=== PATIENT | male | born 1945 | race Caucasian/White ===

== ENCOUNTER 2016-10-04 12:19 | Emergency (ER) | payer MEDICARE ==
[2016-10-04 13:18] VITALS: RESP 18
[2016-10-04] MEDS ORDERED: SODIUM CHLORIDE 0.9% 1,000 ML IV ONE ×2 (13:30)
[2016-10-04 13:38] LABS: Glucose,Whole Blood 144 mg/dL (75-99)
--- NOTE | 2016-10-04 14:15 | ED ---
General Adult HPI - General Chief complaint: Altered Mental Status Stated complaint: Sent by [facility] Time Seen by Provider: 10/04/16 13:19 Source: family, RN notes reviewed, old records reviewed Mode of arrival: wheelchair Limitations: no limitations - History of Present Illness Initial comments: This is a 71-year-old male here for evaluation. Patient is a presents for evaluation of altered mental status. Patient is unable to history secondary to altered mental status. Patient's history is obtained by . Patient's been hallucinating, not answer questions were acting appropriately. No new medications, no fevers. No nausea vomiting diarrhea. - Related Data Home Medications Medication Instructions Recorded Confirmed Saw [place] 450 mg PO TID 02/05/14 10/04/16 metFORMIN HCL 500 mg PO TID 02/05/14 10/04/16 Aspirin 81 mg PO DAILY 10/04/16 10/04/16 Atorvastatin [Lipitor] 40 mg PO DAILY 10/04/16 10/04/16 Allergies Allergy/AdvReac Type Severity Reaction Status Date / Time onion Allergy Unknown Verified 10/04/16 14:15 Review of Systems ROS Statement: Those systems with pertinent positive or pertinent negative responses have been documented in the HPI. ROS Other: All systems not noted in ROS Statement are negative. Past Medical History Past Medical History: COPD, Diabetes Mellitus, Hyperlipidemia, Hypertension History of Any Multi-Drug Resistant Organisms: None Reported Additional Past Surgical History / Comment(s): Fatty tumors removed from bilateral legs. Hydrocele. Past Anesthesia/Blood Transfusion Reactions: No Reported Reaction Past Psychological History: No Psychological Hx Reported, Anxiety Smoking Status: Current every day smoker Past Alcohol Use History: None Reported - Past Family History Father Family Medical History: COPD Additional Family Medical History / Comment(s): Pt states "His dad of chronic lung disease". General Exam Limitations: no limitations General appearance: alert, in no apparent distress Head exam: Present: atraumatic, normocephalic, normal inspection Eye exam: Present: normal appearance, PERRL, EOMI. Absent: scleral icterus, conjunctival injection, periorbital swelling ENT exam: Present: normal exam, mucous membranes moist Neck exam: Present: normal inspection. Absent: tenderness, meningismus, lymphadenopathy Respiratory exam: Present: normal lung sounds bilaterally. Absent: respiratory distress, wheezes, rales, rhonchi, stridor Cardiovascular Exam: Present: regular rate, normal rhythm, normal heart sounds. Absent: systolic murmur, diastolic murmur, rubs, gallop, clicks GI/Abdominal exam: Present: soft, normal bowel sounds. Absent: distended, tenderness, guarding, rebound, rigid Extremities exam: Present: normal inspection, full ROM, normal capillary refill. Absent: tenderness, pedal edema, joint swelling, calf tenderness Back exam: Present: normal inspection Neurological exam: Present: alert, oriented X3, CN II-XII intact Psychiatric exam: Present: normal affect, normal mood Skin exam: Present: warm, dry, intact, normal color. Absent: rash Course Vital Signs 10/04/16 13:11 Temperature 97.6 F Pulse Rate 108 H Respiratory 18 Rate Blood Pressure 131/69 O2 Sat by Pulse 98 Oximetry - Reevaluation(s) Reevaluation #1: 10/04/16 14:15 Again patient remains unable to answer questions throughout, no improvement medically at this time Reevaluation #2: 10/04/16 14:15 Patient's oxygen and remains within normal rate. Normal range. No shortness of breath for patient Reevaluation #3: 10/04/16 15:50 Homicidal and suicidal thoughts or readdress the patient he denies, patient denies psychiatric issues EKG Findings - EKG Comments: EKG Findings:: EKG shows sinus tachycardia rate 106, [place] 184, QRS 1:30, QTC 467 Medical Decision Making - Medical Decision Making Family meowed ER for evaluation of altered mental status. Patient found organic cause for altered mental status likely increasing dementia, patient will be discharged home to follow up with [facility] - Lab Data Result diagrams: 10/04/16 13:56 10/04/16 13:56 Lab Results 10/04/16 10/04/16 10/04/16 Range/Units 13:37 13:56 13:56 WBC (3.8-10.6) k/uL RBC (4.30-5.90) m/uL Hgb (13.0-17.5) gm/dL Hct (39.0-53.0) % MCV (80.0-100.0) fL MCH (25.0-35.0) pg MCHC (31.0-37.0) g/dL RDW (11.5-15.5) % Plt Count (150-450) k/uL Neutrophils % % Lymphocytes % % Monocytes % % Eosinophils % % Basophils % % Neutrophils # (1.3-7.7) k/uL Lymphocytes # (1.0-4.8) k/uL Monocytes # (0-1.0) k/uL Eosinophils # (0-0.7) k/uL Basophils # (0-0.2) k/uL PT (9.0-12.0) sec INR (<1.1) APTT (22.0-30.0) sec Sodium (137-145) mmol/L Potassium (3.5-5.1) mmol/L Chloride (98-107) mmol/L Carbon Dioxide (22-30) mmol/L Anion Gap mmol/L BUN (9-20) mg/dL Creatinine (0.66-1.25) mg/dL Est GFR (MDRD) Af Amer (>60 ml/min/1.73 sqM) Est GFR (MDRD) Non-Af (>60 ml/min/1.73 sqM) Glucose (74-99) mg/dL POC Glucose (mg/dL) 144 H (75-99) mg/dL POC Glu Inspector Fuel Hose ID Alana Christopher Calcium (8.4-10.2) mg/dL Total Bilirubin (0.2-1.3) mg/dL AST (17-59) U/L ALT (21-72) U/L Alkaline Phosphatase (38-126) U/L Ammonia <9 (<30) umol/L Total Creatine Kinase 27 L (55-170) U/L CK-MB (CK-2) 1.2 (0.0-2.4) ng/mL CK-MB (CK-2) Rel Index 4.4 Troponin I <0.012 (0.000-0.034) ng/mL Total Protein (6.3-8.2) g/dL Albumin (3.5-5.0) g/dL Urine Color Urine Appearance (Clear) Urine pH (5.0-8.0) Ur Specific [place] (1.001-1.035) Urine Protein (Negative) Urine Glucose (UA) (Negative) Urine Ketones (Negative) Urine Blood (Negative) Urine Nitrite (Negative) Urine Bilirubin (Negative) Urine Urobilinogen (<2.0) mg/dL Ur Leukocyte Esterase (Negative) Urine RBC (0-5) /hpf Ur Squamous Epith Cells (0-4) /hpf Urine Bacteria (None) /hpf Hyaline Casts (0-2) /lpf Urine Mucus (None) /hpf Urine Yeast (Budding) (None) /hpf Urine Opiates Screen (NotDetected) Ur Oxycodone Screen (NotDetected) Urine Methadone Screen (NotDetected) Ur Propoxyphene Screen (NotDetected) Ur Barbiturates Screen (NotDetected) U Tricyclic Antidepress (NotDetected) Ur Phencyclidine Scrn (NotDetected) Ur Amphetamines Screen (NotDetected) U Methamphetamines Scrn (NotDetected) U Benzodiazepines Scrn (NotDetected) Urine Cocaine Screen (NotDetected) U Marijuana (THC) Screen (NotDetected) 10/04/16 10/04/16 10/04/16 Range/Units 13:56 13:56 13:56 WBC 7.7 (3.8-10.6) k/uL RBC 4.96 (4.30-5.90) m/uL Hgb 14.1 (13.0-17.5) gm/dL Hct 42.1 (39.0-53.0) % MCV 85.0 (80.0-100.0) fL MCH 28.5 (25.0-35.0) pg MCHC 33.6 (31.0-37.0) g/dL RDW 13.8 (11.5-15.5) % Plt Count 198 (150-450) k/uL Neutrophils % 76 % Lymphocytes % 16 % Monocytes % 5 % Eosinophils % 2 % Basophils % 0 % Neutrophils # 5.9 (1.3-7.7) k/uL Lymphocytes # 1.3 (1.0-4.8) k/uL Monocytes # 0.4 (0-1.0) k/uL Eosinophils # 0.1 (0-0.7) k/uL Basophils # 0.0 (0-0.2) k/uL PT 10.2 (9.0-12.0) sec INR 1.0 (<1.1) APTT 21.9 L (22.0-30.0) sec Sodium 138 (137-145) mmol/L Potassium 4.6 (3.5-5.1) mmol/L Chloride 91 L (98-107) mmol/L Carbon Dioxide 41 H* (22-30) mmol/L Anion Gap 6 mmol/L BUN 14 (9-20) mg/dL Creatinine 0.60 L (0.66-1.25) mg/dL Est GFR (MDRD) Af Amer >60 (>60 ml/min/1.73 sqM) Est GFR (MDRD) Non-Af >60 (>60 ml/min/1.73 sqM) Glucose 155 H (74-99) mg/dL POC Glucose (mg/dL) (75-99) mg/dL POC Glu Inspector Fuel Hose ID Calcium 9.5 (8.4-10.2) mg/dL Total Bilirubin 1.0 (0.2-1.3) mg/dL AST 19 (17-59) U/L ALT 25 (21-72) U/L Alkaline Phosphatase 75 (38-126) U/L Ammonia (<30) umol/L Total Creatine Kinase (55-170) U/L CK-MB (CK-2) (0.0-2.4) ng/mL CK-MB (CK-2) Rel Index Troponin I (0.000-0.034) ng/mL Total Protein 7.0 (6.3-8.2) g/dL Albumin 3.9 (3.5-5.0) g/dL Urine Color Urine Appearance (Clear) Urine pH (5.0-8.0) Ur Specific [place] (1.001-1.035) Urine Protein (Negative) Urine Glucose (UA) (Negative) Urine Ketones (Negative) Urine Blood (Negative) Urine Nitrite (Negative) Urine Bilirubin (Negative) Urine Urobilinogen (<2.0) mg/dL Ur Leukocyte Esterase (Negative) Urine RBC (0-5) /hpf Ur Squamous Epith Cells (0-4) /hpf Urine Bacteria (None) /hpf Hyaline Casts (0-2) /lpf Urine Mucus (None) /hpf Urine Yeast (Budding) (None) /hpf Urine Opiates Screen (NotDetected) Ur Oxycodone Screen (NotDetected) Urine Methadone Screen (NotDetected) Ur Propoxyphene Screen (NotDetected) Ur Barbiturates Screen (NotDetected) U Tricyclic Antidepress (NotDetected) Ur Phencyclidine Scrn (NotDetected) Ur Amphetamines Screen (NotDetected) U Methamphetamines Scrn (NotDetected) U Benzodiazepines Scrn (NotDetected) Urine Cocaine Screen (NotDetected) U Marijuana (THC) Screen (NotDetected) 10/04/16 Range/Units 14:35 WBC (3.8-10.6) k/uL RBC (4.30-5.90) m/uL Hgb (13.0-17.5) gm/dL Hct (39.0-53.0) % MCV (80.0-100.0) fL MCH (25.0-35.0) pg MCHC (31.0-37.0) g/dL RDW (11.5-15.5) % Plt Count (150-450) k/uL Neutrophils % % Lymphocytes % % Monocytes % % Eosinophils % % Basophils % % Neutrophils # (1.3-7.7) k/uL Lymphocytes # (1.0-4.8) k/uL Monocytes # (0-1.0) k/uL Eosinophils # (0-0.7) k/uL Basophils # (0-0.2) k/uL PT (9.0-12.0) sec INR (<1.1) APTT (22.0-30.0) sec Sodium (137-145) mmol/L Potassium (3.5-5.1) mmol/L Chloride (98-107) mmol/L Carbon Dioxide (22-30) mmol/L Anion Gap mmol/L BUN (9-20) mg/dL Creatinine (0.66-1.25) mg/dL Est GFR (MDRD) Af Amer (>60 ml/min/1.73 sqM) Est GFR (MDRD) Non-Af (>60 ml/min/1.73 sqM) Glucose (74-99) mg/dL POC Glucose (mg/dL) (75-99) mg/dL POC Glu Inspector Fuel Hose ID Calcium (8.4-10.2) mg/dL Total Bilirubin (0.2-1.3) mg/dL AST (17-59) U/L ALT (21-72) U/L Alkaline Phosphatase (38-126) U/L Ammonia (<30) umol/L Total Creatine Kinase (55-170) U/L CK-MB (CK-2) (0.0-2.4) ng/mL CK-MB (CK-2) Rel Index Troponin I (0.000-0.034) ng/mL Total Protein (6.3-8.2) g/dL Albumin (3.5-5.0) g/dL Urine Color Yellow Urine Appearance Turbid (Clear) Urine pH 8.5 H (5.0-8.0) Ur Specific [place] 1.015 (1.001-1.035) Urine Protein Trace H (Negative) Urine Glucose (UA) 3+ H (Negative) Urine Ketones Negative (Negative) Urine Blood Trace H (Negative) Urine Nitrite Negative (Negative) Urine Bilirubin Negative (Negative) Urine Urobilinogen 3.0 (<2.0) mg/dL Ur Leukocyte Esterase Trace H (Negative) Urine RBC 21 H (0-5) /hpf Ur Squamous Epith Cells 1 (0-4) /hpf Urine Bacteria Rare H (None) /hpf Hyaline Casts 4 H (0-2) /lpf Urine Mucus Few H (None) /hpf Urine Yeast (Budding) Many H (None) /hpf Urine Opiates Screen Not Detected (NotDetected) Ur Oxycodone Screen Not Detected (NotDetected) Urine Methadone Screen Not Detected (NotDetected) Ur Propoxyphene Screen Not Detected (NotDetected) Ur Barbiturates Screen Not Detected (NotDetected) U Tricyclic Antidepress Not Detected (NotDetected) Ur Phencyclidine Scrn Not Detected (NotDetected) Ur Amphetamines Screen Not Detected (NotDetected) U Methamphetamines Scrn Not Detected (NotDetected) U Benzodiazepines Scrn Not Detected (NotDetected) Urine Cocaine Screen Not Detected (NotDetected) U Marijuana (THC) Screen Not Detected (NotDetected) - Radiology Data Radiology results: report reviewed (CT brain is negative for acute disease), image reviewed Disposition Clinical Impression: Altered mental status, COPD exacerbation Disposition: HOME SELF-CARE Condition: Fair Instructions: Altered Mental Status (ED) Referrals: Ciro Hanna DO [Primary Care Provider] - 1-2 days
[2016-10-04 14:16] LABS: Basophils % (A) 0 %; CHCM 33.1; Eosinophils # (A) 0.1 k/uL (0-0.7); Eosinophils % (A) 2 %; HCT 42.1 % (39.0-53.0); HDW 3.04; HGB 14.1 gm/dL (13.0-17.5); Luc # (Auto) 0.09; Luc % (Auto) 1; Lymphocytes # (A) 1.3 k/uL (1.0-4.8); Lymphocytes % (A) 16 %; MCH 28.5 pg (25.0-35.0); MCHC 33.6 g/dL (31.0-37.0); Monocytes # (A) 0.4 k/uL (0-1.0); Monocytes % (A) 5 %; Neutrophils # (A) 5.9 k/uL (1.3-7.7); Neutrophils % (A) 76 %; RBC 4.96 m/uL (4.30-5.90); RDW 13.8 % (11.5-15.5); WBC 7.7 k/uL (3.8-10.6); WBC (Perox) 7.66
[2016-10-04 14:25] LABS: Partial Thromboplastin Time 21.9 sec (22.0-30.0); Prothrombin Time 10.2 sec (9.0-12.0)
[2016-10-04 14:35] LABS: ALT 25 U/L (21-72); AST 19 U/L (17-59); Alkaline Phosphatase 75 U/L (38-126); Blood Urea Nitrogen 14 mg/dL (9-20); Calcium 9.5 mg/dL (8.4-10.2); Chloride 91 mmol/L (98-107); Glucose 155 mg/dL (74-99); Non-African American GFR(MDRD) >60 (>60 ml/min/1.73 sqM); Potassium 4.6 mmol/L (3.5-5.1); Sodium 138 mmol/L (137-145)
[2016-10-04 14:37] LABS: Creatine Kinase 27 U/L (55-170)
[2016-10-04 14:48] LABS: Anion Gap 6 mmol/L
[2016-10-04 14:50] LABS: Creatine Kinase MB 1.2 ng/mL (0.0-2.4); Troponin I <0.012 ng/mL (0.000-0.034)
[2016-10-04 14:53] LABS: Carbon Dioxide 41 mmol/L (22-30)
[2016-10-04 14:53] LABS: Appearance,Urine Turbid (Clear); Bacteria,Urine Rare /hpf; Bilirubin,Urine Negative (Negative); Glucose,Urine (UA) 3+ (Negative); Ketones,Urine Negative (Negative); Leukocyte Esterase,Urine Trace (Negative); Mucus,Urine Few /hpf; Nitrite,Urine Negative (Negative); PH, Urine 8.5 (5.0-8.0); Particle Count 21348; Protein,Urine Trace (Negative); RBC,Urine 21 /hpf (0-5); Specific Gravity,Urine 1.015 (1.001-1.035); Squamous Epithelial Cell,Urine 1 /hpf (0-4); UA Billing (MACRO vs. MICRO) MICRO
--- NOTE | 2016-10-04 15:28 | CT ---
EXAMINATION TYPE: CT brain wo con DATE OF EXAM: 10/04/2016 3:23 PM COMPARISON: None. HISTORY: Patient poor historian. Patient shows signs of increasing confusion. CT DLP: 784.1 mGycm Automated exposure control for dose reduction was used. FINDINGS: Central structures are midline. There is no evidence of hydrocephalus. No acute focal lesion, mass ef fect or midline shift is seen. I do not see evidence of intracranial blood. Visualized portions of the paranasal sinuses and mastoids are clear. No depressed skull fracture is s een. IMPRESSION: NO ACUTE INTRACRANIAL ABNORMALITY.
[2016-10-04 16:05] VITALS: BP 137/95; PULSE 115; TEMP 97.7
== END 2016-10-04 16:05 | disposition home or self-care (01) ==
LOC: EC 12:19
DX: R41.82 Altered mental status, unspecified (principal); J44.1 Chronic obstructive pulmonary disease with (acute) exacerbation; E11.9 Type 2 diabetes mellitus without complications; E78.5 Hyperlipidemia, unspecified; I10 Essential (primary) hypertension; F17.200 Nicotine dependence, unspecified, uncomplicated; Z79.82 Long term (current) use of aspirin; Z79.84 Long term (current) use of oral hypoglycemic drugs; Z79.899 Other long term (current) drug therapy; Z91.048 Other nonmedicinal substance allergy status
CPT/HCPCS: 36415; 70450; 80053; 80306; 81001; 82140; 82550; 82553; 84484; 85025; 85610; 85730; 87086; 93005; 96360; 96361; 99285

== ENCOUNTER → 2017-05-17 | Outpatient (CLI) | payer OTHER ==
--- NOTE | 2017-05-17 22:36 | PE ---
EXAMINATION TYPE: PET CT fusion skull to thigh DATE OF EXAM: 05/17/2017 COMPARISON: Outside CT chest abdomen and pelvis March 31, 2017 HISTORY: Rectal cancer initial staging study after recent biopsy. TECHNIQUE: Following the intravenous administration of 14.47 mCi of F-18 FDG, whole body images are performed from the skull base to the midthigh. Images are reviewed on the computer in the coronal, a xial, and sagittal planes. Reconstructed rotating images are created on independent workstation and reviewed on the computer. A noncontrast CT is performed in conjunction with the PET scan. SCAN: Initial Scan FINDINGS: SKULL BASE AND NECK: No suspicious hypermetabolic uptake is present. CHEST, MEDIASTINUM, AND HILAR REGION: No suspicious hypermetabolic uptake is present. ABDOMEN AND PELVIS: Correlating with patient history there is mild to moderate lobulated wall thicken ing involving the posterior aspect of rectum posterior to prostate gland extending to right of midlin e on axial image 229, max SUV is 18.95 per computer. This may be inaccurate due to patient's large gerald dy habitus however. Area of involvement measures roughly 3.8 x 1.5 cm. There is additional mild to moderate diffuse hypermetabolic uptake throughout the colon most prominen t involving the transverse colon without obvious mass identified. Finding should be correlated with r ecent colonoscopy. There is nonhypermetabolic 4.8 x 2.0 cm fat dense lesion suspected eccentric colon ic lipoma axial image 145. Scattered colonic diverticula are present. No additional areas suspicious hypermetabolic uptake in the abdomen or pelvis is seen. Normal excreti on in bladder is noted. OSSEOUS STRUCTURES: No suspicious hypermetabolic uptake in osseous structures is identified. OTHER CT: There is moderate calcified plaque at bilateral carotid bulbs. There is fairly moderate emphysematous change most prominent in lung apices. There is lipomatous hypertrophy of the interarterial septum. Heart size is felt mildly enlarged. There is dependent gallstones in gallbladder axial image 150. There are adjacent small calculi mid to lower pole level right kidney near axial 168 and staghorn typ e calculus left kidney redemonstrated near axial image 162. Prostate gland is enlarged in size bulging on bladder base, underlying BPH is suspected, correlate cl inically. There is redundant sigmoid colon. There is multilevel facet arthropathy lower lumbar levels. There is multilevel spurring in the thorac olumbar spine. There is fairly moderate calcified plaque of aorta extending into branch vessels. IMPRESSION: Primary rectal carcinoma without convincing evidence for metastatic disease.
== END | disposition home or self-care (01) ==
LOC: RADPETMAIN 12:49
PROVIDERS: ATTEND Internal Medicine Hematology & Oncology
DX: C20 Malignant neoplasm of rectum (principal); Z00.00 Encounter for general adult medical examination without abnormal findings
CPT/HCPCS: 78815; A9552

== ENCOUNTER 2017-07-07 18:00 | Inpatient (IN) | payer OTHER, MEDICARE ==
--- NOTE | 2017-07-07 18:58 | ED ---
General Adult HPI - General Chief complaint: Urogenital Stated complaint: MALE Time Seen by Provider: 07/07/17 18:00 Source: patient, RN notes reviewed Mode of arrival: wheelchair Limitations: physical limitation - History of Present Illness Initial comments: This is a 72-year-old male presents emergency Department with a past medical history significant for rectal cancer. Patient states she's received radiation for that. Patient states over the last week or so he is become more edematous starting with his feet and ankles and it is moved up into his abdomen and his scrotum. Patient denies any more difficulty breathing than normal. Patient states she has a COPD or but he doesn't believe this shortness of breath is any worsening normal. states he always gets down into the 80s when he has any exertion that is his baseline. Patient denies any abdominal pain just abdominal distention. Patient states he has urinated and there has not been any blood in the urine is been no dysuria. Patient denies any nausea vomiting or diarrhea. Patient denies any back pain. Patient denies any chest pain or difficulty breathing worsen normal. Denies any recent fever chills - Related Data Home Medications Medication Instructions Recorded Confirmed Saw [place] 450 mg PO TID 02/05/14 10/04/16 metFORMIN HCL 500 mg PO TID 02/05/14 10/04/16 Aspirin 81 mg PO DAILY 10/04/16 10/04/16 Atorvastatin [Lipitor] 40 mg PO DAILY 10/04/16 10/04/16 Allergies Allergy/AdvReac Type Severity Reaction Status Date / Time onion Allergy Unknown Verified 07/07/17 18:02 Review of Systems ROS Statement: Those systems with pertinent positive or pertinent negative responses have been documented in the HPI. ROS Other: All systems not noted in ROS Statement are negative. Past Medical History Past Medical History: Cancer, COPD, Diabetes Mellitus, Hyperlipidemia, Hypertension Additional Past Medical History / Comment(s): rectal cancer History of Any Multi-Drug Resistant Organisms: None Reported Additional Past Surgical History / Comment(s): Fatty tumors removed from bilateral legs. Hydrocele. Past Anesthesia/Blood Transfusion Reactions: No Reported Reaction Past Psychological History: No Psychological Hx Reported, Anxiety Smoking Status: Current every day smoker Past Alcohol Use History: None Reported - Past Family History Father Family Medical History: COPD Additional Family Medical History / Comment(s): Pt states "His dad of chronic lung disease". General Exam - General Exam Comments Initial Comments: GENERAL: Patient is well-developed and well-nourished. Patient is nontoxic and well- hydrated and is in mild distress. ENT: Neck is soft and supple. No significant lymphadenopathy is noted. Oropharynx is clear. Moist mucous membranes. Neck has full range of motion without eliciting any pain. EYES: The sclera were anicteric and conjunctiva were pink and moist. Extraocular movements were intact and pupils were equal round and reactive to light. Eyelids were unremarkable. PULMONARY: Unlabored respirations. Good breath sounds bilaterally. No audible rales rhonchi or wheezing was noted. CARDIOVASCULAR: There is a regular rate and rhythm without any murmurs gallops or rubs. ABDOMEN: Soft and nontender with normal bowel sounds. Patient's lower abdomen has some edema and does appear distended. SKIN: Skin is clear with no lesions or rashes and otherwise unremarkable. NEUROLOGIC: Patient is alert and oriented x3. Cranial nerves II through XII are grossly intact. Motor and sensory are also intact. Normal speech, volume and content. Symmetrical smile. MUSCULOSKELETAL: Normal extremities with adequate strength and full range of motion. Patient has bilateral edema up into the abdomen. Patient's scrotum also is edematous. LYMPHATICS: No significant lymphadenopathy is noted PSYCHIATRIC: Normal psychiatric evaluation. Limitations: physical limitation Course Vital Signs 07/07/17 07/07/17 07/07/17 18:02 19:23 19:32 Temperature 97.1 F L Pulse Rate 112 H 110 H 109 H Respiratory 20 18 Rate Blood Pressure 184/85 143/69 157/74 O2 Sat by Pulse 89 L 98 97 Oximetry 07/07/17 07/07/17 20:00 21:21 Temperature Pulse Rate 115 H 111 H Respiratory 18 20 Rate Blood Pressure 144/71 140/69 O2 Sat by Pulse 98 99 Oximetry Medical Decision Making - Medical Decision Making Patient had a [place]ver catheter placed any head 3.5 L of urine out initially we did not clamp him off because that we will be keeping him and monitoring his electrolytes and his blood pressure. I spoke with Dr. Dill he is in agreement. Patient's EKG showed a indeterminate rhythm at a rate of 153 bpm IA interval is 102 QRSs 120 QT is 174 QTC is 277. EKG is of poor quality. - Lab Data Result diagrams: 07/07/17 18:58 18 18:58 Lab Results 07/07/1718 18 Range/Units 18:58 18:58 18:58 WBC 6.8 (3.8-10.6) k/uL RBC 4.21 L (4.30-5.90) m/uL Hgb 9.2 L (13.0-17.5) gm/dL Hct 33.0 L (39.0-53.0) % MCV 78.2 L (80.0-100.0) fL MCH 21.9 L (25.0-35.0) pg MCHC 28.0 L (31.0-37.0) g/dL RDW 18.1 H (11.5-15.5) % Plt Count 252 (150-450) k/uL Neutrophils % 78 % Lymphocytes % 12 % Monocytes % 6 % Eosinophils % 2 % Basophils % 1 % Neutrophils # 5.4 (1.3-7.7) k/uL Lymphocytes # 0.8 L (1.0-4.8) k/uL Monocytes # 0.4 (0-1.0) k/uL Eosinophils # 0.1 (0-0.7) k/uL Basophils # 0.0 (0-0.2) k/uL Hypochromasia Marked Anisocytosis Slight Microcytosis Slight Sodium 146 H (137-145) mmol/L Potassium 3.7 (3.5-5.1) mmol/L Chloride 93 L (98-107) mmol/L Carbon Dioxide 43 H* (22-30) mmol/L Anion Gap 10 mmol/L BUN 13 (9-20) mg/dL Creatinine 1.01 (0.66-1.25) mg/dL Est GFR (MDRD) Af Amer >60 (>60 ml/min/1.73 sqM) Est GFR (MDRD) Non-Af >60 (>60 ml/min/1.73 sqM) Glucose 139 H (74-99) mg/dL Calcium 9.0 (8.4-10.2) mg/dL Magnesium 1.5 L (1.6-2.3) mg/dL Total Bilirubin 0.3 (0.2-1.3) mg/dL AST 21 (17-59) U/L ALT 18 L (21-72) U/L Alkaline Phosphatase 67 (38-126) U/L Total Creatine Kinase (55-170) U/L CK-MB (CK-2) (0.0-2.4) ng/mL CK-MB (CK-2) Rel Index Troponin I (0.000-0.034) ng/mL NT-Pro-B Natriuret Pep 1820 pg/mL Total Protein 6.5 (6.3-8.2) g/dL Albumin 3.5 (3.5-5.0) g/dL Urine Color Urine Appearance (Clear) Urine pH (5.0-8.0) Ur Specific [place] (1.001-1.035) Urine Protein (Negative) Urine Glucose (UA) (Negative) Urine Ketones (Negative) Urine Blood (Negative) Urine Nitrite (Negative) Urine Bilirubin (Negative) Urine Urobilinogen (<2.0) mg/dL Ur Leukocyte Esterase (Negative) Urine RBC (0-5) /hpf Urine WBC (0-5) /hpf Urine Bacteria (None) /hpf 07/07/17 07/07/17 Range/Units 18:58 19:21 WBC (3.8-10.6) k/uL RBC (4.30-5.90) m/uL Hgb (13.0-17.5) gm/dL Hct (39.0-53.0) % MCV (80.0-100.0) fL MCH (25.0-35.0) pg MCHC (31.0-37.0) g/dL RDW (11.5-15.5) % Plt Count (150-450) k/uL Neutrophils % % Lymphocytes % % Monocytes % % Eosinophils % % Basophils % % Neutrophils # (1.3-7.7) k/uL Lymphocytes # (1.0-4.8) k/uL Monocytes # (0-1.0) k/uL Eosinophils # (0-0.7) k/uL Basophils # (0-0.2) k/uL Hypochromasia Anisocytosis Microcytosis Sodium (137-145) mmol/L Potassium (3.5-5.1) mmol/L Chloride (98-107) mmol/L Carbon Dioxide (22-30) mmol/L Anion Gap mmol/L BUN (9-20) mg/dL Creatinine (0.66-1.25) mg/dL Est GFR (MDRD) Af Amer (>60 ml/min/1.73 sqM) Est GFR (MDRD) Non-Af (>60 ml/min/1.73 sqM) Glucose (74-99) mg/dL Calcium (8.4-10.2) mg/dL Magnesium (1.6-2.3) mg/dL Total Bilirubin (0.2-1.3) mg/dL AST (17-59) U/L ALT (21-72) U/L Alkaline Phosphatase (38-126) U/L Total Creatine Kinase 33 L (55-170) U/L CK-MB (CK-2) 0.6 (0.0-2.4) ng/mL CK-MB (CK-2) Rel Index 1.8 Troponin I 0.014 (0.000-0.034) ng/mL NT-Pro-B Natriuret Pep pg/mL Total Protein (6.3-8.2) g/dL Albumin (3.5-5.0) g/dL Urine Color Yellow Urine Appearance Clear (Clear) Urine pH 8.0 (5.0-8.0) Ur Specific [place] 1.006 (1.001-1.035) Urine Protein Negative (Negative) Urine Glucose (UA) Negative (Negative) Urine Ketones Negative (Negative) Urine Blood Small H (Negative) Urine Nitrite Negative (Negative) Urine Bilirubin Negative (Negative) Urine Urobilinogen <2.0 (<2.0) mg/dL Ur Leukocyte Esterase Negative (Negative) Urine RBC 21 H (0-5) /hpf Urine WBC 7 H (0-5) /hpf Urine Bacteria Rare H (None) /hpf Disposition Clinical Impression: Anasarca, Urinary retention, Anemia Disposition: ADMITTED IP TO THIS [facility] Referrals: [facility] [Primary Care Provider] - 1-2 days Time of Disposition: 21:17
[2017-07-07 19:13] LABS: Anisocytosis Slight; Basophils % (A) 1 %; Eosinophils # (A) 0.1 k/uL (0-0.7); Eosinophils % (A) 2 %; HGB 9.2 gm/dL (13.0-17.5); Hypochromasia Marked; Lymphocytes # (A) 0.8 k/uL (1.0-4.8); Lymphocytes % (A) 12 %; MCH 21.9 pg (25.0-35.0); MCV 78.2 fL (80.0-100.0); Microcytosis Slight; Monocytes # (A) 0.4 k/uL (0-1.0); Monocytes % (A) 6 %; Neutrophils # (A) 5.4 k/uL (1.3-7.7); Neutrophils % (A) 78 %; Platelet Count 252 k/uL (150-450); RBC 4.21 m/uL (4.30-5.90); RDW 18.1 % (11.5-15.5); WBC 6.8 k/uL (3.8-10.6)
[2017-07-07 19:22] LABS: ALT 18 U/L (21-72); AST 21 U/L (17-59); Albumin 3.5 g/dL (3.5-5.0); Alkaline Phosphatase 67 U/L (38-126); Blood Urea Nitrogen 13 mg/dL (9-20); Chloride 93 mmol/L (98-107); Glucose 139 mg/dL (74-99); Potassium 3.7 mmol/L (3.5-5.1); Sodium 146 mmol/L (137-145); Total Bilirubin 0.3 mg/dL (0.2-1.3); Total Protein 6.5 g/dL (6.3-8.2)
[2017-07-07 19:28] LABS: Anion Gap 10 mmol/L
[2017-07-07 19:37] LABS: Carbon Dioxide 43 mmol/L (22-30)
[2017-07-07 19:43] LABS: Appearance,Urine Clear (Clear); Bacteria,Urine Rare /hpf; Bilirubin,Urine Negative (Negative); Blood,Urine Small (Negative); Color,Urine Yellow; Glucose,Urine (UA) Negative (Negative); Ketones,Urine Negative (Negative); Leukocyte Esterase,Urine Negative (Negative); Protein,Urine Negative (Negative); RBC,Urine 21 /hpf (0-5); Specific Gravity,Urine 1.006 (1.001-1.035); Urobilinogen,Urine <2.0 mg/dL (<2.0); WBC,Urine 7 /hpf (0-5)
[2017-07-07 19:46] LABS: Creatine Kinase MB 0.6 ng/mL (0.0-2.4); Troponin I 0.014 ng/mL (0.000-0.034)
--- NOTE | 2017-07-07 20:10 | XR ---
EXAMINATION TYPE: XR chest 2V DATE OF EXAM: 07/07/2017 COMPARISON: 02/09/2014 HISTORY: Difficulty breathing TECHNIQUE: Frontal and lateral views of the chest are obtained. FINDINGS: There is increased patchy density in the left upper lobe and also some more coalescent den sity in the right lower lobe. There is no gross heart failure. There is slight blunting of left costo phrenic angle. There is probably infiltrate in the left lower lobe as well. IMPRESSION: Bilateral pulmonary infiltrates with left pleural effusion. No gross heart failure. Pulm onary infiltrates are mostly new compared to last exam. Mild heart failure cannot be entirely exclude d.
[2017-07-07 21:48] LABS: Anisocytosis Slight; Basophils % (A) 0 %; Eosinophils # (A) 0.2 k/uL (0-0.7); Eosinophils % (A) 2 %; HCT 31.4 % (39.0-53.0); HGB 8.8 gm/dL (13.0-17.5); Hypochromasia Marked; Lymphocytes # (A) 0.9 k/uL (1.0-4.8); Lymphocytes % (A) 11 %; MCH 21.8 pg (25.0-35.0); MCV 77.8 fL (80.0-100.0); Mean Platelet Volume 6.2; Microcytosis Slight; Monocytes # (A) 0.5 k/uL (0-1.0); Monocytes % (A) 6 %; Neutrophils % (A) 79 %; Platelet Count 218 k/uL (150-450); RBC 4.04 m/uL (4.30-5.90); RDW 17.9 % (11.5-15.5); WBC 7.6 k/uL (3.8-10.6)
[2017-07-08] MEDS ORDERED: FUROSEMIDE 10 MG/ML 2 ML VIAL IV ONE (02:10)
[2017-07-08 03:16] VITALS: BMI 41.8
[2017-07-08] MEDS: ALPRAZolam 0.25 MG TAB PO SCH ×4 (03:29→20:42)
[2017-07-08 05:40] LABS: Anisocytosis Slight; Basophils # (A) 0.1 k/uL (0-0.2); Basophils % (A) 1 %; Eosinophils # (A) 0.1 k/uL (0-0.7); Eosinophils % (A) 3 %; HCT 30.2 % (39.0-53.0); HGB 8.5 gm/dL (13.0-17.5); Hypochromasia Marked; Lymphocytes # (A) 0.7 k/uL (1.0-4.8); Lymphocytes % (A) 13 %; MCHC 28.1 g/dL (31.0-37.0); MCV 78.4 fL (80.0-100.0); Mean Platelet Volume 6.8; Microcytosis Slight; Monocytes # (A) 0.4 k/uL (0-1.0); Monocytes % (A) 7 %; Neutrophils # (A) 4.1 k/uL (1.3-7.7); Neutrophils % (A) 76 %; Platelet Count 203 k/uL (150-450); RBC 3.85 m/uL (4.30-5.90); RDW 17.9 % (11.5-15.5); WBC 5.4 k/uL (3.8-10.6)
[2017-07-08 06:03] LABS: Glucose,Whole Blood 118 mg/dL (75-99)
[2017-07-08] MEDS: INSULIN ASPART 100 UNIT/ML 1 ML 10 ML VIAL SQ SCH ×4 (06:27→21:20)
[2017-07-08] MEDS: METOPROLOL TARTRATE 25 MG TAB PO SCH ×3 (08:02→20:43)
[2017-07-08] MEDS: ACETAMINOPHEN TAB 500 MG TAB PO SCH ×2 (08:02→20:43)
[2017-07-08 08:03] LABS: ALT 26 U/L (21-72); AST 19 U/L (17-59); Albumin 2.9 g/dL (3.5-5.0); Alkaline Phosphatase 58 U/L (38-126); Blood Urea Nitrogen 11 mg/dL (9-20); Calcium 8.7 mg/dL (8.4-10.2); Chloride 96 mmol/L (98-107); Glucose 119 mg/dL (74-99); Potassium 3.4 mmol/L (3.5-5.1); Sodium 145 mmol/L (137-145); Total Bilirubin 0.3 mg/dL (0.2-1.3); Total Protein 5.7 g/dL (6.3-8.2)
[2017-07-08 08:10] LABS: Anion Gap 3 mmol/L
[2017-07-08 08:13] LABS: Carbon Dioxide 46 mmol/L (22-30)
[2017-07-08] MEDS ORDERED: ALBUTEROL NEBULIZED 2.5 MG/3 ML INHALATION SCH (09:00)
[2017-07-08] MEDS ORDERED: ALPRAZolam 0.25 MG TAB PO SCH (09:00)
[2017-07-08] MEDS ORDERED: Magnesium Replacement Protocol 1 EACH MISC MISCELLANE PRN (09:33)
[2017-07-08] MEDS ORDERED: Potassium Replacement Protocol 1 EACH MISC MISCELLANE PRN (09:33)
[2017-07-08] MEDS: POTASSIUM CHLORIDE ER 20 MEQ TAB.ER PO SCH ×4 (10:20→18:27)
[2017-07-08] MEDS: MAGNESIUM SULFATE-D5W PMX 1 GM in DEXTROSE/WATER 1 100ML.BAG IVPB SCH ×2 (10:36→13:09)
[2017-07-08 11:17] LABS: Glucose,Whole Blood 158 mg/dL (75-99)
--- NOTE | 2017-07-08 12:34 | P.GSCN ---
History of Present Illness Consult date: 07/08/17 History of present illness: The patient is a 72-year-old gentleman who came in the hospital because of weakness, leg swelling and difficulty with urination. The patient has a relatively recent history of rectal carcinoma treated with radiation in the fall of 2016. He states ever since his rectal biopsy and radiation he has had problems urinating. In the last couple weeks he describes what it sounds like overflow urinary incontinence. He was catheterized for a 3500 mL urine residual. His creatinine was normal at 1. He was anemic at 9.2. Her asked to see the patient for urine retention. He has seen in the past. Prior to all his problems he states that he didn't have any problem with urination including infections incontinence or difficulties. Since the radiation however he has had the difficulty with urination. Review of Systems - Constitutional Reports anorexia, Reports fatigue - Respiratory Reports dyspnea - Genitourinary Reports as per HPI - Musculoskeletal bilateral: ankle swelling Past Medical History Past Medical History: Cancer, COPD, Diabetes Mellitus, Hyperlipidemia, Hypertension Additional Past Medical History / Comment(s): rectal cancer History of Any Multi-Drug Resistant Organisms: None Reported Additional Past Surgical History / Comment(s): Fatty tumors removed from bilateral legs. Hydrocele. Past Anesthesia/Blood Transfusion Reactions: No Reported Reaction Past Psychological History: No Psychological Hx Reported, Anxiety Smoking Status: Former smoker Past Alcohol Use History: None Reported - Past Family History Father Family Medical History: COPD Additional Family Medical History / Comment(s): Pt states "His dad of chronic lung disease". Medications and Allergies Home Medications Medication Instructions Recorded Confirmed Type metFORMIN HCL 500 mg PO TID 02/05/14 07/07/17 History ALPRAZolam [Xanax] 0.25 mg PO TID 07/07/17 07/07/17 History Acetaminophen [Tylenol Extra 500 mg PO BID 07/07/17 07/07/17 History Strength] Albuterol Nebulized [Ventolin 2.5 mg INHALATION BID 07/07/17 07/07/17 History Nebulized] Metoprolol Tartrate [Lopressor] 25 mg PO TID 07/07/17 07/07/17 History Allergies Allergy/AdvReac Type Severity Reaction Status Date / Time onion Allergy Unknown Verified 07/07/17 22:07 Surgical - Exam Vital Signs Temp Pulse Resp BP Pulse Ox 97.1 F L 112 H 20 184/85 89 L 07/07/17 18:02 07/07/17 18:02 07/07/17 18:02 07/07/17 18:02 07/07/17 18:02 - General moderate distress, obese - Eyes PERRL - ENT no hearing loss - Neck no masses, trachea midline - Respiratory normal expansion, normal respiratory effort - Cardiovascular Rhythm: regular - Abdomen Abdomen: soft, non tender - Genitourinary He has an indwelling catheter. He is uncircumcised. The scrotum is somewhat edematous. Rectal is deferred due to the recent radiation. - Integumentary no rash, no growths - Neurologic normal coordination, normal sensation - Musculoskeletal normal posture - Psychiatric oriented to time, oriented to person, oriented to place, speech is normal, memory intact Results - Labs 07/08/17 05:24 07/08/17 05:24 Abnormal Lab Results - Last 24 Hours (Table) 07/07/17 07/07/17 07/07/17 Range/Units 18:58 18:58 18:58 RBC 4.21 L (4.30-5.90) m/uL Hgb 9.2 L (13.0-17.5) gm/dL Hct 33.0 L (39.0-53.0) % MCV 78.2 L (80.0-100.0) fL MCH 21.9 L (25.0-35.0) pg MCHC 28.0 L (31.0-37.0) g/dL RDW 18.1 H (11.5-15.5) % Lymphocytes # 0.8 L (1.0-4.8) k/uL Sodium 146 H (137-145) mmol/L Potassium (3.5-5.1) mmol/L Chloride 93 L (98-107) mmol/L Carbon Dioxide 43 H* (22-30) mmol/L Glucose 139 H (74-99) mg/dL POC Glucose (mg/dL) (75-99) mg/dL Magnesium 1.5 L (1.6-2.3) mg/dL ALT 18 L (21-72) U/L Total Creatine Kinase 33 L (55-170) U/L Total Protein (6.3-8.2) g/dL Albumin (3.5-5.0) g/dL Urine Blood (Negative) Urine RBC (0-5) /hpf Urine WBC (0-5) /hpf Urine Bacteria (None) /hpf 07/07/17 07/07/17 07/08/17 Range/Units 19:21 21:37 05:24 RBC 4.04 L 3.85 L (4.30-5.90) m/uL Hgb 8.8 L 8.5 L (13.0-17.5) gm/dL Hct 31.4 L 30.2 L (39.0-53.0) % MCV 77.8 L 78.4 L (80.0-100.0) fL MCH 21.8 L 22.0 L (25.0-35.0) pg MCHC 28.0 L 28.1 L (31.0-37.0) g/dL RDW 17.9 H 17.9 H (11.5-15.5) % Lymphocytes # 0.9 L 0.7 L (1.0-4.8) k/uL Sodium (137-145) mmol/L Potassium (3.5-5.1) mmol/L Chloride (98-107) mmol/L Carbon Dioxide (22-30) mmol/L Glucose (74-99) mg/dL POC Glucose (mg/dL) (75-99) mg/dL Magnesium (1.6-2.3) mg/dL ALT (21-72) U/L Total Creatine Kinase (55-170) U/L Total Protein (6.3-8.2) g/dL Albumin (3.5-5.0) g/dL Urine Blood Small H (Negative) Urine RBC 21 H (0-5) /hpf Urine WBC 7 H (0-5) /hpf Urine Bacteria Rare H (None) /hpf 07/08/17 07/08/17 07/08/17 Range/Units 05:24 05:24 06:01 RBC (4.30-5.90) m/uL Hgb (13.0-17.5) gm/dL Hct (39.0-53.0) % MCV (80.0-100.0) fL MCH (25.0-35.0) pg MCHC (31.0-37.0) g/dL RDW (11.5-15.5) % Lymphocytes # (1.0-4.8) k/uL Sodium (137-145) mmol/L Potassium 3.4 L (3.5-5.1) mmol/L Chloride 96 L (98-107) mmol/L Carbon Dioxide 46 H* (22-30) mmol/L Glucose 119 H (74-99) mg/dL POC Glucose (mg/dL) 118 H (75-99) mg/dL Magnesium 1.5 L (1.6-2.3) mg/dL ALT (21-72) U/L Total Creatine Kinase (55-170) U/L Total Protein 5.7 L (6.3-8.2) g/dL Albumin 2.9 L (3.5-5.0) g/dL Urine Blood (Negative) Urine RBC (0-5) /hpf Urine WBC (0-5) /hpf Urine Bacteria (None) /hpf 07/08/17 Range/Units 11:14 RBC (4.30-5.90) m/uL Hgb (13.0-17.5) gm/dL Hct (39.0-53.0) % MCV (80.0-100.0) fL MCH (25.0-35.0) pg MCHC (31.0-37.0) g/dL RDW (11.5-15.5) % Lymphocytes # (1.0-4.8) k/uL Sodium (137-145) mmol/L Potassium (3.5-5.1) mmol/L Chloride (98-107) mmol/L Carbon Dioxide (22-30) mmol/L Glucose (74-99) mg/dL POC Glucose (mg/dL) 158 H (75-99) mg/dL Magnesium (1.6-2.3) mg/dL ALT (21-72) U/L Total Creatine Kinase (55-170) U/L Total Protein (6.3-8.2) g/dL Albumin (3.5-5.0) g/dL Urine Blood (Negative) Urine RBC (0-5) /hpf Urine WBC (0-5) /hpf Urine Bacteria (None) /hpf Diabetes panel 07/07/17 07/08/17 Range/Units 18:58 05:24 Sodium 146 H 145 (137-145) mmol/L Potassium 3.7 3.4 L (3.5-5.1) mmol/L Chloride 93 L 96 L (98-107) mmol/L Carbon Dioxide 43 H* 46 H* (22-30) mmol/L BUN 13 11 (9-20) mg/dL Creatinine 1.01 0.80 (0.66-1.25) mg/dL Glucose 139 H 119 H (74-99) mg/dL Calcium 9.0 8.7 (8.4-10.2) mg/dL AST 21 19 (17-59) U/L ALT 18 L 26 (21-72) U/L Alkaline Phosphatase 67 58 (38-126) U/L Total Protein 6.5 5.7 L (6.3-8.2) g/dL Albumin 3.5 2.9 L (3.5-5.0) g/dL Calcium panel 07/07/17 07/08/17 Range/Units 18:58 05:24 Calcium 9.0 8.7 (8.4-10.2) mg/dL Albumin 3.5 2.9 L (3.5-5.0) g/dL Pituitary panel 07/07/17 07/08/17 Range/Units 18:58 05:24 Sodium 146 H 145 (137-145) mmol/L Potassium 3.7 3.4 L (3.5-5.1) mmol/L Chloride 93 L 96 L (98-107) mmol/L Carbon Dioxide 43 H* 46 H* (22-30) mmol/L BUN 13 11 (9-20) mg/dL Creatinine 1.01 0.80 (0.66-1.25) mg/dL Glucose 139 H 119 H (74-99) mg/dL Calcium 9.0 8.7 (8.4-10.2) mg/dL Adrenal panel 07/07/17 07/08/17 Range/Units 18:58 05:24 Sodium 146 H 145 (137-145) mmol/L Potassium 3.7 3.4 L (3.5-5.1) mmol/L Chloride 93 L 96 L (98-107) mmol/L Carbon Dioxide 43 H* 46 H* (22-30) mmol/L BUN 13 11 (9-20) mg/dL Creatinine 1.01 0.80 (0.66-1.25) mg/dL Glucose 139 H 119 H (74-99) mg/dL Calcium 9.0 8.7 (8.4-10.2) mg/dL Total Bilirubin 0.3 0.3 (0.2-1.3) mg/dL AST 21 19 (17-59) U/L ALT 18 L 26 (21-72) U/L Alkaline Phosphatase 67 58 (38-126) U/L Total Protein 6.5 5.7 L (6.3-8.2) g/dL Albumin 3.5 2.9 L (3.5-5.0) g/dL Assessment and Plan Assessment: Impression: Rectal carcinoma status post radiation therapy. Weakness and edema. Urine retention with overflow incontinence. Recommendations the stomach history of overflow incontinence, and normal creatinine at 1 and over 3-1/2 L in the bladder I suspect that this is a chronic rather than acute problem. He will need his lower urinary tract evaluated however given that large volume of retention regardless of outlet obstruction his bladder will not function adequately for spontaneous voiding for some time if Everard I'll again. He will need cystoscopy and CMG in the future however at present I would leave indwelling catheter due to his medical conditions and then he'll be followed in the office for further testing. I will notify of his admission.
--- NOTE | 2017-07-08 13:43 | P.CNPUL ---
History of Present Illness Consult date: 07/08/17 Reason for consult: abnormal CXR/CT Chief complaint: Fluid overload/edema History of present illness: Consult dated 07/08/2017 This is a 72-year-old male who looks much older than his stated age apparently presented to the emergency department with complaints of lower extremity edema. It seems to be affecting primarily his feet and ankles and legs. His been going on for at least a week or so maybe longer. Ended in addition, he apparently was recently diagnosed with rectal carcinoma and undergoes radiation therapy for that. He does admit to some shortness of breath but it's pretty much at baseline. Chest x-ray shows fluid overload. He is wearing oxygen therapy. He is wearing his mouth as opposed to his nose. He denies any chest pain or chest discomfort. States these have significant abdominal distention and discomfort. Denies any fever chills. No nausea vomiting or diarrhea. No chest pain or chest pressure. No palpitations. He seems to make a little of fish shortness of breath and states it is pretty much at baseline. He looks like he has some conversational dyspnea in talking to him. Review of Systems A 12 point review of system is positive for edema of the lower extremities as well as some ascites and abdominal distention as well as fluid overload in the chest. Past Medical History Past Medical History: Cancer, COPD, Diabetes Mellitus, Hyperlipidemia, Hypertension Additional Past Medical History / Comment(s): rectal cancer History of Any Multi-Drug Resistant Organisms: None Reported Additional Past Surgical History / Comment(s): Fatty tumors removed from bilateral legs. Hydrocele. Past Anesthesia/Blood Transfusion Reactions: No Reported Reaction Past Psychological History: No Psychological Hx Reported, Anxiety Smoking Status: Former smoker Past Alcohol Use History: None Reported - Past Family History Father Family Medical History: COPD Additional Family Medical History / Comment(s): Pt states "His dad of chronic lung disease". Medications and Allergies Home Medications Medication Instructions Recorded Confirmed Type metFORMIN HCL 500 mg PO TID 02/05/14 07/07/17 History ALPRAZolam [Xanax] 0.25 mg PO TID 07/07/17 07/07/17 History Acetaminophen [Tylenol Extra 500 mg PO BID 07/07/17 07/07/17 History Strength] Albuterol Nebulized [Ventolin 2.5 mg INHALATION BID 07/07/17 07/07/17 History Nebulized] Metoprolol Tartrate [Lopressor] 25 mg PO TID 07/07/17 07/07/17 History Allergies Allergy/AdvReac Type Severity Reaction Status Date / Time onion Allergy Unknown Verified 07/07/17 22:07 Physical Exam Osteopathic Statement: *. No significant issues noted on an osteopathic structural exam other than those noted in the History and Physical/Consult. Vitals: Vital Signs Temp Pulse Pulse Resp BP BP Pulse Ox 07/08/17 11:01 97.6 F 93 16 104/58 99 07/08/17 08:00 97.3 F L 115 H 26 H 131/66 90 L 07/08/17 07:37 108 H 07/08/17 07:27 109 H 07/08/17 04:00 109 H 14 07/08/17 03:40 109 H 14 133/63 97 07/08/17 00:30 107 H 16 150/73 97 07/07/17 23:58 106 H 16 146/61 99 07/07/17 23:16 108 H 17 155/67 98 07/07/17 22:16 120 H 17 158/70 98 07/07/17 21:21 111 H 20 140/69 99 07/07/17 20:00 115 H 18 144/71 98 07/07/17 19:32 109 H 18 157/74 97 07/07/17 19:23 110 H 143/69 98 07/07/17 18:02 97.1 F L 112 H 20 184/85 89 L Intake and Output 07/07/17 07/08/17 07/08/17 22:59 06:59 14:59 Intake Total 240 Output Total 3450 7899 2350 Balance -3450 -7899 -2110 Intake: Oral 240 Output: Urine 3450 5200 2350 Uretheral (Grover) 3450 Post Void Residual 2699 Other: Voiding Method Self-Catheterization Self-Catheterization Indwelling Catheter Weight 132.449 kg Mild distress. Mild conversational dyspnea. Oxygen in place. Oriented 3. HEENT examination is grossly unremarkable. Mucous membranes are moist. No oral lesions. Neck supple. Full range of motion. No adenopathy or thyromegaly. I don't see any neck vein distention Heart and vascular examination reveals distant heart sounds. Heart rate about 90. Is regular. S1-S2 normal. Lungs reveal some bibasilar crackles. This some diffuse scattered rhonchi. Breath sounds are diminished throughout. Abdomen is obese. His probably a fluid wave and ascites. No masses. Soft. No tenderness on palpation Lower extremities reveal significant edema. This are some chronic venous stasis changes. There is pitting. Skin without rash. Neurologic examination is brief but nonfocal. Results - Laboratory Findings CBC and BMP: 07/08/17 05:24 07/08/17 05:24 Abnormal lab findings: Abnormal Labs 07/07/17 07/07/17 07/07/17 18:58 18:58 18:58 RBC 4.21 L Hgb 9.2 L Hct 33.0 L MCV 78.2 L MCH 21.9 L MCHC 28.0 L RDW 18.1 H Lymphocytes # 0.8 L Sodium 146 H Potassium Chloride 93 L Carbon Dioxide 43 H* Glucose 139 H POC Glucose (mg/dL) Magnesium 1.5 L ALT 18 L Total Creatine Kinase 33 L Total Protein Albumin Urine Blood Urine RBC Urine WBC Urine Bacteria 07/07/17 07/07/17 07/08/17 19:21 21:37 05:24 RBC 4.04 L 3.85 L Hgb 8.8 L 8.5 L Hct 31.4 L 30.2 L MCV 77.8 L 78.4 L MCH 21.8 L 22.0 L MCHC 28.0 L 28.1 L RDW 17.9 H 17.9 H Lymphocytes # 0.9 L 0.7 L Sodium Potassium Chloride Carbon Dioxide Glucose POC Glucose (mg/dL) Magnesium ALT Total Creatine Kinase Total Protein Albumin Urine Blood Small H Urine RBC 21 H Urine WBC 7 H Urine Bacteria Rare H 07/08/17 07/08/17 07/08/17 05:24 05:24 06:01 RBC Hgb Hct MCV MCH MCHC RDW Lymphocytes # Sodium Potassium 3.4 L Chloride 96 L Carbon Dioxide 46 H* Glucose 119 H POC Glucose (mg/dL) 118 H Magnesium 1.5 L ALT Total Creatine Kinase Total Protein 5.7 L Albumin 2.9 L Urine Blood Urine RBC Urine WBC Urine Bacteria 07/08/17 11:14 RBC Hgb Hct MCV MCH MCHC RDW Lymphocytes # Sodium Potassium Chloride Carbon Dioxide Glucose POC Glucose (mg/dL) 158 H Magnesium ALT Total Creatine Kinase Total Protein Albumin Urine Blood Urine RBC Urine WBC Urine Bacteria - Diagnostic Findings Chest x-ray: image reviewed (Labs x-rays a medications are all reviewed.) Assessment and Plan Assessment: Assessment Rectal carcinoma, status post radiation therapy. History of tobacco use, rule out COPD History of diabetes mellitus Hyperlipidemia Hypertension Significant lower extremity edema along with ascites Fluid overload with anasarca Plan: Plan dated 07/08/2017 The patient's medications labs and x-rays all reviewed. We'll make the necessary adjustments or changes to the medications. Obviously the patient would benefit some diuretics. We'll continue to follow. Prognosis is guarded. He looks very sickly. CODE STATUS should be addressed. Additional recommendations and suggestions are forthcoming. Chest x-ray my opinion shows evidence of fluid overload. There is cephalization and small bilateral pleural effusions. Time with Patient: Greater than 30
[2017-07-08] MEDS ORDERED: IPRATROPIUM-ALBUTEROL 3 ML NEB INHALATION PRN (13:44)
[2017-07-08] MEDS: FUROSEMIDE 10 MG/ML 4 ML VIAL IV SCH ×2 (15:04→23:14)
[2017-07-08] MEDS: IPRATROPIUM-ALBUTEROL 3 ML NEB INHALATION SCH ×2 (15:35→20:45)
[2017-07-08 16:28] LABS: Glucose,Whole Blood 131 mg/dL (75-99)
[2017-07-08 16:52] LABS: Blood Urea Nitrogen 11 mg/dL (9-20); Calcium 9.3 mg/dL (8.4-10.2); Chloride 93 mmol/L (98-107); Glucose 143 mg/dL (74-99); Potassium 3.5 mmol/L (3.5-5.1); Sodium 144 mmol/L (137-145)
[2017-07-08 16:58] LABS: Anion Gap 6 mmol/L
[2017-07-08 17:02] LABS: Carbon Dioxide 45 mmol/L (22-30)
--- NOTE | 2017-07-08 20:20 | HP ---
HISTORY AND PHYSICAL CHIEF COMPLAINTS: Generalized anasarca and swelling. HISTORY OF PRESENT ILLNESS: This 72-year-old gentleman with a past medical history of multiple medical problems being followed by [facility], had a history of COPD, history of diabetes, hypertension, hyperlipidemia, history of rectal cancer, history of anxiety. The patient is complaining of bilateral leg swelling as well as significant generalized edema involving the lower abdomen and scrotum also. The patient developed difficulty breathing also. Patient came to [facility] and admitted to the hospital for further evaluation and treatment. The pulse ox is 87 . PAST MEDICAL HISTORY: COPD, diabetes, hypertension, hyperlipidemia, history of lung cancer. MEDICATIONS: Prior to admission include home medications are: 1. Albuterol 2.5 b.i.d. 2. Tylenol Extra strength 500 mg p.o. daily. 3. Xanax 0.5 t.i.d. 4. Lopressor 25 mg b.i.d. 5. Metformin 500 mg p.o. t.i.d. ALLERGIES: ONION. FAMILY HISTORY: History family history of COPD in the family. SOCIAL HISTORY: Previous history of smoking. No history of current smoking, no history of alcohol intake. REVIEW OF SYSTEMS: ENT: No diminished hearing or vision. CARDIOVASCULAR: No angina or palpitations. Respirations: As mentioned earlier. GI: As mentioned earlier. no dysuria. Central nervous system: No numbness or weakness. Allergy/ Immunology: No asthma or hayfever. Musculoskeletal: As mentioned earlier. Hematology/ Oncology: No history of anemia. Endocrine: As mentioned earlier. Constitutional: As mentioned earlier. Rheumatology: Negative. Dermatology: Negative. Psychiatric: As mentioned earlier. PHYSICAL EXAMINATION: GENERAL: The patient is alert and oriented times three. Pulse 104, blood pressure 120/60, respirations 18, temperature 100.1, pulse ox 90% with 2 L nasal cannula. HEENT: Conjunctivae normal. NECK: No jugular venous distention. No carotid bruit. Cardiovascular: S1, S2 muffled. RESPIRATORY: Breath sounds diminished in the bases. A few scattered rhonchi and crackles. Legs: Bilateral leg edema. ABDOMEN: Soft. Mild diffuse distention present. Nervous system: Higher functions as mentioned earlier. Moves all four limbs. No focal deficits. Lymphatics: No lymph nodes palpable in the neck, axillae or groin. SKIN: No ulcers, rash or bleeding. LAB STUDIES: WBC 5.1, hemoglobin is 8.5, sodium 140, potassium 3.9. Accu-Cheks noted. ASSESSMENT: 1. Generalized anasarca for evaluation. 2. Possible chronic obstructive pulmonary disease acute exacerbation. 3. Increased sodium. 4. Anemia normocytic anemia of chronic disease. 5. Chronic obstructive pulmonary disease. 6. Diabetes type 2. 7. Hypertension. 8. Hyperlipidemia. 9. History of rectal cancer. 10.History of fatty liver removal. 11.History of anxiety. RECOMMENDATIONS AND DISCUSSION: In this 72-year-old gentleman who presented with multiple complex medical issues. We will monitor the patient closely. Continue the current medications, management and symptomatic treatment. Otherwise closely follow with Cardiology and continue the diuretics and monitor fluid and electrolytes balance closely. Resume the home medications. DVT prophylaxis. Guarded prognosis. Further recommendations to follow. Bronchodilators. MMFREDDIEL / SUYAPAN: [id number] / MTDD
[2017-07-08] MEDS: metFORMIN 500 MG TAB PO SCH (20:42)
[2017-07-08] MEDS: SYMBICORT 160-4.5 MCG INHALER INHALATION SCH (20:45)
[2017-07-08 21:02] LABS: Glucose,Whole Blood 154 mg/dL (75-99)
[2017-07-09 05:53] LABS: Glucose,Whole Blood 140 mg/dL (75-99)
[2017-07-09] MEDS: INSULIN ASPART 100 UNIT/ML 1 ML 10 ML VIAL SQ SCH ×4 (05:56→21:16)
[2017-07-09 06:30] LABS: Blood Urea Nitrogen 12 mg/dL (9-20); Calcium 8.8 mg/dL (8.4-10.2); Chloride 93 mmol/L (98-107); Glucose 131 mg/dL (74-99); Potassium 3.5 mmol/L (3.5-5.1); Sodium 142 mmol/L (137-145)
[2017-07-09 06:37] LABS: Anion Gap 4 mmol/L
[2017-07-09 06:43] LABS: Carbon Dioxide 45 mmol/L (22-30)
[2017-07-09] MEDS: IPRATROPIUM-ALBUTEROL 3 ML NEB INHALATION SCH ×4 (08:15→19:21)
[2017-07-09] MEDS: SYMBICORT 160-4.5 MCG INHALER INHALATION SCH ×2 (08:26→19:21)
[2017-07-09] MEDS: FUROSEMIDE 10 MG/ML 4 ML VIAL IV SCH ×3 (08:50→23:25)
[2017-07-09] MEDS: METOPROLOL TARTRATE 25 MG TAB PO SCH ×3 (08:51→21:16)
[2017-07-09] MEDS: metFORMIN 500 MG TAB PO SCH ×3 (08:51→21:16)
[2017-07-09] MEDS: ACETAMINOPHEN TAB 500 MG TAB PO SCH ×2 (08:55→21:15)
[2017-07-09] MEDS: ALPRAZolam 0.25 MG TAB PO SCH ×3 (08:55→21:15)
[2017-07-09 12:04] LABS: Glucose,Whole Blood 215 mg/dL (75-99)
--- NOTE | 2017-07-09 14:49 | P.PN ---
Subjective Progress Note Date: 07/09/17 Principal diagnosis: Rectal carcinoma, status post radiation therapy. Anasarca, bilateral pulmonary infiltrates with left pleural effusion, suspect cor pulmonale Consult dated 07/08/2017 This is a 72-year-old male who looks much older than his stated age apparently presented to the emergency department with complaints of lower extremity edema. It seems to be affecting primarily his feet and ankles and legs. His been going on for at least a week or so maybe longer. Ended in addition, he apparently was recently diagnosed with rectal carcinoma and undergoes radiation therapy for that. He does admit to some shortness of breath but it's pretty much at baseline. Chest x-ray shows fluid overload. He is wearing oxygen therapy. He is wearing his mouth as opposed to his nose. He denies any chest pain or chest discomfort. States these have significant abdominal distention and discomfort. Denies any fever chills. No nausea vomiting or diarrhea. No chest pain or chest pressure. No palpitations. He seems to make a little of fish shortness of breath and states it is pretty much at baseline. He looks like he has some conversational dyspnea in talking to him. On 07/09/2017 patient seen in follow-up on selective care unit. Yesterday he was started on IV diuretics for his symptoms of anasarca, extensive severe generalized upper and lower extremity edema, abdominal wall edema and left pleural effusion. Patient had a significant diuresis, he is in -6655 mL fluid balance over the last 24 hours, his weight is down by at least 9 kg over the last 24 hours. Patient and his reports improvement in his breathing, was able to have his oxygen during meals. Patient usually wears his nasal cannula in his mouth due to nasal septum fractures in the past. Lung sounds remain very diminished, no crackles noted. There is improvement in the appearance of bilateral lower extremity edema, and overall anasarca. Patient had a 2-D echocardiogram today, the results are pending. Lab work was reviewed, his sodium is 142, potassium is 3.5, carbon dioxide is 45, BUN is 12, creatinine is 0.91. We will obtain a repeat chest x-ray in the morning. Continue with present plan of treatment at this time. Objective - Vital Signs Vital signs: Vital Signs Temp 99.1 F 07/09/17 08:00 Pulse 96 07/09/17 11:45 Resp 16 07/09/17 11:36 BP 95/55 07/09/17 11:34 Pulse Ox 98 07/09/17 11:34 Intake & Output 07/08/17 07/09/17 07/09/17 18:59 06:59 18:59 Intake Total 720 360 Output Total 5250 2125 1000 Balance -4530 -2125 -640 Weight 123.1 kg Intake: Oral 720 360 Output: Urine 5250 2125 1000 Uretheral (Grover) 700 Other: Voiding Method Indwelling Catheter Indwelling Catheter Indwelling Catheter - Exam Awake, alert, 72-year-old obese white male, with O2 nasal cannula in his mouth, in no acute distress, resting in bed HEENT examination is grossly unremarkable. Mucous membranes are moist. No oral lesions. Neck supple. Full range of motion. No adenopathy or thyromegaly. I don't see any neck vein distention Heart and vascular examination reveals distant heart sounds. Heart rate about 90. Is regular. S1-S2 normal. Lungs reveal: Breath sounds are diminished throughout. Abdomen is obese. His probably a fluid wave and ascites. No masses. Soft. No tenderness on palpation Lower extremities reveal significant edema, improved from yesterday's exam. This are some chronic venous stasis changes. There is pitting. Skin without rash. Neurologic examination is brief but nonfocal. - Labs CBC & Chem 7: 07/08/17 05:24 07/09/17 05:43 Labs: Abnormal Lab Results - Last 24 Hours (Table) 07/08/17 07/08/17 07/08/17 Range/Units 16:01 16:24 21:00 Chloride 93 L (98-107) mmol/L Carbon Dioxide 45 H* (22-30) mmol/L Glucose 143 H (74-99) mg/dL POC Glucose (mg/dL) 131 H 154 H (75-99) mg/dL Magnesium (1.6-2.3) mg/dL 07/09/17 07/09/17 07/09/17 Range/Units 05:43 05:49 11:43 Chloride 93 L (98-107) mmol/L Carbon Dioxide 45 H* (22-30) mmol/L Glucose 131 H (74-99) mg/dL POC Glucose (mg/dL) 140 H 215 H (75-99) mg/dL Magnesium 1.5 L (1.6-2.3) mg/dL Microbiology - Last 24 Hours (Table) 07/08/17 17:18 Urine Culture - Preliminary Urine,Catheterized Assessment and Plan Plan: Assessment: #1. Acute hypoxic respiratory failure related to pleural effusions, fluid overload, possibly CHF, unspecified #2. Suspect cor pulmonale with significant anasarca and peripheral edema #3. Chronic hypercapnic respiratory failure secondary to COPD #4. Suspect hypoventilation syndrome #5. Obesity #6. Rectal carcinoma, status post radiation therapy #7. History of diabetes mellitus #8. Hyperlipidemia, hypertension #9. Urinary retention with overflow incontinence Plan: Continue diuretics, we will obtain a repeat chest x-ray in the morning. Continue Symbicort, DuoNeb. No wheezing noted. Patient reports improvement in his breathing. Suspect cor pulmonale and hypoventilation syndrome. Will await the results of the echo cardiogram. Repeat blood work in the morning, we'll cut down the IV Lasix starting tomorrow. Monitor electrolytes and renal profile. Further recommendations to follow. I performed a history & physical examination of the patient and discussed their management with my nurse practitioner, Savi Cueto. I reviewed the nurse practitioner's note and agree with the documented findings and plan of care. Lung sounds are diminished. The findings and the impression was discussed with the patient. I attest to the documentation by the nurse practitioner. Time with Patient: Less than 30
[2017-07-09 16:33] LABS: Glucose,Whole Blood 184 mg/dL (75-99)
--- NOTE | 2017-07-09 18:27 | PN ---
PROGRESS NOTE DATE OF SERVICE: 07/09/2017. HISTORY: This 72-year-old gentleman with a past medical history of multiple medical problems including rectal cancer with radiation, was admitted with generalized, weakness, anasarca. The patient is being evaluated with multiple along with multiple consultants. Pulmonary has seen the patient and is following the patient closely. No chest pain. No palpitations. No fever. PAST MEDICAL HISTORY: Reviewed. REVIEW OF SYSTEMS: CARDIOVASCULAR: No angina, RESPIRATORY: As mentioned. GI: As mentioned earlier. : As mentioned earlier. CURRENT MEDICATIONS: Reviewed and include: 1. Tylenol 500 mg p.o. b.i.d. 2. DuoNeb q.i.d. and p.r.n. 3. Xanax 0.5 t.i.d. 4. Symbicort 12.5 two puffs b.i.d. 5. Lasix 40 mg IV daily. 6. Maalox. 7. Glucophage 500 mg p.o. t.i.d. 8. Lopressor 25 mg p.o. t.i.d. 9. Replacement protocol. PHYSICAL EXAMINATION: Alert, oriented x3. Pulse 94, blood pressure 90/52, respirations 16, temp is normal, pulse ox 98% 2 L. HEENT: Conjunctivae normal. Oral mucosa moist. NECK: No jugular venous distention. No lymph node enlargement. CARDIOVASCULAR: S1 and S2 muffled. LUNGS: Breath sounds diminished at the bases. Few scattered rhonchi and crackles. Expiratory wheezing also present. ABDOMEN: Soft, nontender. LEGS: No edema. NERVOUS SYSTEM: No focal deficits. LABS: WBC 5.2, hemoglobin is 8.4, sodium 140 potassium 3.5, albumin is 2.9. ASSESSMENT: 1. Generalized anasarca for evaluation, rule out congestive heart failure. 2. Possible chronic obstructive pulmonary disease acute exacerbation. 3. Increased sodium. 4. Anemia, normocytic anemia of chronic disease. 5. Chronic obstructive pulmonary disease. 6. Diabetes type 2. 7. Hypertension. 8. Hyperlipidemia. 9. History of rectal cancer. 10.History of fatty tumor removed from leg. 11.History of anxiety. 12.History of fatty liver. RECOMMENDATIONS: Continue current management and symptomatic treatment. Continue diuretics. A 2-D echo with Doppler. Bronchodilators. Cardiology consultation. I would also recommend Cardiology consultation as well. Otherwise prognosis guarded because of multiple complex medical issues. Further recommendations to follow. See orders for further details. MMODL / IJN: [id number] /
[2017-07-09 20:27] LABS: Glucose,Whole Blood 174 mg/dL (75-99)
[2017-07-09] MEDS ORDERED: Potassium Replacement Protocol 1 EACH MISC MISCELLANE PRN (21:05)
[2017-07-09] MEDS ORDERED: Magnesium Replacement Protocol 1 EACH MISC MISCELLANE PRN (21:05)
[2017-07-09] MEDS: POTASSIUM CHLORIDE ER 20 MEQ TAB.ER PO SCH ×3 (21:20→23:25)
[2017-07-09] MEDS: MAGNESIUM SULFATE-D5W PMX 1 GM in DEXTROSE/WATER 1 100ML.BAG IVPB SCH ×2 (21:40→23:25)
[2017-07-10 05:58] LABS: Glucose,Whole Blood 128 mg/dL (75-99)
[2017-07-10] MEDS: INSULIN ASPART 100 UNIT/ML 1 ML 10 ML VIAL SQ SCH ×4 (06:10→22:15)
[2017-07-10 06:51] LABS: Blood Urea Nitrogen 16 mg/dL (9-20); Calcium 8.6 mg/dL (8.4-10.2); Chloride 91 mmol/L (98-107); Glucose 131 mg/dL (74-99); Potassium 3.6 mmol/L (3.5-5.1); Sodium 140 mmol/L (137-145)
[2017-07-10 06:59] LABS: Anion Gap 5 mmol/L
[2017-07-10 07:01] LABS: Carbon Dioxide 44 mmol/L (22-30)
[2017-07-10] MEDS: IPRATROPIUM-ALBUTEROL 3 ML NEB INHALATION SCH ×4 (07:50→20:33)
[2017-07-10] MEDS: SYMBICORT 160-4.5 MCG INHALER INHALATION SCH ×2 (07:50→20:33)
--- NOTE | 2017-07-10 08:13 | XR ---
EXAMINATION TYPE: XR chest 2V DATE OF EXAM: 07/10/2017 COMPARISON: 07/07/2017 HISTORY: Shortness of breath TECHNIQUE: Frontal and lateral views of the chest are obtained. FINDINGS: Scattered senescent parenchymal changes noted. Hyperinflation compatible with COPD. Persistent right lower lobe infiltrate. Persistent pleural-parenchymal opacity left lateral lung base . Heart size is stable. Mediastinal structures are stable and grossly unremarkable. No evidence for hilar prominence. Degenerative changes dorsal spine. IMPRESSION: 1. Stable chest.
[2017-07-10] MEDS: FUROSEMIDE 10 MG/ML 4 ML VIAL IV SCH ×2 (09:00→22:15)
[2017-07-10] MEDS: METOPROLOL TARTRATE 25 MG TAB PO SCH ×3 (09:01→22:16)
[2017-07-10] MEDS: POTASSIUM CHLORIDE ER 20 MEQ TAB.ER PO SCH ×2 (09:01→22:15)
[2017-07-10] MEDS: metFORMIN 500 MG TAB PO SCH ×3 (09:01→22:15)
[2017-07-10] MEDS: ACETAMINOPHEN TAB 500 MG TAB PO SCH ×2 (09:03→22:14)
[2017-07-10] MEDS: ALPRAZolam 0.25 MG TAB PO SCH ×3 (09:04→22:14)
[2017-07-10 11:21] LABS: Glucose,Whole Blood 171 mg/dL (75-99)
--- NOTE | 2017-07-10 11:55 | P.PN ---
Subjective Progress Note Date: 07/10/17 Principal diagnosis: Lower extremity edema, anasarca Progress note dated 07/10/2017 This is a 72-year-old male with a history of lower extremity edema and anasarca. He also had significant abdominal distention with ascites. He also had small left-sided pleural effusion. Today he seemed be doing relatively well. He had significant diuresis in the last 24 hours or so. The patient's lower extremity edema is much improved. Still having some ascites as well. Chest x-ray stable though. His breathing is much improved. The patient still on oxygen therapy. He does feel less short of breath. Objective - Vital Signs Vital signs: Vital Signs Temp 97.3 F L 07/10/17 08:00 Pulse 84 07/10/17 11:28 Resp 16 07/10/17 11:40 BP 110/53 07/10/17 08:00 Pulse Ox 95 07/10/17 08:00 Intake & Output 07/09/17 07/10/17 07/10/17 18:59 06:59 18:59 Intake Total 360 240 Output Total 2600 2600 Balance -2240 -2600 240 Weight 120.4 kg Intake: Oral 360 240 Output: Urine 2600 2600 Other: Voiding Method Indwelling Catheter Indwelling Catheter Indwelling Catheter # Voids 1 - Exam No acute distress, oriented 3. The patient's on nasal O2. HEENT examination is grossly unremarkable. Mucous membranes are moist. No oral lesions. Neck supple. Full range of motion. No adenopathy thyromegaly or neck vein distention. Cardiovascular examination reveals regular rhythm rate. S1-S2 normal. No S3 or S4. No discernible murmur noted. Lungs reveal clear breath sounds. Her sounds are equal bilaterally. No adventitious lung sounds including wheezes rhonchi or crackles. Abdomen reveals distention. There may be ascites. Bowel sounds are heard. No masses or tenderness. Extremities are intact. Lower extremity edema is much improved. Skin is without rash or lesion. Neurologic examination is brief but nonfocal. - Labs CBC & Chem 7: 07/08/17 05:24 07/10/17 05:54 Labs: Abnormal Lab Results - Last 24 Hours (Table) 07/09/17 07/09/17 07/09/17 Range/Units 11:43 16:28 20:25 Chloride (98-107) mmol/L Carbon Dioxide (22-30) mmol/L Glucose (74-99) mg/dL POC Glucose (mg/dL) 215 H 184 H 174 H (75-99) mg/dL 07/10/17 07/10/17 07/10/17 Range/Units 05:54 05:54 11:19 Chloride 91 L (98-107) mmol/L Carbon Dioxide 44 H* (22-30) mmol/L Glucose 131 H (74-99) mg/dL POC Glucose (mg/dL) 128 H 171 H (75-99) mg/dL Microbiology - Last 24 Hours (Table) 07/08/17 17:18 Urine Culture - Final Urine,Catheterized 07/08/17 17:33 Blood Culture - Preliminary Blood No Growth after 24 hours Assessment and Plan Assessment: Assessment Rectal carcinoma, status post radiation therapy. History of tobacco use, rule out COPD History of diabetes mellitus Hyperlipidemia Hypertension Significant lower extremity edema along with ascites Fluid overload with anasarca Plan: Plan dated 07/08/2017 The patient's medications labs and x-rays all reviewed. We'll make the necessary adjustments or changes to the medications. Obviously the patient would benefit some diuretics. We'll continue to follow. Prognosis is guarded. He looks very sickly. CODE STATUS should be addressed. Additional recommendations and suggestions are forthcoming. Chest x-ray my opinion shows evidence of fluid overload. There is cephalization and small bilateral pleural effusions. Plan dated 07/10/2017 The patient some medications labs and x-rays are all reviewed. The patient's chest x-ray looks improved in my opinion. Small effusion has resolved. In addition, his lower extremities edema is much improved. He still has some abdominal distention and may be some ascites. The CODE STATUS was addressed. He is now a no code. I'll look at the labs and medications. Additional recommendations and suggestions are forthcoming. Overall prognosis remains relatively poor. He remains oxygen dependent. Time with Patient: Less than 30
[2017-07-10] MEDS: MAGNESIUM SULFATE-D5W PMX 1 GM in DEXTROSE/WATER 1 100ML.BAG IVPB SCH ×2 (12:05→14:22)
--- NOTE | 2017-07-10 12:45 | CONS ---
CONSULTATION This is a 72-year-old obese gentleman with a known history of smoking and COPD. This gentleman has been admitted to the hospital with increasing shortness of breath that has been going on for about a week or so. He started also noticing swelling of his feet and also his abdomen. It appears that he may have some ascites, bilateral lower extremity edema, increasing shortness of breath. Denied any chest pain, palpitations, syncope or near syncope. This gentleman has multiple comorbid conditions in the form of smoking, COPD, diabetes, hyperlipidemia, and probably has sleep apnea syndrome as well clinically. At the time of my evaluation, he is lying in the bed. He Indicates to me that his breathing is better. Denies any chest discomfort. His shortness of breath has improved. PAST MEDICAL HISTORY: 1. Type 2 diabetes. 2. Obesity. 3. Smoking and COPD. 4. Hyperlipidemia. 5. Hypertension. 6. Recently diagnosed with rectal cancer, details unclear. MEDICATIONS: This includes metformin 500 mg b.i.d., aspirin 81 mg daily, atorvastatin 40 mg daily. He also takes some Ventolin nebulizers and Xanax p.r.n. ALLERGIES: No known drug allergies. PHYSICAL EXAMINATION: On examination, blood pressure is 120/70, pulse rate is about 80 per minute regular. HEENT: Unremarkable. Fundus was not examined by me. Neck is supple. There is JVD of at least 1 cm. There is no carotid bruit. Heart exam reveals S1, S2 with ejection systolic murmur that peaks somewhat late and second heart sound is not very well heard. Probably has at least moderate aortic stenosis. There are no other murmurs or gallops noted. Lungs reveal bilateral scattered rhonchi. Diminished air entry. Abdomen is soft, nontender. There is probably some free fluid. Lower extremities reveal bilateral edema, left is more than the right. EKG that is in the chart was reviewed. There is a lot of artifact on it, but rhythm appears to be sinus with an inferior Q-wave right bundle branch block pattern, nonspecific ST-T changes. IMPRESSION: 1. Exacerbation of biventricular heart failure. 2. Probable underlying sleep apnea syndrome with pulmonary hypertension. 3. Morbid obesity. 4. Chronic obstructive pulmonary disease and with history of smoking. 5. Probable moderate aortic stenosis based on clinical examination. 6. Hypertension. 7. Probable history of sleep apnea although this has not been diagnosed. RECOMMENDATIONS: I am recommending that we continue the diuresis, supplement magnesium levels. Check an echocardiogram. Repeat an EKG in the morning and then make further recommendations. The patient has been counseled regarding the need to work with smoking cessation. Thank you very much for the consult. HEATHER / JORDAN: [id number] /
[2017-07-10 13:29] LABS: Anisocytosis Slight; Basophils % (A) 0 %; Eosinophils # (A) 0.3 k/uL (0-0.7); Eosinophils % (A) 5 %; HCT 29.5 % (39.0-53.0); HGB 8.6 gm/dL (13.0-17.5); Hypochromasia Marked; Lymphocytes # (A) 0.8 k/uL (1.0-4.8); Lymphocytes % (A) 16 %; MCH 22.6 pg (25.0-35.0); MCHC 29.3 g/dL (31.0-37.0); MCV 77.4 fL (80.0-100.0); Microcytosis Slight; Monocytes # (A) 0.3 k/uL (0-1.0); Monocytes % (A) 6 %; Neutrophils # (A) 3.8 k/uL (1.3-7.7); Neutrophils % (A) 72 %; Platelet Count 232 k/uL (150-450); RBC 3.81 m/uL (4.30-5.90); WBC 5.3 k/uL (3.8-10.6)
[2017-07-10 13:57] LABS: Blood Urea Nitrogen 15 mg/dL (9-20); Calcium 8.7 mg/dL (8.4-10.2); Chloride 90 mmol/L (98-107); Glucose 151 mg/dL (74-99); Potassium 3.8 mmol/L (3.5-5.1); Sodium 140 mmol/L (137-145)
[2017-07-10 14:03] LABS: Anion Gap 6 mmol/L
[2017-07-10 14:09] LABS: Carbon Dioxide 44 mmol/L (22-30)
[2017-07-10 16:33] LABS: Glucose,Whole Blood 149 mg/dL (75-99)
--- NOTE | 2017-07-10 18:09 | PN ---
PROGRESS NOTE DATE OF SERVICE: 07/10/2017 This 72-year-old gentleman who was admitted with rectal cancer with radiation also had generalized anasarca. A 2D echo with Doppler is pending at this time. No chest pain. No palpitations. No fever. Multiple consultants are following the patient closely. On exam, alert and oriented x3. Pulse is 90, blood pressure 105/60, respiration 16, temperature normal, pulse ox 98% on room air. HEENT: Conjunctivae normal. Oral mucosa moist. NECK: No jugular venous distention. No carotid bruit. No lymph node enlargement. CARDIOVASCULAR SYSTEM: S1, S2 muffled. RESPIRATORY SYSTEM: Breath sounds diminished at the bases. No rhonchi. No crackles. ABDOMEN: Soft, non-tender. No mass palpable. LEGS: Minimal edema. NERVOUS SYSTEM: No focal deficit. LABS: WBC 5.3, hemoglobin 8.6. ASSESSMENT: 1. Generalized anasarca for evaluation. Rule out congestive heart failure. 2. Possible chronic obstructive pulmonary disease, acute exacerbation. 3. Increased sodium. 4. Anemia, normocytic; anemia of chronic disease. 5. Chronic obstructive pulmonary disease. 6. Abdominal distention. 7. Diabetes mellitus, type 2. 8. Hypertension. 9. Hyperlipidemia. 10.History of rectal cancer. 11.History of fatty tumor removal from the leg. 12.History of anxiety. 13.History of fatty liver. RECOMMENDATIONS AND DISCUSSION: In this 72-year-old gentleman who presented with multiple complex medical issues , we will monitor the patient closely, continue the current medications. I would also obtain a CT scan of the chest, abdomen and pelvis to evaluate anasarca. I would recommend Omnipaque contrast. Prognosis guarded. Further recommendations to follow. MMODL / IJN: [id number] / MTDEliana
[2017-07-10] MEDS: IOHEXOL 350 MG/ML 25 ML BOTTLE (ORAL USE) PO PRN ×2 (18:53→20:10)
[2017-07-10 21:16] LABS: Glucose,Whole Blood 145 mg/dL (75-99)
--- NOTE | 2017-07-10 21:49 | CT ---
EXAMINATION TYPE: CT ChestAbdPelvis wo con DATE OF EXAM: 07/10/2017 COMPARISON: 2017 HISTORY: Anasarca CT DLP: 1984.3 mGycm. Automated Exposure Control for Dose Reduction was Utilized. TECHNIQUE: CT scan of the thorax, abdomen and pelvis is performed without IV contrast. FINDINGS: There are mild bilateral pleural effusions. There is pulmonary diffuse emphysema. There is mild atele ctasis at the left lung base. There is small pericardial effusion. I see no mediastinal adenopathy. Liver and spleen appear normal. Bile ducts are not dilated. There is no evidence of pancreatic mass. Gallbladder appears normal in size. There is a 2 mm calcified gallstone in the gallbladder fundus. There is no adrenal mass. There are multiple calculi in the lower pole left kidney. There is mild rig ht-sided hydronephrosis. There is possible calcification in the distal right ureter. There is cathete r in urinary bladder. I see no intestinal wall thickening. There are no dilated loops. There is no evidence of bowel obstru ction. There is possible air in the urinary bladder with bladder wall thickening. I see no bony destr uctive process. CONCLUSION: Bilateral pleural effusions with basilar pulmonary atelectasis. Small pericardial effusion. Pulmonary abnormalities are essentially new compared to old exam. Left renal calculi. Right-sided hydronephrosis with probable obstructing calculi in the distal right ureter. Empty urinary bladder with bladder wall thickening. This could relate to cystitis. The wall t hickening appears new compared to old CT scan. There is subcutaneous edema noted over the lower anter ior abdominal wall consistent with some cellulitis.
[2017-07-11 05:51] LABS: Glucose,Whole Blood 137 mg/dL (75-99)
[2017-07-11 06:19] LABS: Anisocytosis Slight; Basophils % (A) 0 %; Eosinophils # (A) 0.3 k/uL (0-0.7); Eosinophils % (A) 4 %; HCT 31.2 % (39.0-53.0); HGB 8.7 gm/dL (13.0-17.5); Hypochromasia Marked; Lymphocytes % (A) 16 %; MCH 22.1 pg (25.0-35.0); MCHC 27.7 g/dL (31.0-37.0); MCV 79.7 fL (80.0-100.0); Mean Platelet Volume 6.3; Microcytosis Slight; Monocytes # (A) 0.4 k/uL (0-1.0); Monocytes % (A) 6 %; Neutrophils # (A) 4.4 k/uL (1.3-7.7); Neutrophils % (A) 71 %; Platelet Count 250 k/uL (150-450); RBC 3.91 m/uL (4.30-5.90); RDW 17.2 % (11.5-15.5); WBC 6.2 k/uL (3.8-10.6)
[2017-07-11] MEDS: INSULIN ASPART 100 UNIT/ML 1 ML 10 ML VIAL SQ SCH ×3 (06:28→16:40)
[2017-07-11 06:44] LABS: Blood Urea Nitrogen 16 mg/dL (9-20); Chloride 93 mmol/L (98-107); Glucose 122 mg/dL (74-99); Potassium 4.1 mmol/L (3.5-5.1); Sodium 141 mmol/L (137-145)
[2017-07-11 06:51] LABS: Anion Gap 5 mmol/L
[2017-07-11 07:03] LABS: Carbon Dioxide 43 mmol/L (22-30)
[2017-07-11] MEDS: METOPROLOL TARTRATE 25 MG TAB PO SCH ×2 (08:18→16:18)
[2017-07-11] MEDS: metFORMIN 500 MG TAB PO SCH ×2 (08:19→16:18)
[2017-07-11] MEDS: POTASSIUM CHLORIDE ER 20 MEQ TAB.ER PO SCH (08:19)
[2017-07-11] MEDS: FUROSEMIDE 10 MG/ML 4 ML VIAL IV SCH (08:20)
[2017-07-11] MEDS: ACETAMINOPHEN TAB 500 MG TAB PO SCH (08:20)
[2017-07-11] MEDS: ALPRAZolam 0.25 MG TAB PO SCH ×2 (08:20→16:18)
[2017-07-11] MEDS: IPRATROPIUM-ALBUTEROL 3 ML NEB INHALATION SCH ×3 (10:30→15:52)
[2017-07-11] MEDS: SYMBICORT 160-4.5 MCG INHALER INHALATION SCH (10:30)
[2017-07-11 12:06] LABS: Glucose,Whole Blood 122 mg/dL (75-99)
--- NOTE | 2017-07-11 12:11 | P.PN ---
Subjective Progress Note Date: 07/11/17 Principal diagnosis: Lower extremity edema, anasarca Progress note dated 07/10/2017 This is a 72-year-old male with a history of lower extremity edema and anasarca. He also had significant abdominal distention with ascites. He also had small left-sided pleural effusion. Today he seemed be doing relatively well. He had significant diuresis in the last 24 hours or so. The patient's lower extremity edema is much improved. Still having some ascites as well. Chest x-ray stable though. His breathing is much improved. The patient still on oxygen therapy. He does feel less short of breath. Progress note dated 07/11/2017 72-year-old male with a history of lower extremity edema ascites and anasarca. His abdominal distention is improved but he still has some distention. He is feeling better. Less short of breath. His bilateral small effusions which have improved. His low some edema is much improved. We've been diuresing him significantly last 24-48 hours. The patient seemed to be less short of breath. Still feels very weak and fatigued. Computed tomography scan of the chest abdomen and pelvis is reviewed. The findings are in the medical record. I did cut back on his Lasix yesterday from 40 mg every 8 to 40 mg every 12. Objective - Vital Signs Vital signs: Vital Signs Temp 97.9 F 07/11/17 08:00 Pulse 94 07/11/17 11:59 Resp 24 07/11/17 08:00 BP 120/57 07/11/17 08:00 Pulse Ox 95 07/11/17 08:00 Intake & Output 07/10/17 07/11/17 07/11/17 18:59 06:59 18:59 Intake Total 480 Output Total 2400 1700 Balance 480 -2400 -1700 Weight 120 kg Intake: Oral 480 Output: Urine 2400 1700 Uretheral (Grover) 900 Other: Voiding Method Indwelling Catheter Indwelling Catheter Indwelling Catheter # Voids 1 - Exam No acute distress, oriented 3. The patient's on nasal O2. HEENT examination is grossly unremarkable. Mucous membranes are moist. No oral lesions. Neck supple. Full range of motion. No adenopathy thyromegaly or neck vein distention. Cardiovascular examination reveals regular rhythm rate. S1-S2 normal. No S3 or S4. No discernible murmur noted. Lungs reveal clear breath sounds. Her sounds are equal bilaterally. No adventitious lung sounds including wheezes rhonchi or crackles. Abdomen reveals distention. There may be ascites. Bowel sounds are heard. No masses or tenderness. Extremities are intact. Lower extremity edema is much improved. Skin is without rash or lesion. Neurologic examination is brief but nonfocal. - Labs CBC & Chem 7: 07/11/17 05:49 07/11/17 05:49 Labs: Abnormal Lab Results - Last 24 Hours (Table) 07/10/17 07/10/17 07/10/17 Range/Units 13:07 13:07 16:31 RBC 3.81 L (4.30-5.90) m/uL Hgb 8.6 L (13.0-17.5) gm/dL Hct 29.5 L (39.0-53.0) % MCV 77.4 L (80.0-100.0) fL MCH 22.6 L (25.0-35.0) pg MCHC 29.3 L (31.0-37.0) g/dL RDW 18.0 H (11.5-15.5) % Lymphocytes # 0.8 L (1.0-4.8) k/uL Chloride 90 L (98-107) mmol/L Carbon Dioxide 44 H* (22-30) mmol/L Glucose 151 H (74-99) mg/dL POC Glucose (mg/dL) 149 H (75-99) mg/dL 07/10/17 07/11/17 07/11/17 Range/Units 21:14 05:47 05:49 RBC 3.91 L (4.30-5.90) m/uL Hgb 8.7 L (13.0-17.5) gm/dL Hct 31.2 L (39.0-53.0) % MCV 79.7 L (80.0-100.0) fL MCH 22.1 L (25.0-35.0) pg MCHC 27.7 L (31.0-37.0) g/dL RDW 17.2 H (11.5-15.5) % Lymphocytes # (1.0-4.8) k/uL Chloride (98-107) mmol/L Carbon Dioxide (22-30) mmol/L Glucose (74-99) mg/dL POC Glucose (mg/dL) 145 H 137 H (75-99) mg/dL 07/11/17 07/11/17 Range/Units 05:49 11:29 RBC (4.30-5.90) m/uL Hgb (13.0-17.5) gm/dL Hct (39.0-53.0) % MCV (80.0-100.0) fL MCH (25.0-35.0) pg MCHC (31.0-37.0) g/dL RDW (11.5-15.5) % Lymphocytes # (1.0-4.8) k/uL Chloride 93 L (98-107) mmol/L Carbon Dioxide 43 H* (22-30) mmol/L Glucose 122 H (74-99) mg/dL POC Glucose (mg/dL) 122 H (75-99) mg/dL Microbiology - Last 24 Hours (Table) 07/08/17 17:33 Blood Culture - Preliminary Blood No Growth after 48 hours Assessment and Plan Assessment: Assessment Rectal carcinoma, status post radiation therapy. History of tobacco use, rule out COPD History of diabetes mellitus Hyperlipidemia Hypertension Significant lower extremity edema along with ascites Fluid overload with anasarca Nephrolithiasis Plan: Plan dated 07/08/2017 The patient's medications labs and x-rays all reviewed. We'll make the necessary adjustments or changes to the medications. Obviously the patient would benefit some diuretics. We'll continue to follow. Prognosis is guarded. He looks very sickly. CODE STATUS should be addressed. Additional recommendations and suggestions are forthcoming. Chest x-ray my opinion shows evidence of fluid overload. There is cephalization and small bilateral pleural effusions. Plan dated 07/10/2017 The patient some medications labs and x-rays are all reviewed. The patient's chest x-ray looks improved in my opinion. Small effusion has resolved. In addition, his lower extremities edema is much improved. He still has some abdominal distention and may be some ascites. The CODE STATUS was addressed. He is now a no code. I'll look at the labs and medications. Additional recommendations and suggestions are forthcoming. Overall prognosis remains relatively poor. He remains oxygen dependent. Plan dated 07/11/2017 The patient's respiratory status has improved. He's been diuresed significantly. His lower extremity edema is much improved. The results of the CAT scan of the chest abdomen and pelvis are reviewed. The patient's respiratory status is probably at baseline. The CODE STATUS was addressed he is now a no code. His diuretics were cut back yesterday from 40 mg 3 times a day to 40 mg twice a day. I'll review the medications and the laboratory data. Time with Patient: Less than 30
--- NOTE | 2017-07-11 12:25 | ECHOF ---
Referral Reason:chf MEASUREMENTS -------- HEIGHT: 177.8 cm WEIGHT: 122.9 kg BP: 95/55 RVIDd: 4.0 cm (< 3.3) IVSd: 1.6 cm (0.6 - 1.1) LVIDd: 6.4 cm (3.9 - 5.3) LVPWd: 1.4 cm (0.6 - 1.1) IVSs: 2.0 cm LVIDs: 4.6 cm LVPWs: 2.2 cm LA Diam: 3.9 cm (2.7 - 3.8) LAESV Index (A-L): 28.55 ml/m Ao Diam: 3.7 cm (2.0 - 3.7) MV EXCURSION: 15.618 mm (> 18.000) MV EF SLOPE: 41 mm/s (70 - 150) EPSS: 0.8 cm MV E Gilson: 1.05 m/s MV DecT: 223 ms MV A Gilson: 1.14 m/s MV E/A Ratio: 0.92 AV maxP.51 mmHg AV meanP.43 mmHg RAP: 5.00 mmHg RVSP: 41.43 mmHg FINDINGS -------- Sinus rhythm with extra systolic beats. This was a technically difficult study with suboptimal views. The left ventricle is moderately dilated. There is moderate concentric left ventricular hypertrophy . Overall left ventricular systolic function is normal with, an EF between 55 - 60 %. The right ventricle is moderately enlarged. Normal LA size by volume 22+/-6 ml/m2. The right atrium is normal in size. 5 ml of Lumason was utilized for enhancement of images. There is moderate aortic valve sclerosis. There is moderate aortic stenosis present. Peak/mean gr adient across the Aortic Valve is 53.51mmHg / 27.43mmHg. The mitral valve leaflets are mildly thickened. Mild mitral annular calcification present. Mild tricuspid regurgitation present. There is mild pulmonary hypertension. The right ventricular systolic pressure, as measured by Doppler, is 41.43mmHg. There is no pulmonic regurgitation present. The aortic root is dilated measuring 3.7cm. Normal inferior vena cava with normal inspiratory collapse consistent with estimated right atrial pre ssure of 5 mmHg. The inferior vena cava is mildly dilated. There is no pericardial effusion. CONCLUSIONS -------- 1. Sinus rhythm with extra systolic beats. 2. This was a technically difficult study with suboptimal views. 3. The left ventricle is moderately dilated. 4. There is moderate concentric left ventricular hypertrophy. 5. Overall left ventricular systolic function is normal with, an EF between 55 - 60 %. 6. The right ventricle is moderately enlarged. 7. Normal LA size by volume 22+/-6 ml/m2. 8. The right atrium is normal in size. 9. 5 ml of Lumason was utilized for enhancement of images. 10. There is moderate aortic valve sclerosis. 11. There is moderate aortic stenosis present. 12. Peak/mean gradient across the Aortic Valve is 53.51mmHg / 27.43mmHg. 13. The mitral valve leaflets are mildly thickened. 14. Mild mitral annular calcification present. 15. Mild tricuspid regurgitation present. 16. There is mild pulmonary hypertension. 17. The right ventricular systolic pressure, as measured by Doppler, is 41.43mmHg. 18. There is no pulmonic regurgitation present. 19. The aortic root is dilated measuring 3.7cm. 20. Normal inferior vena cava with normal inspiratory collapse consistent with estimated right atrial pressure of 5 mmHg. 21. The inferior vena cava is mildly dilated. 22. There is no pericardial effusion. ROLLER ENGRAVER: Marci Jaramillo RDCS
--- NOTE | 2017-07-11 14:40 | CONS ---
CONSULTATION Mr. Reynolds feels much better. His edema is improved. His breathing has improved. He is resting comfortably. This gentleman has aortic stenosis, preserved LV systolic function, right-sided enlargement with pulmonary hypertension and probably underlying sleep apnea syndrome. I spoke to his and she tells me that he probably knows that he has sleep apnea but will not wear a CPAP and does not even wish to consider this. However, he has no chest discomfort. He is comfortable breathing easier at the time of my evaluation. His blood pressure today is 118/70, pulse rate is 80 per minute irregular. A physical exam revealed JVD of 1 cm. Ejection systolic murmur is audible. 2nd heart sound is preserved. Lungs reveal improved air entry abdomen is soft. The edema with ascites and swelling of the abdomen has improved. Lower extremity edema has almost completely resolved. PLAN: Continue current medications and switch him from IV to oral Lasix, increase activity and plan for discharge in the next 24-48 hours. Discussed my thoughts in detail with the patient. MMODL / IJN: [id number] /
[2017-07-11 16:16] VITALS: BP 109/53; PULSE 96; RESP 24; TEMP 98
[2017-07-11 16:33] LABS: Glucose,Whole Blood 139 mg/dL (75-99)
--- NOTE | 2017-07-12 07:36 | DS ---
DISCHARGE SUMMARY FINAL DIAGNOSES: 1. Generalized anasarca, possibly secondary to cor pulmonale secondary to sleep apnea and chronic obstructive pulmonary disease. 2. Chronic obstructive pulmonary disease acute exacerbation could be sodium. 3. Anemia normocytic anemia of chronic disease. 4. Abdominal distention. 5. Diabetes mellitus type 2. 6. Hypertension. 7. Hyperlipidemia. 8. History of rectal cancer. 9. History of fatty tumor removal of the legs. 10.Urinary outlet obstruction on Grover catheter. 11.History of anxiety. 12.History of fatty liver. DISCHARGE DISPOSITION: The patient will be discharged in stable condition with guarded prognosis. Total time taken 35 minutes. HISTORY OF PRESENT ILLNESS: This 72-year-old gentleman with past medical history of multiple medical problems was admitted with general anasarca and multiple complex medical issues, was treated symptomatically. The exact etiology is unknown. CT scan is negative at this time and the patient was monitored closely. On exam, vital signs stable. Cardiovascular: S1, S2. Abdomen is soft. Nervous System: No focal deficits. DISCHARGED ADVICE: 1. Diet is cardiac. 2. Activity limited until followup. 3. Follow up with Dr. Hanna in 2-3 days. 4. Follow up with Dr. Luann Meléndez and Dr. Downs as recommended. MEDICATIONS: 1. Tylenol 500 mg b.i.d. p.r.n. 2. Albuterol 2.5 q.4h p.r.n. 3. Xanax 0.5 t.i.d. 4. Symbicort 160/4.5 two puffs b.i.d. 5. Lasix 40 mg daily. 6. Metformin 500 mg t.i.d. 7. Lopressor 25 mg p.o. t.i.d. Outpatient evaluation for COPD. MMODL / IJN: [id number] /
[2017-07-12] MEDS ORDERED: FUROSEMIDE 40 MG TAB PO SCH (09:00)
== END 2017-07-11 17:42 | disposition home or self-care (01) | DRG 315 ==
LOC: SUPCPDRO 18:00 → EC 18:00 → 6SEL 21:20
PROVIDERS: ADMIT Internal Medicine; ATTEND Internal Medicine
DX: I27.81 Cor pulmonale (chronic) (principal); J44.1 Chronic obstructive pulmonary disease with (acute) exacerbation; J96.12 Chronic respiratory failure with hypercapnia; R18.8 Other ascites; E87.70 Fluid overload, unspecified; I50.82 Biventricular heart failure; E66.01 Morbid (severe) obesity due to excess calories; I11.0 Hypertensive heart disease with heart failure; D63.8 Anemia in other chronic diseases classified elsewhere; I35.0 Nonrheumatic aortic (valve) stenosis; I27.20 Pulmonary hypertension, unspecified; E11.9 Type 2 diabetes mellitus without complications; N39.490 Overflow incontinence; E78.5 Hyperlipidemia, unspecified; F41.9 Anxiety disorder, unspecified; G47.30 Sleep apnea, unspecified; N13.9 Obstructive and reflux uropathy, unspecified; K76.0 Fatty (change of) liver, not elsewhere classified; N20.0 Calculus of kidney; Z68.38 Body mass index [BMI] 38.0-38.9, adult; Z79.84 Long term (current) use of oral hypoglycemic drugs; Z79.899 Other long term (current) drug therapy; Z85.118 Personal history of other malignant neoplasm of bronchus and lung; Z92.3 Personal history of irradiation; Z87.891 Personal history of nicotine dependence; Z85.048 Personal history of other malignant neoplasm of rectum, rectosigmoid junction, and anus; Z82.5 Family history of asthma and other chronic lower respiratory diseases; Z91.018 Allergy to other foods
CPT/HCPCS: 36415; 51702; 71046; 71250; 74176; 80048; 80053; 81001; 82550; 82553; 83735; 83880; 84484; 85025; 87040; 87086; 93005; 93306; 94640; 99284

== ENCOUNTER 2017-07-30 15:51 | Emergency (ER) | payer MEDICARE, OTHER ==
[2017-07-30 15:57] VITALS: BP 138/60; PULSE 94; RESP 24; TEMP 98.3
--- NOTE | 2017-07-30 16:15 | ED ---
General Adult HPI - General Chief complaint: Urogenital Stated complaint: catheter problems Time Seen by Provider: 07/30/17 16:06 Source: patient, family, RN notes reviewed Mode of arrival: wheelchair Limitations: no limitations - History of Present Illness Initial comments: Patient is a pleasant 72-year-old male presenting to the emergency Department with needing a Grover catheter. Patient does have a history of urinary retention and has been dependent on Grover catheter for over the past month. Patient did see urology who stated he should have a Grover catheter and at all times. Patient did have visiting nurse come out today who did remove an old Grover catheter however was unable to replace the new catheter. No trauma or injury. Patient feels fine otherwise has no complaints. - Related Data Home Medications Medication Instructions Recorded Confirmed metFORMIN HCL 500 mg PO TID 02/05/14 07/07/17 ALPRAZolam [Xanax] 0.25 mg PO TID 07/07/17 07/07/17 Acetaminophen [Tylenol Extra 500 mg PO BID 07/07/17 07/07/17 Strength] Metoprolol Tartrate [Lopressor] 25 mg PO TID 07/07/17 07/07/17 Previous Rx's Medication Instructions Recorded Albuterol Nebulized [Ventolin 2.5 mg INHALATION QID #0 07/11/17 Nebulized] Budesonide-Formot 160-4.5 Mcg 2 puff INHALATION RT-BID #1 inh 07/11/17 [Symbicort 160-4.5 Mcg Inhaler] Furosemide [Lasix] 40 mg PO DAILY #30 tab 07/11/17 Allergies Allergy/AdvReac Type Severity Reaction Status Date / Time onion Allergy Unknown Verified 07/30/17 15:56 Review of Systems ROS Statement: Those systems with pertinent positive or pertinent negative responses have been documented in the HPI. Constitutional: Denies: fever Eyes: Denies: eye pain ENT: Denies: ear pain Respiratory: Denies: cough, dyspnea Cardiovascular: Denies: chest pain Endocrine: Denies: fatigue Gastrointestinal: Denies: abdominal pain Genitourinary: Denies: dysuria Musculoskeletal: Denies: back pain Skin: Denies: rash Neurological: Denies: weakness Past Medical History Past Medical History: Cancer, COPD, Diabetes Mellitus, Hyperlipidemia, Hypertension Additional Past Medical History / Comment(s): rectal cancer History of Any Multi-Drug Resistant Organisms: None Reported Additional Past Surgical History / Comment(s): Fatty tumors removed from bilateral legs. Hydrocele. Past Anesthesia/Blood Transfusion Reactions: No Reported Reaction Past Psychological History: No Psychological Hx Reported, Anxiety Smoking Status: Former smoker Past Alcohol Use History: None Reported Past Drug Use History: None Reported - Past Family History Father Family Medical History: COPD Additional Family Medical History / Comment(s): Pt states "His dad of chronic lung disease". General Exam Limitations: no limitations General appearance: alert, in no apparent distress Head exam: Present: atraumatic Eye exam: Present: normal appearance Respiratory exam: Present: normal lung sounds bilaterally Cardiovascular Exam: Present: regular rate, normal rhythm GI/Abdominal exam: Present: soft. Absent: tenderness exam: Present: normal inspection Neurological exam: Present: alert Psychiatric exam: Present: normal affect, normal mood Skin exam: Present: normal color Course Vital Signs 07/30/17 15:53 Temperature 98.3 F Pulse Rate 94 Respiratory 24 Rate Blood Pressure 138/60 O2 Sat by Pulse 89 L Oximetry Disposition Clinical Impression: Urinary retention Disposition: HOME SELF-CARE Condition: Stable Instructions: Urinary Retention in Men (ED) Additional Instructions: Please follow-up with your primary care physician and urologist in the next couple of days for recheck. Return for abdominal pain, Grover catheter problems , fevers, worsening symptoms or other concerns Referrals: [facility],Clinic [Primary Care Provider] - 1-2 days Time of Disposition: 16:15
== END 2017-07-30 16:34 | disposition home or self-care (01) ==
LOC: EC 15:51
DX: R33.9 Retention of urine, unspecified (principal); I10 Essential (primary) hypertension; E11.9 Type 2 diabetes mellitus without complications; F41.9 Anxiety disorder, unspecified; Z87.891 Personal history of nicotine dependence; Z79.84 Long term (current) use of oral hypoglycemic drugs; Z79.899 Other long term (current) drug therapy; Z91.018 Allergy to other foods
CPT/HCPCS: 99283

== ENCOUNTER 2017-08-28 14:55 | Emergency (ER) | payer OTHER ==
[2017-08-28 15:05] VITALS: TEMP 98
[2017-08-28] MEDS ORDERED: IPRATROPIUM-ALBUTEROL 3 ML NEB INHALATION STA (16:07)
--- NOTE | 2017-08-28 16:10 | ED ---
General Adult HPI - General Chief complaint: Recheck/Abnormal Lab/Rx Stated complaint: Abnormal Labs Time Seen by Provider: 08/28/17 15:56 Source: patient, family, RN notes reviewed Mode of arrival: wheelchair Limitations: no limitations - History of Present Illness Initial comments: Patient is a pleasant 72-year-old male presenting to the emergency Department with reported high CO2 levels. Patient has been fatigued couple of days ago however seems to be doing well yesterday and today. Patient denies any dyspnea except his chronic baseline dyspnea. is present and provides majority of history. She believes patient states dyspnea is unchanged from baseline. No leg swelling. Patient was in the hospital a month or so ago and had a large amount of fluid taken off him. Patient has been placed on Lasix since that time. No chest pain. No fevers. - Related Data Home Medications Medication Instructions Recorded Confirmed metFORMIN HCL 500 mg PO TID 02/05/14 08/28/17 ALPRAZolam [Xanax] 0.25 mg PO TID 07/07/17 08/28/17 Metoprolol Tartrate [Lopressor] 25 mg PO TID 07/07/17 08/28/17 Albuterol Nebulized [Ventolin 2.5 mg INHALATION RT-QID 07/30/17 08/28/17 Nebulized] Budesonide-Formot 160-4.5 Mcg 2 puff INHALATION RT-BID PRN 07/30/17 08/28/17 [Symbicort 160-4.5 Mcg Inhaler] Previous Rx's Medication Instructions Recorded Furosemide [Lasix] 40 mg PO DAILY #30 tab 07/11/17 Allergies Allergy/AdvReac Type Severity Reaction Status Date / Time onion Allergy Unknown Verified 08/28/17 15:45 Review of Systems ROS Statement: Those systems with pertinent positive or pertinent negative responses have been documented in the HPI. ROS Other: All systems not noted in ROS Statement are negative. Constitutional: Denies: fever Eyes: Denies: eye pain ENT: Denies: ear pain Respiratory: Denies: dyspnea (No change from chronic dyspnea. Patient states he does not feel short of breath) Cardiovascular: Denies: chest pain Gastrointestinal: Denies: abdominal pain Genitourinary: Denies: dysuria Musculoskeletal: Denies: back pain Skin: Denies: rash Neurological: Denies: headache Past Medical History Past Medical History: Cancer, COPD, Diabetes Mellitus, Hyperlipidemia, Hypertension Additional Past Medical History / Comment(s): rectal cancer, O2 dependent History of Any Multi-Drug Resistant Organisms: None Reported Additional Past Surgical History / Comment(s): Fatty tumors removed from bilateral legs. Hydrocele. Past Anesthesia/Blood Transfusion Reactions: No Reported Reaction Past Psychological History: No Psychological Hx Reported, Anxiety Smoking Status: Former smoker Past Alcohol Use History: None Reported Past Drug Use History: None Reported - Past Family History Father Family Medical History: COPD Additional Family Medical History / Comment(s): Pt states "His dad of chronic lung disease". General Exam Limitations: no limitations General appearance: alert, in no apparent distress Head exam: Present: atraumatic Eye exam: Present: normal appearance, PERRL ENT exam: Present: normal oropharynx Neck exam: Present: normal inspection Respiratory exam: Present: accessory muscle use, decreased breath sounds Cardiovascular Exam: Present: regular rate, normal rhythm GI/Abdominal exam: Present: soft. Absent: tenderness Extremities exam: Present: normal inspection Neurological exam: Present: alert Psychiatric exam: Present: normal affect, normal mood Skin exam: Present: normal color Course Vital Signs 08/28/17 08/28/17 08/28/17 15:02 16:21 16:40 Temperature 98.0 F Pulse Rate 103 H 101 H 106 H Respiratory 20 16 Rate Blood Pressure 140/68 142/68 O2 Sat by Pulse 85 L 97 Oximetry 08/28/17 08/28/17 16:57 17:00 Temperature Pulse Rate 104 H 107 H Respiratory 18 Rate Blood Pressure 158/103 O2 Sat by Pulse 96 Oximetry Medical Decision Making - Medical Decision Making patient reevaluated and resting comfortably in bed. Patient still denies any dyspnea. Case was discussed in detail with Dr. Delgado who does agree blood gas appears well compensated. Patient refuses any steroids or further treatment. patient and family are both comfortable with discharge home.previous CO2 levels reviewed. - Lab Data Result diagrams: 08/28/17 15:36 08/28/17 15:36 Lab Results 08/28/17 08/28/17 08/28/17 Range/Units 15:36 15:36 15:36 WBC 9.7 (3.8-10.6) k/uL RBC 4.59 (4.30-5.90) m/uL Hgb 10.8 L (13.0-17.5) gm/dL Hct 35.7 L (39.0-53.0) % MCV 77.8 L (80.0-100.0) fL MCH 23.6 L (25.0-35.0) pg MCHC 30.3 L (31.0-37.0) g/dL RDW 17.7 H (11.5-15.5) % Plt Count 282 (150-450) k/uL Neutrophils % 78 % Lymphocytes % 13 % Monocytes % 6 % Eosinophils % 3 % Basophils % 0 % Neutrophils # 7.6 (1.3-7.7) k/uL Lymphocytes # 1.2 (1.0-4.8) k/uL Monocytes # 0.5 (0-1.0) k/uL Eosinophils # 0.3 (0-0.7) k/uL Basophils # 0.0 (0-0.2) k/uL Hypochromasia Marked Anisocytosis Slight Microcytosis Slight PT (9.0-12.0) sec INR (<1.2) APTT (22.0-30.0) sec Sample Site ABG pH (7.35-7.45) ABG pCO2 (35-45) mmHg ABG pO2 (83-108) mmHg ABG HCO3 (21-25) mmol/L ABG Total CO2 (19-24) mmol/L ABG O2 Saturation (94-97) % ABG Base Excess mmol/L Adiel Test FiO2 % Sodium 141 (137-145) mmol/L Potassium 4.5 (3.5-5.1) mmol/L Chloride 90 L (98-107) mmol/L Carbon Dioxide 40 H* (22-30) mmol/L Anion Gap 11 mmol/L BUN 20 (9-20) mg/dL Creatinine 0.58 L (0.66-1.25) mg/dL Est GFR (CKD-EPI)AfAm >90 (>60 ml/min/1.73 sqM) Est GFR (CKD-EPI)NonAf >90 (>60 ml/min/1.73 sqM) Glucose 264 H (74-99) mg/dL Calcium 9.6 (8.4-10.2) mg/dL Total Bilirubin 0.2 (0.2-1.3) mg/dL AST 17 (17-59) U/L ALT 25 (21-72) U/L Alkaline Phosphatase 82 (38-126) U/L Total Creatine Kinase <20 L (55-170) U/L CK-MB (CK-2) 0.6 (0.0-2.4) ng/mL CK-MB (CK-2) Rel Index Troponin I <0.012 (0.000-0.034) ng/mL NT-Pro-B Natriuret Pep pg/mL Total Protein 6.9 (6.3-8.2) g/dL Albumin 4.0 (3.5-5.0) g/dL 08/28/17 08/28/17 08/28/17 Range/Units 15:36 15:36 16:37 WBC (3.8-10.6) k/uL RBC (4.30-5.90) m/uL Hgb (13.0-17.5) gm/dL Hct (39.0-53.0) % MCV (80.0-100.0) fL MCH (25.0-35.0) pg MCHC (31.0-37.0) g/dL RDW (11.5-15.5) % Plt Count (150-450) k/uL Neutrophils % % Lymphocytes % % Monocytes % % Eosinophils % % Basophils % % Neutrophils # (1.3-7.7) k/uL Lymphocytes # (1.0-4.8) k/uL Monocytes # (0-1.0) k/uL Eosinophils # (0-0.7) k/uL Basophils # (0-0.2) k/uL Hypochromasia Anisocytosis Microcytosis PT 9.8 (9.0-12.0) sec INR 1.0 (<1.2) APTT 24.9 (22.0-30.0) sec Sample Site LRAD ABG pH 7.38 (7.35-7.45) ABG pCO2 70 H* (35-45) mmHg ABG pO2 127 H (83-108) mmHg ABG HCO3 42 H* (21-25) mmol/L ABG Total CO2 44 H (19-24) mmol/L ABG O2 Saturation 98.5 H (94-97) % ABG Base Excess 16.4 mmol/L Adiel Test Yes FiO2 32 % Sodium (137-145) mmol/L Potassium (3.5-5.1) mmol/L Chloride (98-107) mmol/L Carbon Dioxide (22-30) mmol/L Anion Gap mmol/L BUN (9-20) mg/dL Creatinine (0.66-1.25) mg/dL Est GFR (CKD-EPI)AfAm (>60 ml/min/1.73 sqM) Est GFR (CKD-EPI)NonAf (>60 ml/min/1.73 sqM) Glucose (74-99) mg/dL Calcium (8.4-10.2) mg/dL Total Bilirubin (0.2-1.3) mg/dL AST (17-59) U/L ALT (21-72) U/L Alkaline Phosphatase (38-126) U/L Total Creatine Kinase (55-170) U/L CK-MB (CK-2) (0.0-2.4) ng/mL CK-MB (CK-2) Rel Index Troponin I (0.000-0.034) ng/mL NT-Pro-B Natriuret Pep 408 pg/mL Total Protein (6.3-8.2) g/dL Albumin (3.5-5.0) g/dL - Radiology Data Radiology results: image reviewed (chest x-ray shows COPD.) Disposition Clinical Impression: CO2 retention Disposition: HOME SELF-CARE Condition: Stable Instructions: COPD (Chronic Obstructive Pulmonary Disease) (ED) Additional Instructions: CO2 level is chronically elevated. Please follow-up with your primary care physician in the next day or 2 for recheck and further care. Return for any difficulty in breathing, fevers, worsening symptoms or other concerns. Is patient prescribed a controlled substance at d/c from ED?: No Referrals: [facility],Clinic [Primary Care Provider] - 1-2 days Time of Disposition: 17:28
[2017-08-28 16:21] LABS: Anisocytosis Slight; Basophils % (A) 0 %; Eosinophils # (A) 0.3 k/uL (0-0.7); Eosinophils % (A) 3 %; HCT 35.7 % (39.0-53.0); HGB 10.8 gm/dL (13.0-17.5); Hypochromasia Marked; Lymphocytes # (A) 1.2 k/uL (1.0-4.8); Lymphocytes % (A) 13 %; MCH 23.6 pg (25.0-35.0); MCHC 30.3 g/dL (31.0-37.0); MCV 77.8 fL (80.0-100.0); Mean Platelet Volume 7.5; Microcytosis Slight; Monocytes # (A) 0.5 k/uL (0-1.0); Monocytes % (A) 6 %; Neutrophils # (A) 7.6 k/uL (1.3-7.7); Neutrophils % (A) 78 %; Platelet Count 282 k/uL (150-450); RBC 4.59 m/uL (4.30-5.90); RDW 17.7 % (11.5-15.5); WBC 9.7 k/uL (3.8-10.6)
[2017-08-28 16:30] LABS: ALT 25 U/L (21-72); AST 17 U/L (17-59); Alkaline Phosphatase 82 U/L (38-126); Anion Gap 11 mmol/L; Blood Urea Nitrogen 20 mg/dL (9-20); Calcium 9.6 mg/dL (8.4-10.2); Chloride 90 mmol/L (98-107); Glucose 264 mg/dL (74-99); Partial Thromboplastin Time 24.9 sec (22.0-30.0); Potassium 4.5 mmol/L (3.5-5.1); Prothrombin Time 9.8 sec (9.0-12.0); Sodium 141 mmol/L (137-145); Total Bilirubin 0.2 mg/dL (0.2-1.3); Total Protein 6.9 g/dL (6.3-8.2)
[2017-08-28 16:39] LABS: ABG Base Excess 16.4 mmol/L; ABG Oxygen Saturation 98.5 % (94-97); ABG PH 7.38 (7.35-7.45); ABG PO2 127 mmHg (83-108); ABG TCO2 44 mmol/L (19-24)
--- NOTE | 2017-08-28 16:42 | XR ---
EXAMINATION TYPE: XR chest 2V DATE OF EXAM: 08/28/2017 COMPARISON: 07/10/2017 INDICATION: Difficulty breathing TECHNIQUE: Frontal and lateral views of the chest are obtained. FINDINGS: The heart size is enlarged. The pulmonary vasculature is normal. There is hyperinflation flattening the diaphragms compatible COPD. Previous right lung base infiltrat e and pleural effusion resolved. IMPRESSION: 1. COPD. 2. Resolution previous pleural effusion and infiltrate
[2017-08-28 16:43] LABS: ABG HCO3 42 mmol/L (21-25); ABG PCO2 70 mmHg (35-45)
[2017-08-28 16:45] LABS: Carbon Dioxide 40 mmol/L (22-30)
[2017-08-28 16:50] LABS: Creatine Kinase <20 U/L (55-170)
[2017-08-28 17:03] LABS: Creatine Kinase MB 0.6 ng/mL (0.0-2.4); Troponin I <0.012 ng/mL (0.000-0.034)
[2017-08-28 17:16] VITALS: PULSE 107; RESP 18
[2017-08-28 17:23] VITALS: BP 152/77
== END 2017-08-28 17:34 | disposition home or self-care (01) ==
LOC: EC 14:55
DX: E87.2 Acidosis (principal); J44.9 Chronic obstructive pulmonary disease, unspecified; E11.9 Type 2 diabetes mellitus without complications; E78.5 Hyperlipidemia, unspecified; I10 Essential (primary) hypertension; Z85.048 Personal history of other malignant neoplasm of rectum, rectosigmoid junction, and anus; Z87.891 Personal history of nicotine dependence; Z79.84 Long term (current) use of oral hypoglycemic drugs; Z79.899 Other long term (current) drug therapy
CPT/HCPCS: 36415; 36600; 71046; 80053; 82550; 82553; 82805; 83880; 84484; 85025; 85610; 85730; 94640; 99284

== ENCOUNTER 2017-10-06 22:33 | Emergency (ER) | payer OTHER, MEDICARE ==
[2017-10-06 22:55] VITALS: RESP 18
--- NOTE | 2017-10-06 23:35 | ED ---
Male Urogenital HPI - General Chief complaint: Urogenital Stated complaint: blocked cath Time Seen by Provider: 10/06/17 23:05 Source: patient, family Mode of arrival: wheelchair Limitations: no limitations - History of Present Illness Initial comments: This patient is a 72-year-old man who presents to be evaluated for suspected urinary retention. He has a chronic Grover catheter, and the patient's states that she changed the drainage bag today around 2 PM and that following that they did not note any other drainage today. The patient then a few hours after that started having urge to urinate and then progressive suprapubic abdominal pain. Visiting nurse did come and attempt to flush the catheter without success. Patient denies fever or chills. No flank pain. No nausea or vomiting. No change in bowel movements. MD Complaint: other (Urinary retention) -: hour(s) Location: abdomen Severity: severe Quality: other (Pressure) Consistency: constant Improves with: none Worsens with: other (Palpation) Reports: urinary retention - Related Data Home Medications Medication Instructions Recorded Confirmed metFORMIN HCL 500 mg PO TID 02/05/14 08/28/17 ALPRAZolam [Xanax] 0.25 mg PO TID 07/07/17 08/28/17 Metoprolol Tartrate [Lopressor] 25 mg PO TID 07/07/17 08/28/17 Albuterol Nebulized [Ventolin 2.5 mg INHALATION RT-QID 07/30/17 08/28/17 Nebulized] Budesonide-Formot 160-4.5 Mcg 2 puff INHALATION RT-BID PRN 07/30/17 08/28/17 [Symbicort 160-4.5 Mcg Inhaler] Previous Rx's Medication Instructions Recorded Furosemide [Lasix] 40 mg PO DAILY #30 tab 07/11/17 Allergies Allergy/AdvReac Type Severity Reaction Status Date / Time onion Allergy Unknown Verified 08/28/17 15:45 Review of Systems ROS Statement: Those systems with pertinent positive or pertinent negative responses have been documented in the HPI. ROS Other: All systems not noted in ROS Statement are negative. Constitutional: Denies: fever, chills, weakness Respiratory: Denies: cough, dyspnea Cardiovascular: Denies: chest pain Gastrointestinal: Reports: as per HPI, abdominal pain. Denies: nausea, vomiting , diarrhea, constipation Genitourinary: Reports: urgency. Denies: dysuria, frequency, hematuria, testicular pain Musculoskeletal: Denies: back pain Skin: Denies: rash Past Medical History Past Medical History: Cancer, COPD, Diabetes Mellitus, Hyperlipidemia, Hypertension Additional Past Medical History / Comment(s): rectal cancer, O2 dependent History of Any Multi-Drug Resistant Organisms: None Reported Additional Past Surgical History / Comment(s): Fatty tumors removed from bilateral legs. Hydrocele. Past Anesthesia/Blood Transfusion Reactions: No Reported Reaction Past Psychological History: No Psychological Hx Reported, Anxiety Smoking Status: Former smoker Past Alcohol Use History: None Reported Past Drug Use History: None Reported - Past Family History Father Family Medical History: COPD Additional Family Medical History / Comment(s): Pt states "His dad of chronic lung disease". General Exam Limitations: no limitations General appearance: alert, in no apparent distress, obese Respiratory exam: Present: normal lung sounds bilaterally. Absent: respiratory distress, wheezes, rales, rhonchi, stridor Cardiovascular Exam: Present: normal rhythm, tachycardia, normal heart sounds. Absent: systolic murmur, diastolic murmur, rubs, gallop GI/Abdominal exam: Present: soft, tenderness, guarding, other (The patient has some suprapubic fullness, tenderness and guarding, to some with urinary bladder) . Absent: distended, rebound Extremities exam: Present: normal capillary refill. Absent: pedal edema, calf tenderness Back exam: Present: normal inspection. Absent: CVA tenderness (R), CVA tenderness (L) Neurological exam: Present: alert Skin exam: Present: warm, dry, intact, normal color. Absent: rash Course Vital Signs 10/06/17 22:51 Temperature 97.4 F L Pulse Rate 110 H Respiratory 18 Rate Blood Pressure 135/95 O2 Sat by Pulse 93 L Oximetry Medical Decision Making - Medical Decision Making Patient's Grover catheter changed by nursing staff. There was immediate return of 700 mL of clear yellow urine. No gross evidence of infection, we'll send a culture. Patient had resolution of all symptoms. Reevaluation of his abdomen reveals benign exam and patient requests to go home. Disposition Clinical Impression: Urinary retention, Malfunction of Grover catheter Disposition: HOME SELF-CARE Condition: Good Instructions: Grover Catheter Placement and Care (ED) Is patient prescribed a controlled substance at d/c from ED?: No Referrals: [facility],Clinic [Primary Care Provider] - 1-2 days
[2017-10-06 23:51] VITALS: BP 155/75; PULSE 88; TEMP 97
== END 2017-10-06 23:52 | disposition home or self-care (01) ==
LOC: EC 22:33
DX: T83.018A Breakdown (mechanical) of other urinary catheter, initial encounter (principal); R33.9 Retention of urine, unspecified; J44.9 Chronic obstructive pulmonary disease, unspecified; E11.9 Type 2 diabetes mellitus without complications; I10 Essential (primary) hypertension; F41.9 Anxiety disorder, unspecified; Z85.048 Personal history of other malignant neoplasm of rectum, rectosigmoid junction, and anus; Z87.891 Personal history of nicotine dependence; Z79.84 Long term (current) use of oral hypoglycemic drugs; Z79.899 Other long term (current) drug therapy; Z91.018 Allergy to other foods
CPT/HCPCS: 51702; 87086; 99283

== ENCOUNTER 2017-10-07 11:24 | Emergency (ER) | payer OTHER, MEDICARE ==
[2017-10-07] MEDS ORDERED: MORPHINE SULFATE 4 MG/ML SYRINGE IV STA (12:10)
[2017-10-07 12:53] LABS: Anisocytosis Slight; Basophils % (A) 0 %; Eosinophils # (A) 0.1 k/uL (0-0.7); Eosinophils % (A) 1 %; HCT 40.7 % (39.0-53.0); HGB 12.5 gm/dL (13.0-17.5); Hypochromasia Moderate; Lymphocytes # (A) 1.1 k/uL (1.0-4.8); Lymphocytes % (A) 7 %; MCH 24.6 pg (25.0-35.0); MCHC 30.7 g/dL (31.0-37.0); MCV 80.3 fL (80.0-100.0); Mean Platelet Volume 6.7; Monocytes # (A) 0.7 k/uL (0-1.0); Monocytes % (A) 5 %; Neutrophils # (A) 13.3 k/uL (1.3-7.7); Neutrophils % (A) 86 %; Platelet Count 297 k/uL (150-450); RBC 5.07 m/uL (4.30-5.90); RDW 16.6 % (11.5-15.5); WBC 15.5 k/uL (3.8-10.6)
[2017-10-07 12:59] VITALS: RESP 18
[2017-10-07 13:02] LABS: ALT 26 U/L (21-72); AST 18 U/L (17-59); Albumin 4.4 g/dL (3.5-5.0); Alkaline Phosphatase 92 U/L (38-126); Amylase 48 U/L (30-110); Blood Urea Nitrogen 27 mg/dL (9-20); Calcium 9.8 mg/dL (8.4-10.2); Chloride 89 mmol/L (98-107); Glucose 237 mg/dL (74-99); Lipase 44 U/L (23-300); Potassium 4.3 mmol/L (3.5-5.1); Sodium 141 mmol/L (137-145); Total Bilirubin 0.4 mg/dL (0.2-1.3); Total Protein 7.6 g/dL (6.3-8.2)
--- NOTE | 2017-10-07 13:05 | ED ---
General Adult HPI - General Chief complaint: Abdominal Pain Stated complaint: catheter problems/blood in urine Time Seen by Provider: 10/07/17 11:57 Source: patient, RN notes reviewed, old records reviewed Mode of arrival: wheelchair Limitations: no limitations - History of Present Illness Initial comments: 72-year-old male presents for evaluation of lower abdominal pain. Patient has a indwelling Grover catheter which was replaced in the emergency department yesterday. Since that time he has had minimal output. He has developed worsening suprapubic pain. He has history of rectal cancer status post radiation. He is not currently on any treatment for his cancer. Patient has permanent need for Grover catheter according to the patient's . He has been at his baseline otherwise. He does have COPD and heart failure and is on home oxygen. Abdominal pain has been associated with his urinary retention over the past 12 hours. No history of fever or chills. No vomiting or diarrhea. - Related Data Home Medications Medication Instructions Recorded Confirmed metFORMIN HCL 500 mg PO TID 02/05/14 10/07/17 ALPRAZolam [Xanax] 0.25 mg PO TID 07/07/17 10/07/17 Metoprolol Tartrate [Lopressor] 25 mg PO TID 07/07/17 10/07/17 Albuterol Nebulized [Ventolin 2.5 mg INHALATION RT-QID 07/30/17 10/07/17 Nebulized] Budesonide-Formot 160-4.5 Mcg 2 puff INHALATION RT-BID PRN 07/30/17 10/07/17 [Symbicort 160-4.5 Mcg Inhaler] Previous Rx's Medication Instructions Recorded Furosemide [Lasix] 40 mg PO DAILY #30 tab 07/11/17 Levofloxacin [Levaquin] 500 mg PO DAILY 3 Days #7 tab 10/07/17 Allergies Allergy/AdvReac Type Severity Reaction Status Date / Time onion Allergy Unknown Verified 10/07/17 12:30 Review of Systems ROS Statement: Those systems with pertinent positive or pertinent negative responses have been documented in the HPI. ROS Other: All systems not noted in ROS Statement are negative. Past Medical History Past Medical History: Cancer, COPD, Diabetes Mellitus, Hyperlipidemia, Hypertension Additional Past Medical History / Comment(s): rectal cancer, O2 dependent History of Any Multi-Drug Resistant Organisms: None Reported Additional Past Surgical History / Comment(s): Fatty tumors removed from bilateral legs. Hydrocele. Past Anesthesia/Blood Transfusion Reactions: No Reported Reaction Past Psychological History: No Psychological Hx Reported, Anxiety Smoking Status: Former smoker Past Alcohol Use History: None Reported Past Drug Use History: None Reported - Past Family History Father Family Medical History: COPD Additional Family Medical History / Comment(s): Pt states "His dad of chronic lung disease". General Exam Limitations: no limitations General appearance: alert, in no apparent distress Head exam: Present: atraumatic, normocephalic Eye exam: Present: normal appearance, PERRL ENT exam: Present: normal exam Neck exam: Present: normal inspection. Absent: tenderness, meningismus Respiratory exam: Present: wheezes, rales, decreased breath sounds. Absent: respiratory distress Cardiovascular Exam: Present: normal rhythm, tachycardia GI/Abdominal exam: Present: soft, distended, tenderness (Suprapubic tenderness to palpation). Absent: guarding exam: Present: normal inspection. Absent: testicular tenderness, scrotal swelling Extremities exam: Present: normal inspection Neurological exam: Present: alert, oriented X3. Absent: motor sensory deficit Psychiatric exam: Present: normal affect, normal mood Skin exam: Present: warm, dry, intact. Absent: cyanosis, diaphoretic Course Vital Signs 10/07/17 10/07/17 10/07/17 11:48 12:57 13:53 Temperature 99.2 F Pulse Rate 121 H 118 H 116 H Respiratory 24 18 18 Rate Blood Pressure 122/87 142/84 131/68 O2 Sat by Pulse 97 96 98 Oximetry 10/07/17 14:08 Temperature Pulse Rate 119 H Respiratory 18 Rate Blood Pressure 119/65 O2 Sat by Pulse 98 Oximetry Medical Decision Making - Medical Decision Making 72-year-old male presenting with abdominal pain and decreased urine output to Grover catheter. Patient has history of rectal cancer, he has a permanent indwelling Grover catheter. Pain is suprapubic. He is tender in the lower abdomen. Grover catheter was placed yesterday and still had minimal output. CT is performed given the patient's history, he does show signs of cystitis with inflammatory changes, also cholelithiasis and left nephrolithiasis. No obstructing stone. CBC reveals a white blood cell count 15.5 which is elevated. Hemoglobin stable at 12.5. Urinalysis shows large amount of white blood cells and 72 red blood cells. Urine culture is obtained. Given the elevated white blood cell count and infected appearing urinalysis liter of output. He is feeling much better. Although the patient has many chronic medical he does feel well enough to go home. He will be continued on oral antibiotics. Follow up with primary care physician. - Lab Data Result diagrams: 10/07/17 12:40 10/07/17 12:40 Lab Results 10/07/17 10/07/17 10/07/17 Range/Units 12:40 12:40 12:40 WBC 15.5 H (3.8-10.6) k/uL RBC 5.07 (4.30-5.90) m/uL Hgb 12.5 L (13.0-17.5) gm/dL Hct 40.7 (39.0-53.0) % MCV 80.3 (80.0-100.0) fL MCH 24.6 L (25.0-35.0) pg MCHC 30.7 L (31.0-37.0) g/dL RDW 16.6 H (11.5-15.5) % Plt Count 297 (150-450) k/uL Neutrophils % 86 % Lymphocytes % 7 % Monocytes % 5 % Eosinophils % 1 % Basophils % 0 % Neutrophils # 13.3 H (1.3-7.7) k/uL Lymphocytes # 1.1 (1.0-4.8) k/uL Monocytes # 0.7 (0-1.0) k/uL Eosinophils # 0.1 (0-0.7) k/uL Basophils # 0.0 (0-0.2) k/uL Hypochromasia Moderate Anisocytosis Slight Sodium 141 (137-145) mmol/L Potassium 4.3 (3.5-5.1) mmol/L Chloride 89 L (98-107) mmol/L Carbon Dioxide 37 H (22-30) mmol/L Anion Gap 15 mmol/L BUN 27 H (9-20) mg/dL Creatinine 0.69 (0.66-1.25) mg/dL Est GFR (CKD-EPI)AfAm >90 (>60 ml/min/1.73 sqM) Est GFR (CKD-EPI)NonAf >90 (>60 ml/min/1.73 sqM) Glucose 237 H (74-99) mg/dL Calcium 9.8 (8.4-10.2) mg/dL Total Bilirubin 0.4 (0.2-1.3) mg/dL AST 18 (17-59) U/L ALT 26 (21-72) U/L Alkaline Phosphatase 92 (38-126) U/L Total Protein 7.6 (6.3-8.2) g/dL Albumin 4.4 (3.5-5.0) g/dL Amylase 48 (30-110) U/L Lipase 44 (23-300) U/L Urine Color Light Yellow Urine Appearance Cloudy (Clear) Urine pH 7.5 (5.0-8.0) Ur Specific [place] 1.011 (1.001-1.035) Urine Protein 1+ H (Negative) Urine Glucose (UA) 3+ H (Negative) Urine Ketones Negative (Negative) Urine Blood Small H (Negative) Urine Nitrite Negative (Negative) Urine Bilirubin Negative (Negative) Urine Urobilinogen <2.0 (<2.0) mg/dL Ur Leukocyte Esterase Large H (Negative) Urine RBC 72 H (0-5) /hpf Urine WBC >182 H (0-5) /hpf Urine Bacteria Occasional H (None) /hpf Disposition Clinical Impression: Cystitis, Urinary retention Disposition: HOME SELF-CARE Condition: Fair Instructions: Urinary Tract Infection in Men (ED), Grover Catheter Placement and Care (ED), Urinary Retention in Men (ED) Prescriptions: Levofloxacin [Levaquin] 500 mg PO DAILY 3 Days #7 tab Is patient prescribed a controlled substance at d/c from ED?: No Referrals: [facility],Clinic [Primary Care Provider] - 1-2 days Juan R Barrera MD [STAFF PHYSICIAN] - 1-2 days Time of Disposition: 14:25
[2017-10-07 13:09] LABS: Anion Gap 15 mmol/L
[2017-10-07 13:10] LABS: Carbon Dioxide 37 mmol/L (22-30)
[2017-10-07 13:39] LABS: Appearance,Urine Cloudy (Clear); Bacteria,Urine Occasional /hpf; Bilirubin,Urine Negative (Negative); Blood,Urine Small (Negative); Color,Urine Light Yellow; Glucose,Urine (UA) 3+ (Negative); Ketones,Urine Negative (Negative); Leukocyte Esterase,Urine Large (Negative); Nitrite,Urine Negative (Negative); PH, Urine 7.5 (5.0-8.0); Protein,Urine 1+ (Negative); RBC,Urine 72 /hpf (0-5); Specific Gravity,Urine 1.011 (1.001-1.035); Urobilinogen,Urine <2.0 mg/dL (<2.0); WBC,Urine >182 /hpf (0-5)
--- NOTE | 2017-10-07 14:02 | CT ---
EXAMINATION TYPE: CT abdomen pelvis wo con DATE OF EXAM: 10/07/2017 COMPARISON: CT 07/10/[address] from outside its position 03/31/2017 HISTORY: Generalized pain with nausea CT DLP: 1392.7 mGycm Automated exposure control for dose reduction was used. TECHNIQUE: Helical acquisition of images from the lung bases through the pelvis. FINDINGS: The heart is enlarged. There are coronary artery calcifications. Mitral annular calcificati on suspected. No pleural or pericardial effusion. Lack of intravenous contrast could compromise sensitivity. LUNG BASES: Some minimal basilar dependent atelectatic changes are noted. AORTA: No significant abnormality is appreciated. LIVER/GB: There is a calcification seen within the fundus the gallbladder as on prior exam, some depe ndent hyperdensity is also present compatible with stones within the gallbladder, liver unchanged as seen, some nodular appearance at the inferior aspect of the right lobe is stable and indeterminate. PANCREAS: No significant abnormality is seen. SPLEEN: No significant abnormality is seen. ADRENALS: No significant abnormality is seen. KIDNEYS: There are calcifications within the mid and lower pole left kidney, the midpole calcificatio n measures approximately 5 to 6 mm, there may be additional smaller calcification, multiple small brigido cifications suspected at the lower pole of the left kidney the largest measures only approximately 3 mm. There is some mild hydronephrosis involving the right kidney. Vascular calcifications are also pr esent. No evident ureteral calculus. REPRODUCTIVE ORGANS: Prostate is enlarged. There are associated calcifications. URINARY BLADDER: Grover catheter is present within the bladder, there are some inflammatory changes p resent adjacent to the bladder, there is bladder wall thickening possibly due to chronic outlet obstr uction. BOWEL: Loops of small bowel present immediately adjacent to the urinary bladder as on prior exam, no definable fat plane is present. Scattered diverticular changes are present along the sigmoid colon. There is a lipoma within the wall of the transverse colon as on prior exams. FREE AIR: No Free Air is visible. ASCITES: None visible. PELVIC ADENOPATHY: None visualized. RETROPERITONEAL ADENOPATHY: No Retroperitoneal Adenopathy visible. OSSEOUS STRUCTURES: Degenerative disc changes are present in the visualized spine. IMPRESSION: NONCONTRAST EXAM. LEFT-SIDED NEPHROLITHIASIS. CHOLELITHIASIS. CORRELATE FOR CYSTITIS, THERE MAY BE SE CONDARY INFLAMMATORY CHANGES INVOLVING THE BOWEL. NODULAR APPEARANCE OF THE INFERIOR ASPECT OF THE LI CHRIS IS STABLE. Additional findings above.
[2017-10-07 14:09] VITALS: BP 119/65; PULSE 119
[2017-10-07] MEDS ORDERED: cefTRIAXone IN SWFI 1,000 MG/10 ML SYRINGE IVP STA (14:15)
[2017-10-07 14:57] VITALS: TEMP 97.8
== END 2017-10-07 14:54 | disposition home or self-care (01) ==
LOC: EC 11:24
DX: N30.90 Cystitis, unspecified without hematuria (principal); R33.9 Retention of urine, unspecified; D72.829 Elevated white blood cell count, unspecified; K80.20 Calculus of gallbladder without cholecystitis without obstruction; N20.0 Calculus of kidney; J44.9 Chronic obstructive pulmonary disease, unspecified; E11.9 Type 2 diabetes mellitus without complications; E78.5 Hyperlipidemia, unspecified; I10 Essential (primary) hypertension; F41.9 Anxiety disorder, unspecified; Z85.048 Personal history of other malignant neoplasm of rectum, rectosigmoid junction, and anus; Z99.81 Dependence on supplemental oxygen; Z91.018 Allergy to other foods; Z79.84 Long term (current) use of oral hypoglycemic drugs; Z79.899 Other long term (current) drug therapy; Z87.891 Personal history of nicotine dependence
CPT/HCPCS: 99284; 51702; 96374; 96375; 51798; 36415; 80053; 82150; 83690; 85025; 81001; 87086; 74176; J2270; J0696

== ENCOUNTER 2017-10-08 13:54 | Emergency (ER) | payer MEDICARE, OTHER ==
[2017-10-08 14:21] VITALS: BP 118/79; PULSE 120; RESP 24; TEMP 98
--- NOTE | 2017-10-08 15:23 | ED ---
Recheck HPI - General Chief Complaint: Recheck/Abnormal Lab/Rx Stated Complaint: trouble urinating Time Seen by Provider: 10/08/17 15:16 Source: patient, family, RN notes reviewed, old records reviewed Mode of arrival: wheelchair Limitations: no limitations, physical limitation - History of Present Illness Initial Comments: This is a 72-year-old male with a history of COPD and prostatism with a chronic indwelling Grover who is here today after the third visit in the same number days with no urine output from his catheter. He was seen here yesterday had a # 16-Turkish coud tip catheter placed with apparent good flow per his he has not had any output since yesterday. He complains some lower abdominal pain no fevers chills nausea vomiting sweats or other symptoms. Bit of bloody urine discharge into the Grover catheter tube. Per the patient's she's been irrigating it without success. MD Complaint: other - Related Data Home Medications Medication Instructions Recorded Confirmed metFORMIN HCL 500 mg PO TID 02/05/14 10/07/17 ALPRAZolam [Xanax] 0.25 mg PO TID 07/07/17 10/07/17 Metoprolol Tartrate [Lopressor] 25 mg PO TID 07/07/17 10/07/17 Albuterol Nebulized [Ventolin 2.5 mg INHALATION RT-QID 07/30/17 10/07/17 Nebulized] Budesonide-Formot 160-4.5 Mcg 2 puff INHALATION RT-BID PRN 07/30/17 10/07/17 [Symbicort 160-4.5 Mcg Inhaler] Previous Rx's Medication Instructions Recorded Furosemide [Lasix] 40 mg PO DAILY #30 tab 07/11/17 Levofloxacin [Levaquin] 500 mg PO DAILY 3 Days #7 tab 10/07/17 Allergies Allergy/AdvReac Type Severity Reaction Status Date / Time onion Allergy Unknown Verified 10/08/17 14:21 Review of Systems ROS Statement: Those systems with pertinent positive or pertinent negative responses have been documented in the HPI. ROS Other: All systems not noted in ROS Statement are negative. Past Medical History Past Medical History: Cancer, COPD, Diabetes Mellitus, Hyperlipidemia, Hypertension Additional Past Medical History / Comment(s): rectal cancer, O2 dependent History of Any Multi-Drug Resistant Organisms: None Reported Additional Past Surgical History / Comment(s): Fatty tumors removed from bilateral legs. Hydrocele. Past Anesthesia/Blood Transfusion Reactions: No Reported Reaction Past Psychological History: No Psychological Hx Reported, Anxiety Smoking Status: Former smoker Past Alcohol Use History: None Reported Past Drug Use History: None Reported - Past Family History Father Family Medical History: COPD Additional Family Medical History / Comment(s): Pt states "His dad of chronic lung disease". General Exam - General Exam Comments Initial Comments: This is a well-developed well-nourished awake alert oriented 3 Limitations: no limitations, physical limitation General appearance: alert, anxious Head exam: Present: atraumatic, normocephalic, normal inspection Eye exam: Present: normal appearance, PERRL, EOMI. Absent: scleral icterus, conjunctival injection, periorbital swelling ENT exam: Present: normal exam, mucous membranes moist Neck exam: Present: normal inspection. Absent: tenderness, meningismus, lymphadenopathy Respiratory exam: Present: normal lung sounds bilaterally. Absent: respiratory distress, wheezes, rales, rhonchi, stridor Cardiovascular Exam: Present: normal rhythm, tachycardia, normal heart sounds. Absent: systolic murmur, diastolic murmur, rubs, gallop, clicks GI/Abdominal exam: Present: soft, normal bowel sounds, other (Obese abdomen with some suprapubic tenderness evidence of distended bladder). Absent: distended, tenderness, guarding, rebound, rigid Rectal exam: Present: deferred exam: Present: other (Grover catheter is in place no evidence of a leak) Extremities exam: Present: normal inspection, full ROM, normal capillary refill. Absent: tenderness, pedal edema, joint swelling, calf tenderness Back exam: Present: normal inspection Neurological exam: Present: alert, oriented X3, CN II-XII intact Psychiatric exam: Present: normal affect, normal mood Skin exam: Present: warm, dry, intact, normal color. Absent: rash Course Vital Signs 10/08/17 14:15 Temperature 98 F Pulse Rate 120 H Respiratory 24 Rate Blood Pressure 118/79 O2 Sat by Pulse 86 L Oximetry Medical Decision Making - Medical Decision Making Patient did have 973 mL of urine per bladder scan. The Grover catheter was repositioned with good outflow of greater than 1000 mL of urine. Patient feels much improved at this time. He will be discharged Disposition Clinical Impression: Grover catheter problem, Urinary outflow obstruction Disposition: HOME SELF-CARE Condition: Good Instructions: Grover Catheter Placement and Care (ED) Is patient prescribed a controlled substance at d/c from ED?: No Referrals: [facility],Clinic [Primary Care Provider] - 1-2 days
== END 2017-10-08 16:37 | disposition home or self-care (01) ==
LOC: EC 13:54
DX: T83.091A Other mechanical complication of indwelling urethral catheter, initial encounter (principal); J44.9 Chronic obstructive pulmonary disease, unspecified; E11.9 Type 2 diabetes mellitus without complications; I10 Essential (primary) hypertension; F41.9 Anxiety disorder, unspecified; Z85.048 Personal history of other malignant neoplasm of rectum, rectosigmoid junction, and anus; Z99.81 Dependence on supplemental oxygen; Z87.438 Personal history of other diseases of male genital organs; Z87.891 Personal history of nicotine dependence; Z79.84 Long term (current) use of oral hypoglycemic drugs; Z79.899 Other long term (current) drug therapy; Z91.018 Allergy to other foods; Y83.8 Other surgical procedures as the cause of abnormal reaction of the patient, or of later complication, without mention of misadventure at the time of the procedure
CPT/HCPCS: 51798; 99284

== ENCOUNTER 2017-11-07 12:55 | Inpatient (IN) | payer OTHER, MEDICARE ==
[2017-11-07] MEDS ORDERED: SODIUM CHLORIDE 0.9% 1,000 ML IV STA ×2 (13:25)
[2017-11-07] MEDS ORDERED: SODIUM CHLORIDE 0.9% 1,000 ML IV ONE (13:25)
--- NOTE | 2017-11-07 13:25 | ED ---
General Adult HPI - General Chief complaint: Altered Mental Status Stated complaint: altered mental status Time Seen by Provider: 11/07/17 13:01 Source: patient, EMS, RN notes reviewed, old records reviewed Mode of arrival: EMS Limitations: altered mental status - History of Present Illness Initial comments: This is a 72-year-old male to the ER for evaluation. Presents today for eval is regarding altered mental status. Patient's poor strain therefore history obtained by EMS and patient's recent chart. - Related Data Home Medications Medication Instructions Recorded Confirmed metFORMIN HCL 500 mg PO TID 02/05/14 11/07/17 ALPRAZolam [Xanax] 0.25 mg PO TID 07/07/17 11/07/17 Metoprolol Tartrate [Lopressor] 25 mg PO TID 07/07/17 11/07/17 Acetaminophen Tab [Tylenol] 500 mg PO BID 11/07/17 11/07/17 Fluticasone Nasal [place] [Flonase 1 spray EA NOSTRIL DAILY 11/07/17 11/07/17 Nasal [place]] Ipratropium-Albuterol Nebulize 3 ml INHALATION RT-QID 11/07/17 11/07/17 [Duoneb 0.5 mg-3 mg/3 ml Soln] Previous Rx's Medication Instructions Recorded Furosemide [Lasix] 40 mg PO DAILY #30 tab 07/11/17 Allergies Allergy/AdvReac Type Severity Reaction Status Date / Time onion Allergy Unknown Verified 11/07/17 13:30 Review of Systems ROS Statement: Those systems with pertinent positive or pertinent negative responses have been documented in the HPI. ROS Other: All systems not noted in ROS Statement are negative. Past Medical History Past Medical History: Cancer, COPD, Diabetes Mellitus, Hyperlipidemia, Hypertension Additional Past Medical History / Comment(s): rectal cancer, O2 dependent History of Any Multi-Drug Resistant Organisms: None Reported Additional Past Surgical History / Comment(s): Fatty tumors removed from bilateral legs. Hydrocele. Past Anesthesia/Blood Transfusion Reactions: No Reported Reaction Past Psychological History: No Psychological Hx Reported, Anxiety Smoking Status: Former smoker Past Alcohol Use History: None Reported Past Drug Use History: None Reported - Past Family History Father Family Medical History: COPD Additional Family Medical History / Comment(s): Pt states "His dad of chronic lung disease". General Exam Limitations: altered mental status General appearance: alert, in no apparent distress Head exam: Present: atraumatic, normocephalic, normal inspection Eye exam: Present: normal appearance, PERRL, EOMI. Absent: scleral icterus, conjunctival injection, periorbital swelling ENT exam: Present: normal exam, mucous membranes moist Neck exam: Present: normal inspection. Absent: tenderness, meningismus, lymphadenopathy Respiratory exam: Present: normal lung sounds bilaterally. Absent: respiratory distress, wheezes, rales, rhonchi, stridor Cardiovascular Exam: Present: normal rhythm, tachycardia, normal heart sounds. Absent: systolic murmur, diastolic murmur, rubs, gallop, clicks GI/Abdominal exam: Present: soft, normal bowel sounds. Absent: distended, tenderness, guarding, rebound, rigid Extremities exam: Present: normal inspection, full ROM, normal capillary refill. Absent: tenderness, pedal edema, joint swelling, calf tenderness Back exam: Present: normal inspection Neurological exam: Present: alert, oriented X3, CN II-XII intact Psychiatric exam: Present: normal affect, normal mood Skin exam: Present: warm, dry, intact, normal color. Absent: rash Course Vital Signs 11/07/17 11/07/17 13:03 14:15 Temperature 98.6 F 98 F Pulse Rate 124 H 122 H Respiratory 20 20 Rate Blood Pressure 157/81 153/81 O2 Sat by Pulse 96 95 Oximetry EKG Findings - EKG Comments: EKG Findings:: EKG shows tachycardic rhythm rate of 122, IL 20, QRS 126, QTC 532 Medical Decision Making - Medical Decision Making 72 male the ER for evaluation, patient presents today for evaluation regarding not feeling well for mental status significant medical problems medical history positive UTI. Patient be admitted for IV antibiotics - Lab Data Result diagrams: 11/07/17 13:49 11/07/17 13:49 - Radiology Data Radiology results: report reviewed (CT brain, chest x-ray negative for acute disease), image reviewed Disposition Clinical Impression: Altered mental status, COPD exacerbation, Urinary outflow obstruction, Urinary retention, UTI (urinary tract infection) Disposition: ADMITTED IP TO THIS HOSP Condition: Fair Is patient prescribed a controlled substance at d/c from ED?: No
[2017-11-07 14:07] LABS: Anisocytosis Slight; Basophils % (A) 0 %; Eosinophils # (A) 0.1 k/uL (0-0.7); Eosinophils % (A) 1 %; HGB 11.6 gm/dL (13.0-17.5); Hypochromasia Slight; Lymphocytes # (A) 1.2 k/uL (1.0-4.8); Lymphocytes % (A) 13 %; MCH 25.3 pg (25.0-35.0); MCHC 31.3 g/dL (31.0-37.0); MCV 80.8 fL (80.0-100.0); Mean Platelet Volume 6.6; Monocytes # (A) 0.5 k/uL (0-1.0); Monocytes % (A) 6 %; Neutrophils # (A) 7.3 k/uL (1.3-7.7); Neutrophils % (A) 79 %; Platelet Count 218 k/uL (150-450); RBC 4.58 m/uL (4.30-5.90); RDW 16.1 % (11.5-15.5); WBC 9.3 k/uL (3.8-10.6)
[2017-11-07 14:16] LABS: ALT 30 U/L (21-72); AST 18 U/L (17-59); Albumin 3.7 g/dL (3.5-5.0); Alkaline Phosphatase 77 U/L (38-126); Blood Urea Nitrogen 26 mg/dL (9-20); Calcium 9.4 mg/dL (8.4-10.2); Chloride 89 mmol/L (98-107); Glucose 162 mg/dL (74-99); Magnesium 1.5 mg/dL (1.6-2.3); Phosphorus 3.4 mg/dL (2.5-4.5); Potassium 4.3 mmol/L (3.5-5.1); Sodium 140 mmol/L (137-145); Total Bilirubin 0.2 mg/dL (0.2-1.3); Total Protein 6.6 g/dL (6.3-8.2)
[2017-11-07 14:22] LABS: Anion Gap 7 mmol/L
[2017-11-07 14:25] LABS: Partial Thromboplastin Time 22.2 sec (22.0-30.0); Prothrombin Time 9.8 sec (9.0-12.0)
[2017-11-07 14:27] LABS: Carbon Dioxide 44 mmol/L (22-30)
[2017-11-07 14:44] LABS: Creatine Kinase MB 0.5 ng/mL (0.0-2.4); Troponin I 0.017 ng/mL (0.000-0.034)
[2017-11-07 14:55] LABS: Amorphous Sediment,Urine Rare /hpf; Appearance,Urine Clear (Clear); Bilirubin,Urine Negative (Negative); Blood,Urine Negative (Negative); Color,Urine Yellow; Glucose,Urine (UA) Negative (Negative); Hyaline Casts,Urine 1 /lpf (0-2); Ketones,Urine Negative (Negative); Leukocyte Esterase,Urine Small (Negative); Mucus,Urine Rare /hpf; Nitrite,Urine Negative (Negative); Protein,Urine Trace (Negative); RBC,Urine 2 /hpf (0-5); Specific Gravity,Urine 1.014 (1.001-1.035); Urobilinogen,Urine <2.0 mg/dL (<2.0); WBC,Urine 18 /hpf (0-5)
--- NOTE | 2017-11-07 15:02 | CT ---
EXAMINATION TYPE: CT brain wo con DATE OF EXAM: 11/07/2017 COMPARISON: 10/04/2016 HISTORY: 72-year-old male AMS, CONFUSION TECHNIQUE: Examination was done in axial plane without intravenous contrast. Coronal and sagittal r econstructions performed. CT DLP: 1213 mGycm Automated exposure control for dose reduction was used. FINDINGS: There are prominent streak artifacts present related to the calvarium especially along the left kidne y. Allowing for this limitation, no evidence of acute intracranial hemorrhage, acute ischemic changes, m ass, mass-effect, or extra-axial fluid collection. There is no effacement of cerebral sulci or basal subarachnoid cisterns. There is no hydrocephalus. There is no midline shift. Guerra-white matter di stinction is preserved. Mild generalized cerebral cortical atrophy. Prominent perivascular space or old lacunar infarct in th e left basal ganglia. Trace mucosal thickening anterior right ethmoid air cells. Orbits and globes are intact. Mastoid air cells are well pneumatized. IMPRESSION: Prominent streak artifacts from the skull. No definite acute intracranial abnormality seen.
--- NOTE | 2017-11-07 15:05 | XR ---
EXAMINATION TYPE: XR chest 2V DATE OF EXAM: 11/07/2017 COMPARISON: CT chest abdomen and pelvis July 10, 2017 two-view chest x-ray August 18, 2017 HISTORY: Altered mental status and weakness. TECHNIQUE: Frontal and lateral views of the chest are obtained. FINDINGS: Background chronic emphysematous changes redemonstrated seen better on CT. There is no stan picious new focal air space opacity, pleural effusion, or pneumothorax seen. The cardiac silhouette size remains enlarged with atherosclerotic aorta. Elevated left hemidiaphragm is present. The osseou s structures are intact. IMPRESSION: Chronic emphysematous change and cardiomegaly without acute pulmonary process.
[2017-11-07] MEDS ORDERED: cefTRIAXone 2,000 MG in SODIUM CHLORIDE 0.9% 100 ML IVPB STA (15:31)
[2017-11-07] MEDS ORDERED: cefTRIAXone IN SWFI 2,000 MG/20 ML SYRINGE IVP STA (15:33)
[2017-11-07] MEDS ORDERED: QUEtiapine 25 MG TAB PO PRN (17:25)
[2017-11-07] MEDS ORDERED: SODIUM CHLORIDE 0.9% 1,000 ML IV SCH (17:30)
--- NOTE | 2017-11-07 17:30 | P.HPIM ---
History of Present Illness 72-year-old gentleman was brought into hospital with the altered mental status by his . I talked to the on phone and able to get extensive history from the . Patient apparently started getting agitated since last night. Patient has not been sleeping well for the last few days and has been making his up multiple times because of which after talking to the PCP in [facility] his got approval for her next dose of Xanax normally take 0.253 times a day of Xanax for anxiety has given 0.5 mg of Xanax after which he is had dictation has worsened. Patient today morning was paranoid seeing people who were not there at his oxygen tubing cut his Grover catheter which was reinserted again by his and through them out of the window. And he does have history of COPD based because of which he uses oxygen patient does have extensive history of rectal cancer from the history from the [facility] appears like patient received palliative radiation therapy and patient was given a prognosis of 2 years. Although no such documentation is available for me after extensive review of the medical records. His cannot take care of him at home because of the level of care necessity he needs at home. Patient may need a placement given a palliative care consultation depending on his prognosis. Patient during his last hospitalization was admitted with generalized anasarca was treated for right-sided heart failure does have bilateral pedal pleural effusion patient is still on Lasix does have some contraction alkalosis. Patient was initially thought to have urinary tract infection although urine is not significantly abnormal patient does not have any symptoms of UTI patient's nitrate is negative small leukocyte esterase rare WBC in the urine. Patient is tachycardic with contraction alkalosis because of which Lasix will be held and patient was started on IV fluids in spite of creatinine being 0.6 lactic acid is only 1.4. Magnesium is low at 1.5 which will be supplemented as well. Review of Systems REVIEW OF SYSTEMS: Unable to obtain most of the review of systems as patient is confused and is definitely paranoid Past Medical History Past Medical History: Cancer, COPD, Diabetes Mellitus, Hyperlipidemia, Hypertension Additional Past Medical History / Comment(s): rectal cancer, O2 dependent History of Any Multi-Drug Resistant Organisms: None Reported Additional Past Surgical History / Comment(s): Fatty tumors removed from bilateral legs. Hydrocele. Past Anesthesia/Blood Transfusion Reactions: No Reported Reaction Past Psychological History: No Psychological Hx Reported, Anxiety Smoking Status: Former smoker Past Alcohol Use History: None Reported Past Drug Use History: None Reported - Past Family History Father Family Medical History: COPD Additional Family Medical History / Comment(s): Pt states "His dad of chronic lung disease". Medications and Allergies Home Medications Medication Instructions Recorded Confirmed Type metFORMIN HCL 500 mg PO TID 02/05/14 11/07/17 History ALPRAZolam [Xanax] 0.25 mg PO TID 07/07/17 11/07/17 History Metoprolol Tartrate [Lopressor] 25 mg PO TID 07/07/17 11/07/17 History Furosemide [Lasix] 40 mg PO DAILY #30 tab 07/11/17 11/07/17 Rx Acetaminophen Tab [Tylenol] 500 mg PO BID 11/07/17 11/07/17 History Fluticasone Nasal [place] [Flonase 1 spray EA NOSTRIL DAILY 11/07/17 11/07/17 History Nasal [place]] Ipratropium-Albuterol Nebulize 3 ml INHALATION RT-QID 11/07/17 11/07/17 History [Duoneb 0.5 mg-3 mg/3 ml Soln] Allergies Allergy/AdvReac Type Severity Reaction Status Date / Time onion Allergy Unknown Verified 11/07/17 13:30 Physical Exam Vitals: Vital Signs Temp Pulse Resp BP Pulse Ox 11/07/17 16:27 122 H 18 171/86 99 11/07/17 15:32 124 H 18 155/70 96 11/07/17 14:15 98 F 122 H 20 153/81 95 11/07/17 13:03 98.6 F 124 H 20 157/81 96 Intake and Output 11/07/17 11/07/17 11/07/17 06:59 14:59 22:59 Other: Weight 108.862 kg PHYSICAL EXAMINATION: GENERAL: The patient is alert and oriented x1 bit agitated paranoid, not in any acute distress. Well developed, well nourished. HEENT: Pupils are round and equally reacting to light. EOMI. No scleral icterus. No conjunctival pallor. Normocephalic, atraumatic. No pharyngeal erythema. No thyromegaly. CARDIOVASCULAR: S1 and S2 present. No murmurs, rubs, or gallops. Tachycardic PULMONARY: Chest is clear to auscultation, no wheezing or crackles. ABDOMEN: Soft, nontender, nondistended, normoactive bowel sounds. No palpable organomegaly. MUSCULOSKELETAL: No joint swelling or deformity. EXTREMITIES: No cyanosis, clubbing, or pedal edema. NEUROLOGICAL: Gross neurological examination did not reveal any focal deficits. SKIN: No rashes. Results CBC & Chem 7: 11/07/17 13:49 11/07/17 13:49 Labs: Abnormal Lab Results - Last 24 Hours (Table) 11/07/17 11/07/17 11/07/17 Range/Units 13:49 13:49 13:49 Hgb 11.6 L (13.0-17.5) gm/dL Hct 37.0 L (39.0-53.0) % RDW 16.1 H (11.5-15.5) % Chloride 89 L (98-107) mmol/L Carbon Dioxide 44 H* (22-30) mmol/L BUN 26 H (9-20) mg/dL Creatinine 0.60 L (0.66-1.25) mg/dL Glucose 162 H (74-99) mg/dL Magnesium 1.5 L (1.6-2.3) mg/dL Total Creatine Kinase 21 L (55-170) U/L Urine Protein (Negative) Ur Leukocyte Esterase (Negative) Urine WBC (0-5) /hpf Amorphous Sediment (None) /hpf Urine Mucus (None) /hpf 11/07/17 Range/Units 14:33 Hgb (13.0-17.5) gm/dL Hct (39.0-53.0) % RDW (11.5-15.5) % Chloride (98-107) mmol/L Carbon Dioxide (22-30) mmol/L BUN (9-20) mg/dL Creatinine (0.66-1.25) mg/dL Glucose (74-99) mg/dL Magnesium (1.6-2.3) mg/dL Total Creatine Kinase (55-170) U/L Urine Protein Trace H (Negative) Ur Leukocyte Esterase Small H (Negative) Urine WBC 18 H (0-5) /hpf Amorphous Sediment Rare H (None) /hpf Urine Mucus Rare H (None) /hpf Assessment and Plan Plan: -Altered mental status ask and agitation: Secondary to 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 -Baseline dementia as per the agents family members Asad may be as and was dementia. -Rectal cancer: Unsure of the stage of the rectal cancer unsure of the prognosis will consult oncology. -Tachycardia: Sinus tachycardia reflux sinus tachycardia and patient uses metoprolol patient will be initiated back on that patient does have some contraction alkalosis will give gentle hydration until tomorrow morning with IV fluids which need to be discontinued tomorrow morning. Patient denied having his last hospitalization was treated for chronic diastolic dysfunction and generalized anasarca. At that time patient had normal ejection fraction mild pulmonary hypertension. -Mild asymptomatic bacteriuria. -Chronic urinary retention patient will be continued on Grover catheter -Hyperlipidemia: Patient will be on sliding scale insulin hold off on metformin -Hyperlipidemia -CODE STATUS: DO NOT RESUSCITATE
[2017-11-07] MEDS: MAGNESIUM SULFATE-D5W PMX 1 GM in DEXTROSE/WATER 1 100ML.BAG IVPB SCH ×3 (19:07→21:34)
[2017-11-07] MEDS: IPRATROPIUM-ALBUTEROL 3 ML NEB INHALATION SCH (19:19)
[2017-11-07] MEDS: ACETAMINOPHEN TAB 500 MG TAB PO SCH (20:20)
[2017-11-07] MEDS: METOPROLOL TARTRATE 25 MG TAB PO SCH (20:21)
[2017-11-07 20:48] LABS: Glucose,Whole Blood 223 mg/dL (75-99)
[2017-11-07] MEDS: HALOPERIDOL LACTATE 5 MG/ML 1 ML VIAL IM PRN (22:45)
[2017-11-07] MEDS ORDERED: INSULIN ASPART 100 UNIT/ML 1 ML 10 ML VIAL SQ ONE (23:05)
[2017-11-08] MEDS: metFORMIN 500 MG TAB PO SCH ×3 (00:41→09:24)
[2017-11-08] MEDS: FUROSEMIDE 40 MG TAB PO SCH ×3 (00:41→09:52)
[2017-11-08] MEDS: IPRATROPIUM-ALBUTEROL 3 ML NEB INHALATION SCH ×4 (07:33→19:21)
[2017-11-08 07:40] LABS: Glucose,Whole Blood 157 mg/dL (75-99)
[2017-11-08] MEDS ORDERED: SYMBICORT 160-4.5 MCG INHALER INHALATION SCH (08:00)
[2017-11-08 08:17] LABS: Anisocytosis Slight; Basophils % (A) 0 %; Eosinophils % (A) 0 %; HGB 11.3 gm/dL (13.0-17.5); Hypochromasia Slight; Lymphocytes % (A) 11 %; MCH 25.3 pg (25.0-35.0); MCHC 31.5 g/dL (31.0-37.0); MCV 80.5 fL (80.0-100.0); Mean Platelet Volume 6.7; Monocytes # (A) 0.6 k/uL (0-1.0); Monocytes % (A) 6 %; Neutrophils # (A) 7.7 k/uL (1.3-7.7); Neutrophils % (A) 81 %; Platelet Count 222 k/uL (150-450); RBC 4.46 m/uL (4.30-5.90); RDW 16.3 % (11.5-15.5); WBC 9.5 k/uL (3.8-10.6)
[2017-11-08] MEDS ORDERED: cefTRIAXone IN SWFI 1,000 MG/10 ML SYRINGE IVP SCH (09:00)
[2017-11-08] MEDS ORDERED: cefTRIAXone 1,000 MG in SODIUM CHLORIDE 0.9% 100 ML IVPB SCH (09:00)
[2017-11-08 09:08] LABS: ALT 25 U/L (21-72); AST 20 U/L (17-59); Albumin 3.6 g/dL (3.5-5.0); Alkaline Phosphatase 75 U/L (38-126); Anion Gap 9 mmol/L; Blood Urea Nitrogen 24 mg/dL (9-20); Calcium 9.4 mg/dL (8.4-10.2); Chloride 93 mmol/L (98-107); Glucose 149 mg/dL (74-99); Potassium 4.3 mmol/L (3.5-5.1); Sodium 142 mmol/L (137-145); Total Bilirubin 0.4 mg/dL (0.2-1.3); Total Protein 6.4 g/dL (6.3-8.2)
[2017-11-08 09:21] LABS: Carbon Dioxide 40 mmol/L (22-30)
[2017-11-08] MEDS: INSULIN ASPART 100 UNIT/ML 1 ML 10 ML VIAL SQ SCH ×4 (09:32→22:22)
[2017-11-08] MEDS: ENOXAPARIN 40 MG/0.4 ML SYRINGE SQ SCH (09:51)
[2017-11-08] MEDS: METOPROLOL TARTRATE 25 MG TAB PO SCH ×3 (09:51→22:23)
[2017-11-08] MEDS: FLUTICASONE 50MCG/SPRAY NASAL 16GM EA NOSTRIL SCH (09:52)
[2017-11-08] MEDS: ACETAMINOPHEN TAB 500 MG TAB PO SCH ×2 (09:53→22:24)
[2017-11-08 11:43] LABS: Glucose,Whole Blood 210 mg/dL (75-99)
[2017-11-08 11:48] LABS: Hemoglobin A1C 7.5 % (4.0-6.0)
--- NOTE | 2017-11-08 15:44 | P.PN ---
Subjective 72-year-old admitted with agitation altered mental status. Multifactorial altered mental status most probably secondary to CO2 retention patient is wheezing today patient will be started on Pulmicort patient is on inhalational treatments are not starting on strictures because of his frequent agitation episodes. Patient does have baseline dementia. Patient received a excess narcotics which led him to have agitations. Patient was in 4-point restraints on SIMV evaluate the patient today which was started last night because of his agitation patient pulled out his IV line. Patient remains tachycardic as the he did not take any of his by mouth medications after convincing patient did take the by mouth medications restraints were discontinued. Had excessive discussion with oncology regarding his cancer status was further investigating into his rectal cancer stages and the previous treatment. If patient has advancing cancer patient is more appropriate for hospice and palliative care although patient does appear to have moderate to severe dementia at baseline. Patient was having on and off agitations which are being managed by antipsychotics, unfortunately requiring higher doses of antipsychotics Objective - Vital Signs Vital signs: Vital Signs Temp 99.4 F 11/08/17 15:07 Pulse 107 H 11/08/17 15:07 Resp 17 11/08/17 15:07 BP 140/81 11/08/17 15:07 Pulse Ox 97 11/08/17 15:07 Intake & Output 11/07/17 11/08/17 11/08/17 18:59 06:59 18:59 Intake Total 850 Output Total 250 600 800 Balance -250 250 -800 Weight 108.862 kg 116.5 kg Intake: Oral 850 Output: Urine 250 600 800 Uretheral (Grover) 250 Other: Voiding Method Indwelling Catheter Indwelling Catheter - Exam PHYSICAL EXAMINATION: GENERAL: The patient is alert and oriented x1-2 bit agitated paranoid, not in any acute distress. Well developed, well nourished. HEENT: Pupils are round and equally reacting to light. EOMI. No scleral icterus. No conjunctival pallor. Normocephalic, atraumatic. No pharyngeal erythema. No thyromegaly. CARDIOVASCULAR: S1 and S2 present. No murmurs, rubs, or gallops. Tachycardic PULMONARY: Chest is clear to auscultation, no wheezing or crackles. ABDOMEN: Soft, nontender, nondistended, normoactive bowel sounds. No palpable organomegaly. MUSCULOSKELETAL: No joint swelling or deformity. EXTREMITIES: No cyanosis, clubbing, or pedal edema. NEUROLOGICAL: Gross neurological examination did not reveal any focal deficits. SKIN: No rashes. - Labs CBC & Chem 7: 11/08/17 07:38 11/08/17 07:38 Labs: Abnormal Lab Results - Last 24 Hours (Table) 11/07/17 11/08/17 11/08/17 Range/Units 20:27 07:26 07:38 Hgb 11.3 L (13.0-17.5) gm/dL Hct 36.0 L (39.0-53.0) % RDW 16.3 H (11.5-15.5) % Chloride (98-107) mmol/L Carbon Dioxide (22-30) mmol/L BUN (9-20) mg/dL Creatinine (0.66-1.25) mg/dL Glucose (74-99) mg/dL POC Glucose (mg/dL) 223 H 157 H (75-99) mg/dL 11/08/17 11/08/17 Range/Units 07:38 11:39 Hgb (13.0-17.5) gm/dL Hct (39.0-53.0) % RDW (11.5-15.5) % Chloride 93 L (98-107) mmol/L Carbon Dioxide 40 H* (22-30) mmol/L BUN 24 H (9-20) mg/dL Creatinine 0.63 L (0.66-1.25) mg/dL Glucose 149 H (74-99) mg/dL POC Glucose (mg/dL) 210 H (75-99) mg/dL Microbiology - Last 24 Hours (Table) 11/07/17 14:33 Urine Culture - Preliminary Urine,Catheterized Assessment and Plan Plan: -Altered mental status ask and agitation: Secondary to 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 COPD with minimal exacerbation of last start him on steroids because of significant agitation episodes patient will be started on inhaled steroids and inhalational treatments with the see how his status is tomorrow. -Baseline dementia probably Alzheimer's dementia -Rectal cancer: Unsure of the stage of the rectal cancer unsure of the prognosis were discussed with oncology as mentioned above -Tachycardia: Sinus tachycardia reflux sinus tachycardia and patient uses metoprolol patient will be initiated back on that patient does have some contraction alkalosis IV fluids were discontinued Patient denied having his last hospitalization was treated for chronic diastolic dysfunction and generalized anasarca. At that time patient had normal ejection fraction mild pulmonary hypertension. -Mild asymptomatic bacteriuria. -Chronic urinary retention patient will be continued on Grover catheter -Hyperlipidemia: Patient will be on sliding scale insulin hold off on metformin -Hyperlipidemia -CODE STATUS: DO NOT RESUSCITATE
[2017-11-08 17:29] LABS: Glucose,Whole Blood 109 mg/dL (75-99)
--- NOTE | 2017-11-08 17:36 | P.CONS ---
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 He has a very poor performance status from advanced COPD,he is O2 dependant, uses wheelchair,can't even walk for few steps,he continues to have mild rectal bleeding after a bowel movement. He was last seen by us in office in 2016. At that time he was not a candidate for surgery or chemotherapy secondary to his other co-morbidities, he has had repeated admissions for other causes. Seen in follow-up today, poor historian and confusion. His diagnosis of Rectal Cancer T3, N0, M0. He underwent radiation therapy ending in May 2017. He was re-scanned in July 2017, no sign of reccurence or progressive cancer at that time. Review of Systems ROS unobtainable: due to mental status Past Medical History Past Medical History: Cancer, Heart Failure, COPD, Dementia, Diabetes Mellitus, Hyperlipidemia, Hypertension Additional Past Medical History / Comment(s): rectal cancer, O2 dependent 3 liters n/c, uti, camp cath changed 11-03-17 sleep pattern off- sleeps all day , up roaming around at night History of Any Multi-Drug Resistant Organisms: None Reported Additional Past Surgical History / Comment(s): Fatty tumors removed from bilateral legs. Hydrocele.colonoscopy Past Anesthesia/Blood Transfusion Reactions: No Reported Reaction Smoking Status: Former smoker - Past Family History Father Family Medical History: COPD, Pneumonia Additional Family Medical History / Comment(s): Pt states "His dad of chronic lung disease".alcoholic Mother Family Medical History: Dementia Additional Family Medical History / Comment(s): alzhiemers, alcoholic Medications and Allergies Home Medications Medication Instructions Recorded Confirmed Type metFORMIN HCL 500 mg PO TID 02/05/14 11/07/17 History ALPRAZolam [Xanax] 0.25 mg PO TID 07/07/17 11/07/17 History Metoprolol Tartrate [Lopressor] 25 mg PO TID 07/07/17 11/07/17 History Furosemide [Lasix] 40 mg PO DAILY #30 tab 07/11/17 11/07/17 Rx Acetaminophen Tab [Tylenol] 500 mg PO BID 11/07/17 11/07/17 History Fluticasone Nasal [place] [Flonase 1 spray EA NOSTRIL DAILY 11/07/17 11/07/17 History Nasal [place]] Ipratropium-Albuterol Nebulize 3 ml INHALATION RT-QID 11/07/17 11/07/17 History [Duoneb 0.5 mg-3 mg/3 ml Soln] Allergies Allergy/AdvReac Type Severity Reaction Status Date / Time onion Allergy Unknown Verified 11/07/17 13:30 Physical Exam Vitals: Vital Signs Temp Pulse Pulse Resp BP BP BP 11/08/17 11:35 100 11/08/17 11:25 94 11/08/17 07:44 88 11/08/17 07:36 92 11/08/17 06:36 98.8 F 123 H 28 H 138/73 11/08/17 00:52 97.7 F 121 H 20 165/79 11/08/17 00:00 121 H 20 11/07/17 19:32 84 11/07/17 19:20 98.0 F 120 H 20 133/86 11/07/17 19:19 86 11/07/17 17:50 99.1 F 109 H 18 163/77 11/07/17 16:27 122 H 18 171/86 11/07/17 16:00 122 H 11/07/17 15:32 124 H 18 155/70 11/07/17 14:15 98 F 122 H 20 153/81 11/07/17 13:03 98.6 F 124 H 20 157/81 Pulse Ox 11/08/17 11:35 11/08/17 11:25 11/08/17 07:44 11/08/17 07:36 96 11/08/17 06:36 93 L 11/08/17 00:52 95 11/08/17 00:00 11/07/17 19:32 11/07/17 19:20 98 11/07/17 19:19 95 11/07/17 17:50 98 11/07/17 16:27 99 11/07/17 16:00 11/07/17 15:32 96 11/07/17 14:15 95 11/07/17 13:03 96 Intake and Output 11/07/17 11/08/17 11/08/17 22:59 06:59 14:59 Intake Total 600 250 Output Total 300 300 Balance 300 -50 Intake: Oral 600 250 Output: Urine 300 300 Other: Voiding Method Indwelling Catheter Indwelling Catheter Weight 116.5 kg - Constitutional Anxious, confused and unable to appropriately answer questions General appearance: no acute distress - EENT Eyes: EOMI, dentition normal ENT: hard of hearing, NA/AT - Neck supple, midline - Respiratory Respiratory: bilateral: diminished (No increased effort, diminished bibasilar) - Cardiovascular Heart rate: 108 Rhythm: irregularly irregular - Gastrointestinal General gastrointestinal: soft, tenderness - Integumentary Integumentary: pale - Neurologic Neurologic: CNII-XII intact - Musculoskeletal Musculoskeletal: generalized weakness, strength equal bilaterally - Psychiatric Inappropriate to questions Results CBC & Chem 7: 11/08/17 07:38 11/08/17 07:38 Labs: Abnormal Lab Results - Last 24 Hours (Table) 11/07/17 11/07/17 11/07/17 Range/Units 13:49 13:49 13:49 Hgb 11.6 L (13.0-17.5) gm/dL Hct 37.0 L (39.0-53.0) % RDW 16.1 H (11.5-15.5) % Chloride 89 L (98-107) mmol/L Carbon Dioxide 44 H* (22-30) mmol/L BUN 26 H (9-20) mg/dL Creatinine 0.60 L (0.66-1.25) mg/dL Glucose 162 H (74-99) mg/dL POC Glucose (mg/dL) (75-99) mg/dL Magnesium 1.5 L (1.6-2.3) mg/dL Total Creatine Kinase 21 L (55-170) U/L Urine Protein (Negative) Ur Leukocyte Esterase (Negative) Urine WBC (0-5) /hpf Amorphous Sediment (None) /hpf Urine Mucus (None) /hpf 11/07/17 11/07/17 11/08/17 Range/Units 14:33 20:27 07:26 Hgb (13.0-17.5) gm/dL Hct (39.0-53.0) % RDW (11.5-15.5) % Chloride (98-107) mmol/L Carbon Dioxide (22-30) mmol/L BUN (9-20) mg/dL Creatinine (0.66-1.25) mg/dL Glucose (74-99) mg/dL POC Glucose (mg/dL) 223 H 157 H (75-99) mg/dL Magnesium (1.6-2.3) mg/dL Total Creatine Kinase (55-170) U/L Urine Protein Trace H (Negative) Ur Leukocyte Esterase Small H (Negative) Urine WBC 18 H (0-5) /hpf Amorphous Sediment Rare H (None) /hpf Urine Mucus Rare H (None) /hpf 11/08/17 11/08/17 11/08/17 Range/Units 07:38 07:38 11:39 Hgb 11.3 L (13.0-17.5) gm/dL Hct 36.0 L (39.0-53.0) % RDW 16.3 H (11.5-15.5) % Chloride 93 L (98-107) mmol/L Carbon Dioxide 40 H* (22-30) mmol/L BUN 24 H (9-20) mg/dL Creatinine 0.63 L (0.66-1.25) mg/dL Glucose 149 H (74-99) mg/dL POC Glucose (mg/dL) 210 H (75-99) mg/dL Magnesium (1.6-2.3) mg/dL Total Creatine Kinase (55-170) U/L Urine Protein (Negative) Ur Leukocyte Esterase (Negative) Urine WBC (0-5) /hpf Amorphous Sediment (None) /hpf Urine Mucus (None) /hpf Microbiology - Last 24 Hours (Table) 11/07/17 14:33 Urine Culture - Preliminary Urine,Catheterized Assessment and Plan Plan: Assessment and Plan 1. Rectal Cancer T3, N0, M0 - Diagnosed in 04/2017 - Was not a candidate for surgical intervention or chemotherapy - Underwent 6 week coarse of Radiation Therapy with Dr. Christopher - Observation since without signs of recurrence or progression 2. Worsening Mental Status Changes - Secondary to toxic encephalopathy likely from from benzodiazepines and potential UTI -Known Progressive Dementia 3. Chronic urinary retention with Camp Catheter - Likely underlying UTI from Chronic Camp Catheter 4. Alkalosis - Likely secondary to Hypoventilation from sedation of benzos and chronic CO2 retainer (underlying COPD ?) - Per Primary Team
[2017-11-08] MEDS: HALOPERIDOL LACTATE 5 MG/ML 1 ML VIAL IM PRN (18:54)
[2017-11-08] MEDS: BUDESONIDE 0.5 MG/2 ML NEBU INHALATION SCH (19:21)
[2017-11-08 20:45] LABS: Glucose,Whole Blood 185 mg/dL (75-99)
[2017-11-08] MEDS: QUEtiapine 25 MG TAB PO SCH (22:23)
[2017-11-09] MEDS: IPRATROPIUM-ALBUTEROL 3 ML NEB INHALATION PRN ×2 (03:06→15:39)
[2017-11-09 07:16] LABS: Glucose,Whole Blood 157 mg/dL (75-99)
[2017-11-09] MEDS: FLUTICASONE 50MCG/SPRAY NASAL 16GM EA NOSTRIL SCH (08:03)
[2017-11-09] MEDS: METOPROLOL TARTRATE 25 MG TAB PO SCH ×3 (08:04→21:07)
[2017-11-09] MEDS: ENOXAPARIN 40 MG/0.4 ML SYRINGE SQ SCH (08:04)
[2017-11-09] MEDS: INSULIN ASPART 100 UNIT/ML 1 ML 10 ML VIAL SQ SCH ×4 (08:07→21:08)
[2017-11-09] MEDS: ACETAMINOPHEN TAB 500 MG TAB PO SCH ×2 (08:07→21:06)
[2017-11-09] MEDS: IPRATROPIUM-ALBUTEROL 3 ML NEB INHALATION SCH ×4 (09:10→19:35)
[2017-11-09] MEDS: BUDESONIDE 0.5 MG/2 ML NEBU INHALATION SCH ×2 (09:10→19:32)
[2017-11-09 09:36] LABS: Anisocytosis Slight; HCT 36.4 % (39.0-53.0); HGB 11.4 gm/dL (13.0-17.5); Hypochromasia Slight; MCH 25.5 pg (25.0-35.0); MCHC 31.4 g/dL (31.0-37.0); MCV 81.1 fL (80.0-100.0); Mean Platelet Volume 7.1; Platelet Count 247 k/uL (150-450); RBC 4.49 m/uL (4.30-5.90); RDW 16.4 % (11.5-15.5); WBC 8.1 k/uL (3.8-10.6)
[2017-11-09 09:52] LABS: Blood Urea Nitrogen 24 mg/dL (9-20); Calcium 9.3 mg/dL (8.4-10.2); Chloride 89 mmol/L (98-107); Glucose 213 mg/dL (74-99); Potassium 4.2 mmol/L (3.5-5.1); Sodium 140 mmol/L (137-145)
[2017-11-09 09:58] LABS: Anion Gap 10 mmol/L
[2017-11-09 10:07] LABS: Carbon Dioxide 41 mmol/L (22-30)
[2017-11-09 12:56] LABS: Glucose,Whole Blood 202 mg/dL (75-99)
--- NOTE | 2017-11-09 15:08 | XR ---
EXAMINATION TYPE: XR chest 1V LIMITED PORTABLE DATE OF EXAM: 11/09/2017 COMPARISON: Prior chest x-ray dated 11/07/2017. HISTORY: Shortness of breath TECHNIQUE: Single frontal view of the chest is obtained. FINDINGS: There is no focal air space opacity, pleural effusion, or pneumothorax seen. Heart is bord deborah in size due to the magnification by the portable technique utilized. The osseous structures ar e intact. Image is slightly underpenetrated and the scapulas are partially obscuring the upper lung f ields. Even taking consideration the technical limitation there is no evidence of an acute infiltrate or vascular decompensation. IMPRESSION: Limitations by the portable technique utilized and under penetrated technique. No definit e acute infiltrate or vascular decompensation. No pulmonary edema.
[2017-11-09] MEDS ORDERED: HEPARIN SODIUM,PORCINE 5,000 UNIT/ML 1 ML VIAL SQ SCH (16:00)
--- NOTE | 2017-11-09 16:03 | P.PN ---
Subjective 72-year-old admitted with agitation altered mental status. Multifactorial altered mental status most probably secondary to CO2 retention patient is wheezing today patient will be started on Pulmicort patient is on inhalational treatments are not starting on strictures because of his frequent agitation episodes. Patient does have baseline dementia. Patient received a excess narcotics which led him to have agitations. Patient was in 4-point restraints on SIMV evaluate the patient today which was started last night because of his agitation patient pulled out his IV line. Patient remains tachycardic as the he did not take any of his by mouth medications after convincing patient did take the by mouth medications restraints were discontinued. Had excessive discussion with oncology regarding his cancer status was further investigating into his rectal cancer stages and the previous treatment. If patient has advancing cancer patient is more appropriate for hospice and palliative care although patient does appear to have moderate to severe dementia at baseline. Patient was having on and off agitations which are being managed by antipsychotics, unfortunately requiring higher doses of antipsychotics 11/09/2017 Patient overall mental status improved a little bit of medicine 4 L of oxygen saturations has come down a little bit because of which I'm obtaining a chest x- ray and also get the opinion of neurologist. Patient apparently had a progressive mental decline since few months. PT and OT evaluation pending patient probably need to be discharged to subacute rehabilitation. Constitutional: Denied any fatigue denied any fever. Cardio vascular: denied any chest pain, palpitations Gastrointestinal denied any nausea vomiting Pulmonary: Denied any shortness of breath cough Neurologic denied any new focal deficits Objective - Vital Signs Vital signs: Vital Signs Temp 98.4 F 11/09/17 15:12 Pulse 76 11/09/17 15:47 Resp 32 H 11/09/17 15:12 BP 146/96 11/09/17 15:12 Pulse Ox 95 11/09/17 15:12 Intake & Output 11/08/17 11/09/17 11/09/17 18:59 06:59 18:59 Intake Total 750 360 Output Total 800 500 300 Balance -800 250 60 Intake: Oral 750 360 Output: Urine 800 500 300 Other: Voiding Method Indwelling Catheter Indwelling Catheter Indwelling Catheter # Bowel Movements 0 - Exam PHYSICAL EXAMINATION: GENERAL: The patient is alert and oriented x1-2 bit agitated paranoid, not in any acute distress. Well developed, well nourished. HEENT: Pupils are round and equally reacting to light. EOMI. No scleral icterus. No conjunctival pallor. Normocephalic, atraumatic. No pharyngeal erythema. No thyromegaly. CARDIOVASCULAR: S1 and S2 present. No murmurs, rubs, or gallops. Tachycardic PULMONARY: Chest is clear to auscultation, no wheezing or crackles. ABDOMEN: Soft, nontender, nondistended, normoactive bowel sounds. No palpable organomegaly. MUSCULOSKELETAL: No joint swelling or deformity. EXTREMITIES: No cyanosis, clubbing, or pedal edema. NEUROLOGICAL: Gross neurological examination did not reveal any focal deficits. SKIN: No rashes. - Labs CBC & Chem 7: 11/09/17 08:57 11/09/17 08:57 Labs: Abnormal Lab Results - Last 24 Hours (Table) 11/08/17 11/08/17 11/09/17 Range/Units 17:24 20:42 07:14 Hgb (13.0-17.5) gm/dL Hct (39.0-53.0) % RDW (11.5-15.5) % Chloride (98-107) mmol/L Carbon Dioxide (22-30) mmol/L BUN (9-20) mg/dL Glucose (74-99) mg/dL POC Glucose (mg/dL) 109 H 185 H 157 H (75-99) mg/dL 11/09/17 11/09/17 11/09/17 Range/Units 08:57 08:57 12:43 Hgb 11.4 L (13.0-17.5) gm/dL Hct 36.4 L (39.0-53.0) % RDW 16.4 H (11.5-15.5) % Chloride 89 L (98-107) mmol/L Carbon Dioxide 41 H* (22-30) mmol/L BUN 24 H (9-20) mg/dL Glucose 213 H (74-99) mg/dL POC Glucose (mg/dL) 202 H (75-99) mg/dL Microbiology - Last 24 Hours (Table) 11/07/17 14:33 Urine Culture - Preliminary Urine,Catheterized Coagulase Negative Staph 11/07/17 13:49 Blood Culture - Preliminary Blood No Growth after 24 hours Assessment and Plan Plan: -Altered mental status and agitation: Secondary to 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 And the status is improving. Agitation episodes are much less. Patient does have significant progressively worsening baseline dementia because of which are do not expect his mental status to improve. COPD with minimal exacerbation improved with inhalational steroids -Baseline dementia probably Alzheimer's dementia -Rectal cancer: Status post radiation therapy and is on observation. -Tachycardia: Sinus tachycardia reflux sinus tachycardia and patient uses metoprolol patient will be initiated back on that patient does have some contraction alkalosis IV fluids were discontinued Patient denied having his last hospitalization was treated for chronic diastolic dysfunction and generalized anasarca. At that time patient had normal ejection fraction mild pulmonary hypertension. -Mild asymptomatic bacteriuria. -Chronic urinary retention patient will be continued on Grover catheter -Hyperlipidemia: Patient will be on sliding scale insulin hold off on metformin -Hyperlipidemia -CODE STATUS: DO NOT RESUSCITATE
[2017-11-09 17:38] LABS: Glucose,Whole Blood 185 mg/dL (75-99)
--- NOTE | 2017-11-09 18:55 | P.CNNES ---
History of Present Illness Consult date: 11/09/17 Requesting physician: Anette Bautista Reason for Consult: Mental status History of Present Illness: Patient is a pleasant 72-year-old male who is being evaluated by the neurology service on 11/09/2017 per the request of Dr. Bautista for altered mental status. Patient is a poor historian and therefore information is gleaned from patient's chart and staff. Patient has history of rectal cancer which was diagnosed in March 2017. Patient also has history of COPD with oxygen dependency. He also has history of diabetes mellitus, hypertension, and dementia. According to the chart, patient has been getting more and more agitated over the last few days. states patient's Xanax was recently increased and his agitation has worsened. reports patient has been hallucinating and seeing people who were not there. Patient has become more and more difficult for to care for at home. Patient was brought to [facility] for evaluation and assistance with possible placement. Looking through the chart, as documented the patient has moderate to severe dementia. It is not clear who he sees in the outpatient setting for this. On admission, patient's pulse rate was 124, temp 98.6, respiratory rate 20, blood pressure 157/81, and oxygen saturation was 96% on 3 L nasal cannula. Labs on admission showed carbon dioxide 44, chloride 89, BUN 26, creatinine 0.6 , magnesium 1.5, and total creatinine kinase 21. CT of the brain was done on admission which showed no definite acute intracranial abnormality. At the time of my evaluation, patient sitting up in the chair and appears to be in no acute distress. Patient is alert and conversant. Review of Systems REVIEW OF SYSTEMS: Otherwise unremarkable and noncontributory. Past Medical History Past Medical History: Cancer, Heart Failure, COPD, Dementia, Diabetes Mellitus, Hyperlipidemia, Hypertension Additional Past Medical History / Comment(s): rectal cancer, O2 dependent 3 liters n/c, uti, acmp cath changed 11-03-17 sleep pattern off- sleeps all day , up roaming around at night History of Any Multi-Drug Resistant Organisms: None Reported Additional Past Surgical History / Comment(s): Fatty tumors removed from bilateral legs. Hydrocele.colonoscopy Past Anesthesia/Blood Transfusion Reactions: No Reported Reaction Smoking Status: Former smoker - Past Family History Father Family Medical History: COPD, Pneumonia Additional Family Medical History / Comment(s): Pt states "His dad of chronic lung disease".alcoholic Mother Family Medical History: Dementia Additional Family Medical History / Comment(s): alzhiemers, alcoholic Medications and Allergies Home Medications Medication Instructions Recorded Confirmed Type metFORMIN HCL 500 mg PO TID 02/05/14 11/07/17 History ALPRAZolam [Xanax] 0.25 mg PO TID 07/07/17 11/07/17 History Metoprolol Tartrate [Lopressor] 25 mg PO TID 07/07/17 11/07/17 History Furosemide [Lasix] 40 mg PO DAILY #30 tab 07/11/17 11/07/17 Rx Acetaminophen Tab [Tylenol] 500 mg PO BID 11/07/17 11/07/17 History Fluticasone Nasal [place] [Flonase 1 spray EA NOSTRIL DAILY 11/07/17 11/07/17 History Nasal [place]] Ipratropium-Albuterol Nebulize 3 ml INHALATION RT-QID 11/07/17 11/07/17 History [Duoneb 0.5 mg-3 mg/3 ml Soln] Allergies Allergy/AdvReac Type Severity Reaction Status Date / Time onion Allergy Unknown Verified 11/07/17 13:30 Physical Examination - Vital Signs Vital Signs: Vital Signs Temp Pulse Pulse Pulse Resp BP Pulse Ox 11/09/17 15:47 76 11/09/17 15:37 74 11/09/17 15:12 98.4 F 126 H 32 H 146/96 95 11/09/17 11:46 74 11/09/17 11:33 72 11/09/17 09:22 76 11/09/17 09:11 74 11/09/17 06:23 98.0 F 116 H 24 149/81 97 11/09/17 03:16 88 11/09/17 03:06 76 11/08/17 23:00 97.7 F 124 H 28 H 139/79 92 L Intake and Output 11/09/17 11/09/17 11/09/17 06:59 14:59 22:59 Intake Total 550 360 360 Output Total 200 300 Balance 350 360 60 Intake: Oral 550 360 360 Output: Urine 200 300 Other: Voiding Method Indwelling Catheter Indwelling Catheter # Bowel Movements 0 PHYSICAL EXAM: GENERAL APPEARANCE: Patient is a well-developed, male who appears to be in no acute distress. HEENT: Normocephalic, atraumatic, no facial asymmetry is seen. Neck is supple with no masses felt. CARDIOVASCULAR: Regular rate and rhythm. ABDOMEN: Nontender, nondistended. EXTREMITIES: Show no edema or clubbing. NEUROLOGICAL EXAM: Patient is awake, alert, and oriented 1. Patient states it is 1972 and Nevarez is president. Patient does not know where he is. Speech is mildly dysarthric and language is normal. No obvious facial asymmetry is seen on cranial nerve testing. Strength is full in all 4 extremities. Sensory exam to light touch is normal in all 4 extremities. No tremors or seizure-like activity noted. Results - Laboratory Findings CBC and BMP: 11/09/17 08:57 11/09/17 08:57 Abnormal Lab Findings: Abnormal Labs 11/07/17 11/07/17 11/07/17 13:49 13:49 13:49 Hgb 11.6 L Hct 37.0 L RDW 16.1 H Chloride 89 L Carbon Dioxide 44 H* BUN 26 H Creatinine 0.60 L Glucose 162 H POC Glucose (mg/dL) Magnesium 1.5 L Total Creatine Kinase 21 L Urine Protein Ur Leukocyte Esterase Urine WBC Amorphous Sediment Urine Mucus 11/07/17 11/07/17 11/08/17 14:33 20:27 07:26 Hgb Hct RDW Chloride Carbon Dioxide BUN Creatinine Glucose POC Glucose (mg/dL) 223 H 157 H Magnesium Total Creatine Kinase Urine Protein Trace H Ur Leukocyte Esterase Small H Urine WBC 18 H Amorphous Sediment Rare H Urine Mucus Rare H 11/08/17 11/08/17 11/08/17 07:38 07:38 11:39 Hgb 11.3 L Hct 36.0 L RDW 16.3 H Chloride 93 L Carbon Dioxide 40 H* BUN 24 H Creatinine 0.63 L Glucose 149 H POC Glucose (mg/dL) 210 H Magnesium Total Creatine Kinase Urine Protein Ur Leukocyte Esterase Urine WBC Amorphous Sediment Urine Mucus 11/08/17 11/08/17 11/09/17 17:24 20:42 07:14 Hgb Hct RDW Chloride Carbon Dioxide BUN Creatinine Glucose POC Glucose (mg/dL) 109 H 185 H 157 H Magnesium Total Creatine Kinase Urine Protein Ur Leukocyte Esterase Urine WBC Amorphous Sediment Urine Mucus 11/09/17 11/09/17 11/09/17 08:57 08:57 12:43 Hgb 11.4 L Hct 36.4 L RDW 16.4 H Chloride 89 L Carbon Dioxide 41 H* BUN 24 H Creatinine Glucose 213 H POC Glucose (mg/dL) 202 H Magnesium Total Creatine Kinase Urine Protein Ur Leukocyte Esterase Urine WBC Amorphous Sediment Urine Mucus 11/09/17 17:34 Hgb Hct RDW Chloride Carbon Dioxide BUN Creatinine Glucose POC Glucose (mg/dL) 185 H Magnesium Total Creatine Kinase Urine Protein Ur Leukocyte Esterase Urine WBC Amorphous Sediment Urine Mucus Assessment and Plan Plan: Impression: 1. Multifactorial encephalopathy most likely toxic and hypoxic 2. Hypercapnia 3. COPD 4. Rectal cancer 5. Dementia 6. Chronic urinary retention/Camp catheter Recommendation: With the information gathered from staff and chart, it does appear patient had a reaction to increase and benzodiazepine. Patient became more agitated and confused. I recommend continuing to hold Xanax. Patient does have underlying dementia, but also has COPD with hypercapnia, tachycardia and rectal cancer status post radiation therapy. Patient's mental status has progressively been getting worse most likely due to all of the above-mentioned. Patient's multiple comorbidities are probably potentiating underlying dementia. Patient can be further evaluated for Alzheimer's dementia in the outpatient setting. As for patient's agitation and behavioral issues, I recommend a psychiatric consult to recommend medication for patient's behavior. For now, I will order an EEG. Continue safety precautions. I will continue to follow with you. Further recommendations following the EEG. Thank you for allowing me to participate in the care of your patient. Feel free to call with any questions or concerns.
[2017-11-09] MEDS: HALOPERIDOL LACTATE 5 MG/ML 1 ML VIAL IM PRN (20:46)
[2017-11-09 20:55] LABS: Glucose,Whole Blood 198 mg/dL (75-99)
[2017-11-09] MEDS: FAMOTIDINE 20 MG TAB PO SCH (21:07)
[2017-11-09] MEDS: QUEtiapine 25 MG TAB PO SCH (21:08)
[2017-11-10 07:09] LABS: Glucose,Whole Blood 168 mg/dL (75-99)
[2017-11-10 07:40] LABS: Anisocytosis Slight; HCT 35.8 % (39.0-53.0); HGB 11.5 gm/dL (13.0-17.5); Hypochromasia Slight; MCH 26.1 pg (25.0-35.0); MCV 81.6 fL (80.0-100.0); Mean Platelet Volume 6.4; Platelet Count 269 k/uL (150-450); RBC 4.39 m/uL (4.30-5.90); RDW 16.5 % (11.5-15.5); WBC 8.1 k/uL (3.8-10.6)
[2017-11-10] MEDS: INSULIN ASPART 100 UNIT/ML 1 ML 10 ML VIAL SQ SCH ×4 (07:46→22:24)
[2017-11-10] MEDS: ACETAMINOPHEN TAB 500 MG TAB PO SCH ×2 (07:47→20:27)
[2017-11-10] MEDS: FAMOTIDINE 20 MG TAB PO SCH ×2 (07:47→20:27)
[2017-11-10] MEDS: ENOXAPARIN 40 MG/0.4 ML SYRINGE SQ SCH (07:47)
[2017-11-10] MEDS: METOPROLOL TARTRATE 25 MG TAB PO SCH ×3 (07:47→20:27)
[2017-11-10] MEDS: FLUTICASONE 50MCG/SPRAY NASAL 16GM EA NOSTRIL SCH (07:47)
[2017-11-10] MEDS: BUDESONIDE 0.5 MG/2 ML NEBU INHALATION SCH ×3 (07:48→18:50)
[2017-11-10] MEDS: IPRATROPIUM-ALBUTEROL 3 ML NEB INHALATION SCH ×5 (07:48→18:49)
[2017-11-10 08:10] LABS: Blood Urea Nitrogen 23 mg/dL (9-20); Calcium 9.7 mg/dL (8.4-10.2); Chloride 90 mmol/L (98-107); Glucose 172 mg/dL (74-99); Potassium 3.9 mmol/L (3.5-5.1); Sodium 139 mmol/L (137-145)
[2017-11-10 08:18] LABS: Anion Gap 11 mmol/L
[2017-11-10 08:22] LABS: Carbon Dioxide 38 mmol/L (22-30)
[2017-11-10 11:18] LABS: Glucose,Whole Blood 176 mg/dL (75-99)
--- NOTE | 2017-11-10 14:29 | P.PN ---
Subjective 77-year-old admitted with agitation altered mental status. Multifactorial altered mental status most probably secondary to CO2 retention patient is wheezing today patient will be started on Pulmicort patient is on inhalational treatments are not starting on strictures because of his frequent agitation episodes. Patient does have baseline dementia. Patient received a excess narcotics which led him to have agitations. Patient was in 4-point restraints on SIMV evaluate the patient today which was started last night because of his agitation patient pulled out his IV line. Patient remains tachycardic as the he did not take any of his by mouth medications after convincing patient did take the by mouth medications restraints were discontinued. Had excessive discussion with oncology regarding his cancer status was further investigating into his rectal cancer stages and the previous treatment. If patient has advancing cancer patient is more appropriate for hospice and palliative care although patient does appear to have moderate to severe dementia at baseline. Patient was having on and off agitations which are being managed by antipsychotics, unfortunately requiring higher doses of antipsychotics 11/09/2017 Patient overall mental status improved a little bit of medicine 4 L of oxygen saturations has come down a little bit because of which I'm obtaining a chest x- ray and also get the opinion of neurologist. Patient apparently had a progressive mental decline since few months. PT and OT evaluation pending patient probably need to be discharged to subacute rehabilitation. 11/10/2017 Patient mental status is almost at his baseline at this time. Patient is still quite a bit confused with the occasional agitation episodes. Pulling out his Grover catheter often. I had extensive discussion again today with his . Patient has slow and progressive decline of his mental status for about any year. After discussion with the and assessing his dementia status, Patient appears to have advanced dementia. Patient overall prognosis is extremely poor patient is more appropriate for hospice same thing was discussed with the and the is agreeable for that. But after discussion with the family plan is to discharge to subacute rehabilitation reevaluated there for palliative care or hospice Constitutional: Denied any fatigue denied any fever. Cardio vascular: denied any chest pain, palpitations Gastrointestinal denied any nausea vomiting Pulmonary: Denied any shortness of breath cough Neurologic denied any new focal deficits Objective - Vital Signs Vital signs: Vital Signs Temp 98.2 F 11/10/17 05:30 Pulse 76 11/10/17 11:17 Resp 16 11/10/17 05:30 BP 121/73 11/10/17 05:30 Pulse Ox 93 L 11/10/17 05:30 Intake & Output 11/09/17 11/10/17 11/10/17 18:59 06:59 18:59 Intake Total 720 Output Total 300 375 Balance 420 -375 Intake: Oral 720 Output: Urine 300 375 Other: Voiding Method Indwelling Catheter Indwelling Catheter Indwelling Catheter # Voids 1 # Bowel Movements 0 1 - Exam PHYSICAL EXAMINATION: GENERAL: The patient is alert and oriented x1-2 bit agitated paranoid, not in any acute distress. Well developed, well nourished. HEENT: Pupils are round and equally reacting to light. EOMI. No scleral icterus. No conjunctival pallor. Normocephalic, atraumatic. No pharyngeal erythema. No thyromegaly. CARDIOVASCULAR: S1 and S2 present. No murmurs, rubs, or gallops. Tachycardic PULMONARY: Chest is clear to auscultation, no wheezing or crackles. ABDOMEN: Soft, nontender, nondistended, normoactive bowel sounds. No palpable organomegaly. MUSCULOSKELETAL: No joint swelling or deformity. EXTREMITIES: No cyanosis, clubbing, or pedal edema. NEUROLOGICAL: Gross neurological examination did not reveal any focal deficits. SKIN: No rashes. - Labs CBC & Chem 7: 11/10/17 07:07 11/10/17 07:07 Labs: Abnormal Lab Results - Last 24 Hours (Table) 11/07/17 11/09/17 11/09/17 Range/Units 13:49 17:34 20:54 Hgb (13.0-17.5) gm/dL Hct (39.0-53.0) % RDW (11.5-15.5) % Chloride (98-107) mmol/L Carbon Dioxide (22-30) mmol/L BUN (9-20) mg/dL Glucose (74-99) mg/dL POC Glucose (mg/dL) 185 H 198 H (75-99) mg/dL Hemoglobin A1c 7.5 H (4.0-6.0) % 11/10/17 11/10/17 11/10/17 Range/Units 07:07 07:07 07:07 Hgb 11.5 L (13.0-17.5) gm/dL Hct 35.8 L (39.0-53.0) % RDW 16.5 H (11.5-15.5) % Chloride 90 L (98-107) mmol/L Carbon Dioxide 38 H (22-30) mmol/L BUN 23 H (9-20) mg/dL Glucose 172 H (74-99) mg/dL POC Glucose (mg/dL) 168 H (75-99) mg/dL Hemoglobin A1c (4.0-6.0) % 11/10/17 Range/Units 11:16 Hgb (13.0-17.5) gm/dL Hct (39.0-53.0) % RDW (11.5-15.5) % Chloride (98-107) mmol/L Carbon Dioxide (22-30) mmol/L BUN (9-20) mg/dL Glucose (74-99) mg/dL POC Glucose (mg/dL) 176 H (75-99) mg/dL Hemoglobin A1c (4.0-6.0) % Microbiology - Last 24 Hours (Table) 11/07/17 14:33 Urine Culture - Final Urine,Catheterized Staphylococcus epidermidis 11/07/17 13:49 Blood Culture - Preliminary Blood No Growth after 48 hours Assessment and Plan Plan: -Altered mental status and agitation: Secondary to 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 And the status is improving. Agitation episodes are much less. Patient does have significant progressively worsening baseline dementia by his mental status is at his baseline COPD with minimal exacerbation improved with inhalational steroids -Baseline dementia probably Alzheimer's dementia -Rectal cancer: Status post radiation therapy and is on observation. -Tachycardia: Sinus tachycardia reflux sinus , improved now - asymptomatic bacteriuria. -Chronic urinary retention patient will be continued on Grover catheter -Hyperlipidemia: Patient will be on sliding scale insulin hold off on metformin -Hyperlipidemia -CODE STATUS: DO NOT RESUSCITATE
[2017-11-10] MEDS: HALOPERIDOL LACTATE 5 MG/ML 1 ML VIAL IM PRN (14:32)
[2017-11-10 17:19] LABS: Glucose,Whole Blood 174 mg/dL (75-99)
[2017-11-10] MEDS ORDERED: ZIPRASIDONE 20 MG VIAL IM SCH (18:00)
--- NOTE | 2017-11-10 18:08 | P.PN ---
Subjective Progress Note Date: 11/10/17 Patient is a 72-year-old male who is being followed by the neurology service for altered mental status. Patient is a poor historian and information has been gleaned from the patient's chart and staff. Patient has history of rectal cancer just diagnosed in March 2017. Patient has history of COPD with oxygen dependency, diabetes mellitus, hypertension, and dementia. Patient was recently given an increased dose of Xanax and patient's agitation worsened. Xanax has been discontinued however patient's agitation continues to wax and wane. Patient does have history of dementia. Computed tomography scan of the brain done on admission shows no acute intracranial abnormality. At the time of my evaluation, patient is in a 3-point restraints due to confusion and combativeness. Patient remains confused and thinks he is at home. He does not appear to be in any acute distress. Objective - Vital Signs Vital signs: Vital Signs Temp 97.8 F 11/10/17 15:00 Pulse 80 11/10/17 15:38 Resp 18 11/10/17 15:00 BP 113/67 11/10/17 15:00 Pulse Ox 93 L 11/10/17 15:00 Intake & Output 11/09/17 11/10/17 11/10/17 18:59 06:59 18:59 Intake Total 720 Output Total 300 375 300 Balance 420 -375 -300 Intake: Oral 720 Output: Urine 300 375 300 Other: Voiding Method Indwelling Catheter Indwelling Catheter Indwelling Catheter # Voids 1 # Bowel Movements 0 1 - Exam PHYSICAL EXAM: GENERAL APPEARANCE: Patient is a well-developed, male who appears to be in no acute distress. HEENT: Normocephalic, atraumatic, no facial asymmetry is seen. Neck is supple with no masses felt. CARDIOVASCULAR: Regular rate and rhythm. ABDOMEN: Nontender, nondistended. EXTREMITIES: Show no edema or clubbing. NEUROLOGICAL EXAM: Patient is awake, alert, and oriented 1. Patient thinks he is at home. He thinks the year is 1986. A meaningful neurological exam cannot be performed due to patient's confusion. He is moving all extremities and no lateralizing weakness is noted. No obvious facial asymmetry is seen on cranial nerve testing. Mild intentional tremors seen in bilateral upper extremities. No seizure-like activity seen or reported. - Labs CBC & Chem 7: 11/10/17 07:07 11/10/17 07:07 Labs: Abnormal Lab Results - Last 24 Hours (Table) 11/07/17 11/09/17 11/10/17 Range/Units 13:49 20:54 07:07 Hgb 11.5 L (13.0-17.5) gm/dL Hct 35.8 L (39.0-53.0) % RDW 16.5 H (11.5-15.5) % Chloride (98-107) mmol/L Carbon Dioxide (22-30) mmol/L BUN (9-20) mg/dL Glucose (74-99) mg/dL POC Glucose (mg/dL) 198 H (75-99) mg/dL Hemoglobin A1c 7.5 H (4.0-6.0) % 11/10/17 11/10/17 11/10/17 Range/Units 07:07 07:07 11:16 Hgb (13.0-17.5) gm/dL Hct (39.0-53.0) % RDW (11.5-15.5) % Chloride 90 L (98-107) mmol/L Carbon Dioxide 38 H (22-30) mmol/L BUN 23 H (9-20) mg/dL Glucose 172 H (74-99) mg/dL POC Glucose (mg/dL) 168 H 176 H (75-99) mg/dL Hemoglobin A1c (4.0-6.0) % 11/10/17 Range/Units 17:17 Hgb (13.0-17.5) gm/dL Hct (39.0-53.0) % RDW (11.5-15.5) % Chloride (98-107) mmol/L Carbon Dioxide (22-30) mmol/L BUN (9-20) mg/dL Glucose (74-99) mg/dL POC Glucose (mg/dL) 174 H (75-99) mg/dL Hemoglobin A1c (4.0-6.0) % Microbiology - Last 24 Hours (Table) 11/07/17 13:49 Blood Culture - Preliminary Blood No Growth after 72 hours 11/07/17 14:33 Urine Culture - Final Urine,Catheterized Staphylococcus epidermidis Assessment and Plan Plan: Impression: 1. Multifactorial encephalopathy most likely toxic and hypoxic 2. Hypercapnia 3. COPD 4. Rectal cancer 5. Dementia 6. Chronic urinary retention/Grover catheter Recommendation: With the information gathered from staff and chart, it does appear patient had a reaction to increase and benzodiazepine. Patient became more agitated and confused. I recommend continuing to hold Xanax. Patient does have underlying dementia which is most likely been exacerbated and potentiated by worsening multiple comorbidities. As for patient's agitation and behavioral issues, I recommend a psychiatric consult to recommend medication for patient's behavior. I had recommended an EEG to evaluate encephalopathy however patient may be unable to have this done due to agitation. From a neurological standpoint, this is not related to stroke or seizure and computed tomography scan of the brain was without any acute abnormality that would contribute to his agitation. Continue safety precautions. I will continue to follow with you on an as-needed basis. Feel free to call with any questions or concerns. Thank you for allowing me to participate in the care of your patient. Feel free to call with any questions or concerns.
[2017-11-10] MEDS ORDERED: ZIPRASIDONE 20 MG VIAL IM PRN (19:46)
[2017-11-10] MEDS: QUEtiapine 25 MG TAB PO SCH (20:27)
[2017-11-10 20:41] LABS: Glucose,Whole Blood 192 mg/dL (75-99)
[2017-11-11 07:11] LABS: Glucose,Whole Blood 134 mg/dL (75-99)
[2017-11-11] MEDS: BUDESONIDE 0.5 MG/2 ML NEBU INHALATION SCH ×2 (07:13→19:16)
[2017-11-11] MEDS: IPRATROPIUM-ALBUTEROL 3 ML NEB INHALATION SCH ×4 (07:13→19:16)
[2017-11-11] MEDS: INSULIN ASPART 100 UNIT/ML 1 ML 10 ML VIAL SQ SCH ×4 (07:34→22:05)
[2017-11-11] MEDS: ENOXAPARIN 40 MG/0.4 ML SYRINGE SQ SCH (07:35)
[2017-11-11] MEDS: FAMOTIDINE 20 MG TAB PO SCH ×2 (07:35→21:59)
[2017-11-11] MEDS: METOPROLOL TARTRATE 25 MG TAB PO SCH ×3 (07:35→21:59)
[2017-11-11] MEDS: FLUTICASONE 50MCG/SPRAY NASAL 16GM EA NOSTRIL SCH (07:35)
[2017-11-11] MEDS: ACETAMINOPHEN TAB 500 MG TAB PO SCH ×2 (07:37→21:59)
[2017-11-11 11:21] LABS: Glucose,Whole Blood 176 mg/dL (75-99)
--- NOTE | 2017-11-11 15:05 | P.CN ---
Psychiatric Consult - . Consult date: 11/11/17 Consult:: Identification data: The patient is 72-year-old male who has a history of a major neurocognitive disorder. [facility] and increased agitation and confusion. History of present illness: I reviewed the medical record and attempted to interview the patient. He is confused on Abilify a coherent history. He was unable to explain the reason for his hospitalization or provide information about his past personal or medical history. According to the medical record his confusion and agitation worsened after his primary care provider increased alprazolam from 0.25 to 5 mg twice a day. His management on the medical unit required intramuscular haloperidol and episodes of medical restraint. He is evaluated by medicine and neurology. Her neurologist diagnosed him with a moderate to severe dementia severe dementia Mental status examination He presented as a disheveled moderately obese male who is laying comfortably and quietly in bed. He did not make eye contact but appeared to attend to the interview. He had no distinguishing features or prominent physical abnormalities. He had a flat facial expression. He was alert and oriented to person only. He showed no abnormality of psychomotor activity. He was not agitated, restless or aggressive. He showed no abnormal movements. His speech was not spontaneous. He was dysarthric. His affect was flat. He did not express suicidal ideation or homicidal ideation. He did not express ideas reference or paranoid ideation. His thinking was concrete and did not appear disorganized coherent. He did not appear to be responding to internal stimuli. Impression: Dictation induced delirium, probable major neurocognitive disorder Recommendation: If the agitation recurs he may benefit from extra doses of Seroquel such as 25 mg twice a day or 3 times a day. As an alternative, consider low-dose haloperidol such as 0.5 mg to 1 mg twice a day. Continue haloperidol 5 mg IM every 6 hours when necessary for severe agitation or aggression. There is no indication for transfer to the psychiatric unit. Thank you for the consult. 11/11/17 14:51 11/11/17 15:02
[2017-11-11] MEDS ORDERED: METOPROLOL TARTRATE 25 MG TAB ONE (16:00)
[2017-11-11 17:20] LABS: Glucose,Whole Blood 176 mg/dL (75-99)
--- NOTE | 2017-11-11 17:45 | P.PN ---
Subjective 77-year-old admitted with agitation altered mental status. Multifactorial altered mental status most probably secondary to CO2 retention patient is wheezing today patient will be started on Pulmicort patient is on inhalational treatments are not starting on strictures because of his frequent agitation episodes. Patient does have baseline dementia. Patient received a excess narcotics which led him to have agitations. Patient was in 4-point restraints on SIMV evaluate the patient today which was started last night because of his agitation patient pulled out his IV line. Patient remains tachycardic as the he did not take any of his by mouth medications after convincing patient did take the by mouth medications restraints were discontinued. Had excessive discussion with oncology regarding his cancer status was further investigating into his rectal cancer stages and the previous treatment. If patient has advancing cancer patient is more appropriate for hospice and palliative care although patient does appear to have moderate to severe dementia at baseline. Patient was having on and off agitations which are being managed by antipsychotics, unfortunately requiring higher doses of antipsychotics 11/09/2017 Patient overall mental status improved a little bit of medicine 4 L of oxygen saturations has come down a little bit because of which I'm obtaining a chest x- ray and also get the opinion of neurologist. Patient apparently had a progressive mental decline since few months. PT and OT evaluation pending patient probably need to be discharged to subacute rehabilitation. 11/10/2017 Patient mental status is almost at his baseline at this time. Patient is still quite a bit confused with the occasional agitation episodes. Pulling out his Grover catheter often. I had extensive discussion again today with his . Patient has slow and progressive decline of his mental status for about any year. After discussion with the and assessing his dementia status, Patient appears to have advanced dementia. Patient overall prognosis is extremely poor patient is more appropriate for hospice same thing was discussed with the and the is agreeable for that. But after discussion with the family plan is to discharge to subacute rehabilitation reevaluated there for palliative care or hospice 11/11/2017 Patient is less agitated patient, patient is off restraints. Patient was a restrained yesterday evening because of his agitation and aggression and try to medical staff. Appreciate recommendations from psychiatry Constitutional: Denied any fatigue denied any fever. Cardio vascular: denied any chest pain, palpitations Gastrointestinal denied any nausea vomiting Pulmonary: Denied any shortness of breath cough Neurologic denied any new focal deficits Objective - Vital Signs Vital signs: Vital Signs Temp 98.3 F 11/11/17 06:00 Pulse 66 11/11/17 17:40 Resp 18 11/11/17 17:40 BP 117/50 11/11/17 17:40 Pulse Ox 93 L 11/11/17 17:40 Intake & Output 11/10/17 11/11/17 11/11/17 18:59 06:59 18:59 Intake Total 240 Output Total 300 450 600 Balance -300 -450 -360 Intake: Oral 240 Output: Urine 300 450 600 Other: Voiding Method Indwelling Catheter Indwelling Catheter Indwelling Catheter # Bowel Movements 0 - Exam PHYSICAL EXAMINATION: GENERAL: The patient is alert and oriented x1-2 bit agitated paranoid, not in any acute distress. Well developed, well nourished. HEENT: Pupils are round and equally reacting to light. EOMI. No scleral icterus. No conjunctival pallor. Normocephalic, atraumatic. No pharyngeal erythema. No thyromegaly. CARDIOVASCULAR: S1 and S2 present. No murmurs, rubs, or gallops. Tachycardic PULMONARY: Chest is clear to auscultation, no wheezing or crackles. ABDOMEN: Soft, nontender, nondistended, normoactive bowel sounds. No palpable organomegaly. MUSCULOSKELETAL: No joint swelling or deformity. EXTREMITIES: No cyanosis, clubbing, or pedal edema. NEUROLOGICAL: Gross neurological examination did not reveal any focal deficits. SKIN: No rashes. 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 And the status is improving. Agitation episodes are much less. Patient does have significant progressively worsening baseline dementia by his mental status is at his baseline COPD with minimal exacerbation improved with inhalational steroids -Baseline dementia probably Alzheimer's dementia -Rectal cancer: Status post radiation therapy and is on observation. -Tachycardia: Sinus tachycardia reflux sinus , improved now - asymptomatic bacteriuria. -Chronic urinary retention patient will be continued on Grover catheter -Hyperlipidemia: Patient will be on sliding scale insulin hold off on metformin -Hyperlipidemia -CODE STATUS: DO NOT RESUSCITATE
--- NOTE | 2017-11-11 19:14 | EEG ---
ELECTROENCEPHALOGRAM REPORT DATE OF SERVICE: If 11/11/2017. REASON FOR TESTING: Altered mental status. DESCRIPTION OF THE PROCEDURE: This EEG was performed using a 21 channel digital electroencephalograph, following international 10-20 system. DESCRIPTION OF THE RECORDING: From the beginning of the tracing, with patient's eyes closed, the background rhythm was mostly consisting of 6 Hz theta frequency in the posterior occipital leads. No obvious asymmetry is seen. Lead artifacts are seen early in the tracing. Photic stimulation was performed with no driving response seen. No pathological waves were elicited. Hyperventilation was not performed. Occasional muscle and movement artifacts are seen. The patient remains awake throughout the tracing. No epileptiform discharges were seen. His EKG lead showed a regular rate and rhythm. INTERPRETATION: This awake EEG is abnormal due to the presence of generalized slowing of the background rhythm, mostly in the theta range. This is consistent with mild encephalopathy. No epileptiform discharges were seen. The absence of epileptiform discharges does not rule out the diagnosis of epilepsy; therefore, clinical correlation is recommended. HEATHER / SUYAPAN: [id number] /
[2017-11-11 20:48] LABS: Glucose,Whole Blood 158 mg/dL (75-99)
[2017-11-11] MEDS: QUEtiapine 25 MG TAB PO SCH (21:59)
[2017-11-12 07:16] LABS: Glucose,Whole Blood 165 mg/dL (75-99)
[2017-11-12] MEDS: ACETAMINOPHEN TAB 500 MG TAB PO SCH (07:25)
[2017-11-12] MEDS: ENOXAPARIN 40 MG/0.4 ML SYRINGE SQ SCH (07:25)
[2017-11-12] MEDS: BUDESONIDE 0.5 MG/2 ML NEBU INHALATION SCH (07:25)
[2017-11-12] MEDS: FLUTICASONE 50MCG/SPRAY NASAL 16GM EA NOSTRIL SCH (07:25)
[2017-11-12] MEDS: IPRATROPIUM-ALBUTEROL 3 ML NEB INHALATION SCH ×3 (07:25→15:37)
[2017-11-12] MEDS: INSULIN ASPART 100 UNIT/ML 1 ML 10 ML VIAL SQ SCH ×2 (07:25→12:35)
[2017-11-12] MEDS: FAMOTIDINE 20 MG TAB PO SCH (07:25)
[2017-11-12] MEDS: METOPROLOL TARTRATE 25 MG TAB PO SCH ×2 (07:26→15:00)
[2017-11-12 07:52] VITALS: BP 136/80; RESP 22; TEMP 97.1
[2017-11-12 12:03] LABS: Glucose,Whole Blood 180 mg/dL (75-99)
--- NOTE | 2017-11-12 14:18 | P.DS ---
Providers Date of admission: 11/09/17 11:59 Attending physician: India Vargas Consults: 11/07/17 17:28 Consult Physician Routine Consulting Provider: Ang Nelson Consult Reason/Comments: Rectal cancer Do you want consulting provider notified?: Yes 11/09/17 15:10 Consult Physician Routine Consulting Provider: Sylvia James Consult Reason/Comments: altered mental status Do you want consulting provider notified?: Yes 11/10/17 18:10 Consult Physician Urgent Consulting Provider: Tom Thompson Consult Reason/Comments: agitation, medical restraints Do you want consulting provider notified?: Already Contacted Primary care physician: [facility] Hospital Course: 77-year-old admitted with agitation altered mental status. Multifactorial altered mental status most probably secondary to CO2 retention patient is wheezing today patient will be started on Pulmicort patient is on inhalational treatments are not starting on strictures because of his frequent agitation episodes. Patient does have baseline dementia. Patient received a excess narcotics which led him to have agitations. Patient was in 4-point restraints on SIMV evaluate the patient today which was started last night because of his agitation patient pulled out his IV line. Patient remains tachycardic as the he did not take any of his by mouth medications after convincing patient did take the by mouth medications restraints were discontinued. Had excessive discussion with oncology regarding his cancer status was further investigating into his rectal cancer stages and the previous treatment. If patient has advancing cancer patient is more appropriate for hospice and palliative care although patient does appear to have moderate to severe dementia at baseline. Patient was having on and off agitations which are being managed by antipsychotics, unfortunately requiring higher doses of antipsychotics 11/09/2017 Patient overall mental status improved a little bit of medicine 4 L of oxygen saturations has come down a little bit because of which I'm obtaining a chest x- ray and also get the opinion of neurologist. Patient apparently had a progressive mental decline since few months. PT and OT evaluation pending patient probably need to be discharged to subacute rehabilitation. 11/10/2017 Patient mental status is almost at his baseline at this time. Patient is still quite a bit confused with the occasional agitation episodes. Pulling out his Camp catheter often. I had extensive discussion again today with his . Patient has slow and progressive decline of his mental status for about any year. After discussion with the and assessing his dementia status, Patient appears to have advanced dementia. Patient overall prognosis is extremely poor patient is more appropriate for hospice same thing was discussed with the and the is agreeable for that. But after discussion with the family plan is to discharge to subacute rehabilitation reevaluated there for palliative care or hospice 11/11/2017 Patient is less agitated patient, patient is off restraints. Patient was a restrained yesterday evening because of his agitation and aggression and try to medical staff. Appreciate recommendations from psychiatry\ 11/12/2017 Overall significant clinical improvement since admission and patient is being discharged today in stable medical condition to subacute rehabilitation. PHYSICAL EXAMINATION: GENERAL: The patient is alert and oriented x2-3 bit agitated paranoid, not in any acute distress. Well developed, well nourished. HEENT: Pupils are round and equally reacting to light. EOMI. No scleral icterus. No conjunctival pallor. Normocephalic, atraumatic. No pharyngeal erythema. No thyromegaly. CARDIOVASCULAR: S1 and S2 present. No murmurs, rubs, or gallops. Tachycardic PULMONARY: Chest is clear to auscultation, no wheezing or crackles. ABDOMEN: Soft, nontender, nondistended, normoactive bowel sounds. No palpable organomegaly. MUSCULOSKELETAL: No joint swelling or deformity. EXTREMITIES: No cyanosis, clubbing, or pedal edema. NEUROLOGICAL: Gross neurological examination did not reveal any focal deficits. SKIN: No rashes. Assessment and Plan Plan: -Altered mental status and agitation: Secondary to 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 Patient is doing much better mental status improved significantly patient will be discharged today. Patient is more appropriate for comfort care and hospice which can be initiated as an outpatient patient is being discharged tomorrow. Psychiatric is recommending 50 mg of Seroquel COPD with minimal exacerbation improved with inhalational steroids -Baseline dementia probably Alzheimer's dementia, severe -Rectal cancer: Status post radiation therapy and is on observation. -Tachycardia: Sinus tachycardia resolved now - asymptomatic bacteriuria. Will not require any antibiotics -Chronic urinary retention patient will be continued on Camp catheter -Hyperlipidemia: Patient will be on sliding scale insulin hold off on metformin -Hyperlipidemia -CODE STATUS: DO NOT RESUSCITATE Patient Condition at Discharge: Fair Plan - Discharge Summary Discharge Rx Participant: No New Discharge Prescriptions: New QUEtiapine [SEROquel] 50 mg PO HS #10 tab metFORMIN HCL [Glucophage] 500 mg PO BID #20 tab Continue Metoprolol Tartrate [Lopressor] 25 mg PO TID Ipratropium-Albuterol Nebulize [Duoneb 0.5 mg-3 mg/3 ml Soln] 3 ml INHALATION RT-QID Fluticasone Nasal [place] [Flonase Nasal [place]] 1 spray EA NOSTRIL DAILY Acetaminophen Tab [Tylenol] 500 mg PO BID Discontinued metFORMIN HCL 500 mg PO TID ALPRAZolam [Xanax] 0.25 mg PO TID Furosemide [Lasix] 40 mg PO DAILY #30 tab Discharge Medication List Metoprolol Tartrate [Lopressor] 25 mg PO TID 07/07/17 [History] Acetaminophen Tab [Tylenol] 500 mg PO BID 11/07/17 [History] Fluticasone Nasal [place] [Flonase Nasal [place]] 1 spray EA NOSTRIL DAILY 11/07/17 [History] Ipratropium-Albuterol Nebulize [Duoneb 0.5 mg-3 mg/3 ml Soln] 3 ml INHALATION RT -QID 11/07/17 [History] QUEtiapine [SEROquel] 50 mg PO HS #10 tab 11/10/17 [Rx] metFORMIN HCL [Glucophage] 500 mg PO BID #20 tab 11/12/17 [Rx] Follow up Appointment(s)/Referral(s): [facility],Clinic [Primary Care Provider] - 1 Week Patient Instructions/Handouts: Urinary Tract Infection in Men (DC) Activity/Diet/Wound Care/Special Instructions: Up with assist, fall precautions. Home with chronic camp. Cardiac, diabetic diet. Home oxygen via nasal cannula- 4 liters Discharge Disposition: TRANSFER TO SNF/ECF
[2017-11-12 15:54] VITALS: PULSE 90
--- NOTE | 2017-11-17 09:27 | CDI ---
Last Revision, April 2017 Documentation Clarification Form Date: 11/17/17 From: Marci Thiago Haily Garcia, Instructor Of Education Hours-8:30 am & 5 pm Umer Admit Date: 11/09/2017 11:59:00 AM Patient Name: Ramón Reynolds Visit Number: [id number] Discharge Date: 11/12/17 ATTENTION: The Clinical Documentation Specialists (CDI) and [facility] Coding Staff appreciate your assistance in clarifying documentation. Please respond to the clarification below the line at the bottom and electronically sign. The CDI & [facility] Coding staff will review the response and follow-up if needed. Please note: Queries are made part of the Legal Health Record. If you have any questions, please contact the author of this message via ITS. Dr. Anette Bautista Documentation states in H&P: magnesium is low at 1.5 which be supplemented. Treatment: Magnesium sulfate-D5w Pmx 1 gm Dextrose/Water 100ml bag IVPB Q 1 H ( total of 3 bags) Clinical significance of diagnostic testing and treatment CANNOT be assumed or coded without physician documentation of significance if any. Please clarify what abnormal laboratory signifies: Hypomagnesemia Unable to determine Other, please specify Please continue to document in your progress notes and discharge summary in order to capture severity of illness and risk of mortality. Include clinical findings that support your diagnosis. Hypomagnesemia MTDD
--- NOTE | 2017-11-17 09:38 | CDI ---
Last Revision, April 2017 Documentation Clarification Form Date: 11/17/17 From: Marci Thiago Haily Garcia, Laboratory Analyst Hours-8:30 am & 5 pm MJovanna Admit Date: 11/09/2017 11:59:00 AM Patient Name: Ramón Reynolds Visit Number: [id number] Discharge Date: 11/12/17 ATTENTION: The Clinical Documentation Specialists (CDI) and [facility] Coding Staff appreciate your assistance in clarifying documentation. Please respond to the clarification below the line at the bottom and electronically sign. The CDI & [facility] Coding staff will review the response and follow-up if needed. Please note: Queries are made part of the Legal Health Record. If you have any questions, please contact the author of this message via ITS. Dr. Anette Bautista The patient has heart failure. H&P states has been treated for chronic diastolic dysfunction and generalized anasarca in the past. No BNP or Echo during this visit. Chest X Ray: Cardiomegaly without acute pulmonary edema. Treatment: Lasix 40 mg po daily In your professional opinion, can you please clarify the acuity and type of CHF if known? Chronic Systolic Heart Failure Chronic Diastolic Heart Failure Chronic Systolic & Diastolic Heart Failure Unable to Determine Other, please specify Please continue to document in your progress notes and discharge summary in order to capture severity of illness and risk of mortality. Include clinical findings that support your diagnosis. Unable to Determine MTDD
== END 2017-11-12 17:01 | DRG 92 ==
LOC: EC 12:55 → 4MS4W 13:26 → 6SEL 15:44 → 4MS4W 17:25 → OBSVTOIN 11-09 11:59
PROVIDERS: ADMIT Hospitalist; ATTEND Hospitalist
DX: G92 Toxic encephalopathy (principal); J44.1 Chronic obstructive pulmonary disease with (acute) exacerbation; E87.4 Mixed disorder of acid-base balance; C20 Malignant neoplasm of rectum; K62.5 Hemorrhage of anus and rectum; I11.0 Hypertensive heart disease with heart failure; I27.20 Pulmonary hypertension, unspecified; I50.9 Heart failure, unspecified; E83.42 Hypomagnesemia; E11.9 Type 2 diabetes mellitus without complications; N13.9 Obstructive and reflux uropathy, unspecified; G30.9 Alzheimer's disease, unspecified; F02.80 Dementia in other diseases classified elsewhere, unspecified severity, without behavioral disturbance, psychotic disturbance, mood disturbance, and anxiety; R82.71 Bacteriuria; D12.3 Benign neoplasm of transverse colon; R00.0 Tachycardia, unspecified; E78.5 Hyperlipidemia, unspecified; R33.9 Retention of urine, unspecified; F41.9 Anxiety disorder, unspecified; T42.4X5A Adverse effect of benzodiazepines, initial encounter; Z66 Do not resuscitate; Z78.1 Physical restraint status; Z99.81 Dependence on supplemental oxygen; Z79.84 Long term (current) use of oral hypoglycemic drugs; Z79.51 Long term (current) use of inhaled steroids; Z79.899 Other long term (current) drug therapy; Z87.891 Personal history of nicotine dependence; Z99.3 Dependence on wheelchair; Z92.3 Personal history of irradiation; Z91.018 Allergy to other foods; Z82.5 Family history of asthma and other chronic lower respiratory diseases; Z81.8 Family history of other mental and behavioral disorders; Z81.1 Family history of alcohol abuse and dependence
CPT/HCPCS: 36415; 51702; 70450; 71045; 71046; 80048; 80053; 81001; 82550; 82553; 83036; 83605; 83735; 84100; 84484; 85025; 85027; 85610; 85730; 87040; 87077; 87086; 87186; 93005; 94640; 94760; 95819; 96360; 96361; 99285

== ENCOUNTER 2018-09-09 15:44 | Inpatient (IN) | payer OTHER, MEDICARE ==
--- NOTE | 2018-09-09 16:38 | XR ---
PROCEDURE: XR pelvis AP view - 2V DATE AND TIME: 09/09/2018 4:34 PM CLINICAL INDICATION: PHH; Rule out scrotal gasses formation TECHNIQUE: AP pelvis and oblique AP pelvis views obtained. COMPARISON: None FINDINGS: The bones and joints and soft tissues are unremarkable, except for mild bilateral hip osteo arthritis changes. Midline catheter noted, with tip superimposed over the bladder. IMPRESSION: NO ACUTE PROCESS.
[2018-09-09] MEDS ORDERED: MORPHINE SULFATE 4 MG/ML SYRINGE IV PRN (16:49)
[2018-09-09] MEDS ORDERED: ONDANSETRON 4 MG/2 ML VIAL IVP PRN (16:49)
[2018-09-09] MEDS ORDERED: NALOXONE 0.4 MG/ML 1 ML VIAL IV PRN (16:49)
--- NOTE | 2018-09-09 16:49 | ED ---
General Adult HPI - General Source: patient, EMS, RN notes reviewed Mode of arrival: EMS Limitations: no limitations <Ciro Najera - Last Filed: 09/09/18 16:46> <Chester Hutchison - Last Filed: 09/09/18 17:05> - General Chief complaint: Recheck/Abnormal Lab/Rx Stated complaint: UTI Time Seen by Provider: 09/09/18 15:47 - History of Present Illness Initial comments: 73-year-old male presents emergency department as a transfer from [facility] for scrotal abscess, UTI. Patient states that symptoms started after having his Camp changed. Patient reports increased scrotal pain Friday into Friday. Patient reports no fever at home. Denies any abdominal pain. Patient states that his never had any like this in the past. He is known diabetic. Patient had lab work, EKG, scrotal ultrasound, chest x-ray. Lactate was 1.3 hemoglobin is stable, white count 12.6. (Ciro Najera) - Related Data Home Medications Medication Instructions Recorded Confirmed Metoprolol Tartrate [Lopressor] 25 mg PO TID 07/07/17 11/07/17 Acetaminophen Tab [Tylenol] 500 mg PO BID 11/07/17 11/07/17 Fluticasone Nasal [place] [Flonase 1 spray EA NOSTRIL DAILY 11/07/17 11/07/17 Nasal [place]] Ipratropium-Albuterol Nebulize 3 ml INHALATION RT-QID 11/07/17 11/07/17 [Duoneb 0.5 mg-3 mg/3 ml Soln] Previous Rx's Medication Instructions Recorded QUEtiapine [SEROquel] 50 mg PO HS #10 tab 11/10/17 metFORMIN HCL [Glucophage] 500 mg PO BID #20 tab 11/12/17 Allergies Allergy/AdvReac Type Severity Reaction Status Date / Time onion Allergy Unknown Verified 09/09/18 15:48 Review of Systems ROS Other: All systems not noted in ROS Statement are negative. <Ciro Najera - Last Filed: 09/09/18 16:46> ROS Other: All systems not noted in ROS Statement are negative. <Chester Hutchison - Last Filed: 09/09/18 17:05> ROS Statement: Those systems with pertinent positive or pertinent negative responses have been documented in the HPI. Past Medical History Past Medical History: Cancer, Heart Failure, COPD, Dementia, Diabetes Mellitus, Hyperlipidemia, Hypertension Additional Past Medical History / Comment(s): rectal cancer, O2 dependent 3 liters n/c, uti, camp cath changed 11-03-17 sleep pattern off- sleeps all day ,up roaming around at night History of Any Multi-Drug Resistant Organisms: None Reported Additional Past Surgical History / Comment(s): Fatty tumors removed from bilateral legs. Hydrocele.colonoscopy Past Anesthesia/Blood Transfusion Reactions: No Reported Reaction Past Psychological History: Anxiety Smoking Status: Former smoker Past Alcohol Use History: None Reported Past Drug Use History: None Reported - Past Family History Father Family Medical History: COPD, Pneumonia Additional Family Medical History / Comment(s): Pt states "His dad of chronic lung disease".alcoholic Mother Family Medical History: Dementia Additional Family Medical History / Comment(s): alzhiemers, alcoholic <Ciro Najera - Last Filed: 09/09/18 16:46> General Exam Limitations: no limitations General appearance: alert, in no apparent distress Head exam: Present: atraumatic, normocephalic, normal inspection Respiratory exam: Present: normal lung sounds bilaterally. Absent: respiratory distress, wheezes, rales, rhonchi, stridor Cardiovascular Exam: Present: normal rhythm, tachycardia, normal heart sounds. Absent: systolic murmur, diastolic murmur, rubs, gallop, clicks GI/Abdominal exam: Present: soft, normal bowel sounds. Absent: distended, tenderness, guarding, rebound, rigid exam: Absent: normal inspection (Scrotal swelling, erythema noted, purulent drainage noted, Camp in place) Skin exam: Present: warm, dry, intact, normal color. Absent: rash <Ciro Najera - Last Filed: 09/09/18 16:46> Course Vital Signs 09/09/18 15:48 Temperature 98.3 F Pulse Rate 126 H Respiratory 24 Rate Blood Pressure 144/95 O2 Sat by Pulse 96 Oximetry EKG Findings - EKG Comments: EKG Findings:: EKG shows sinus tachycardia with right bundle, rate of 124 NH 192 QRS 142 QT status QTC 3:30/474 <Ciro Najera - Last Filed: 09/09/18 16:46> Medical Decision Making <Ciro Najera - Last Filed: 09/09/18 16:46> <Chester Hutchison - Last Filed: 09/09/18 17:05> - Medical Decision Making 73-year-old male presented for transfer scrotal abscess UTI. Patient was given Zosyn. Patient continued on Zosyn. Patient is to be evaluated by urology in emergency department. Patient had Camp catheter which is exchanged patient will be admitted for UTI, scrotal abscess, sepsis. (Ciro Najera) Patient was reevaluated by myself, Dr. Hutchison. Patient resting comfortably in bed. Patient does have scrotal swelling, moderate with erythema and some tenderness. Patient does have fully catheter in place with gross pus coming out from the urethra. Report reviewed from [facility]. Case was discussed with Dr. Segura, who will come evaluate the patient. Case was also discussed with Dr. Dill, covering for this. Patient, who will admit. (Chester Hutchison) Disposition <Ciro Najera - Last Filed: 09/09/18 16:46> <Chester Hutchison - Last Filed: 09/09/18 17:05> Clinical Impression: UTI (urinary tract infection), Scrotal abscess, Sepsis Disposition: ADMITTED IP TO THIS HOSP Condition: Fair Referrals: [facility],Clinic [Primary Care Provider] - 1-2 days
--- NOTE | 2018-09-09 17:43 | P.GSCN ---
History of Present Illness Consult date: 09/09/18 Reason for Consult: Left scrotal swelling History of present illness: The patient is a 73 -year-old male transferred from [facility] for evaluation of left scrotal swelling. Patient has a history of urinary retention which was discovered in 06/2017. At that time he had 3500 mL in his bladder. His urinary retention was felt to be related to radiation therapy given earlier in the year for treatment of rectal cancer. 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 The catheter was last changed on 09/04. The patient says that he first noted some pain and swelling involving the left testicle on 09/06. He says that the pain and swelling increased in severity. He was evaluated this morning and was noted to have a white blood count of 12,630. There was a purulent discharge around the indwelling catheter. The left scrotum was somewhat swollen and tender. A scrotal ultrasound was obtained and suggested bilateral complex hydroceles with a questionable abscess. He was then transferred for further evaluation. The patient says that he actually feels better since this morning. He has been started on Zosyn. He has had no fever or chills and has been afebrile. He denies any previous history of scrotal swelling or infection. Review of Systems - Constitutional Denies chills, Denies fever, Denies sweats - Cardiovascular Denies edema, Denies shortness of breath - Respiratory Denies cough - Gastrointestinal Denies abdominal pain - Genitourinary Reports as per HPI, Denies hematuria Past Medical History Past Medical History: Cancer, Heart Failure, COPD, Dementia, Diabetes Mellitus, Hyperlipidemia, Hypertension Additional Past Medical History / Comment(s): rectal cancer diagnosed in 04/2017-stage TIII N0 M0 treated with radiation therapy in 05/2017 History of Any Multi-Drug Resistant Organisms: None Reported Additional Past Surgical History / Comment(s): Fatty tumors removed from bilateral legs. Hydrocele.colonoscopy Past Anesthesia/Blood Transfusion Reactions: No Reported Reaction Past Psychological History: Anxiety Smoking Status: Former smoker Past Alcohol Use History: None Reported Past Drug Use History: None Reported - Past Family History Father Family Medical History: COPD, Pneumonia Additional Family Medical History / Comment(s): Pt states "His dad of chronic lung disease".alcoholic Mother Family Medical History: Dementia Additional Family Medical History / Comment(s): alzhiemers, alcoholic Medications and Allergies Home Medications Medication Instructions Recorded Confirmed Type Metoprolol Tartrate [Lopressor] 25 mg PO TID 07/07/17 11/07/17 History Acetaminophen Tab [Tylenol] 500 mg PO BID 11/07/17 11/07/17 History Fluticasone Nasal [place] [Flonase 1 spray EA NOSTRIL DAILY 11/07/17 11/07/17 History Nasal [place]] Ipratropium-Albuterol Nebulize 3 ml INHALATION RT-QID 11/07/17 11/07/17 History [Duoneb 0.5 mg-3 mg/3 ml Soln] QUEtiapine [SEROquel] 50 mg PO HS #10 tab 11/10/17 Rx metFORMIN HCL [Glucophage] 500 mg PO BID #20 tab 11/12/17 Rx Allergies Allergy/AdvReac Type Severity Reaction Status Date / Time onion Allergy Unknown Verified 09/09/18 15:48 Surgical - Exam Vital Signs Temp Pulse Resp BP Pulse Ox 98.3 F 126 H 24 144/95 96 09/09/18 15:48 09/09/18 15:48 09/09/18 15:48 09/09/18 15:48 09/09/18 15:48 - General well developed, well nourished, moderate pain, obese - ENT no hearing loss - Abdomen Abdomen: soft, non tender, no organomegaly Hernia: none - Genitourinary other (Is mild to moderate edema of the left scrotal skin. Some skin rugae are present. There is no evidence of skin breakdown. There is generalized swelling of the left testicle however there is no fluctuant area noted. An indwelling catheter is present. There is a moderate amount of purulence at the urethral meatus. Penis is uncircumcised.) Assessment and Plan (1) Epididymo-orchitis without abscess Narrative/Plan: I personally reviewed the patient's scrotal ultrasound. He appears to have multilocular hydroceles bilaterally. There is enlargement of the upper pole of the left epididymis with increased blood flow consistent with acute epididymal orchitis. A definite abscess in this region is not identified. The patient has been started on Zosyn which is a reasonable option for the present time. He will be reevaluated by me in the morning but at least at this time there does not appear to be a need for any surgical intervention. Current Visit: Yes Status: Acute Code(s): N45.3 - EPIDIDYMO-ORCHITIS SNOMED Code(s): 58825769 (2) Urinary retention Narrative/Plan: The patient's urinary retention is chronic and most likely related to marked bladder overdistention in 2018. He has been managed with an indwelling catheter which remains a reasonable option for him. Current Visit: No Status: Acute Code(s): R33.9 - RETENTION OF URINE, UNSPECIFIED SNOMED Code(s): 367333826
[2018-09-09] MEDS: SODIUM CHLORIDE 0.9% 1,000 ML IV SCH (17:54)
[2018-09-09] MEDS: IPRATROPIUM-ALBUTEROL 3 ML NEB INHALATION SCH (19:27)
[2018-09-09 20:14] VITALS: BMI 33.8
[2018-09-09] MEDS: QUEtiapine 50 MG TAB PO SCH (20:22)
[2018-09-09] MEDS: metFORMIN 500 MG TAB PO SCH ×2 (20:22→20:25)
[2018-09-09] MEDS: METOPROLOL TARTRATE 25 MG TAB PO SCH (20:22)
[2018-09-09 20:33] LABS: Glucose,Whole Blood 290 mg/dL (75-99)
[2018-09-09] MEDS: PIPERACILLIN-TAZOBACTAM 3.375 GM in SODIUM CHLORIDE 0.9% 100 ML IVPB SCH (23:20)
[2018-09-10] MEDS: SODIUM CHLORIDE 0.9% 1,000 ML IV SCH (05:26)
[2018-09-10 07:09] LABS: Glucose,Whole Blood 244 mg/dL (75-99)
[2018-09-10] MEDS: IPRATROPIUM-ALBUTEROL 3 ML NEB INHALATION SCH ×4 (07:26→20:16)
[2018-09-10] MEDS: PIPERACILLIN-TAZOBACTAM 3.375 GM in SODIUM CHLORIDE 0.9% 100 ML IVPB SCH ×3 (09:41→23:06)
[2018-09-10] MEDS: metFORMIN 500 MG TAB PO SCH ×2 (09:45→17:50)
[2018-09-10] MEDS: METOPROLOL TARTRATE 25 MG TAB PO SCH ×3 (09:45→20:40)
[2018-09-10] MEDS ORDERED: ACETAMINOPHEN TAB 500 MG TAB PO PRN (10:03)
[2018-09-10] MEDS ORDERED: FERROUS SULFATE 325 MG TAB PO SCH (10:15)
[2018-09-10 11:22] LABS: Basophils % (A) 0 %; Eosinophils # (A) 0.1 k/uL (0-0.7); Eosinophils % (A) 1 %; HCT 42.3 % (39.0-53.0); HGB 13.9 gm/dL (13.0-17.5); Lymphocytes # (A) 0.8 k/uL (1.0-4.8); Lymphocytes % (A) 9 %; MCH 28.9 pg (25.0-35.0); MCHC 32.8 g/dL (31.0-37.0); Monocytes # (A) 0.4 k/uL (0-1.0); Monocytes % (A) 4 %; Neutrophils # (A) 7.8 k/uL (1.3-7.7); Neutrophils % (A) 84 %; Platelet Count 252 k/uL (150-450); RDW 14.1 % (11.5-15.5); WBC 9.4 k/uL (3.8-10.6)
[2018-09-10] MEDS: DOCUSATE 100 MG CAP PO SCH ×2 (11:30→20:40)
[2018-09-10] MEDS: FUROSEMIDE 40 MG TAB PO SCH (11:30)
[2018-09-10] MEDS: FLUTICASONE 50MCG/SPRAY NASAL 16GM EA NOSTRIL SCH (11:30)
[2018-09-10 11:32] LABS: ALT 43 U/L (21-72); AST 22 U/L (17-59); Albumin 3.7 g/dL (3.5-5.0); Alkaline Phosphatase 105 U/L (38-126); Anion Gap 10 mmol/L; Blood Urea Nitrogen 23 mg/dL (9-20); Calcium 9.1 mg/dL (8.4-10.2); Carbon Dioxide 29 mmol/L (22-30); Chloride 95 mmol/L (98-107); Glucose 351 mg/dL (74-99); Potassium 4.5 mmol/L (3.5-5.1); Sodium 134 mmol/L (137-145); Total Bilirubin 0.7 mg/dL (0.2-1.3); Total Protein 6.6 g/dL (6.3-8.2)
--- NOTE | 2018-09-10 12:12 | P.PN ---
Progress Note - Text Progress Note Date: 09/10/18 The patient is afebrile and more comfortable. His diabetes is under fair control. WBC is 9,400. He continues to have some purulent discharge around his indwelling catheter but this appears less than yesterday. He continues to have scrotal edema which is worse on the left side. There is no evidence of scrotal abscess. Induration remains present in the region of the upper pole of the left epididymis and the overall findings are consistent with acute epididymitis which probably occurred at the time of his catheter exchange last week. He is currently on Zosyn and this will be continued pending results of his urine culture. A culture was presumably obtained it [facility] prior to transfer to this facility.
[2018-09-10 12:31] LABS: Glucose,Whole Blood 326 mg/dL (75-99)
[2018-09-10] MEDS: INSULIN ASPART (NovoLOG) 100 UNIT/ML VIAL SQ SCH ×3 (12:54→20:40)
[2018-09-10] MEDS ORDERED: HYDROcodone/APAP 5-325MG 1 EACH TAB PO PRN (14:05)
[2018-09-10] MEDS ORDERED: TEMAZEPAM 15 MG CAP PO PRN (14:05)
[2018-09-10] MEDS ORDERED: ALPRAZolam 0.25 MG TAB PO PRN (14:05)
[2018-09-10 17:06] LABS: Glucose,Whole Blood 347 mg/dL (75-99)
--- NOTE | 2018-09-10 17:58 | HP ---
HISTORY AND PHYSICAL CHIEF COMPLAINTS: Scrotal swelling and erythema. HISTORY OF PRESENT ILLNESS: This 73-year-old gentleman with a past medical history of multiple medical problems including rectal cancer, history of CHF, COPD, dementia, hypertension, hyperlipidemia, being followed by Dr. Ciro Hanna on discharge from the [facility] was noted to have pain and swelling of the testes for the last 1 week. The patient apparently had radiation to the rectal tumor and the patient had atonic bladder and urine incontinence and patient has had indwelling Grover catheter. The patient also noted some discharge per urethra and also because of increasing pain and swelling, patient presented to [facility] and because of suspicion of scrotal abscess, the patient was transferred to [facility] for further evaluation and treatment. The patient the patient was evaluated by Urology and was thought to have epididymal orchitis. The patient also had uncontrolled blood sugars also. Patient started on broad IV antibiotics. There is no history of fever, rigors or chills. No history of headache, loss of consciousness, seizures. PAST MEDICAL HISTORY: History of rectal cancer with radiation therapy, history of CHF, COPD, diabetes, dementia, hypertension, hyperlipidemia. MEDICATIONS: Prior to admission include: 1. Tylenol p.o. b.i.d. 2. [place] 5 mg q.6h p.r.n. 3. DuoNeb q.i.d. and p.r.n. 4. Xanax 0.5 t.i.d. 5. Symbicort 160/4.5 two puffs b.i.d. 6. Colace. 7. Flonase 1 spray daily. 8. Lasix 40 mg. 9. Heparin 5000 subcu b.i.d. 10.NovoLog scale. 11.Levemir 20 units subcu q.h.s. 12.Glucovance 1000 mg p.o. b.i.d. 13.Lopressor 25 mg p.o. t.i.d. 14.Morphine sulfate. 15.Narcan 0.2 p.r.n. 16.Zofran 4 mg q.8 p.r.n. 17.Zosyn 3.375 IV q.8h. 18.Seroquel 50 mg q.h.s. 19.Restoril 15 mg q.h.s. p.r.n. PHYSICAL EXAM: GENERAL: Patient is alert and oriented x3. VITAL SIGNS: The pulse is 115. Blood pressure 113/76, respirations 18, temperature 98 degrees, pulse ox 98% on room air. HEENT: Conjunctivae normal. NECK: No jugular venous distention. CARDIOVASCULAR: S1, S2 muffled. RESPIRATORY: Breath sounds diminished in the bases. Bilateral scattered rhonchi and crackles. Expiratory wheezing also present. ABDOMEN: Soft. Nontender. No mass palpable. LEGS: No edema. No swelling. NERVOUS SYSTEM: Higher functions as mentioned earlier. Moves all 4 limbs. No focal deficits. Lymphatics: No lymph nodes palpable in the neck, axillae or groin. SKIN: No ulcer. No rash or bleeding. JOINTS: No active deforming arthropathy. Examination of the testes has significant erythema, tenderness, suggestive of possible epididymal orchitis with some discharge, foul smelling around the urethral orifice also present. LAB STUDIES: WBC 9.1, hemoglobin 13.9, sodium 130, potassium 4.5. Glucose 326. ASSESSMENT: 1. Significant pain and swelling and tenderness of the testes possibly epididymal orchitis. 2. Possible urinary tract infection or urethritis. 3. Indwelling Grover catheter for urinary retention. 4. Hyponatremia. 5. Diabetes mellitus type 2 uncontrolled. 6. History of rectal cancer and radiation. 7. History of congestive heart failure. Ejection fraction unknown. 8. History of chronic obstructive pulmonary disease. 9. Dementia. 10.Hypertension. 11.Hyperlipidemia. 12.History of anxiety. 13.Remote history of nicotine dependence. 14.FULL CODE. RECOMMENDATIONS AND DISCUSSION: This 73-year-old gentleman who presented with multiple complex medical issues, we will monitor the patient closely, continue the current medications, management and symptomatic treatment. Otherwise, I recommend broad-spectrum IV antibiotics. Obtain cultures. Closely follow with Urology. Accu-Cheks a.c. and q.h.s. Also recommend initiate a small dose of Lantus and continue to monitor. Otherwise, cultures will be obtained and I would also contact the [facility] whether they have done any cultures over there. Overall prognosis guarded. A copy of dictation being forwarded to Dr. Hanna, [facility]. MMODL / SUYAPAN: [id number] /
[2018-09-10] MEDS: SYMBICORT 160-4.5 MCG INHALER INHALATION SCH (20:16)
[2018-09-10 20:23] LABS: Glucose,Whole Blood 299 mg/dL (75-99)
[2018-09-10] MEDS: QUEtiapine 50 MG TAB PO SCH (20:40)
[2018-09-10] MEDS: INSULIN DETEMIR (LEVEMIR) 100 UNIT/ML SYR SQ SCH (20:40)
[2018-09-10] MEDS: HEPARIN SODIUM,PORCINE 5,000 UNIT/ML 1 ML VIAL SQ SCH (20:40)
[2018-09-11 07:08] LABS: Glucose,Whole Blood 287 mg/dL (75-99)
[2018-09-11] MEDS: METOPROLOL TARTRATE 25 MG TAB PO SCH ×3 (07:52→22:57)
[2018-09-11] MEDS: DOCUSATE 100 MG CAP PO SCH ×2 (07:53→23:01)
[2018-09-11] MEDS: FUROSEMIDE 40 MG TAB PO SCH (07:53)
[2018-09-11] MEDS: PIPERACILLIN-TAZOBACTAM 3.375 GM in SODIUM CHLORIDE 0.9% 100 ML IVPB SCH ×3 (07:53→22:59)
[2018-09-11] MEDS: metFORMIN 500 MG TAB PO SCH ×2 (07:53→16:21)
[2018-09-11] MEDS: HEPARIN SODIUM,PORCINE 5,000 UNIT/ML 1 ML VIAL SQ SCH ×2 (07:54→22:58)
[2018-09-11] MEDS: INSULIN ASPART (NovoLOG) 100 UNIT/ML VIAL SQ SCH ×4 (07:54→22:57)
[2018-09-11] MEDS: FLUTICASONE 50MCG/SPRAY NASAL 16GM EA NOSTRIL SCH (07:56)
[2018-09-11 08:07] LABS: Basophils % (A) 1 %; Eosinophils # (A) 0.3 k/uL (0-0.7); Eosinophils % (A) 4 %; HGB 13.3 gm/dL (13.0-17.5); Lymphocytes % (A) 12 %; MCHC 32.5 g/dL (31.0-37.0); MCV 86.3 fL (80.0-100.0); Mean Platelet Volume 7.3; Monocytes # (A) 0.5 k/uL (0-1.0); Monocytes % (A) 6 %; Neutrophils # (A) 6.4 k/uL (1.3-7.7); Neutrophils % (A) 76 %; Platelet Count 258 k/uL (150-450); RBC 4.75 m/uL (4.30-5.90); RDW 14.5 % (11.5-15.5); WBC 8.4 k/uL (3.8-10.6)
--- NOTE | 2018-09-11 08:13 | P.PN ---
Progress Note - Text Progress Note Date: 09/11/18 The patient is afebrile. He says that his scrotal pain is now minimal. Examination of his scrotal shows his skin edema is decreased. He does have bilateral soft hydroceles which he says has been chronic. He has induration in the superior pole of the left epididymis but there is no evidence of abscess. I know further evaluation. The patient should be treated with oral antibiotics based on his urine culture for a period of 7-8 more days. Hopefully his urine culture will be available later today. I would back in followup in 7-10 days.
[2018-09-11 08:34] LABS: Anion Gap 7 mmol/L; Blood Urea Nitrogen 28 mg/dL (9-20); Carbon Dioxide 33 mmol/L (22-30); Chloride 95 mmol/L (98-107); Glucose 262 mg/dL (74-99); Potassium 4.4 mmol/L (3.5-5.1); Sodium 135 mmol/L (137-145)
[2018-09-11] MEDS: SYMBICORT 160-4.5 MCG INHALER INHALATION SCH ×3 (09:00→19:59)
[2018-09-11] MEDS: IPRATROPIUM-ALBUTEROL 3 ML NEB INHALATION SCH ×4 (09:00→19:49)
[2018-09-11 11:12] LABS: Glucose,Whole Blood 281 mg/dL (75-99)
[2018-09-11 16:51] LABS: Glucose,Whole Blood 238 mg/dL (75-99)
--- NOTE | 2018-09-11 17:35 | P.PN ---
Subjective Progress Note Date: 09/11/18 73 -year-old male transferred from [facility] for evaluation of left scrotal swelling. Patient has a history of urinary retention which was discovered in 06/2017. At that time he had 3500 mL in his bladder. His urinary retention was felt to be related to radiation therapy given earlier in the year for treatment of rectal cancer. 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 The catheter was last changed on 09/04. The patient says that he first noted some pain and swelling involving the left testicle on 09/06. He says that the pain and swelling increased in severity. He was evaluated this morning and was noted to have a white blood count of 12,630. There was a purulent discharge around the indwelling catheter. The left scrotum was somewhat swollen and tender. A scrotal ultrasound was obtained and suggested bilateral complex hydroceles with a questionable abscess. He was then transferred for further evaluation. The patient says that he actually feels better since this morning. He has been started on Zosyn. Objective - Vital Signs Vital signs: Vital Signs Temp 97.5 F L 09/11/18 11:29 Pulse 100 09/11/18 11:29 Resp 20 09/11/18 11:29 BP 121/61 09/11/18 11:29 Pulse Ox 95 09/11/18 11:29 Intake & Output 09/10/18 09/11/18 09/11/18 18:59 06:59 18:59 Intake Total 150 Output Total 1700 1100 600 Balance -1550 -1100 -600 Intake: Intake, IV Titration 150 Amount Sodium Chloride 0.9% 1, 150 000 ml @ 75 mls/hr IV . [id number] [facility] Rx#:[id number] Output: Urine 1700 1100 600 Uretheral (Grover) 600 Other: Voiding Method Indwelling Catheter Indwelling Catheter Indwelling Catheter - Exam - Constitutional General appearance: Present: average body habitus, cooperative, no acute distress - EENT Eyes: Present: anicteric sclerae, EOMI, PERRLA, normal appearance ENT: Present: hearing grossly normal, normal oropharynx Ears: bilateral: normal - Neck Neck: Present: normal ROM. Absent: lymphadenopathy, rigidity, thyromegaly Carotids: negative: bruit present Thyroid: bilateral: normal size, negative: enlarged, nodule - Respiratory Respiratory: bilateral: CTA, negative: rales, rhonchi, wheezing - Cardiovascular Rhythm: regular Heart sounds: normal: S1, S2 Abnormal Heart Sounds: Absent: systolic murmur, diastolic murmur - Gastrointestinal General gastrointestinal: Present: normal bowel sounds, soft. Absent: distended, organomegaly, tenderness - Genitourinary Genitourinary Comment(s): deferred - Integumentary Integumentary: Present: normal turgor. Absent: jaundiced, rash, ulcer - Neurologic Neurologic: Present: CNII-XII intact. Absent: focal deficits - Musculoskeletal Musculoskeletal: Present: gait normal, strength equal bilaterally - Psychiatric Psychiatric: Present: A&O x's 3, appropriate affect, intact judgment & insight - Labs CBC & Chem 7: 09/11/18 07:27 09/11/18 07:27 Labs: Abnormal Lab Results - Last 24 Hours (Table) 09/10/18 09/10/18 09/10/18 Range/Units 12:27 17:03 20:22 Sodium (137-145) mmol/L Chloride (98-107) mmol/L Carbon Dioxide (22-30) mmol/L BUN (9-20) mg/dL Glucose (74-99) mg/dL POC Glucose (mg/dL) 326 H 347 H 299 H (75-99) mg/dL 09/11/18 09/11/18 09/11/18 Range/Units 07:06 07:27 11:11 Sodium 135 L (137-145) mmol/L Chloride 95 L (98-107) mmol/L Carbon Dioxide 33 H (22-30) mmol/L BUN 28 H (9-20) mg/dL Glucose 262 H (74-99) mg/dL POC Glucose (mg/dL) 287 H 281 H (75-99) mg/dL Microbiology - Last 24 Hours (Table) 09/10/18 15:30 Gram Stain - Final Penis Genital Culture - Preliminary Assessment and Plan Assessment: 1. Epididymal orchitis without abscess; patient remains on IV Unasyn; urology is following and recommending a 7-10 day course of oral antibiotic post discharge 2. UTI/urethritis; await final culture and sensitivity report 3. Urinary retention; patient has an indwelling [place] 4. Hyponatremia; resolved; we will continue to monitor electrolytes and supplement as needed 5. Diabetes mellitus type 2; uncontrolled; monitor Accu-Cheks every before meals and at bedtime with insulin sliding scale along with home dose of Levemir 6. Hypertension; metoprolol 25 mg 3 times a day 7. Hyperlipidemia; patient is currently not on any statin therapy 8. DVT prophylaxis; subcu heparin 5000 units subcu every 12 hours CODE STATUS; full code Time with Patient: Greater than 30
[2018-09-11 21:00] LABS: Glucose,Whole Blood 265 mg/dL (75-99)
[2018-09-11] MEDS: QUEtiapine 50 MG TAB PO SCH (22:57)
[2018-09-11] MEDS: INSULIN DETEMIR (LEVEMIR) 100 UNIT/ML SYR SQ SCH (22:58)
[2018-09-12 07:16] LABS: Glucose,Whole Blood 284 mg/dL (75-99)
[2018-09-12] MEDS: SYMBICORT 160-4.5 MCG INHALER INHALATION SCH ×3 (07:34→20:10)
[2018-09-12] MEDS: IPRATROPIUM-ALBUTEROL 3 ML NEB INHALATION SCH ×4 (07:34→20:10)
[2018-09-12 07:38] LABS: Basophils % (A) 1 %; Eosinophils # (A) 0.3 k/uL (0-0.7); Eosinophils % (A) 4 %; HCT 41.1 % (39.0-53.0); HGB 13.5 gm/dL (13.0-17.5); Lymphocytes # (A) 1.2 k/uL (1.0-4.8); Lymphocytes % (A) 16 %; MCH 28.2 pg (25.0-35.0); MCHC 32.7 g/dL (31.0-37.0); MCV 86.1 fL (80.0-100.0); Mean Platelet Volume 7.6; Monocytes # (A) 0.4 k/uL (0-1.0); Monocytes % (A) 5 %; Neutrophils # (A) 5.1 k/uL (1.3-7.7); Neutrophils % (A) 72 %; Platelet Count 302 k/uL (150-450); RBC 4.77 m/uL (4.30-5.90); RDW 14.7 % (11.5-15.5); WBC 7.1 k/uL (3.8-10.6)
[2018-09-12 07:44] LABS: Anion Gap 8 mmol/L; Blood Urea Nitrogen 22 mg/dL (9-20); Calcium 9.2 mg/dL (8.4-10.2); Carbon Dioxide 33 mmol/L (22-30); Chloride 96 mmol/L (98-107); Glucose 262 mg/dL (74-99); Sodium 137 mmol/L (137-145)
[2018-09-12] MEDS: metFORMIN 500 MG TAB PO SCH ×2 (08:09→17:10)
[2018-09-12] MEDS: FUROSEMIDE 40 MG TAB PO SCH (08:09)
[2018-09-12] MEDS: INSULIN ASPART (NovoLOG) 100 UNIT/ML VIAL SQ SCH ×4 (08:09→20:40)
[2018-09-12] MEDS: HEPARIN SODIUM,PORCINE 5,000 UNIT/ML 1 ML VIAL SQ SCH ×2 (08:10→20:39)
[2018-09-12] MEDS: METOPROLOL TARTRATE 25 MG TAB PO SCH ×4 (08:10→20:40)
[2018-09-12] MEDS: FLUTICASONE 50MCG/SPRAY NASAL 16GM EA NOSTRIL SCH (08:10)
[2018-09-12] MEDS: DOCUSATE 100 MG CAP PO SCH ×2 (08:10→20:32)
[2018-09-12] MEDS: PIPERACILLIN-TAZOBACTAM 3.375 GM in SODIUM CHLORIDE 0.9% 100 ML IVPB SCH ×2 (08:11→17:10)
[2018-09-12 11:21] LABS: Glucose,Whole Blood 310 mg/dL (75-99)
--- NOTE | 2018-09-12 15:47 | P.PN ---
Subjective Progress Note Date: 09/12/18 Principal diagnosis: Epididymal orchitis without abscess UTI/urethritis Urinary retention 73 -year-old male transferred from [facility] for evaluation of left scrotal swelling. Patient has a history of urinary retention which was discovered in 06/2017. At that time he had 3500 mL in his bladder. His urinary retention was felt to be related to radiation therapy given earlier in the year for treatment of rectal cancer. He has a hypotonic bladder due to the ov erdistention and has been managed with an indwelling catheter that is changed monthly. The catheter was last changed on 09/04. The patient says that he first noted some pain and swelling involving the left testicle on 09/06. He says that the pain and swelling increased in severity. He was evaluated this morning and was noted to have a white blood count of 12,630. There was a purulent discharge around the indwelling catheter. The left scrotum was somewhat swollen and tender. A scrotal ultrasound was obtained and suggested bilateral complex hydroceles with a questionable abscess. He was then transferred for further evaluation. The patient says that he actually feels better since this morning. He has been started on Zosyn. Objective - Vital Signs Vital signs: Vital Signs Temp 97.7 F 09/12/18 05:00 Pulse 96 09/12/18 11:24 Resp 20 09/12/18 05:00 BP 109/62 09/12/18 05:00 Pulse Ox 96 09/12/18 05:00 Intake & Output 09/11/18 09/12/18 09/12/18 18:59 06:59 18:59 Intake Total 540 Output Total 1100 1500 Balance -1100 -960 Intake: Intake, IV Titration 100 Amount Piperacillin-Tazobactam 3 100 .375 gm In Sodium Chloride 0.9% 100 ml @ 25 mls/hr IVPB Q8HR [facility] Rx# :[id number] Oral 440 Output: Urine 1100 1500 Uretheral (Grover) 500 Other: Voiding Method Indwelling Catheter Indwelling Catheter Indwelling Catheter # Voids 1 - Exam - Constitutional General appearance: Present: average body habitus, cooperative, no acute distress - EENT Eyes: Present: anicteric sclerae, EOMI, PERRLA, normal appearance ENT: Present: hearing grossly normal, normal oropharynx Ears: bilateral: normal - Neck Neck: Present: normal ROM. Absent: lymphadenopathy, rigidity, thyromegaly Carotids: negative: bruit present Thyroid: bilateral: normal size, negative: enlarged, nodule - Respiratory Respiratory: bilateral: CTA, negative: rales, rhonchi, wheezing - Cardiovascular Rhythm: regular Heart sounds: normal: S1, S2 Abnormal Heart Sounds: Absent: systolic murmur, diastolic murmur - Gastrointestinal General gastrointestinal: Present: normal bowel sounds, soft. Absent: d istended, organomegaly, tenderness - Genitourinary Genitourinary Comment(s): deferred - Integumentary Integumentary: Present: normal turgor. Absent: jaundiced, rash, ulcer - Neurologic Neurologic: Present: CNII-XII intact. Absent: focal deficits - Musculoskeletal Musculoskeletal: Present: gait normal, strength equal bilaterally - Psychiatric Psychiatric: Present: A&O x's 3, appropriate affect, intact judgment & insight - Labs CBC & Chem 7: 09/12/18 06:27 09/12/18 06:27 Labs: Abnormal Lab Results - Last 24 Hours (Table) 09/11/18 09/11/18 09/12/18 Range/Units 16:50 20:58 06:27 Chloride 96 L (98-107) mmol/L Carbon Dioxide 33 H (22-30) mmol/L BUN 22 H (9-20) mg/dL Creatinine 0.55 L (0.66-1.25) mg/dL Glucose 262 H (74-99) mg/dL POC Glucose (mg/dL) 238 H 265 H (75-99) mg/dL 09/12/18 09/12/18 Range/Units 07:14 11:19 Chloride (98-107) mmol/L Carbon Dioxide (22-30) mmol/L BUN (9-20) mg/dL Creatinine (0.66-1.25) mg/dL Glucose (74-99) mg/dL POC Glucose (mg/dL) 284 H 310 H (75-99) mg/dL Microbiology - Last 24 Hours (Table) 09/10/18 14:39 Blood Culture - Preliminary Blood No Growth after 24 hours 09/10/18 15:30 Gram Stain - Final Penis Genital Culture - Preliminary Assessment and Plan Assessment: 1. Epididymal orchitis without abscess; patient remains on IV Unasyn; urology is following and recommending a 7-10 day course of oral antibiotic post discharge 2. UTI/urethritis; await final culture and sensitivity report 3. Urinary retention; patient has an indwelling Grover 4. Hyponatremia; resolved; we will continue to monitor electrolytes and supplement as needed 5. Diabetes mellitus type 2; uncontrolled; monitor Accu-Cheks every before meals and at bedtime with insulin sliding scale along with home dose of Levemir 6. Hypertension; metoprolol 25 mg 3 times a day 7. Hyperlipidemia; patient is currently not on any statin therapy 8. DVT prophylaxis; subcu heparin 5000 units subcu every 12 hours CODE STATUS; full code Time with Patient: Greater than 30
[2018-09-12 17:07] LABS: Glucose,Whole Blood 256 mg/dL (75-99)
[2018-09-12 20:03] LABS: Glucose,Whole Blood 253 mg/dL (75-99)
[2018-09-12] MEDS: INSULIN DETEMIR (LEVEMIR) 100 UNIT/ML SYR SQ SCH (20:40)
[2018-09-12] MEDS: QUEtiapine 50 MG TAB PO SCH (20:40)
[2018-09-13] MEDS: PIPERACILLIN-TAZOBACTAM 3.375 GM in SODIUM CHLORIDE 0.9% 100 ML IVPB SCH ×3 (00:40→16:51)
[2018-09-13 07:06] LABS: Glucose,Whole Blood 223 mg/dL (75-99)
[2018-09-13 07:13] LABS: Basophils % (A) 1 %; Eosinophils # (A) 0.3 k/uL (0-0.7); Eosinophils % (A) 3 %; HCT 39.5 % (39.0-53.0); Lymphocytes # (A) 1.1 k/uL (1.0-4.8); Lymphocytes % (A) 14 %; MCH 28.4 pg (25.0-35.0); MCV 86.2 fL (80.0-100.0); Monocytes # (A) 0.3 k/uL (0-1.0); Monocytes % (A) 4 %; Neutrophils % (A) 76 %; Platelet Count 266 k/uL (150-450); RBC 4.58 m/uL (4.30-5.90); WBC 7.9 k/uL (3.8-10.6)
[2018-09-13 07:28] LABS: Anion Gap 7 mmol/L; Blood Urea Nitrogen 16 mg/dL (9-20); Calcium 9.6 mg/dL (8.4-10.2); Carbon Dioxide 32 mmol/L (22-30); Chloride 97 mmol/L (98-107); Glucose 190 mg/dL (74-99); Potassium 4.2 mmol/L (3.5-5.1); Sodium 136 mmol/L (137-145)
[2018-09-13] MEDS: INSULIN ASPART (NovoLOG) 100 UNIT/ML VIAL SQ SCH ×4 (07:49→20:16)
[2018-09-13] MEDS: FUROSEMIDE 40 MG TAB PO SCH (07:49)
[2018-09-13] MEDS: metFORMIN 500 MG TAB PO SCH ×2 (07:49→16:51)
[2018-09-13] MEDS: HEPARIN SODIUM,PORCINE 5,000 UNIT/ML 1 ML VIAL SQ SCH ×2 (07:50→20:15)
[2018-09-13] MEDS: FLUTICASONE 50MCG/SPRAY NASAL 16GM EA NOSTRIL SCH (07:50)
[2018-09-13] MEDS: DOCUSATE 100 MG CAP PO SCH ×3 (07:50→20:22)
[2018-09-13] MEDS: IPRATROPIUM-ALBUTEROL 3 ML NEB INHALATION SCH ×4 (08:40→20:36)
[2018-09-13] MEDS: SYMBICORT 160-4.5 MCG INHALER INHALATION SCH ×3 (08:41→20:50)
[2018-09-13 11:26] LABS: Glucose,Whole Blood 276 mg/dL (75-99)
[2018-09-13] MEDS: METOPROLOL TARTRATE 25 MG TAB PO SCH ×2 (16:51→21:40)
[2018-09-13 17:09] LABS: Glucose,Whole Blood 280 mg/dL (75-99)
[2018-09-13 20:03] LABS: Glucose,Whole Blood 236 mg/dL (75-99)
[2018-09-13] MEDS: INSULIN DETEMIR (LEVEMIR) 100 UNIT/ML SYR SQ SCH (20:16)
[2018-09-13] MEDS: QUEtiapine 50 MG TAB PO SCH (21:40)
[2018-09-14] MEDS: PIPERACILLIN-TAZOBACTAM 3.375 GM in SODIUM CHLORIDE 0.9% 100 ML IVPB SCH ×2 (00:03→09:02)
[2018-09-14 05:56] VITALS: BP 108/64; RESP 16; TEMP 97.5
[2018-09-14 06:58] LABS: Glucose,Whole Blood 179 mg/dL (75-99)
[2018-09-14] MEDS: IPRATROPIUM-ALBUTEROL 3 ML NEB INHALATION SCH ×2 (08:08→12:50)
[2018-09-14 08:09] LABS: Basophils # (A) 0.1 k/uL (0-0.2); Basophils % (A) 1 %; Eosinophils # (A) 0.2 k/uL (0-0.7); Eosinophils % (A) 4 %; HCT 39.2 % (39.0-53.0); Lymphocytes # (A) 1.2 k/uL (1.0-4.8); Lymphocytes % (A) 22 %; MCH 28.8 pg (25.0-35.0); MCHC 33.1 g/dL (31.0-37.0); Mean Platelet Volume 6.7; Monocytes # (A) 0.2 k/uL (0-1.0); Monocytes % (A) 4 %; Neutrophils # (A) 3.9 k/uL (1.3-7.7); Neutrophils % (A) 68 %; Platelet Count 289 k/uL (150-450); RBC 4.51 m/uL (4.30-5.90); RDW 14.1 % (11.5-15.5); WBC 5.7 k/uL (3.8-10.6)
[2018-09-14] MEDS: SYMBICORT 160-4.5 MCG INHALER INHALATION SCH (08:10)
[2018-09-14 08:21] LABS: Anion Gap 4 mmol/L; Blood Urea Nitrogen 12 mg/dL (9-20); Calcium 9.6 mg/dL (8.4-10.2); Carbon Dioxide 38 mmol/L (22-30); Chloride 97 mmol/L (98-107); Glucose 183 mg/dL (74-99); Potassium 4.3 mmol/L (3.5-5.1); Sodium 139 mmol/L (137-145)
[2018-09-14] MEDS: metFORMIN 500 MG TAB PO SCH (09:01)
[2018-09-14] MEDS: INSULIN ASPART (NovoLOG) 100 UNIT/ML VIAL SQ SCH ×2 (09:01→13:17)
[2018-09-14] MEDS: DOCUSATE 100 MG CAP PO SCH (09:02)
[2018-09-14] MEDS: METOPROLOL TARTRATE 25 MG TAB PO SCH (09:02)
[2018-09-14] MEDS: HEPARIN SODIUM,PORCINE 5,000 UNIT/ML 1 ML VIAL SQ SCH (09:03)
[2018-09-14] MEDS: FLUTICASONE 50MCG/SPRAY NASAL 16GM EA NOSTRIL SCH (09:03)
[2018-09-14] MEDS: FUROSEMIDE 40 MG TAB PO SCH (09:03)
[2018-09-14 11:34] LABS: Glucose,Whole Blood 268 mg/dL (75-99)
[2018-09-14 12:53] VITALS: PULSE 100
--- NOTE | 2018-09-15 08:18 | DS ---
DISCHARGE SUMMARY DATE OF SERVICE: 09/14/2018 FINAL DIAGNOSES: 1. Epididymal orchitis without an abscess on the left side, secondary to proteus mirabilis. 2. Acute urethritis and urinary tract infection. 3. Indwelling Grover catheter for urinary retention. 4. Hyponatremia. 5. Diabetes mellitus type 2, uncontrolled. 6. History of rectal cancer and radiation. 7. History of congestive heart failure, ejection fraction unknown. 8. History of chronic obstructive pulmonary disease. 9. Dementia. 10.Hypertension. 11.Hyperlipidemia. 12.History of anxiety. 13.Remote history of nicotine dependence. 14.FULL CODE. DISCHARGE DISPOSITION: The patient will be discharged in a stable condition with guarded prognosis. Urology cleared the patient for discharge. Total time taken 35 minutes. HISTORY OF PRESENT ILLNESS: This is a 73-year-old with a past medical history significant for scrotal redness and swelling. The patient also suspected of scrotal abscess, but Urology evaluated the patient and there was no evidence of abscess and orchitis was noted and the patient was treated empirically. The culture showed Proteus mirabilis. Patient treated with IV Zosyn. Patient improved significantly. The patient started on a small dose of insulin for better blood sugar control and Accu-Cheks a.c. and at bedtime as well. On exam, vital signs are stable. CARDIOVASCULAR SYSTEM: S1, S2. ABDOMEN: Soft. NERVOUS SYSTEM: No focal deficits. EXAMINATION OF THE TESTES: Some swelling present, otherwise much improved, pain [place]. Patient is recommended outpatient follow up with primary physician as well as Urology. Discharge diet is cardiac diet. Follow up with Dr. Hanna, [facility] in 2-3 days. Follow up with Urology as advised. MEDICATIONS:: 1. DuoNeb q.i.d. and p.r.n. 2. Nasal spray 1 spray daily. 3. Lasix 40 mg daily. 4. Lopressor 25 mg b.i.d. 5. Metformin 1000 mg p.o. b.i.d. 6. Seroquel 50 mg q.h.s. 7. Symbicort 160/4.5 two puffs b.i.d. 8. Tylenol 500 mg b.i.d. p.r.n. 9. Augmentin 875 mg 1 p.o. b.i.d. for 10 days. 10.Colace 100 mg b.i.d. p.r.n. 11.Levemir 25 units subcu q.h.s. 12. MMCHRISTOPHER / SUYAPAN: [id number] /
== END 2018-09-14 14:20 | disposition home or self-care (01) | DRG 728 ==
LOC: EC 15:44 → 3NMEDONC 17:05
PROVIDERS: ADMIT Hospitalist; ATTEND Hospitalist
DX: N45.3 Epididymo-orchitis (principal); E87.1 Hypo-osmolality and hyponatremia; B96.4 Proteus (mirabilis) (morganii) as the cause of diseases classified elsewhere; J44.9 Chronic obstructive pulmonary disease, unspecified; N31.2 Flaccid neuropathic bladder, not elsewhere classified; N34.2 Other urethritis; N43.3 Hydrocele, unspecified; I50.9 Heart failure, unspecified; I11.0 Hypertensive heart disease with heart failure; F03.90 Unspecified dementia, unspecified severity, without behavioral disturbance, psychotic disturbance, mood disturbance, and anxiety; Z85.048 Personal history of other malignant neoplasm of rectum, rectosigmoid junction, and anus; E11.65 Type 2 diabetes mellitus with hyperglycemia; E78.5 Hyperlipidemia, unspecified; N50.89 Other specified disorders of the male genital organs; Z79.84 Long term (current) use of oral hypoglycemic drugs; Z79.899 Other long term (current) drug therapy; Z82.5 Family history of asthma and other chronic lower respiratory diseases; Z81.1 Family history of alcohol abuse and dependence; Z87.891 Personal history of nicotine dependence; Z92.3 Personal history of irradiation; Z99.81 Dependence on supplemental oxygen; F41.9 Anxiety disorder, unspecified; Z88.6 Allergy status to analgesic agent; Z88.8 Allergy status to other drugs, medicaments and biological substances; Z82.0 Family history of epilepsy and other diseases of the nervous system
CPT/HCPCS: 51702; 72170; 80048; 80053; 85025; 87040; 87070; 87077; 87186; 87205; 93005; 94640; 94760; 99285

== ENCOUNTER 2019-03-06 19:06 | Inpatient (IN) | payer OTHER, MEDICARE ==
[2019-03-06 19:21] LABS: Glucose,Whole Blood 307 mg/dL (75-99)
--- NOTE | 2019-03-06 19:33 | ED ---
Weakness HPI - General Chief complaint: Weakness Stated complaint: weakness Time Seen by Provider: 03/06/19 19:13 Source: patient, EMS, RN notes reviewed, old records reviewed Mode of arrival: EMS Limitations: altered mental status - History of Present Illness Initial comments: This is a 74-year-old male well for mental status totally for evaluation of fever not feeling well not acting appropriately per family. Patient is DO NOT RESUSCITATE. states he does not feel a little short of breath and this feels weak. This patient is up reports historian and does not answer all questions appropriately. Without other significant complaints of pain. History obtained from EMS patient did present by EMS as well as patient's prior charting. 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 Patient is on 3 L O2 MD Complaint: generalized weakness, lack of energy, difficulty walking -: unknown Location: generalized Severity: severe Severity scale (1-10): 10 Quality: constant Consistency: constant Improves with: none Worsens with: movement, exertion Context: recent illness, history of similar Associated Symptoms: confusion, fever/chills, loss of appetite, nausea/vomiting, shortness of breath - Related Data Home Medications Medication Instructions Recorded Confirmed Metoprolol Tartrate [Lopressor] 25 mg PO BID 07/07/17 03/06/19 Acetaminophen Tab [Tylenol] 500 mg PO BID PRN 11/07/17 03/06/19 Fluticasone Nasal [place] [Flonase 1 spray EA NOSTRIL DAILY PRN 11/07/17 03/06/19 Nasal [place]] Budesonide-Formot 160-4.5 Mcg 2 puff INHALATION RT-BID PRN 09/10/18 03/06/19 [Symbicort 160-4.5 Mcg Inhaler] Furosemide [Lasix] 40 mg PO DAILY 09/10/18 03/06/19 Ipratropium-Albuterol Nebulize 3 ml INHALATION RT-QID 09/10/18 03/06/19 [Duoneb 0.5 mg-3 mg/3 ml Soln] QUEtiapine [SEROquel] 50 mg PO HS 09/10/18 03/06/19 metFORMIN HCL 1,000 mg PO BID 09/10/18 03/06/19 Previous Rx's Medication Instructions Recorded Insulin Detemir (Levemir) [Levemir] 25 unit SQ HS #1 syr 09/14/18 Allergies Allergy/AdvReac Type Severity Reaction Status Date / Time aspirin Allergy Unknown Verified 03/06/19 19:16 onion Allergy Unknown Verified 03/06/19 19:16 ferrous sulfate AdvReac Dyspnea Verified 03/06/19 19:16 lisinopril AdvReac Cough Verified 03/06/19 19:16 Review of Systems ROS Statement: Those systems with pertinent positive or pertinent negative responses have been documented in the HPI. ROS Other: All systems not noted in ROS Statement are negative. Past Medical History Past Medical History: Cancer, Heart Failure, COPD, Dementia, Hyperlipidemia, Hypertension Additional Past Medical History / Comment(s): rectal cancer diagnosed in 04/2017-stage TIII N0 M0 treated with radiation therapy in 05/2017. pt denies having diabetes History of Any Multi-Drug Resistant Organisms: None Reported Additional Past Surgical History / Comment(s): Fatty tumors removed from bilateral legs. Hydrocele.colonoscopy Past Anesthesia/Blood Transfusion Reactions: No Reported Reaction Past Psychological History: Anxiety Smoking Status: Former smoker Past Alcohol Use History: None Reported Past Drug Use History: None Reported - Past Family History Father Family Medical History: COPD, Pneumonia Additional Family Medical History / Comment(s): Pt states "His dad of chronic lung disease".alcoholic Mother Family Medical History: Dementia Additional Family Medical History / Comment(s): alzhiemers, alcoholic General Exam Limitations: altered mental status General appearance: alert, anxious, lethargic, in distress Head exam: Present: atraumatic, normocephalic, normal inspection Eye exam: Present: normal appearance, PERRL, EOMI. Absent: scleral icterus, conjunctival injection, periorbital swelling ENT exam: Present: normal exam, mucous membranes dry Neck exam: Present: normal inspection. Absent: tenderness, meningismus, lymphadenopathy Respiratory exam: Present: respiratory distress, wheezes, accessory muscle use, decreased breath sounds, prolonged expiratory. Absent: rales, rhonchi, stridor Cardiovascular Exam: Present: normal rhythm, tachycardia, normal heart sounds. Absent: systolic murmur, diastolic murmur, rubs, gallop, clicks GI/Abdominal exam: Present: soft, normal bowel sounds. Absent: distended, tenderness, guarding, rebound, rigid Extremities exam: Present: normal inspection, full ROM, normal capillary refill. Absent: tenderness, pedal edema, joint swelling, calf tenderness Back exam: Present: normal inspection Neurological exam: Present: alert, oriented X3, CN II-XII intact Psychiatric exam: Present: normal affect, normal mood Skin exam: Present: warm, dry, intact, normal color. Absent: rash Course Vital Signs 03/06/19 03/06/19 19:12 19:51 Temperature 101.5 F H Pulse Rate 139 H 134 H Respiratory 38 H 40 H Rate Blood Pressure 151/87 154/111 O2 Sat by Pulse 93 L 95 Oximetry - Reevaluation(s) Reevaluation #1: 03/06/19 20:19 Medical records reviewed Reevaluation #2: 03/06/19 20: Patient prior cultures are reviewed and antibiotic choice made appropriately Reevaluation #3: 03/06/19 20:19 Patient still without complaint but is responding dehydration - Consultations Consultation #1: Spoke with Dr. De La Cruz who is okay for admission EKG Findings - EKG Comments: EKG Findings:: EKG shows wide QRS rate of 139, QRS 120, QTC 535 Medical Decision Making - Medical Decision Making 71 female the ER for evaluation presents today for evaluation regards to altered mental status, positive fever urinary tract infection with sepsis. Patient be admitted for IV antibiotics hydration fever control symptomatically therapy. Patient is a no code - Lab Data Result diagrams: 03/06/19 19:22 03/06/19 19:22 Lab Results 03/06/19 03/06/19 03/06/19 Range/Units 19:18 19:22 19:22 WBC 13.3 H (3.8-10.6) k/uL RBC 5.11 (4.30-5.90) m/uL Hgb 14.8 (13.0-17.5) gm/dL Hct 44.1 (39.0-53.0) % MCV 86.4 (80.0-100.0) fL MCH 29.0 (25.0-35.0) pg MCHC 33.6 (31.0-37.0) g/dL RDW 14.7 (11.5-15.5) % Plt Count 223 (150-450) k/uL Neutrophils % 86 % Lymphocytes % 6 % Monocytes % 5 % Eosinophils % 0 % Basophils % 1 % Neutrophils # 11.4 H (1.3-7.7) k/uL Lymphocytes # 0.8 L (1.0-4.8) k/uL Monocytes # 0.7 (0-1.0) k/uL Eosinophils # 0.0 (0-0.7) k/uL Basophils # 0.2 (0-0.2) k/uL PT (9.0-12.0) sec INR (<1.2) APTT (22.0-30.0) sec Sodium 138 (137-145) mmol/L Potassium 4.5 (3.5-5.1) mmol/L Chloride 97 L (98-107) mmol/L Carbon Dioxide 28 (22-30) mmol/L Anion Gap 13 mmol/L BUN 20 (9-20) mg/dL Creatinine 0.94 (0.66-1.25) mg/dL Est GFR (CKD-EPI)AfAm >90 (>60 ml/min/1.73 sqM) Est GFR (CKD-EPI)NonAf 81 (>60 ml/min/1.73 sqM) Glucose 340 H (74-99) mg/dL POC Glucose (mg/dL) 307 H (75-99) mg/dL POC Glu Administrative Project Coordinator ID , August Plasma Lactic Acid [place] (0.7-2.0) mmol/L Calcium 10.0 (8.4-10.2) mg/dL Phosphorus 3.1 (2.5-4.5) mg/dL Magnesium 1.5 L (1.6-2.3) mg/dL Total Bilirubin 1.2 (0.2-1.3) mg/dL AST 33 (17-59) U/L ALT 42 (21-72) U/L Alkaline Phosphatase 87 (38-126) U/L Creatine Kinase 85 (55-170) U/L Total Protein 7.9 (6.3-8.2) g/dL Albumin 4.3 (3.5-5.0) g/dL Urine Color Urine Appearance (Clear) Urine pH (5.0-8.0) Ur Specific [place] (1.001-1.035) Urine Protein (Negative) Urine Glucose (UA) (Negative) Urine Ketones (Negative) Urine Blood (Negative) Urine Nitrite (Negative) Urine Bilirubin (Negative) Urine Urobilinogen (<2.0) mg/dL Ur Leukocyte Esterase (Negative) Urine RBC (0-5) /hpf Urine WBC (0-5) /hpf Urine WBC Clumps (None) /hpf Urine Bacteria (None) /hpf Urine Mucus (None) /hpf Blood Type Recheck Bld Type Recheck Status Spec Expiration Date 03/06/19 03/06/19 03/06/19 Range/Units 19:22 19:22 19:22 WBC (3.8-10.6) k/uL RBC (4.30-5.90) m/uL Hgb (13.0-17.5) gm/dL Hct (39.0-53.0) % MCV (80.0-100.0) fL MCH (25.0-35.0) pg MCHC (31.0-37.0) g/dL RDW (11.5-15.5) % Plt Count (150-450) k/uL Neutrophils % % Lymphocytes % % Monocytes % % Eosinophils % % Basophils % % Neutrophils # (1.3-7.7) k/uL Lymphocytes # (1.0-4.8) k/uL Monocytes # (0-1.0) k/uL Eosinophils # (0-0.7) k/uL Basophils # (0-0.2) k/uL PT 9.8 (9.0-12.0) sec INR 0.9 (<1.2) APTT 22.9 (22.0-30.0) sec Sodium (137-145) mmol/L Potassium (3.5-5.1) mmol/L Chloride (98-107) mmol/L Carbon Dioxide (22-30) mmol/L Anion Gap mmol/L BUN (9-20) mg/dL Creatinine (0.66-1.25) mg/dL Est GFR (CKD-EPI)AfAm (>60 ml/min/1.73 sqM) Est GFR (CKD-EPI)NonAf (>60 ml/min/1.73 sqM) Glucose (74-99) mg/dL POC Glucose (mg/dL) (75-99) mg/dL POC Glu Administrative Project Coordinator ID Plasma Lactic Acid [place] 1.8 (0.7-2.0) mmol/L Calcium (8.4-10.2) mg/dL Phosphorus (2.5-4.5) mg/dL Magnesium (1.6-2.3) mg/dL Total Bilirubin (0.2-1.3) mg/dL AST (17-59) U/L ALT (21-72) U/L Alkaline Phosphatase (38-126) U/L Creatine Kinase (55-170) U/L Total Protein (6.3-8.2) g/dL Albumin (3.5-5.0) g/dL Urine Color Urine Appearance (Clear) Urine pH (5.0-8.0) Ur Specific [place] (1.001-1.035) Urine Protein (Negative) Urine Glucose (UA) (Negative) Urine Ketones (Negative) Urine Blood (Negative) Urine Nitrite (Negative) Urine Bilirubin (Negative) Urine Urobilinogen (<2.0) mg/dL Ur Leukocyte Esterase (Negative) Urine RBC (0-5) /hpf Urine WBC (0-5) /hpf Urine WBC Clumps (None) /hpf Urine Bacteria (None) /hpf Urine Mucus (None) /hpf Blood Type Recheck No Previous Record Bld Type Recheck Status CABO Indicated Spec Expiration Date 03/09/2019232103/06/19 Range/Units 19:22 WBC (3.8-10.6) k/uL RBC (4.30-5.90) m/uL Hgb (13.0-17.5) gm/dL Hct (39.0-53.0) % MCV (80.0-100.0) fL MCH (25.0-35.0) pg MCHC (31.0-37.0) g/dL RDW (11.5-15.5) % Plt Count (150-450) k/uL Neutrophils % % Lymphocytes % % Monocytes % % Eosinophils % % Basophils % % Neutrophils # (1.3-7.7) k/uL Lymphocytes # (1.0-4.8) k/uL Monocytes # (0-1.0) k/uL Eosinophils # (0-0.7) k/uL Basophils # (0-0.2) k/uL PT (9.0-12.0) sec INR (<1.2) APTT (22.0-30.0) sec Sodium (137-145) mmol/L Potassium (3.5-5.1) mmol/L Chloride (98-107) mmol/L Carbon Dioxide (22-30) mmol/L Anion Gap mmol/L BUN (9-20) mg/dL Creatinine (0.66-1.25) mg/dL Est GFR (CKD-EPI)AfAm (>60 ml/min/1.73 sqM) Est GFR (CKD-EPI)NonAf (>60 ml/min/1.73 sqM) Glucose (74-99) mg/dL POC Glucose (mg/dL) (75-99) mg/dL POC Glu Administrative Project Coordinator ID Plasma Lactic Acid [place] (0.7-2.0) mmol/L Calcium (8.4-10.2) mg/dL Phosphorus (2.5-4.5) mg/dL Magnesium (1.6-2.3) mg/dL Total Bilirubin (0.2-1.3) mg/dL AST (17-59) U/L ALT (21-72) U/L Alkaline Phosphatase (38-126) U/L Creatine Kinase (55-170) U/L Total Protein (6.3-8.2) g/dL Albumin (3.5-5.0) g/dL Urine Color Light [place] Urine Appearance Turbid (Clear) Urine pH 6.0 (5.0-8.0) Ur Specific [place] 1.018 (1.001-1.035) Urine Protein 3+ H (Negative) Urine Glucose (UA) 4+ H (Negative) Urine Ketones 1+ H (Negative) Urine Blood Moderate H (Negative) Urine Nitrite Negative (Negative) Urine Bilirubin 1+ H (Negative) Urine Urobilinogen 2.0 (<2.0) mg/dL Ur Leukocyte Esterase Large H (Negative) Urine RBC >182 H (0-5) /hpf Urine WBC >182 H (0-5) /hpf Urine WBC Clumps Many H (None) /hpf Urine Bacteria Many H (None) /hpf Urine Mucus Occasional H (None) /hpf Blood Type Recheck Bld Type Recheck Status Spec Expiration Date - Radiology Data Radiology results: report reviewed (Chest x-rays negative for acute disease), image reviewed Critical Care Time Critical Care Time: Yes Total Critical Care Time: 31 Disposition Clinical Impression: COPD exacerbation, Altered mental status, UTI (urinary tract infection), Sepsis Disposition: ADMITTED IP TO THIS [facility] Condition: Serious Is patient prescribed a controlled substance at d/c from ED?: No Referrals: [facility],Clinic [Primary Care Provider] - 1-2 days
[2019-03-06] MEDS ORDERED: SODIUM CHLORIDE 0.9% 1,000 ML IV STA ×2 (19:39)
[2019-03-06] MEDS ORDERED: SODIUM CHLORIDE 0.9% 500 ML 500 ML IV STA (19:39)
[2019-03-06] MEDS ORDERED: ACETAMINOPHEN IV (For NPO) 1,000 MG in EMPTY BAG 1 BAG IVPB STA (19:40)
[2019-03-06] MEDS ORDERED: IBUPROFEN IV 800 MG in SODIUM CHLORIDE 0.9% 250 ML IV ONE (19:40)
[2019-03-06] MEDS ORDERED: MORPHINE SULFATE 2 MG/ML SYRINGE IVP STA (19:45)
[2019-03-06 19:58] LABS: Basophils # (A) 0.2 k/uL (0-0.2); Basophils % (A) 1 %; Eosinophils % (A) 0 %; HCT 44.1 % (39.0-53.0); HGB 14.8 gm/dL (13.0-17.5); Lymphocytes # (A) 0.8 k/uL (1.0-4.8); Lymphocytes % (A) 6 %; MCHC 33.6 g/dL (31.0-37.0); MCV 86.4 fL (80.0-100.0); Mean Platelet Volume 6.5; Monocytes # (A) 0.7 k/uL (0-1.0); Monocytes % (A) 5 %; Neutrophils # (A) 11.4 k/uL (1.3-7.7); Neutrophils % (A) 86 %; Platelet Count 223 k/uL (150-450); RBC 5.11 m/uL (4.30-5.90); RDW 14.7 % (11.5-15.5); WBC 13.3 k/uL (3.8-10.6)
[2019-03-06 20:00] LABS: Appearance,Urine Turbid (Clear); Bacteria,Urine Many /hpf; Bilirubin,Urine 1+ (Negative); Blood,Urine Moderate (Negative); Color,Urine Light Orange; Glucose,Urine (UA) 4+ (Negative); Ketones,Urine 1+ (Negative); Leukocyte Esterase,Urine Large (Negative); Mucus,Urine Occasional /hpf; Nitrite,Urine Negative (Negative); Protein,Urine 3+ (Negative); RBC,Urine >182 /hpf (0-5); Specific Gravity,Urine 1.018 (1.001-1.035); WBC,Urine >182 /hpf (0-5)
[2019-03-06 20:04] LABS: INR 0.9 (<1.2); Partial Thromboplastin Time 22.9 sec (22.0-30.0); Prothrombin Time 9.8 sec (9.0-12.0)
[2019-03-06 20:14] LABS: ALT 42 U/L (21-72); AST 33 U/L (17-59); African American GFR (CKD) >90 (>60 ml/min/1.73 sqM); Albumin 4.3 g/dL (3.5-5.0); Alkaline Phosphatase 87 U/L (38-126); Anion Gap 13 mmol/L; Blood Urea Nitrogen 20 mg/dL (9-20); Carbon Dioxide 28 mmol/L (22-30); Chloride 97 mmol/L (98-107); Creatine Kinase 85 U/L (55-170); Glucose 340 mg/dL (74-99); Magnesium 1.5 mg/dL (1.6-2.3); Phosphorus 3.1 mg/dL (2.5-4.5); Potassium 4.5 mmol/L (3.5-5.1); Sodium 138 mmol/L (137-145); Total Bilirubin 1.2 mg/dL (0.2-1.3); Total Protein 7.9 g/dL (6.3-8.2)
--- NOTE | 2019-03-06 20:18 | XR ---
EXAMINATION TYPE: XR chest 2V DATE OF EXAM: 03/06/2019 COMPARISON: 11/09/2017 INDICATION: Weakness altered mental status TECHNIQUE: Frontal and lateral views of the chest are obtained. FINDINGS: The heart size is normal. The pulmonary vasculature is normal. The lungs are clear. IMPRESSION: 1. No acute pulmonary process.
[2019-03-06] MEDS ORDERED: methylPREDNISolone SOD SUCCI 125 MG/2 ML VIAL IV STA (20:20)
[2019-03-06] MEDS ORDERED: IPRATROPIUM-ALBUTEROL 3 ML NEB INHALATION STA (20:20)
[2019-03-06] MEDS: SODIUM CHLORIDE 0.9% 1,000 ML IV SCH (21:04)
[2019-03-06] MEDS: QUEtiapine 50 MG TAB PO SCH (22:39)
[2019-03-06] MEDS: METOPROLOL TARTRATE 25 MG TAB PO SCH (22:39)
[2019-03-06] MEDS: methylPREDNISolone SOD SUCCI 125 MG/2 ML VIAL IV SCH (23:51)
[2019-03-07] MEDS: IPRATROPIUM-ALBUTEROL 3 ML NEB INHALATION SCH ×7 (00:09→23:29)
[2019-03-07] MEDS: SODIUM CHLORIDE 0.9% 1,000 ML IV SCH ×3 (06:03→21:14)
[2019-03-07] MEDS: methylPREDNISolone SOD SUCCI 125 MG/2 ML VIAL IV SCH (06:04)
[2019-03-07 06:11] LABS: Glucose,Whole Blood 379 mg/dL (75-99)
[2019-03-07] MEDS: INSULIN ASPART (NovoLOG) 100 UNIT/ML VIAL SQ SCH ×4 (06:13→20:58)
[2019-03-07] MEDS ORDERED: PANTOPRAZOLE 40 MG/10 ML VIAL IV SCH (09:00)
[2019-03-07] MEDS: METOPROLOL TARTRATE 25 MG TAB PO SCH ×2 (10:18→20:57)
[2019-03-07 11:42] LABS: Glucose,Whole Blood 462 mg/dL (75-99)
--- NOTE | 2019-03-07 12:10 | P.HPIM ---
History of Present Illness 74-year-old the came to the hospital after he was asked was visiting physician. Patient did admit to some fatigue and generalized weakness. Was also short of breath was treated for COPD exacerbation. Patient has a Grover catheter urine looks significantly abnormal patient denied any dysuria patient had high-grade fever yesterday chest x-ray did not show any pneumonic process. Now we have the blood cultures are positive for gram-negative bacilli urine cultures are still pending patient has a Grover catheter for urinary retention which is chronically catheter. Patient most probably has Grover catheter related urinary tract in fection bacteremia and sepsis secondary to that. Patient is on home oxygen 3 L is not wheezing today his on systemic steroids which because of which his blood sugars went up very high this can you IV steroids patient will be started on inhaled steroids. Review of Systems REVIEW OF SYSTEMS: CONSTITUTIONAL: as mentioned in HPI HEENT: No recent visual problems or hearing problems. Denied any sore throat. CARDIOVASCULAR: No chest pain, orthopnea, PND, no palpitations, no syncope. PULMONARY: no hemoptysis. GASTROINTESTINAL: No diarrhea, no nausea, no vomiting, no abdominal pain. NEUROLOGICAL: No headaches, no weakness, no numbness. HEMATOLOGICAL: Denies any bleeding or petechiae. GENITOURINARY: Denies any burning micturition, frequency, or urgency. MUSCULOSKELETAL/RHEUMATOLOGICAL: Denies any joint pain, swelling, or any muscle pain. ENDOCRINE: Denies any polyuria or polydipsia. The rest of the 14-point review of systems is negative. Past Medical History Past Medical History: Cancer, Heart Failure, COPD, Dementia, Hyperlipidemia, Hypertension Additional Past Medical History / Comment(s): rectal cancer diagnosed in 04/2017-stage TIII N0 M0 treated with radiation therapy in 05/2017. pt denies having diabetes History of Any Multi-Drug Resistant Organisms: None Reported Additional Past Surgical History / Comment(s): Fatty tumors removed from bilateral legs. Hydrocele.colonoscopy Past Anesthesia/Blood Transfusion Reactions: No Reported Reaction Past Psychological History: Anxiety Additional Psychological History / Comment(s): [place]. lives at home with his . has [employer] and na 3x a week for bathing. has o2, nebulizer,bsc, shower chair. Smoking Status: Former smoker Past Alcohol Use History: None Reported Additional Past Alcohol Use History / Comment(s): started smoking age 22(1966) and quit 2016 smoked 1-2 ppd. drank in past quit after returning from [facility] 43 years ago Past Drug Use History: None Reported - Past Family History Father Family Medical History: COPD, Pneumonia Additional Family Medical History / Comment(s): Pt states "His dad of chronic lung disease".alcoholic Mother Family Medical History: Dementia Additional Family Medical History / Comment(s): alzhiemers, alcoholic Medications and Allergies Home Medications Medication Instructions Recorded Confirmed Type Metoprolol Tartrate [Lopressor] 25 mg PO BID 07/07/17 03/07/19 History Acetaminophen Tab [Tylenol] 500 mg PO BID PRN 11/07/17 03/07/19 History Fluticasone Nasal [place] [Flonase 1 spray EA NOSTRIL DAILY PRN 11/07/17 03/07/19 History Nasal Cerro] Budesonide-Formot 160-4.5 Mcg 2 puff INHALATION RT-BID PRN 09/10/18 03/07/19 History [Symbicort 160-4.5 Mcg Inhaler] Furosemide [Lasix] 40 mg PO DAILY 09/10/18 03/07/19 History Ipratropium-Albuterol Nebulize 3 ml INHALATION RT-QID 09/10/18 03/07/19 History [Duoneb 0.5 mg-3 mg/3 ml Soln] QUEtiapine [SEROquel] 50 mg PO HS 09/10/18 03/07/19 History metFORMIN HCL 1,000 mg PO BID 09/10/18 03/07/19 History Allergies Allergy/AdvReac Type Severity Reaction Status Date / Time aspirin Allergy Unknown Verified 03/06/19 19:16 onion Allergy Unknown Verified 03/06/19 19:16 ferrous sulfate AdvReac Dyspnea Verified 03/06/19 19:16 lisinopril AdvReac Cough Verified 03/06/19 19:16 Physical Exam Vitals: Vital Signs Temp Pulse Pulse Resp BP BP Pulse Ox 03/07/19 11:55 84 03/07/19 08:38 88 03/07/19 08:22 86 03/07/19 07:52 106 H 18 03/07/19 04:09 88 03/07/19 04:00 97.8 F 76 93 20 122/63 95 03/07/19 00:22 86 03/07/19 00:09 84 03/07/19 00:00 98.1 F 94 20 103/63 93 L 03/06/19 21:38 38 H 03/06/19 21:33 99.5 F 117 H 30 H 124/68 95 03/06/19 21:07 98.4 F 116 H 20 103/57 93 L 03/06/19 20:43 99.9 F H 03/06/19 20:39 125 H 03/06/19 20:32 124 H 03/06/19 20:19 126 H 38 H 142/86 95 03/06/19 19:51 134 H 40 H 154/111 95 03/06/19 19:12 101.5 F H 139 H 38 H 151/87 93 L Intake and Output 03/06/19 03/07/19 03/07/19 22:59 06:59 14:59 Intake Total 540 Output Total 30 575 Balance -30 -35 Intake: Oral 540 Output: Urine 30 575 Uretheral (Grover) 30 Other: Voiding Method Indwelling Catheter Indwelling Catheter Weight 77.111 kg 96 kg PHYSICAL EXAMINATION: GENERAL: The patient is alert and oriented x3, not in any acute distress. Well developed, well nourished. HEENT: Pupils are round and equally reacting to light. EOMI. No scleral icterus. No conjunctival pallor. Normocephalic, atraumatic. No pharyngeal erythema. No thyromegaly. CARDIOVASCULAR: S1 and S2 present. No murmurs, rubs, or gallops. PULMONARY:Mark Anthony minimal wheezing and diminished air entry bilateral lung santos no crackles are appreciated ABDOMEN: Soft, nontender, nondistended, normoactive bowel sounds. No palpable organomegaly. Grover catheter in place which was placed in ER MUSCULOSKELETAL: No joint swelling or deformity. EXTREMITIES: No cyanosis, clubbing, or pedal edema. NEUROLOGICAL: Gross neurological examination did not reveal any focal deficits. SKIN: No rashes. Results CBC & Chem 7: 03/06/19 19:22 03/06/19 19:22 Labs: Abnormal Lab Results - Last 24 Hours (Table) 03/06/19 03/06/19 03/06/19 Range/Units 19:18 19:22 19:22 WBC 13.3 H (3.8-10.6) k/uL Neutrophils # 11.4 H (1.3-7.7) k/uL Lymphocytes # 0.8 L (1.0-4.8) k/uL Chloride 97 L (98-107) mmol/L Glucose 340 H (74-99) mg/dL POC Glucose (mg/dL) 307 H (75-99) mg/dL Magnesium 1.5 L (1.6-2.3) mg/dL Urine Protein (Negative) Urine Glucose (UA) (Negative) Urine Ketones (Negative) Urine Blood (Negative) Urine Bilirubin (Negative) Ur Leukocyte Esterase (Negative) Urine RBC (0-5) /hpf Urine WBC (0-5) /hpf Urine WBC Clumps (None) /hpf Urine Bacteria (None) /hpf Urine Mucus (None) /hpf 03/06/19 03/07/19 03/07/19 Range/Units 19:22 06:10 11:37 WBC (3.8-10.6) k/uL Neutrophils # (1.3-7.7) k/uL Lymphocytes # (1.0-4.8) k/uL Chloride (98-107) mmol/L Glucose (74-99) mg/dL POC Glucose (mg/dL) 379 H 462 H (75-99) mg/dL Magnesium (1.6-2.3) mg/dL Urine Protein 3+ H (Negative) Urine Glucose (UA) 4+ H (Negative) Urine Ketones 1+ H (Negative) Urine Blood Moderate H (Negative) Urine Bilirubin 1+ H (Negative) Ur Leukocyte Esterase Large H (Negative) Urine RBC >182 H (0-5) /hpf Urine WBC >182 H (0-5) /hpf Urine WBC Clumps Many H (None) /hpf Urine Bacteria Many H (None) /hpf Urine Mucus Occasional H (None) /hpf Microbiology - Last 24 Hours (Table) 03/06/19 19:22 Blood Culture Gram Stain - Preliminary Blood 03/06/19 19:22 Blood Culture - Final Blood 03/06/19 19:22 Urine Culture - Preliminary Urine,Clean Catch Thrombosis Risk Factor Assmnt - Choose All That Apply Each Factor Represents 1 point: Abnormal pulmonary function (COPD), Sepsis (< 1month) Each Risk Factor Represents 2 Points: Age 61-74 years Thrombosis Risk Factor Assessment Total Risk Factor Score: 4 Thrombosis Risk Factor Assessment Level: Moderate Risk Assessment and Plan Plan: -sepsis, bacteremia secondary to urinary tract infection repeat blood cultures will be obtained Rocephin dose will be increased infectious disease consulted. Patient has a Grover cath related urinary tract infection. -COPD with mild acute exacerbation patient has chronic respiratory failure secondary to COPD, patient will be started on inhaled steroids continue with inhalational treatments systemic steroids will be discontinued because of highly elevated blood sugars. -Type 2 diabetes mellitus with uncontrolled blood sugars due to systemic steroids further management as mentioned above. Patient was started on metformin patient will be started on long-acting insulin per day 2 for better blood sugar control because of steroids he received along with sliding scale insulin -Hyperlipidemia -Hypertension -Anxiety disorder -obesity -DVT prophylaxis with subcutaneous heparin
[2019-03-07] MEDS ORDERED: INSULIN ASPART (NovoLOG) 100 UNIT/ML VIAL SQ ONE (12:12)
[2019-03-07] MEDS ORDERED: INSULIN DETEMIR (LEVEMIR) 100 UNIT/ML SYR SQ ONE (12:30)
[2019-03-07] MEDS: MAGNESIUM SULFATE-D5W PMX 1 GM in DEXTROSE/WATER 1 100ML.BAG IVPB SCH ×2 (13:43→13:45)
[2019-03-07 17:16] LABS: Glucose,Whole Blood 372 mg/dL (75-99)
[2019-03-07] MEDS: HEPARIN SODIUM,PORCINE 5,000 UNIT/ML 1 ML VIAL SQ SCH (17:22)
[2019-03-07] MEDS: metFORMIN 500 MG TAB PO SCH (17:23)
[2019-03-07] MEDS: SYMBICORT 160-4.5 MCG INHALER INHALATION SCH (20:00)
[2019-03-07 20:14] LABS: Glucose,Whole Blood 398 mg/dL (75-99)
[2019-03-07] MEDS: QUEtiapine 50 MG TAB PO SCH (20:58)
[2019-03-08] MEDS: HEPARIN SODIUM,PORCINE 5,000 UNIT/ML 1 ML VIAL SQ SCH ×4 (00:07→23:44)
[2019-03-08] MEDS: IPRATROPIUM-ALBUTEROL 3 ML NEB INHALATION SCH ×6 (03:39→23:37)
[2019-03-08] MEDS: SYMBICORT 160-4.5 MCG INHALER INHALATION SCH ×2 (07:08→19:57)
[2019-03-08 07:13] LABS: Glucose,Whole Blood 266 mg/dL (75-99)
[2019-03-08] MEDS: metFORMIN 500 MG TAB PO SCH ×2 (07:37→17:27)
[2019-03-08] MEDS: PANTOPRAZOLE 40 MG TABLET PO SCH (07:37)
[2019-03-08] MEDS: METOPROLOL TARTRATE 25 MG TAB PO SCH ×2 (07:37→20:53)
[2019-03-08] MEDS: INSULIN ASPART (NovoLOG) 100 UNIT/ML VIAL SQ SCH ×4 (07:38→20:52)
[2019-03-08] MEDS: SODIUM CHLORIDE 0.9% 1,000 ML IV SCH (08:13)
[2019-03-08 08:36] LABS: Hemoglobin A1C 8.8 % (4.0-6.0)
[2019-03-08] MEDS ORDERED: predniSONE 20 MG TAB PO SCH (09:00)
[2019-03-08 11:04] LABS: Glucose,Whole Blood 288 mg/dL (75-99)
--- NOTE | 2019-03-08 15:18 | P.PN ---
Subjective Patient is being treated for dry UTI being the possible source of infection patient has gram-negative bacilli in the urine I'm obtaining a repeat chest x- ray because of his hypoxia patient is wheezing there is no evidence of pneumonia on the admission chest x-ray. Patient repeat blood cultures are so far negative infectious disease will be consulted. Patient started wheezing again because of which patient will be started on small dose of oral steroids and patient will be continued on long-acting insulin just temporarily for systemic steroids. Constitutional: Denied any fatigue denied any fever. Cardio vascular: denied any chest pain, palpitations Gastrointestinal denied any nausea vomiting Pulmonary: Denied any shortness of breath cough Neurologic denied any new focal deficits All inpatient medications were reviewed and appropriate changes in these medications as dictated in the interval history and assessment and plan. Objective - Vital Signs Vital signs: Vital Signs Temp 98.1 F 03/08/19 11:40 Pulse 104 H 03/08/19 11:50 Resp 20 03/08/19 11:40 BP 119/70 03/08/19 11:40 Pulse Ox 94 L 03/08/19 11:40 Intake & Output 03/07/19 03/08/19 03/08/19 18:59 06:59 18:59 Intake Total 5509 002 1773 Output Total 1600 1450 600 Balance 310 -625 1150 Intake: Intake, IV Titration 1200 825 650 Amount Magnesium Sulfate-D5w Pmx 200 1 gm In Dextrose/Water 1 100ml.bag @ 100 mls/hr IVPB Q1H [facility] Rx#: [id number] Sodium Chloride 0.9% 1, 900 825 600 000 ml @ 75 mls/hr IV . [id number] [facility] Rx#:[id number] cefTRIAXone 1 gm In 50 Sodium Chloride 0.9% 50 ml @ 100 mls/hr IVPB ONCE ONE Rx#:[id number] cefTRIAXone 2 gm In 50 50 Sodium Chloride 0.9% 50 ml @ 100 mls/hr IVPB Q24HR [facility] Rx#:[id number] Oral 710 1100 Output: Urine 1600 1450 600 Uretheral (Grover) 1000 Other: Voiding Method Indwelling Catheter Indwelling Catheter Indwelling Catheter # Voids 1 - Exam PHYSICAL EXAMINATION: GENERAL: The patient is alert and oriented x3, not in any acute distress. Well developed, well nourished. HEENT: Pupils are round and equally reacting to light. EOMI. No scleral icterus. No conjunctival pallor. Normocephalic, atraumatic. No pharyngeal erythema. No thyromegaly. CARDIOVASCULAR: S1 and S2 present. No murmurs, rubs, or gallops. PULMONARY: Expiratory wheezing which is worse compared to yesterday and diminished air entry bilateral lung santos no crackles are appreciated ABDOMEN: Soft, nontender, nondistended, normoactive bowel sounds. No palpable organomegaly. Grover catheter in place which was placed in ER MUSCULOSKELETAL: No joint swelling or deformity. EXTREMITIES: No cyanosis, clubbing, or pedal edema. NEUROLOGICAL: Gross neurological examination did not reveal any focal deficits. SKIN: No rashes. - Labs CBC & Chem 7: 03/06/19 19:22 03/06/19 19:22 Labs: Abnormal Lab Results - Last 24 Hours (Table) 03/06/19 03/07/19 03/07/19 Range/Units 19:22 16:41 20:13 POC Glucose (mg/dL) 372 H 398 H (75-99) mg/dL Hemoglobin A1c 8.8 H (4.0-6.0) % 03/08/19 03/08/19 Range/Units 07:11 11:03 POC Glucose (mg/dL) 266 H 288 H (75-99) mg/dL Hemoglobin A1c (4.0-6.0) % Microbiology - Last 24 Hours (Table) 03/06/19 19:22 Urine Culture - Final Urine,Clean Catch 03/07/19 12:10 Blood Culture - Preliminary Blood No Growth after 24 hours 03/06/19 19:22 Blood Culture Gram Stain - Preliminary Blood Blood Culture - Preliminary Gram Neg Bacilli Assessment and Plan Plan: -sepsis, bacteremia secondary to urinary tract infection repeat blood cultures will be obtained Rocephin dose will be increased infectious disease consulted. Patient has a Grover cath related urinary tract infection. Patient has gram- negative bacilli in the blood so far urine cultures are negative and repeat blood cultures are negative -COPD with mild acute exacerbation R patient's wheezing is bit worse today because of which patient will be started on low-dose of prednisone continue with inhaled steroids and inhalational treatments and patient will be continued on long-acting insulin as long as he is on steroids -Type 2 diabetes mellitus with uncontrolled blood sugars due to systemic steroids further management as mentioned above. Continue with metformin and long-acting insulin along with sliding scale insulin -Hyperlipidemia -Hypertension -Anxiety disorder -obesity -DVT prophylaxis with subcutaneous heparin
[2019-03-08] MEDS: predniSONE 20 MG TAB PO SCH (16:14)
[2019-03-08 17:08] LABS: Glucose,Whole Blood 308 mg/dL (75-99)
[2019-03-08 20:52] LABS: Glucose,Whole Blood 304 mg/dL (75-99)
[2019-03-08] MEDS: INSULIN DETEMIR (LEVEMIR) 100 UNIT/ML SYR SQ SCH (20:52)
[2019-03-08] MEDS: QUEtiapine 50 MG TAB PO SCH (20:57)
[2019-03-08] MEDS ORDERED: INSULIN DETEMIR (LEVEMIR) 100 UNIT/ML SYR SQ SCH (21:00)
[2019-03-09] MEDS: IPRATROPIUM-ALBUTEROL 3 ML NEB INHALATION SCH ×5 (03:43→20:09)
[2019-03-09 07:02] LABS: Glucose,Whole Blood 278 mg/dL (75-99)
[2019-03-09] MEDS: metFORMIN 500 MG TAB PO SCH ×2 (07:57→17:31)
[2019-03-09] MEDS: HEPARIN SODIUM,PORCINE 5,000 UNIT/ML 1 ML VIAL SQ SCH ×3 (07:57→23:25)
[2019-03-09] MEDS: INSULIN ASPART (NovoLOG) 100 UNIT/ML VIAL SQ SCH ×4 (07:57→21:18)
[2019-03-09] MEDS: PANTOPRAZOLE 40 MG TABLET PO SCH (07:58)
[2019-03-09] MEDS: predniSONE 20 MG TAB PO SCH (07:58)
[2019-03-09] MEDS: METOPROLOL TARTRATE 25 MG TAB PO SCH ×2 (07:58→21:18)
[2019-03-09] MEDS: SYMBICORT 160-4.5 MCG INHALER INHALATION SCH ×2 (08:11→20:09)
--- NOTE | 2019-03-09 09:04 | P.CONS ---
History of Present Illness - Reason for Consult Consult date: 03/09/19 Bacteremia - History of Present Illness This is a 74-year-old male presented to hospital with symptoms of fatigue generalized weakness and shortness of breath and has been treated for COPD exacerbation. In 2016 he was diagnosed with rectal cancer status post resection and radiation and has had a chronic Grover catheter in place since that time. This is changed by his home care nurse but was also changed here on Friday. Patient is complaining that it is leaking at the Grover site and at home he usually has a Grover with a 30 mL balloon. He plans to have his home care nurse replace Grover once he gets home. He presented with a temperature 101.5, tachycardia, hypertension, tachypnea. His white count 13.3, BUN 20, creatinine 0.94, blood sugar 340. Influenza testing was negative. Urinalysis turbid, blood moderate, leukoesterase large, rbc's Rhythm with 182, wbc's greater than 182, WBC clumps many, bacteria many. Chest x-ray shows no acute pulmonary process. Urine culture reported as probably microbic specimen. No predominant type. Growth included 3 different colonies of gram-negative bacilli including swarming Proteus species. Urine culture from December was positive for Proteus mirabilis. Blood culture on this admission is E. coli. Repeat blood culture is no growth at 24 hours. Patient also has history of diabetes mellitus type 2, uncontrolled with hyperglycemia, chronic hypoxic respiratory failure on home O2. Patient lives at home with his who is his primary caregiver along with paid help from [employer]. All DME is in place at home as well as home care. Patient is planning to return home at the time of discharge. [facility] Review of Systems Constitutional: Reports fatigue, Reports weakness, Denies chills, Denies fever, Denies poor appetite, Denies weight loss Eyes: denies blurred vision, denies pain Ears, nose, mouth and throat: Denies dental pain, Denies headache, Denies nasal congestion, Denies nasal discharge, Denies sore throat, Denies vertigo Cardiovascular: Reports decreased exercise tolerance, Reports dyspnea on exertion, Reports leg edema, Reports shortness of breath, Denies chest pain, Denies lightheadedness Respiratory: Reports cough, Reports cough with sputum, Reports dyspnea, Reports home oxygen Gastrointestinal: Denies abdominal pain, Denies diarrhea, Denies loss of appetite, Denies nausea, Denies vomiting Genitourinary: Denies flank pain Musculoskeletal: Reports muscle weakness, Denies frequent falls, Denies gait dysfunction, Denies myalgias Integumentary: Denies pruritus, Denies rash Neurological: Denies change in mentation, Denies change in speech, Denies numbness, Denies seizures, Denies weakness Psychiatric: Denies anxiety, Denies depression Endocrine: Reports high blood sugars, Denies fatigue, Denies weight change Past Medical History Past Medical History: Cancer, Heart Failure, COPD, Dementia, Hyperlipidemia, Hypertension Additional Past Medical History / Comment(s): rectal cancer diagnosed in 04/2017-stage TIII N0 M0 treated with radiation therapy in 05/2017. pt denies having diabetes History of Any Multi-Drug Resistant Organisms: None Reported Additional Past Surgical History / Comment(s): Fatty tumors removed from bilateral legs. Hydrocele.colonoscopy Past Anesthesia/Blood Transfusion Reactions: No Reported Reaction Past Psychological History: Anxiety Additional Psychological History / Comment(s): xaaashishx. lives at home with his . has [employer] and na 3x a week for bathing. has o2, nebulizer,bsc, shower chair. Smoking Status: Former smoker Past Alcohol Use History: None Reported Additional Past Alcohol Use History / Comment(s): started smoking age 22(1966) and quit 2016 smoked 1-2 ppd. drank in past quit after returning from [facility] 43 years ago. He lives at home with his and dog. DME including home oxygen and hospital better in place. Past Drug Use History: None Reported - Past Family History Father Family Medical History: COPD, Pneumonia Additional Family Medical History / Comment(s): Pt states "His dad of chronic lung disease".alcoholic Mother Family Medical History: Dementia Additional Family Medical History / Comment(s): alzhiemers, alcoholic Medications and Allergies Home Medications Medication Instructions Recorded Confirmed Type Metoprolol Tartrate [Lopressor] 25 mg PO BID 07/07/17 03/07/19 History Acetaminophen Tab [Tylenol] 500 mg PO BID PRN 11/07/17 03/07/19 History Fluticasone Nasal [place] [Flonase 1 spray EA NOSTRIL DAILY PRN 11/07/17 03/07/[address] [place] [address]] Budesonide-Formot 160-4.5 Mcg 2 puff INHALATION RT-BID PRN 09/10/18 03/07/19 History [Symbicort 160-4.5 Mcg Inhaler] Furosemide [Lasix] 40 mg PO DAILY 09/10/18 03/07/19 History Ipratropium-Albuterol Nebulize 3 ml INHALATION RT-QID 09/10/18 03/07/19 History [Duoneb 0.5 mg-3 mg/3 ml Soln] QUEtiapine [SEROquel] 50 mg PO HS 09/10/18 03/07/19 History metFORMIN HCL 1,000 mg PO BID 09/10/18 03/07/19 History Allergies Allergy/AdvReac Type Severity Reaction Status Date / Time aspirin Allergy Unknown Verified 03/06/19 19:16 onion Allergy Unknown Verified 03/06/19 19:16 ferrous sulfate AdvReac Dyspnea Verified 03/06/19 19:16 lisinopril AdvReac Cough Verified 03/06/19 19:16 Physical Exam Vitals: Vital Signs Temp Pulse Pulse Resp BP Pulse Ox 03/09/19 08:23 92 03/09/19 08:11 100 03/09/19 07:29 118 H 140/82 03/09/19 05:10 97.6 F 91 19 93/55 94 L 03/09/19 03:54 96 03/09/19 03:43 96 03/08/19 23:45 97 03/08/19 23:37 96 03/08/19 21:00 99.1 F 110 H 16 109/59 94 L 03/08/19 20:05 99 03/08/19 19:54 99 03/08/19 17:09 127 H 03/08/19 17:01 92 L 03/08/19 16:58 131 H 03/08/19 15:42 75 20 03/08/19 11:50 104 H 03/08/19 11:40 98.1 F 110 H 20 119/70 94 L 03/08/19 11:37 104 H Intake and Output 03/08/19 03/09/19 03/09/19 22:59 06:59 14:59 Intake Total 590 Output Total 1200 1700 Balance -610 -1700 Intake: Oral 590 Output: Urine 1200 1700 Uretheral (Grover) 600 1000 Other: Voiding Method Indwelling Catheter # Voids 1 Gen: This is a 74-year-old obese male. He is sitting in a chair and a ppears to be comfortable and in no acute distress. No respiratory distress is noted. HEENT: Head is atraumatic, normocephalic. Pupils equal, round. Sclerae is anicteric. NECK: Supple. No JVD. No lymphadenopathy. No thyromegaly. LUNGS: Few scattered wheezes and rhonchi. No intercostal retractions. No accessory muscle usage. HEART: Distant heart sounds. Regular rate and rhythm. Systolic murmur. ABDOMEN: Soft. Bowel sounds are present. No masses. No tenderness. No flank tenderness bilaterally. Grover catheter draining slightly orange urine clear EXTREMITIES: Trace bilateral pedal edema. No calf tenderness. Dorsalis pedis +1 bilaterally. NEUROLOGICAL: Patient is awake, alert and oriented x3. Cranial nerves 2 through 12 are grossly intact. Results Results: Laboratory Results WBC 13.3 k/uL (3.8-10.6) H 03/06/19 19: RBC 5.11 m/uL (4.30-5.90) 03/06/19 19:22 Hgb 14.8 gm/dL (13.0-17.5) 03/06/19 19: Hct 44.1 % (39.0-53.0) 03/06/19 19: MCV 86.4 fL (80.0-100.0) 03/06/19 19: MCH 29.0 pg (25.0-35.0) 03/06/19: MCHC 33.6 g/dL (31.0-37.0) 03/06/19 19: RDW 14.7 % (11.5-15.5) 03/06/19 19: Plt Count 223 k/uL (150-450) 03/06/19 19: Neutrophils % 86 % 03/06/19 19: Lymphocytes % 6 % 03/06/19 19: Monocytes % 5 % 03/06/19 19:22 Eosinophils % 0 % 03/06/19 19: Basophils % 1 % 03/06/19 19: Neutrophils # 11.4 k/uL (1.3-7.7) H 03/06/19 19: Lymphocytes # 0.8 k/uL (1.0-4.8) L 03/06/19 19:22 Monocytes # 0.7 k/uL (0-1.0) 03/06/19 19:22 Eosinophils # 0.0 k/uL (0-0.7) 03/06/19 19:22 Basophils # 0.2 k/uL (0-0.2) 03/06/19 19:22 PT 9.8 sec (9.0-12.0) 03/06/19 19:22 INR 0.9 (<1.2) 03/06/19 19:22 APTT 22.9 sec (22.0-30.0) 03/06/19 19:22 Sodium 138 mmol/L (137-145) 03/06/19 19:22 Potassium 4.5 mmol/L (3.5-5.1) 03/06/19 19:22 Chloride 97 mmol/L (98-107) L 03/06/19 19:22 Carbon Dioxide 28 mmol/L (22-30) 03/06/19 19:22 Anion Gap 13 mmol/L 03/06/19 19:22 BUN 20 mg/dL (9-20) 03/06/19 19:22 Creatinine 0.94 mg/dL (0.66-1.25) 03/06/19 19:22 Est GFR (CKD-EPI)AfAm >90 (>60 ml/min/1.73 sqM) 03/06/19 19:22 Est GFR (CKD-EPI)NonAf 81 (>60 ml/min/1.73 sqM) 03/06/19 19:22 Glucose 340 mg/dL (74-99) H 03/06/19 19:22 POC Glucose (mg/dL) 278 mg/dL (75-99) H 03/09/19 07:01 POC Glu [employer] Operator ID Diana Cruz 03/09/19 07:[address] Glu mg/dL 206 03/06/19 19:22 Hemoglobin A1c 8.8 % (4.0-6.0) H 03/06/19 19:22 Plasma Lactic Acid Richar 1.5 mmol/L (0.7-2.0) 03/08/19 06:19 Calcium 10.0 mg/dL (8.4-10.2) 03/06/19 19:22 Phosphorus 3.1 mg/dL (2.5-4.5) 03/06/19 19: Magnesium 2.2 mg/dL (1.6-2.3) 03/08/19 06:19 Total Bilirubin 1.2 mg/dL (0.2-1.3) 03/06/19 19:22 AST 33 U/L (17-59) 03/06/19 19: ALT 42 U/L (21-72) 03/06/19 19:22 Alkaline Phosphatase 87 U/L (38-126) 03/06/19 19:22 Creatine Kinase 85 U/L (55-170) 03/06/19 19: Troponin I 0.030 ng/mL (0.000-0.034) 03/06/19 19: NT-Pro-B Natriuret Pep 2500 pg/mL 03/06/19 19:22 Total Protein 7.9 g/dL (6.3-8.2) 03/06/19 19: Albumin 4.3 g/dL (3.5-5.0) 03/06/19 19: Urine Color Light [place] 03/06/19 19: Urine Appearance Turbid (Clear) 03/06/19 19: Urine pH 6.0 (5.0-8.0) 03/06/19: Ur Specific [place] 1.018 (1.001-1.035) 03/06/19 19: Urine Protein 3+ (Negative) H 03/06/19 19: Urine Glucose (UA) 4+ (Negative) H 03/06/19: Urine Ketones 1+ (Negative) H 03/06/19: Urine Blood Moderate (Negative) H 03/06/19 19: Urine Nitrite Negative (Negative) 03/06/19: Urine Bilirubin 1+ (Negative) H 03/06/19: Urine Urobilinogen 2.0 mg/dL (<2.0) 03/06/19 19: Ur Leukocyte Esterase Large (Negative) H 03/06/19 19:22 Urine RBC >182 /hpf (0-5) H 03/06/19 19: Urine WBC >182 /hpf (0-5) H 03/06/19 19:22 Urine WBC Clumps Many /hpf (None) H 03/06/19 19:22 Urine Bacteria Many /hpf (None) H 03/06/19 19:22 Urine Mucus Occasional /hpf (None) H 03/06/19 19:22 Influenza Type A RNA Not Detected (Not Detectd) 03/06/19 20:20 Influenza Type B (PCR) Not Detected (Not Detectd) 03/06/19 20:20 Blood Type A Positive 03/06/19 19:22 Blood Type Confirm A Positive 03/06/19 19:25 Blood Type Recheck No Previous Record 03/06/19 19:22 Bld Type Recheck Status CABO Indicated 03/06/19 19:22 Antibody Screen NEGATIVE 03/06/19 19:22 Spec Expiration Date 03/09/2019232103/06/19 19:22 CBC & Chem 7: 03/06/19 19:22 03/06/19 19:22 Labs: Abnormal Lab Results - Last 24 Hours (Table) 03/08/19 03/08/19 03/08/19 Range/Units 11:03 17:06 20:49 POC Glucose (mg/dL) 288 H 308 H 304 H (75-99) mg/dL 03/09/19 Range/Units 07:01 POC Glucose (mg/dL) 278 H (75-99) mg/dL Microbiology - Last 24 Hours (Table) 03/06/19 19:22 Urine Culture - Final Urine,Clean Catch 03/06/19 19:22 Blood Culture Gram Stain - Final Blood Blood Culture - Final Escherichia coli 03/07/19 12:10 Blood Culture - Preliminary Blood No Growth after 24 hours Assessment and Plan Plan: This is a 74-year-old male who presented to the hospital with fatigue, weakness and shortness of breath under treatment for COPD exacerbation. He also presented with acute sepsis with E. coli bacteremia. Urine culture is most likely a Proteus but other gram-negative organisms as well. Previous urine culture from December was Proteus Mirabella's. Also susceptible to ceftriaxone. Patient is currently on Rocephin 2 g daily. Grover catheter has been changed on this admission. Recommendations for home antibiotics will be made. Continue supportive care. Further recommendations to patient progresses. The above dictated assessment and findings were discussed with Dr. Wray. The impression and plan of care have been directed as dictated. Ama Lemon nurse practitioner acting as scribe for Dr. Wray.
[2019-03-09 11:03] LABS: Glucose,Whole Blood 246 mg/dL (75-99)
--- NOTE | 2019-03-09 11:18 | XR ---
EXAMINATION TYPE: XR chest 1V DATE OF EXAM: 03/09/2019 COMPARISON: 03/06/2019 HISTORY: 74-year-old male CHF, shortness of breath TECHNIQUE: Single frontal view of the chest is obtained. FINDINGS: Heart mildly enlarged. Diffuse interstitial prominence. Some mild patchy right basilar densities. No sizable effusion. IMPRESSION: 1. Mild cardiomegaly. Interstitial prominence appears in part chronic but may reflect mild pulmonary vascular congestion. 2. Mild patchy right basilar densities, likely atelectasis.
[2019-03-09 17:04] LABS: Glucose,Whole Blood 268 mg/dL (75-99)
--- NOTE | 2019-03-09 18:13 | P.CON ---
Consult Note - . Consult date: 03/09/19 Assessment/Plan:: This is a 74-year-old male presented to hospital with symptoms of fatigue generalized weakness and shortness of breath and has been treated for COPD exacerbation. In 2016 he was diagnosed with rectal cancer status post resection and radiation and has had a chronic Grover catheter in place since that time. This is changed by his home care nurse but was also changed here on Friday. Patient is complaining that it is leaking at the Grover site and at home he usually has a Grover with a 30 mL balloon. He plans to have his home care nurse replace Grover once he gets home. He presented with a temperature 101.5, tachycardia, hypertension, tachypnea. His white count 13.3, BUN 20, creatinine 0.94, blood sugar 340. Influenza testing was negative. Urinalysis turbid, blood moderate, leukoesterase large, rbc's Rhythm with 182, wbc's greater than 182, WBC clumps many, bacteria many. Chest x-ray shows no acute pulmonary process. Urine culture reported as probably microbic specimen. No predominant type. Growth included 3 different colonies of gram-negative bacilli including swarming Proteus species. Urine culture from December was positive for Proteus mirabilis. Blood culture on this admission is E. coli. Repeat blood culture is no growth at 24 hours. Patient also has history of diabetes mellitus type 2, uncontrolled with hyperglycemia, chronic hypoxic respiratory failure on home O2. Patient lives at home with his who is his primary caregiver along with paid help from [employer]. All DME is in place at home as well as home care. Patient is planning to return home at the time of discharge. [facility] Please see the consult is dictated by nurse practitioner Mrs. Ama Lemon. This 74-year-old male has multiple medical problems including history of rectal cancer status post resection and radiation therapy and does have chronic Grover catheter placement. Presents Hospital evidence of sepsis with leukocytosis, fever 101.5 as well as tachycardia and tachypnea. Evidence of gram-negative bacteremia E. coli. Has been isolated from the urine and the blood. It is tender pain will be for Rocephin 2 g IV piggyback daily for 14 days for his complex sepsis from urinary system. If he is that had recent imaging studies of his urinary system would be worthwhile to evaluate to make sure that there is no new obstructive process or stone that required urological interventions. With evaluation, assessment and plan as dictated by nurse practitioner Mrs. Ama Lemon.
[2019-03-09 21:12] LABS: Glucose,Whole Blood 209 mg/dL (75-99)
[2019-03-09] MEDS: QUEtiapine 50 MG TAB PO SCH (21:18)
[2019-03-09] MEDS: INSULIN DETEMIR (LEVEMIR) 100 UNIT/ML SYR SQ SCH (21:18)
[2019-03-10] MEDS: IPRATROPIUM-ALBUTEROL 3 ML NEB INHALATION SCH ×6 (00:05→20:43)
[2019-03-10 02:44] LABS: Glucose,Whole Blood 179 mg/dL (75-99)
[2019-03-10 07:04] LABS: Glucose,Whole Blood 191 mg/dL (75-99)
[2019-03-10] MEDS: INSULIN ASPART (NovoLOG) 100 UNIT/ML VIAL SQ SCH ×4 (08:08→21:25)
[2019-03-10] MEDS: HEPARIN SODIUM,PORCINE 5,000 UNIT/ML 1 ML VIAL SQ SCH ×3 (08:08→23:48)
[2019-03-10] MEDS: PANTOPRAZOLE 40 MG TABLET PO SCH (08:08)
[2019-03-10] MEDS: metFORMIN 500 MG TAB PO SCH ×2 (08:08→17:55)
[2019-03-10] MEDS: predniSONE 20 MG TAB PO SCH (08:09)
[2019-03-10] MEDS: METOPROLOL TARTRATE 25 MG TAB PO SCH ×2 (08:09→21:26)
--- NOTE | 2019-03-10 08:32 | P.PN ---
Subjective Progress Note Date: 03/09/19 Principal diagnosis: Patient is being treated for dry UTI being the possible source of infection patient has gram-negative bacilli in the urine I'm obtaining a repeat chest x- ray because of his hypoxia patient is wheezing there is no evidence of pneumonia on the admission chest x-ray. Patient repeat blood cultures are so far negative infectious disease will be consulted. Patient started wheezing again because of which patient will be started on small dose of oral steroids and patient will be continued on long-acting insulin just temporarily for systemic steroids. Constitutional: Denied any fatigue denied any fever. Cardio vascular: denied any chest pain, palpitations Gastrointestinal denied any nausea vomiting Pulmonary: Denied any shortness of breath cough Neurologic denied any new focal deficits All inpatient medications were reviewed and appropriate changes in these medications as dictated in the interval history and assessment and plan. 03/09/2019 Patient is sitting up in the chair in no acute distress with at the bedside. Robert the museum educator at the bedside to educate about blood sugars, diets, possible insulin. No acute overnight issues. Infectious disease Dr. Wray is following for antibiotic recommendations. Patient's blood sugars continue to be elevated possibly due to the steroids and is being closely monitored. Patient's wheezing has slightly improved and chest x-ray done today shows the heart being mildly enlarged with diffuse interstitial prominence that appears in part chronic but may reflect mild pulmonary vascular congestion and some mild patchy right basilar densities, likely atelectasis. Discussed with the patient about coughing and deep breathing and will obtain an incentive spirometer. Patient denies any chest pain, shortness of breath, or palpitations at this time. Patient is afebrile. Patient denies any nausea or vomiting and is tolerating diet. Patient has a chronic Grover catheter and follows with Dr. Barrera in the outpatient setting. Objective - Vital Signs Vital signs: Vital Signs Temp 97.8 F 03/10/19 05:00 Pulse 107 H 03/10/19 05:00 Resp 20 03/10/19 05:00 BP 155/74 03/10/19 05:00 Pulse Ox 97 03/10/19 05:00 Intake & Output 03/09/19 03/10/19 03/10/19 18:59 06:59 18:59 Intake Total 1080 Output Total 500 550 Balance -500 530 Weight 118.3 kg Intake: Oral 1080 Output: Urine 500 550 Uretheral (Grover) 550 Other: Voiding Method Indwelling Catheter Indwelling Catheter # Voids 1 # Bowel Movements 1 - Exam GENERAL: The patient is alert and oriented x3, not in any acute distress. Well developed, well nourished. HEENT: Pupils are round and equally reacting to light. EOMI. No scleral icterus. No conjunctival pallor. Normocephalic, atraumatic. No pharyngeal erythema. No thyromegaly. CARDIOVASCULAR: S1 and S2 present. No murmurs, rubs, or gallops. PULMONARY: Mild Expiratory wheezing noted with slight improvement as compared to yesterday and diminished air entry bilateral lung santos no crackles are appreciated ABDOMEN: Soft, nontender, nondistended, normoactive bowel sounds. No palpable organomegaly. Grover catheter in place which was replaced in ER MUSCULOSKELETAL: No joint swelling or deformity. EXTREMITIES: No cyanosis, clubbing, or pedal edema. NEUROLOGICAL: Gross neurological examination did not reveal any focal deficits. SKIN: No rashes. - Labs CBC & Chem 7: 03/06/19 19:22 03/06/19 19:22 Labs: Abnormal Lab Results - Last 24 Hours (Table) 03/09/19 03/09/19 03/09/19 Range/Units 11:01 17:02 21:06 POC Glucose (mg/dL) 246 H 268 H 209 H (75-99) mg/dL 03/10/19 03/10/19 Range/Units 02:42 07:02 POC Glucose (mg/dL) 179 H 191 H (75-99) mg/dL Microbiology - Last 24 Hours (Table) 03/06/19 19:22 Blood Culture Gram Stain - Final Blood Blood Culture - Final Escherichia coli 03/07/19 12:10 Blood Culture - Preliminary Blood No Growth after 48 hours 03/06/19 19:22 Urine Culture - Final Urine,Clean Catch Assessment and Plan Assessment: -sepsis, bacteremia secondary to urinary tract infection repeat blood cultures will be obtained Rocephin dose will be increased infectious disease consulted. Patient has a Grover cath related urinary tract infection. Patient has gram- negative bacilli in the blood so far urine cultures are negative and repeat blood cultures are negative -COPD with mild acute exacerbation patient's wheezing is slightly better today and patient is maintained on low-dose of prednisone continue with inhaled steroids and inhalational treatments and patient will be continued on long- acting insulin as long as he is on steroids -Type 2 diabetes mellitus with uncontrolled blood sugars due to systemic steroids further management as mentioned above. Continue with metformin and long-acting insulin along with sliding scale insulin. Will continue to monitor closely. -Hyperlipidemia -Hypertension -Anxiety disorder -obesity -DVT prophylaxis with subcutaneous heparin
[2019-03-10] MEDS: SYMBICORT 160-4.5 MCG INHALER INHALATION SCH ×2 (09:04→20:44)
[2019-03-10 11:18] LABS: Glucose,Whole Blood 247 mg/dL (75-99)
[2019-03-10 17:25] LABS: Glucose,Whole Blood 215 mg/dL (75-99)
[2019-03-10 20:00] LABS: Glucose,Whole Blood 198 mg/dL (75-99)
[2019-03-10] MEDS: INSULIN DETEMIR (LEVEMIR) 100 UNIT/ML SYR SQ SCH (21:25)
[2019-03-10] MEDS: QUEtiapine 50 MG TAB PO SCH (21:26)
[2019-03-11] MEDS: IPRATROPIUM-ALBUTEROL 3 ML NEB INHALATION SCH ×4 (01:17→11:49)
[2019-03-11 03:44] LABS: Glucose,Whole Blood 142 mg/dL (75-99)
[2019-03-11 07:15] LABS: Glucose,Whole Blood 151 mg/dL (75-99)
[2019-03-11] MEDS: INSULIN ASPART (NovoLOG) 100 UNIT/ML VIAL SQ SCH (07:28)
[2019-03-11] MEDS: HEPARIN SODIUM,PORCINE 5,000 UNIT/ML 1 ML VIAL SQ SCH (07:30)
[2019-03-11] MEDS: PANTOPRAZOLE 40 MG TABLET PO SCH (07:32)
[2019-03-11] MEDS: metFORMIN 500 MG TAB PO SCH (07:33)
[2019-03-11] MEDS: SYMBICORT 160-4.5 MCG INHALER INHALATION SCH (07:50)
--- NOTE | 2019-03-11 08:23 | P.PN ---
Subjective Progress Note Date: 03/10/19 Principal diagnosis: Patient is being treated for dry UTI being the possible source of infection patient has gram-negative bacilli in the urine I'm obtaining a repeat chest x- ray because of his hypoxia patient is wheezing there is no evidence of pneumonia on the admission chest x-ray. Patient repeat blood cultures are so far negative infectious disease will be consulted. Patient started wheezing again because of which patient will be started on small dose of oral steroids and patient will be continued on long-acting insulin just temporarily for systemic steroids. Constitutional: Denied any fatigue denied any fever. Cardio vascular: denied any chest pain, palpitations Gastrointestinal denied any nausea vomiting Pulmonary: Denied any shortness of breath cough Neurologic denied any new focal deficits All inpatient medications were reviewed and appropriate changes in these medications as dictated in the interval history and assessment and plan. 03/09/2019 Patient is sitting up in the chair in no acute distress with at the bedside. Robert the nurse educator at the bedside to educate about blood sugars, diets, possible insulin. No acute overnight issues. Infectious disease Dr. Wray is following for antibiotic recommendations. Patient's blood sugars continue to be elevated possibly due to the steroids and is being closely monitored. Patient's wheezing has slightly improved and chest x-ray done today shows the heart being mildly enlarged with diffuse interstitial prominence that appears in part chronic but may reflect mild pulmonary vascular congestion and some mild patchy right basilar densities, likely atelectasis. Discussed with the patient about coughing and deep breathing and will obtain an incentive spirometer. Patient denies any chest pain, shortness of breath, or palpitations at this time. Patient is afebrile. Patient denies any nausea or vomiting and is tolerating diet. Patient has a chronic Grover catheter and follows with Dr. Barrera in the outpatient setting. 03/10/2019 Patient is lying in bed in no acute distress with no overnight issues. Patient is currently awaiting a midline placement for continued antibiotic therapy per infectious disease recommendations. Patient is also [facility] on [facility] for discharge. Currently patient denies any shortness of breath, chest pain, or palpitations. Patient is afebrile. She denies any nausea or vomiting and is tolerating diet. Patient's blood sugars continue be slightly elevated and is being covered by sliding scale at this ti me. Will continue to monitor closely. Objective - Vital Signs Vital signs: Vital Signs Temp 97.6 F 03/10/19 12:16 Pulse 112 H 03/10/19 13:19 Resp 22 03/10/19 12:16 BP 132/76 03/10/19 12:16 Pulse Ox 91 L 03/10/19 12:16 Intake & Output 03/09/19 03/10/19 03/10/19 18:59 06:59 18:59 Intake Total 1080 50 Output Total 500 550 Balance -500 530 50 Weight 118.3 kg Intake: Intake, IV Titration 50 Amount cefTRIAXone 2 gm In 50 Sodium Chloride 0.9% 50 ml @ 100 mls/hr IVPB Q24HR [facility] Rx#:[id number] Oral 1080 Output: Urine 500 550 Uretheral (Grover) 550 Other: Voiding Method Indwelling Catheter Indwelling Catheter Indwelling Catheter # Voids 1 # Bowel Movements 1 - Exam GENERAL: The patient is alert and oriented x3, not in any acute distress. Well developed, well nourished. HEENT: Pupils are round and equally reacting to light. EOMI. No scleral icterus. No conjunctival pallor. Normocephalic, atraumatic. No pharyngeal erythema. No thyromegaly. CARDIOVASCULAR: S1 and S2 present. No murmurs, rubs, or gallops. PULMONARY: Mild Expiratory wheezing noted with slight improvement as compared to yesterday and diminished air entry bilateral lung santos no crackles are appreciated ABDOMEN: Soft, nontender, nondistended, normoactive bowel sounds. No palpable organomegaly. Grovre catheter in place which was replaced in ER MUSCULOSKELETAL: No joint swelling or deformity. EXTREMITIES: No cyanosis, clubbing, or pedal edema. NEUROLOGICAL: Gross neurological examination did not reveal any focal deficits. SKIN: No rashes. - Labs CBC & Chem 7: 03/06/19 19:22 03/06/19 19:22 Labs: Abnormal Lab Results - Last 24 Hours (Table) 03/09/19 03/09/19 03/10/19 Range/Units 17:02 21:06 02:42 POC Glucose (mg/dL) 268 H 209 H 179 H (75-99) mg/dL 03/10/19 03/10/19 Range/Units 07:02 11:17 POC Glucose (mg/dL) 191 H 247 H (75-99) mg/dL Microbiology - Last 24 Hours (Table) 03/07/19 12:10 Blood Culture - Preliminary Blood No Growth after 72 hours 03/06/19 19:22 Blood Culture Gram Stain - Final Blood Blood Culture - Final Escherichia coli Assessment and Plan Assessment: -sepsis, bacteremia secondary to urinary tract infection repeat blood cultures will be obtained Rocephin dose will be increased infectious disease consulted. Patient has a Grover cath related urinary tract infection. Patient has gram- negative bacilli in the blood so far urine cultures are negative and repeat blood cultures are negative. Original blood cultures from 03/06/2019 finalized as E. coli, but repeat blood cultures and urine cultures thus far been negative. Infectious disease is following. -COPD with mild acute exacerbation patient's wheezing is slightly better today and patient is maintained on low-dose of prednisone continue with inhaled steroids and inhalational treatments and patient will be continued on long- acting insulin as long as he is on steroids -Type 2 diabetes mellitus with uncontrolled blood sugars due to systemic steroids further management as mentioned above. Continue with metformin and long-acting insulin along with sliding scale insulin. Will continue to monitor closely. -Hyperlipidemia -Hypertension -Anxiety disorder -obesity -DVT prophylaxis with subcutaneous heparin
[2019-03-11] MEDS: predniSONE 20 MG TAB PO SCH (10:06)
[2019-03-11] MEDS: METOPROLOL TARTRATE 25 MG TAB PO SCH (10:06)
[2019-03-11 10:41] LABS: Basophils # (A) 0.1 k/uL (0-0.2); Basophils % (A) 1 %; Eosinophils # (A) 0.3 k/uL (0-0.7); Eosinophils % (A) 4 %; HCT 38.5 % (39.0-53.0); HGB 12.4 gm/dL (13.0-17.5); Lymphocytes # (A) 1.3 k/uL (1.0-4.8); Lymphocytes % (A) 15 %; MCH 28.6 pg (25.0-35.0); MCHC 32.2 g/dL (31.0-37.0); MCV 88.8 fL (80.0-100.0); Mean Platelet Volume 6.7; Monocytes # (A) 0.3 k/uL (0-1.0); Monocytes % (A) 3 %; Neutrophils # (A) 6.3 k/uL (1.3-7.7); Neutrophils % (A) 74 %; Platelet Count 238 k/uL (150-450); RBC 4.34 m/uL (4.30-5.90); WBC 8.5 k/uL (3.8-10.6)
[2019-03-11 10:50] LABS: African American GFR (CKD) >90 (>60 ml/min/1.73 sqM); Anion Gap 13 mmol/L; Blood Urea Nitrogen 21 mg/dL (9-20); Calcium 8.5 mg/dL (8.4-10.2); Carbon Dioxide 30 mmol/L (22-30); Chloride 102 mmol/L (98-107); Glucose 175 mg/dL (74-99); Potassium 3.8 mmol/L (3.5-5.1); Sodium 145 mmol/L (137-145)
[2019-03-11 11:11] LABS: Glucose,Whole Blood 188 mg/dL (75-99)
[2019-03-11 11:51] VITALS: BP 111/76; RESP 18; TEMP 97.3
[2019-03-11 12:01] VITALS: PULSE 98
--- NOTE | 2019-03-11 15:10 | P.DS ---
Providers Date of admission: 03/06/19 20:16 Expected date of discharge: 03/11/19 Attending physician: India Vargas Consults: 03/08/19 14:39 Consult Physician Routine Consulting Provider: Tom Wray Consult Reason/Comments: bacteremia Do you want consulting provider notified?: Yes Primary care physician: [facility] Course: Final diagnosis -sepsis, bacteremia secondary to urinary tract infection -COPD with mild acute exacerbation -Type 2 diabetes mellitus with uncontrolled blood sugars -Hyperlipidemia -Hypertension -Anxiety disorder -obesity -DVT prophylaxis Discharge disposition Patient is being discharged in a stable condition with guarded prognosis to home and will have home care follow. Per infectious disease recommendations patient is being continued on IV antibiotic therapy in the form of Rocephin for 2 weeks. Antibiotic arrangements have been made by infectious disease. Total time taken is 35 minutes. History of present illness This is a 74-year-old male who was recently admitted for sepsis and bacteremia secondary to urinary tract infection and is being closely monitored. Infectious disease was following. Patient received a midline during hospitalization and will be continuing on IV antibiotics therapy in the form of Rocephin for the next 2 weeks. Repeat blood cultures show no growth thus far. During hospitalization patient experienced some wheezing with a history of COPD with mild acute exacerbation and was receiving inhalational treatments along with some steroids that were causing his blood sugars to be elevated. Patient is currently maintained on metformin in the outpatient setting and will continue with this at this time. Patient was being covered with sliding scale during hospitalization. Patient is a chronic Grover catheter which was replaced during this hospital admission and is draining well with clear yellow urine. Patient will follow-up with urology in the outpatient setting upon discharge. Currently patient's condition is stable with much improvement and is ready for discharge. Patient denies any chest pain, shortness of breath, or palpitations at this time. Patient is afebrile. Patient denies any nausea or vomiting and is tolerating diet. Guarded prognosis. On exam vital signs are stable. Temp is 97.3F, pulse is 99, respirations are 18, blood pressure is 111/76, oxygen saturation is 95% on 3 L. Cardio S1 and S2 are present. Respiratory system shows diminished breath sounds at the bases with mild expiratory wheezing noted. Abdomen is soft, obese, nontender. Nervous system shows no focal deficits. Please refer to medication reconciliation sheet for a list of medications. Patient Condition at Discharge: Fair Plan - Discharge Summary Discharge Rx Participant: No New Discharge Prescriptions: New cefTRIAXone [Rocephin] 2 gm IM Q24H #14 vial predniSONE 10 mg PO DIRECTED #9 tab Continue Metoprolol Tartrate [Lopressor] 25 mg PO BID Fluticasone Nasal [place] [Flonase Nasal [place]] 1 spray EA NOSTRIL DAILY PRN PRN Reason: Allergy Symptoms Acetaminophen Tab [Tylenol] 500 mg PO BID PRN PRN Reason: Pain metFORMIN HCL 1,000 mg PO BID QUEtiapine [SEROquel] 50 mg PO HS Budesonide-Formot 160-4.5 Mcg [Symbicort 160-4.5 Mcg Inhaler] 2 puff INHALATION RT-BID PRN PRN Reason: Shortness Of Breath Furosemide [Lasix] 40 mg PO DAILY Ipratropium-Albuterol Nebulize [Duoneb 0.5 mg-3 mg/3 ml Soln] 3 ml INHALATION RT-QID Discharge Medication List Metoprolol Tartrate [Lopressor] 25 mg PO BID 07/07/17 [History] Acetaminophen Tab [Tylenol] 500 mg PO BID PRN 11/07/17 [History] Fluticasone Nasal [place] [Flonase Nasal [place]] 1 spray EA NOSTRIL DAILY PRN 11/07/17 [History] Budesonide-Formot 160-4.5 Mcg [Symbicort 160-4.5 Mcg Inhaler] 2 puff INHALATION RT-BID PRN 09/10/18 [History] Furosemide [Lasix] 40 mg PO DAILY 09/10/18 [History] Ipratropium-Albuterol Nebulize [Duoneb 0.5 mg-3 mg/3 ml Soln] 3 ml INHALATION RT-QID 09/10/18 [History] QUEtiapine [SEROquel] 50 mg PO HS 09/10/18 [History] metFORMIN HCL 1,000 mg PO BID 09/10/18 [History] cefTRIAXone [Rocephin] 2 gm IM Q24H #14 vial 03/09/19 [Rx] predniSONE 10 mg PO DIRECTED #9 tab 03/11/19 [Rx] Follow up [facility]ment([facility] Tom Wray MD [STAFF PHYSICIAN] - 03/25/19 2:30 pm [facility],Clinic [Primary Care Provider] - 03/12/19 8:00 am Ambulatory/Diagnostic Orders: Basic Metabolic Panel [LAB.AMB] Location: None Selected Complete Blood Count w/diff [LAB.AMB] Location: None Selected Patient Instructions/Handouts: Prednisone (By mouth), Ceftriaxone (By injection), Urinary Tract Infection in Men (DC), Sepsis (GEN), Bacteremia (DC), How to Care for Your Midline Catheter (DC), How to Flush Your PICC or Midline Catheter (DC), Peripherally Inserted Central Catheters and Midline Catheters (DC) Activity/Diet/Wound Care/Special Instructions: Activity Limited until follow-up Continue current diet Continue to monitor blood sugars Follow-up with primary care provider upon discharge Continue with antibiotic therapy per infectious disease recommendations Follow-up with urology upon discharge Finish prednisone taper Complete infusion - Discharge Disposition: HOME WITH HOME HEALTH SERVICES
== END 2019-03-11 14:27 | disposition home health service (06) | DRG 698 ==
LOC: EC 19:06 → 3SCARD 20:16 → 3NMEDONC 03-07 19:57
PROVIDERS: ADMIT Hospitalist; ATTEND Hospitalist
DX: T83.511A Infection and inflammatory reaction due to indwelling urethral catheter, initial encounter (principal); A41.51 Sepsis due to Escherichia coli [E. coli]; J44.1 Chronic obstructive pulmonary disease with (acute) exacerbation; J96.11 Chronic respiratory failure with hypoxia; N39.0 Urinary tract infection, site not specified; E11.65 Type 2 diabetes mellitus with hyperglycemia; E66.9 Obesity, unspecified; Z68.36 Body mass index [BMI] 36.0-36.9, adult; E78.5 Hyperlipidemia, unspecified; F03.90 Unspecified dementia, unspecified severity, without behavioral disturbance, psychotic disturbance, mood disturbance, and anxiety; F41.9 Anxiety disorder, unspecified; I11.0 Hypertensive heart disease with heart failure; I50.9 Heart failure, unspecified; T38.0X5A Adverse effect of glucocorticoids and synthetic analogues, initial encounter; Y84.6 Urinary catheterization as the cause of abnormal reaction of the patient, or of later complication, without mention of misadventure at the time of the procedure; Z66 Do not resuscitate; Z79.4 Long term (current) use of insulin; Z79.51 Long term (current) use of inhaled steroids; Z79.52 Long term (current) use of systemic steroids; Z79.899 Other long term (current) drug therapy; Z82.5 Family history of asthma and other chronic lower respiratory diseases; Z85.048 Personal history of other malignant neoplasm of rectum, rectosigmoid junction, and anus; Z87.891 Personal history of nicotine dependence; Z92.3 Personal history of irradiation; Z99.81 Dependence on supplemental oxygen; Z88.6 Allergy status to analgesic agent; Z88.8 Allergy status to other drugs, medicaments and biological substances; Z91.018 Allergy to other foods
CPT/HCPCS: 36410; 36415; 51702; 71045; 71046; 76937; 80048; 80053; 81001; 82550; 83036; 83605; 83735; 83880; 84100; 84484; 85025; 85610; 85730; 86850; 86900; 86901; 87040; 87077; 87086; 87186; 87502; 93005; 94640; 94760; 96361; 96374; 96375; 99291

== ENCOUNTER 2019-06-16 17:37 | Inpatient (IN) | payer OTHER, MEDICARE ==
[2019-06-16] MEDS ORDERED: SODIUM CHLORIDE 0.9% 1,000 ML IV STA ×3 (18:07→20:10)
[2019-06-16] MEDS ORDERED: MORPHINE SULFATE 2 MG/ML SYRINGE IVP STA (18:07)
[2019-06-16] MEDS ORDERED: LORazepam 2 MG/ML INJ IV STA (18:07)
--- NOTE | 2019-06-16 18:07 | ED ---
Recheck HPI - General Chief Complaint: Recheck/Abnormal Lab/Rx Stated Complaint: Catheter issues Time Seen by Provider: 06/16/19 17:59 Source: patient, family, RN notes reviewed, old records reviewed Mode of arrival: wheelchair Limitations: no limitations - History of Present Illness Initial Comments: This is a 74-year-old male DF for evaluation will this hospital for respiratory illnesses sepsis and recurrent infections. Patient has indwelling Grover catheter he denies any complaints always denies complaints does have increased heart rate shortness of breath has been altered mental status per family today. Also per family patient elevated white blood cell, and outpatient evaluation and for evaluation of possible cause of sepsis MD Complaint: abnormal lab (Elevated white blood cell count) -: unknown Returns Today for: Called Because of Abnormal Lab/Test (elev WBC) Symptoms Since Prior Visit: no new symptoms Context: called for abnormal lab result Associated Symptoms: fever, chills, malaise Treatments Prior to Arrival: other medications - Related Data Home Medications Medication Instructions Recorded Confirmed Metoprolol Tartrate [Lopressor] 25 mg PO BID 07/07/17 03/07/19 Acetaminophen Tab [Tylenol] 500 mg PO BID PRN 11/07/17 03/07/19 Fluticasone Nasal [place] [Flonase 1 spray EA NOSTRIL DAILY PRN 11/07/17 03/07/19 Nasal [place]] Budesonide-Formot 160-4.5 Mcg 2 puff INHALATION RT-BID PRN 09/10/18 03/07/19 [Symbicort 160-4.5 Mcg Inhaler] Furosemide [Lasix] 40 mg PO DAILY 09/10/18 03/07/19 Ipratropium-Albuterol Nebulize 3 ml INHALATION RT-QID 09/10/18 03/07/19 [Duoneb 0.5 mg-3 mg/3 ml Soln] QUEtiapine [SEROquel] 50 mg PO HS 09/10/18 03/07/19 metFORMIN HCL 1,000 mg PO BID 09/10/18 03/07/19 Previous Rx's Medication Instructions Recorded cefTRIAXone [Rocephin] 2 gm IM Q24H #14 vial 03/09/19 predniSONE 10 mg PO DIRECTED #9 tab 03/11/19 Allergies Allergy/AdvReac Type Severity Reaction Status Date / Time aspirin Allergy Unknown Verified 06/16/19 17:42 onion Allergy Unknown Verified 06/16/19 17:42 ferrous sulfate AdvReac Dyspnea Verified 06/16/19 17:42 lisinopril AdvReac Cough Verified 06/16/19 17:42 Review of Systems ROS Statement: Those systems with pertinent positive or pertinent negative responses have been documented in the HPI. ROS Other: All systems not noted in ROS Statement are negative. Past Medical History Past Medical History: Cancer, Heart Failure, COPD, Dementia, Hyperlipidemia, Hypertension Additional Past Medical History / Comment(s): rectal cancer diagnosed in 04/2017-stage TIII N0 M0 treated with radiation therapy in 05/2017. pt denies having diabetes History of Any Multi-Drug Resistant Organisms: None Reported Additional Past Surgical History / Comment(s): Fatty tumors removed from bilateral legs. Hydrocele.colonoscopy Past Anesthesia/Blood Transfusion Reactions: No Reported Reaction Past Psychological History: Anxiety Smoking Status: Former smoker Past Alcohol Use History: None Reported Past Drug Use History: None Reported - Past Family History Father Family Medical History: COPD, Pneumonia Additional Family Medical History / Comment(s): Pt states "His dad of chronic lung disease".alcoholic Mother Family Medical History: Dementia Additional Family Medical History / Comment(s): alzhiemers, alcoholic General Exam Limitations: no limitations, altered mental status General appearance: anxious, in distress Head exam: Present: atraumatic, normocephalic, normal inspection Eye exam: Present: normal appearance, PERRL, EOMI. Absent: scleral icterus, conjunctival injection, periorbital swelling ENT exam: Present: normal exam, mucous membranes moist Neck exam: Present: normal inspection. Absent: tenderness, meningismus, lymphadenopathy Respiratory exam: Present: normal lung sounds bilaterally. Absent: respiratory distress, wheezes, rales, rhonchi, stridor Cardiovascular Exam: Present: regular rate, normal rhythm, normal heart sounds. Absent: systolic murmur, diastolic murmur, rubs, gallop, clicks GI/Abdominal exam: Present: soft, normal bowel sounds. Absent: distended, tenderness, guarding, rebound, rigid Extremities exam: Present: normal inspection, full ROM, normal capillary refill. Absent: tenderness, pedal edema, joint swelling, calf tenderness Back exam: Present: normal inspection Neurological exam: Present: alert, oriented X3, CN II-XII intact Psychiatric exam: Present: normal affect, normal mood Skin exam: Present: warm, dry, intact, normal color. Absent: rash Course Vital Signs 06/16/19 06/16/19 06/16/19 17:39 17:53 18:00 Temperature 98.5 F Pulse Rate 117 H 125 H Respiratory 30 H 56 H Rate Blood Pressure 127/79 O2 Sat by Pulse 90 L 91 L 95 Oximetry 06/16/19 06/16/19 06/16/19 18:18 18:30 19:00 Temperature Pulse Rate 123 H 118 H Respiratory 22 25 H 19 Rate Blood Pressure O2 Sat by Pulse 95 96 Oximetry 06/16/19 19:30 Temperature Pulse Rate 122 H Respiratory 7 L Rate Blood Pressure 108/64 O2 Sat by Pulse 96 Oximetry - Reevaluation(s) Reevaluation #1: 06/16/19 18:07 Medical records reviewed Reevaluation #2: 06/16/19 20:09 Sepsis dosing of IV fluids given based ideal body weight not actual weight, 2300mls given bolus - Consultations Consultation #1: Spoke with [facility] were agreeable to admit Medical Decision Making - Medical Decision Making 74 male to the ER for evaluation patient presents today for evaluation and weakness elevated heart rate. Patient has tachycardic episode dehydration UTI with sepsis. Patient left foot catheter exchange, place on IV antibiotics IV hydration fever control patient can be admitted - Lab Data Result diagrams: 06/16/19 18:05 06/16/19 18:05 Lab Results 06/16/19 06/16/19 06/16/19 Range/Units 18:05 18:05 18:05 WBC 17.5 H (3.8-10.6) k/uL RBC 5.61 (4.30-5.90) m/uL Hgb 16.2 (13.0-17.5) gm/dL Hct 49.0 (39.0-53.0) % MCV 87.3 (80.0-100.0) fL MCH 28.8 (25.0-35.0) pg MCHC 33.0 (31.0-37.0) g/dL RDW 14.0 (11.5-15.5) % Plt Count 223 (150-450) k/uL Neutrophils % 90 % Lymphocytes % 3 % Monocytes % 4 % Eosinophils % 0 % Basophils % 2 % Neutrophils # 15.7 H (1.3-7.7) k/uL Lymphocytes # 0.4 L (1.0-4.8) k/uL Monocytes # 0.8 (0-1.0) k/uL Eosinophils # 0.0 (0-0.7) k/uL Basophils # 0.4 H (0-0.2) k/uL PT (9.0-12.0) sec INR (<1.2) APTT (22.0-30.0) sec Sodium 133 L (137-145) mmol/L Potassium 5.3 H (3.5-5.1) mmol/L Chloride 92 L (98-107) mmol/L Carbon Dioxide 26 (22-30) mmol/L Anion Gap 15 mmol/L BUN 37 H (9-20) mg/dL Creatinine 1.35 H (0.66-1.25) mg/dL Est GFR (CKD-EPI)AfAm 60 (>60 ml/min/1.73 sqM) Est GFR (CKD-EPI)NonAf 52 (>60 ml/min/1.73 sqM) Glucose 599 H* (74-99) mg/dL Plasma Lactic Acid Richar 3.3 H* (0.7-2.0) mmol/L Calcium 10.3 H (8.4-10.2) mg/dL Phosphorus 4.0 (2.5-4.5) mg/dL Magnesium 1.6 (1.6-2.3) mg/dL Total Bilirubin 1.1 (0.2-1.3) mg/dL AST 34 (17-59) U/L ALT 30 (4-49) U/L Alkaline Phosphatase 97 (38-126) U/L Creatine Kinase 93 (55-170) U/L Troponin I (0.000-0.034) ng/mL NT-Pro-B Natriuret Pep pg/mL Total Protein 7.4 (6.3-8.2) g/dL Albumin 4.3 (3.5-5.0) g/dL Urine Color Urine Appearance (Clear) Urine pH (5.0-8.0) Ur Specific [place] (1.001-1.035) Urine Protein (Negative) Urine Glucose (UA) (Negative) Urine Ketones (Negative) Urine Blood (Negative) Urine Nitrite (Negative) Urine Bilirubin (Negative) Urine Urobilinogen (<2.0) mg/dL Ur Leukocyte Esterase (Negative) Urine RBC (0-5) /hpf Urine WBC (0-5) /hpf Urine WBC Clumps (None) /hpf Ur Squamous Epith Cells (0-4) /hpf Urine Bacteria (None) /hpf Hyaline Casts (0-2) /lpf Urine Mucus (None) /hpf Influenza Type A RNA (Not Detectd) Influenza Type B (PCR) (Not Detectd) 06/16/19 06/16/19 06/16/19 Range/Units 18:05 18:05 18:05 WBC (3.8-10.6) k/uL RBC (4.30-5.90) m/uL Hgb (13.0-17.5) gm/dL Hct (39.0-53.0) % MCV (80.0-100.0) fL MCH (25.0-35.0) pg MCHC (31.0-37.0) g/dL RDW (11.5-15.5) % Plt Count (150-450) k/uL Neutrophils % % Lymphocytes % % Monocytes % % Eosinophils % % Basophils % % Neutrophils # (1.3-7.7) k/uL Lymphocytes # (1.0-4.8) k/uL Monocytes # (0-1.0) k/uL Eosinophils # (0-0.7) k/uL Basophils # (0-0.2) k/uL PT 9.6 (9.0-12.0) sec INR 0.9 (<1.2) APTT 24.5 (22.0-30.0) sec Sodium (137-145) mmol/L Potassium (3.5-5.1) mmol/L Chloride (98-107) mmol/L Carbon Dioxide (22-30) mmol/L Anion Gap mmol/L BUN (9-20) mg/dL Creatinine (0.66-1.25) mg/dL Est GFR (CKD-EPI)AfAm (>60 ml/min/1.73 sqM) Est GFR (CKD-EPI)NonAf (>60 ml/min/1.73 sqM) Glucose (74-99) mg/dL Plasma Lactic Acid Rich[place] (0.7-2.0) mmol/L Calcium (8.4-10.2) mg/dL Phosphorus (2.5-4.5) mg/dL Magnesium (1.6-2.3) mg/dL Total Bilirubin (0.2-1.3) mg/dL AST (17-59) U/L ALT (4-49) U/L Alkaline Phosphatase (38-126) U/L Creatine Kinase (55-170) U/L Troponin I 0.057 H* (0.000-0.034) ng/mL NT-Pro-B Natriuret Pep 6810 pg/mL Total Protein (6.3-8.2) g/dL Albumin (3.5-5.0) g/dL Urine Color Urine Appearance (Clear) Urine pH (5.0-8.0) Ur Specific [place] (1.001-1.035) Urine Protein (Negative) Urine Glucose (UA) (Negative) Urine Ketones (Negative) Urine Blood (Negative) Urine Nitrite (Negative) Urine Bilirubin (Negative) Urine Urobilinogen (<2.0) mg/dL Ur Leukocyte Esterase (Negative) Urine RBC (0-5) /hpf Urine WBC (0-5) /hpf Urine WBC Clumps (None) /hpf Ur Squamous Epith Cells (0-4) /hpf Urine Bacteria (None) /hpf Hyaline Casts (0-2) /lpf Urine Mucus (None) /hpf Influenza Type A RNA (Not Detectd) Influenza Type B (PCR) (Not Detectd) 06/16/19 06/16/19 Range/Units 18:32 18:32 WBC (3.8-10.6) k/uL RBC (4.30-5.90) m/uL Hgb (13.0-17.5) gm/dL Hct (39.0-53.0) % MCV (80.0-100.0) fL MCH (25.0-35.0) pg MCHC (31.0-37.0) g/dL RDW (11.5-15.5) % Plt Count (150-450) k/uL Neutrophils % % Lymphocytes % % Monocytes % % Eosinophils % % Basophils % % Neutrophils # (1.3-7.7) k/uL Lymphocytes # (1.0-4.8) k/uL Monocytes # (0-1.0) k/uL Eosinophils # (0-0.7) k/uL Basophils # (0-0.2) k/uL PT (9.0-12.0) sec INR (<1.2) APTT (22.0-30.0) sec Sodium (137-145) mmol/L Potassium (3.5-5.1) mmol/L Chloride (98-107) mmol/L Carbon Dioxide (22-30) mmol/L Anion Gap mmol/L BUN (9-20) mg/dL Creatinine (0.66-1.25) mg/dL Est GFR (CKD-EPI)AfAm (>60 ml/min/1.73 sqM) Est GFR (CKD-EPI)NonAf (>60 ml/min/1.73 sqM) Glucose (74-99) mg/dL Plasma Lactic Acid [place] (0.7-2.0) mmol/L Calcium (8.4-10.2) mg/dL Phosphorus (2.5-4.5) mg/dL Magnesium (1.6-2.3) mg/dL Total Bilirubin (0.2-1.3) mg/dL AST (17-59) U/L ALT (4-49) U/L Alkaline Phosphatase (38-126) U/L Creatine Kinase (55-170) U/L Troponin I (0.000-0.034) ng/mL NT-Pro-B Natriuret Pep pg/mL Total Protein (6.3-8.2) g/dL Albumin (3.5-5.0) g/dL Urine Color Light Yellow Urine Appearance Cloudy (Clear) Urine pH 5.5 (5.0-8.0) Ur Specific [place] 1.028 (1.001-1.035) Urine Protein Trace H (Negative) Urine Glucose (UA) 4+ H (Negative) Urine Ketones 1+ H (Negative) Urine Blood Small H (Negative) Urine Nitrite Negative (Negative) Urine Bilirubin Negative (Negative) Urine Urobilinogen <2.0 (<2.0) mg/dL Ur Leukocyte Esterase Large H (Negative) Urine RBC 17 H (0-5) /hpf Urine WBC >182 H (0-5) /hpf Urine WBC Clumps Few H (None) /hpf Ur Squamous Epith Cells 7 H (0-4) /hpf Urine Bacteria Occasional H (None) /hpf Hyaline Casts 1 (0-2) /lpf Urine Mucus Rare H (None) /hpf Influenza Type A RNA Not Detected (Not Detectd) Influenza Type B (PCR) Not Detected (Not Detectd) - EKG Data -: EKG Interpreted by Me (EKG shows sinus tachycardia 124, ND 20, curettes 134, QTc 448) - Radiology Data Radiology results: report reviewed (Chest x-ray is negative for acute disease), image reviewed Critical Care Time Critical Care Time: Yes Total Critical Care Time: 31 Disposition Clinical Impression: UTI (urinary tract infection), Fever, Sepsis, Hyperglycemia Disposition: ADMITTED IP TO THIS HOSP Condition: Serious Is patient prescribed a controlled substance at d/c from ED?: No Referrals: [facility],Clinic [Primary Care Provider] - 1-2 days
[2019-06-16 18:26] LABS: Basophils # (A) 0.4 k/uL (0-0.2); Basophils % (A) 2 %; Eosinophils % (A) 0 %; HGB 16.2 gm/dL (13.0-17.5); Lymphocytes # (A) 0.4 k/uL (1.0-4.8); Lymphocytes % (A) 3 %; MCH 28.8 pg (25.0-35.0); MCV 87.3 fL (80.0-100.0); Mean Platelet Volume 8.1; Monocytes # (A) 0.8 k/uL (0-1.0); Monocytes % (A) 4 %; Neutrophils # (A) 15.7 k/uL (1.3-7.7); Neutrophils % (A) 90 %; Platelet Count 223 k/uL (150-450); RBC 5.61 m/uL (4.30-5.90); WBC 17.5 k/uL (3.8-10.6)
[2019-06-16 18:39] LABS: Albumin 4.3 g/dL (3.5-5.0); Calcium 10.3 mg/dL (8.4-10.2); Magnesium 1.6 mg/dL (1.6-2.3); Potassium 5.3 mmol/L (3.5-5.1); Total Bilirubin 1.1 mg/dL (0.2-1.3); Total Protein 7.4 g/dL (6.3-8.2)
--- NOTE | 2019-06-16 18:55 | ED ---
General Adult HPI - General Chief complaint: Recheck/Abnormal Lab/Rx Stated complaint: Catheter issues Source: patient, family, RN notes reviewed, old records reviewed Mode of arrival: wheelchair Limitations: no limitations, altered mental status - Related Data Home Medications Medication Instructions Recorded Confirmed Metoprolol Tartrate [Lopressor] 25 mg PO BID 07/07/17 03/07/19 Acetaminophen Tab [Tylenol] 500 mg PO BID PRN 11/07/17 03/07/19 Fluticasone Nasal [place] [Flonase 1 spray EA NOSTRIL DAILY PRN 11/07/17 03/07/19 Nasal [place]] Budesonide-Formot 160-4.5 Mcg 2 puff INHALATION RT-BID PRN 09/10/18 03/07/19 [Symbicort 160-4.5 Mcg Inhaler] Furosemide [Lasix] 40 mg PO DAILY 09/10/18 03/07/19 Ipratropium-Albuterol Nebulize 3 ml INHALATION RT-QID 09/10/18 03/07/19 [Duoneb 0.5 mg-3 mg/3 ml Soln] QUEtiapine [SEROquel] 50 mg PO HS 09/10/18 03/07/19 metFORMIN HCL 1,000 mg PO BID 09/10/18 03/07/19 Previous Rx's Medication Instructions Recorded cefTRIAXone [Rocephin] 2 gm IM Q24H #14 vial 03/09/19 predniSONE 10 mg PO DIRECTED #9 tab 03/11/19 Allergies Allergy/AdvReac Type Severity Reaction Status Date / Time aspirin Allergy Unknown Verified 06/16/19 17:42 onion Allergy Unknown Verified 06/16/19 17:42 ferrous sulfate AdvReac Dyspnea Verified 06/16/19 17:42 lisinopril AdvReac Cough Verified 06/16/19 17:42 Review of Systems ROS Statement: Those systems with pertinent positive or pertinent negative responses have been documented in the HPI. ROS Other: All systems not noted in ROS Statement are negative. Past Medical History Past Medical History: Cancer, Heart Failure, COPD, Dementia, Hyperlipidemia, Hypertension Additional Past Medical History / Comment(s): rectal cancer diagnosed in 04/2017-stage TIII N0 M0 treated with radiation therapy in 05/2017. pt denies having diabetes History of Any Multi-Drug Resistant Organisms: None Reported Additional Past Surgical History / Comment(s): Fatty tumors removed from bilateral legs. Hydrocele.colonoscopy Past Anesthesia/Blood Transfusion Reactions: No Reported Reaction Past Psychological History: Anxiety Smoking Status: Former smoker Past Alcohol Use History: None Reported Past Drug Use History: None Reported - Past Family History Father Family Medical History: COPD, Pneumonia Additional Family Medical History / Comment(s): Pt states "His dad of chronic lung disease".alcoholic Mother Family Medical History: Dementia Additional Family Medical History / Comment(s): alzhiemers, alcoholic General Exam Limitations: no limitations, altered mental status General appearance: anxious, in distress Course Vital Signs 06/16/19 06/16/19 17:39 18:18 Temperature 98.5 F Pulse Rate 117 H Respiratory 30 H 22 Rate Blood Pressure 127/79 O2 Sat by Pulse 90 L Oximetry Medical Decision Making - Lab Data Result diagrams: 06/16/19 18:05 06/16/19 18:05 Lab Results 06/16/19 06/16/19 06/16/19 Range/Units 18:05 18:05 18:05 WBC 17.5 H (3.8-10.6) k/uL RBC 5.61 (4.30-5.90) m/uL Hgb 16.2 (13.0-17.5) gm/dL Hct 49.0 (39.0-53.0) % MCV 87.3 (80.0-100.0) fL MCH 28.8 (25.0-35.0) pg MCHC 33.0 (31.0-37.0) g/dL RDW 14.0 (11.5-15.5) % Plt Count 223 (150-450) k/uL Neutrophils % 90 % Lymphocytes % 3 % Monocytes % 4 % Eosinophils % 0 % Basophils % 2 % Neutrophils # 15.7 H (1.3-7.7) k/uL Lymphocytes # 0.4 L (1.0-4.8) k/uL Monocytes # 0.8 (0-1.0) k/uL Eosinophils # 0.0 (0-0.7) k/uL Basophils # 0.4 H (0-0.2) k/uL PT (9.0-12.0) sec INR (<1.2) APTT (22.0-30.0) sec Sodium 133 L (137-145) mmol/L Potassium 5.3 H (3.5-5.1) mmol/L Chloride 92 L (98-107) mmol/L Carbon Dioxide 26 (22-30) mmol/L Anion Gap 15 mmol/L BUN 37 H (9-20) mg/dL Creatinine 1.35 H (0.66-1.25) mg/dL Est GFR (CKD-EPI)AfAm 60 (>60 ml/min/1.73 sqM) Est GFR (CKD-EPI)NonAf 52 (>60 ml/min/1.73 sqM) Glucose 599 H* (74-99) mg/dL Plasma Lactic Acid Richar 3.3 H* (0.7-2.0) mmol/L Calcium 10.3 H (8.4-10.2) mg/dL Phosphorus 4.0 (2.5-4.5) mg/dL Magnesium 1.6 (1.6-2.3) mg/dL Total Bilirubin 1.1 (0.2-1.3) mg/dL AST 34 (17-59) U/L ALT 30 (4-49) U/L Alkaline Phosphatase 97 (38-126) U/L Creatine Kinase 93 (55-170) U/L Troponin I (0.000-0.034) ng/mL NT-Pro-B Natriuret Pep pg/mL Total Protein 7.4 (6.3-8.2) g/dL Albumin 4.3 (3.5-5.0) g/dL Urine Color Urine Appearance (Clear) Urine pH (5.0-8.0) Ur Specific Byron (1.001-1.035) Urine Protein (Negative) Urine Glucose (UA) (Negative) Urine Ketones (Negative) Urine Blood (Negative) Urine Nitrite (Negative) Urine Bilirubin (Negative) Urine Urobilinogen (<2.0) mg/dL Ur Leukocyte Esterase (Negative) Urine RBC (0-5) /hpf Urine WBC (0-5) /hpf Urine WBC Clumps (None) /hpf Ur Squamous Epith Cells (0-4) /hpf Urine Bacteria (None) /hpf Hyaline Casts (0-2) /lpf Urine Mucus (None) /hpf Influenza Type A RNA (Not Detectd) Influenza Type B (PCR) (Not Detectd) 06/16/19 06/16/19 06/16/19 Range/Units 18:05 18:05 18:05 WBC (3.8-10.6) k/uL RBC (4.30-5.90) m/uL Hgb (13.0-17.5) gm/dL Hct (39.0-53.0) % MCV (80.0-100.0) fL MCH (25.0-35.0) pg MCHC (31.0-37.0) g/dL RDW (11.5-15.5) % Plt Count (150-450) k/uL Neutrophils % % Lymphocytes % % Monocytes % % Eosinophils % % Basophils % % Neutrophils # (1.3-7.7) k/uL Lymphocytes # (1.0-4.8) k/uL Monocytes # (0-1.0) k/uL Eosinophils # (0-0.7) k/uL Basophils # (0-0.2) k/uL PT 9.6 (9.0-12.0) sec INR 0.9 (<1.2) APTT 24.5 (22.0-30.0) sec Sodium (137-145) mmol/L Potassium (3.5-5.1) mmol/L Chloride (98-107) mmol/L Carbon Dioxide (22-30) mmol/L Anion Gap mmol/L BUN (9-20) mg/dL Creatinine (0.66-1.25) mg/dL Est GFR (CKD-EPI)AfAm (>60 ml/min/1.73 sqM) Est GFR (CKD-EPI)NonAf (>60 ml/min/1.73 sqM) Glucose (74-99) mg/dL Plasma Lactic Acid Richar (0.7-2.0) mmol/L Calcium (8.4-10.2) mg/dL Phosphorus (2.5-4.5) mg/dL Magnesium (1.6-2.3) mg/dL Total Bilirubin (0.2-1.3) mg/dL AST (17-59) U/L ALT (4-49) U/L Alkaline Phosphatase (38-126) U/L Creatine Kinase (55-170) U/L Troponin I 0.057 H* (0.000-0.034) ng/mL NT-Pro-B Natriuret Pep 6810 pg/mL Total Protein (6.3-8.2) g/dL Albumin (3.5-5.0) g/dL Urine Color Urine Appearance (Clear) Urine pH (5.0-8.0) Ur Specific [place] (1.001-1.035) Urine Protein (Negative) Urine Glucose (UA) (Negative) Urine Ketones (Negative) Urine Blood (Negative) Urine Nitrite (Negative) Urine Bilirubin (Negative) Urine Urobilinogen (<2.0) mg/dL Ur Leukocyte Esterase (Negative) Urine RBC (0-5) /hpf Urine WBC (0-5) /hpf Urine WBC Clumps (None) /hpf Ur Squamous Epith Cells (0-4) /hpf Urine Bacteria (None) /hpf Hyaline Casts (0-2) /lpf Urine Mucus (None) /hpf Influenza Type A RNA (Not Detectd) Influenza Type B (PCR) (Not Detectd) 06/16/19 06/16/19 Range/Units 18:32 18:32 WBC (3.8-10.6) k/uL RBC (4.30-5.90) m/uL Hgb (13.0-17.5) gm/dL Hct (39.0-53.0) % MCV (80.0-100.0) fL MCH (25.0-35.0) pg MCHC (31.0-37.0) g/dL RDW (11.5-15.5) % Plt Count (150-450) k/uL Neutrophils % % Lymphocytes % % Monocytes % % Eosinophils % % Basophils % % Neutrophils # (1.3-7.7) k/uL Lymphocytes # (1.0-4.8) k/uL Monocytes # (0-1.0) k/uL Eosinophils # (0-0.7) k/uL Basophils # (0-0.2) k/uL PT (9.0-12.0) sec INR (<1.2) APTT (22.0-30.0) sec Sodium (137-145) mmol/L Potassium (3.5-5.1) mmol/L Chloride (98-107) mmol/L Carbon Dioxide (22-30) mmol/L Anion Gap mmol/L BUN (9-20) mg/dL Creatinine (0.66-1.25) mg/dL Est GFR (CKD-EPI)AfAm (>60 ml/min/1.73 sqM) Est GFR (CKD-EPI)NonAf (>60 ml/min/1.73 sqM) Glucose (74-99) mg/dL Plasma Lactic Acid Richar (0.7-2.0) mmol/L Calcium (8.4-10.2) mg/dL Phosphorus (2.5-4.5) mg/dL Magnesium (1.6-2.3) mg/dL Total Bilirubin (0.2-1.3) mg/dL AST (17-59) U/L ALT (4-49) U/L Alkaline Phosphatase (38-126) U/L Creatine Kinase (55-170) U/L Troponin I (0.000-0.034) ng/mL NT-Pro-B Natriuret Pep pg/mL Total Protein (6.3-8.2) g/dL Albumin (3.5-5.0) g/dL Urine Color Light Yellow Urine Appearance Cloudy (Clear) Urine pH 5.5 (5.0-8.0) Ur Specific [place] 1.028 (1.001-1.035) Urine Protein Trace H (Negative) Urine Glucose (UA) 4+ H (Negative) Urine Ketones 1+ H (Negative) Urine Blood Small H (Negative) Urine Nitrite Negative (Negative) Urine Bilirubin Negative (Negative) Urine Urobilinogen <2.0 (<2.0) mg/dL Ur Leukocyte Esterase Large H (Negative) Urine RBC 17 H (0-5) /hpf Urine WBC >182 H (0-5) /hpf Urine WBC Clumps Few H (None) /hpf Ur Squamous Epith Cells 7 H (0-4) /hpf Urine Bacteria Occasional H (None) /hpf Hyaline Casts 1 (0-2) /lpf Urine Mucus Rare H (None) /hpf Influenza Type A RNA Not Detected (Not Detectd) Influenza Type B (PCR) Not Detected (Not Detectd) Disposition Referrals: [facility],Clinic [Primary Care Provider] - 1-2 days
[2019-06-16 18:59] LABS: INR 0.9 (<1.2); Partial Thromboplastin Time 24.5 sec (22.0-30.0); Prothrombin Time 9.6 sec (9.0-12.0)
[2019-06-16 19:06] LABS: Appearance,Urine Cloudy (Clear); Bacteria,Urine Occasional /hpf; Bilirubin,Urine Negative (Negative); Blood,Urine Small (Negative); Color,Urine Light Yellow; Glucose,Urine (UA) 4+ (Negative); Hyaline Casts,Urine 1 /lpf (0-2); Ketones,Urine 1+ (Negative); Leukocyte Esterase,Urine Large (Negative); Mucus,Urine Rare /hpf; Nitrite,Urine Negative (Negative); PH, Urine 5.5 (5.0-8.0); Protein,Urine Trace (Negative); RBC,Urine 17 /hpf (0-5); Specific Gravity,Urine 1.028 (1.001-1.035); Squamous Epithelial Cell,Urine 7 /hpf (0-4); Urobilinogen,Urine <2.0 mg/dL (<2.0); WBC,Urine >182 /hpf (0-5)
--- NOTE | 2019-06-16 19:29 | XR ---
EXAMINATION TYPE: XR chest 2V DATE OF EXAM: 06/16/2019 COMPARISON: 03/09/2019 HISTORY: Heart failure TECHNIQUE: FINDINGS: Heart appears shifted to the left side. Heart appears enlarged. There is no obvious heart f ailure. There is some mild atelectasis at the lung bases. IMPRESSION: There is evidence of a atelectasis at the lung bases worse on the left side with slight s hift of the heart to the left side that is more than last exam. No heart failure seen.
[2019-06-16] MEDS ORDERED: AMPICILLIN-SULBACTAM 3 GM in SODIUM CHLORIDE 0.9% 100 ML IVPB STA (20:08)
[2019-06-16] MEDS ORDERED: SODIUM CHLORIDE 0.9% 500 ML 500 ML IV STA (20:10)
[2019-06-16] MEDS ORDERED: ACETAMINOPHEN TAB 325 MG TAB PO PRN (20:11)
[2019-06-16 20:40] LABS: Glucose,Whole Blood 481 mg/dL (75-99)
[2019-06-16] MEDS ORDERED: PROPOFOL 10 MG/ML 20 ML VIAL IV ONE (21:00)
[2019-06-16] MEDS ORDERED: PHENYLEPHRINE 10 MG/ML VIAL ONE (21:00)
[2019-06-16] MEDS ORDERED: ROCURONIUM BROMIDE 10 MG/ML 5 ML VIAL IV ONE (21:00)
[2019-06-16] MEDS: SODIUM CHLORIDE 0.9% 500 ML 500 ML IV SCH ×2 (21:11→22:14)
[2019-06-16] MEDS: SODIUM CHLORIDE 0.9% 1,000 ML IV SCH (22:16)
[2019-06-16 23:09] LABS: Glucose,Whole Blood 372 mg/dL (75-99)
[2019-06-16] MEDS ORDERED: MORPHINE SULFATE 4 MG/ML SYRINGE IVP STA (23:36)
[2019-06-16] MEDS ORDERED: MORPHINE SULFATE 4 MG/ML SYRINGE IVP PRN (23:36)
[2019-06-16] MEDS: LORazepam 2 MG/ML INJ IV PRN (23:44)
[2019-06-17 02:06] LABS: Glucose,Whole Blood 387 mg/dL (75-99)
[2019-06-17 02:21] LABS: ABG Base Excess 2.1 mmol/L; ABG HCO3 28 mmol/L (21-25); ABG Oxygen Saturation 96.7 % (94-97); ABG PCO2 53 mmHg (35-45); ABG PH 7.33 (7.35-7.45); ABG PO2 92 mmHg (83-108); ABG TCO2 30 mmol/L (19-24); Allen Test Performed? Yes
[2019-06-17] MEDS ORDERED: NALOXONE 0.4 MG/ML 1 ML VIAL IV STA (02:22)
[2019-06-17] MEDS ORDERED: NALOXONE 0.4 MG/ML 1 ML VIAL IV PRN (02:57)
[2019-06-17 03:02] LABS: Glucose,Whole Blood 398 mg/dL (75-99)
--- NOTE | 2019-06-17 03:21 | XR ---
EXAMINATION TYPE: XR chest 1V portable DATE OF EXAM: 06/17/2019 COMPARISON: Yesterday HISTORY: Intubated TECHNIQUE: Single view FINDINGS: Endotracheal tube is 3.5 cm from the rey. There is no heart failure. There is probably s ome atelectasis right lung base. There is nasogastric tube in the stomach. There is no pleural effusi on. IMPRESSION: There is probably atelectasis right lung base unchanged compared to old exam. No heart fa ilure seen.
[2019-06-17] MEDS: PROPOFOL 1,000 MG in EMPTY BAG 1 BAG IV SCH ×2 (03:27→06:25)
[2019-06-17] MEDS ORDERED: INSULIN REGULAR BOLUS (FROM DRIP BAG) IV PRN (03:34)
[2019-06-17] MEDS ORDERED: INSULIN REGULAR 100 UNIT in SODIUM CHLORIDE 0.9% 100 ML IV SCH (03:45)
[2019-06-17 03:49] LABS: Glucose,Whole Blood 399 mg/dL (75-99)
[2019-06-17 04:19] LABS: Glucose,Whole Blood 412 mg/dL (75-99)
[2019-06-17] MEDS ORDERED: NOREPINEPHRINE 8 MG in SODIUM CHLORIDE 0.9% 250 ML IV SCH (04:30)
[2019-06-17 04:34] LABS: ABG Base Excess 1.4 mmol/L; ABG HCO3 28 mmol/L (21-25); ABG Oxygen Saturation 99.8 % (94-97); ABG PCO2 60 mmHg (35-45); ABG PH 7.28 (7.35-7.45); ABG PO2 >400 mmHg (83-108); ABG TCO2 30 mmol/L (19-24); Allen Test Performed? Yes
[2019-06-17] MEDS ORDERED: AMPICILLIN-SULBACTAM 3 GM in SODIUM CHLORIDE 0.9% 100 ML IVPB SCH (05:00)
[2019-06-17 05:31] LABS: Glucose,Whole Blood 351 mg/dL (75-99)
[2019-06-17] MEDS: SODIUM CHLORIDE 0.9% 1,000 ML IV SCH (05:33)
[2019-06-17 05:51] LABS: Basophils # (A) 0.3 k/uL (0-0.2); Basophils % (A) 2 %; Eosinophils # (A) 0.1 k/uL (0-0.7); Eosinophils % (A) 0 %; HCT 43.2 % (39.0-53.0); HGB 14.3 gm/dL (13.0-17.5); Lymphocytes # (A) 0.5 k/uL (1.0-4.8); Lymphocytes % (A) 3 %; MCH 29.4 pg (25.0-35.0); MCHC 33.2 g/dL (31.0-37.0); MCV 88.5 fL (80.0-100.0); Mean Platelet Volume 7.9; Monocytes # (A) 0.6 k/uL (0-1.0); Monocytes % (A) 3 %; Neutrophils # (A) 16.8 k/uL (1.3-7.7); Neutrophils % (A) 91 %; Platelet Count 189 k/uL (150-450); RBC 4.89 m/uL (4.30-5.90); WBC 18.4 k/uL (3.8-10.6)
[2019-06-17 06:05] LABS: Glucose,Whole Blood 346 mg/dL (75-99)
[2019-06-17 06:08] LABS: Calcium 8.8 mg/dL (8.4-10.2); Magnesium 1.7 mg/dL (1.6-2.3); Potassium 4.3 mmol/L (3.5-5.1)
[2019-06-17] MEDS ORDERED: ONDANSETRON 4 MG/2 ML VIAL IVP PRN (06:53)
[2019-06-17] MEDS ORDERED: ATROPINE OPHTH SOLN 1% 5ML BTL SUBLINGUAL PRN (06:53)
[2019-06-17] MEDS ORDERED: MORPHINE SULFATE (100 MG/2 ML) 100 MG in SODIUM CHLORIDE 0.9% 100 ML IV SCH (07:00)
[2019-06-17] MEDS ORDERED: INSULIN ASPART (NovoLOG) 100 UNIT/ML VIAL SQ SCH (07:30)
[2019-06-17 08:47] VITALS: TEMP 100.8
[2019-06-17] MEDS ORDERED: PANTOPRAZOLE 40 MG/10 ML VIAL IV SCH (09:00)
[2019-06-17] MEDS ORDERED: CHLORHEXIDINE GLUCONATE 15 ML CUP MUCOUS MEM SCH (09:00)
[2019-06-17] MEDS ORDERED: ENOXAPARIN 40 MG/0.4 ML SYRINGE SQ SCH (09:00)
[2019-06-17 11:18] VITALS: BP 114/84; PULSE 126; RESP 27
[2019-06-17] MEDS: LORazepam 2 MG/ML INJ IV PRN (11:20)
--- NOTE | 2019-06-17 11:48 | P.HPIM ---
History of Present Illness This is a pleasant 74 years old male was admitted to our group last night, patient this morning was assigned to me, and when i went to see the patient, family was at bedside including his Mrs. Reynolds and his son. Patient could n ot provide information so information was obtained from the family. He has a history of heart failure, COPD, dementia, hyperlipidemia, hypertension, rectal cancer diagnosed about 4 years ago, status post radiotherapy, he received 6 radiotherapy treatments with the eventual no remnant tumor and found by his oncologist as per and son, chemotherapy was not given for the patient and not recommended, however patient refused chemotherapy at that time, patient has indwelling Grover catheter mostly related to his history of rectal cancer and radiation therapy to the area and possible radiation cystitis, as per patient was admitted to the hospital on last February for sepsis. Yesterday noticed that the patient was dyspneic and there was blood in his Grover catheter bag about 500 mL are emptied. The [facility], they sent home service, the catheter which was with blood again and it was leaking, a sample was taken and sent to the lab, was supple suspicious for infection. There is still and family to bring patient to emergency room, and at that time he was having or difficulty breathing. Patient was admitted to the hospital with possible sepsis and UTI, however he got more short of breath and 18 was called and patient was intubated, however his family when informed the stated patient could not be intubated as he is DO NOT RESUSCITATE, DO NOT INTUBATE upon his request so he was extubated and sent to the ICU for possible comfort measures. When I saw the patient this morning he was confused and he could not provide information. and son at bedside confirmed to me he is DO NOT RESUSCITATE/DO NOT INTUBATE upon his request, and given his worsening breathing pattern and severe sepsis, with recurrent admission with similar problem it bec omes eligible for patient to go for comfort care. As his lungs function is significantly impaired and it'll be very difficult if not impossible to revive him without intubation, TOP of that he has severe recurrent infection which may can also eligible for comfort care. Comfort care/hospice nurse at bedside and I discussed the case with her as well. Laps patient showing fever of 100.8, is tachycardic with heart rate 125-133, history 27-35, blood pressure 114/84, he has white cell count of 18.4 K. Hemoglobin is 14.3. 2 ABG showing worsening acidosis and hypercapnia, pH of 7.33 and 7.28, pCO2 is 53 and 60, while pO2 was within normal range at 92 and later more than 400. Creatinine is elevated as 1.59. Telemetry is normal, sugar is elevated at 351 and 346 Review of Systems N/A Past Medical History Past Medical History: Cancer, Heart Failure, COPD, Dementia, Hyperlipidemia, Hypertension Additional Past Medical History / Comment(s): rectal cancer diagnosed in 04/2017-stage TIII N0 M0 treated with radiation therapy in 05/2017. pt denies having diabetes History of Any Multi-Drug Resistant Organisms: None Reported Additional Past Surgical History / Comment(s): Fatty tumors removed from bilateral legs. Hydrocele.colonoscopy Past Anesthesia/Blood Transfusion Reactions: No Reported Reaction Past Psychological History: Anxiety Additional Psychological History / Comment(s): [employer]. lives at home with his . has [place] and na 3x a week for bathing. has o2, nebulizer,bsc, shower chair. Smoking Status: Former smoker Past Alcohol Use History: None Reported Additional Past Alcohol Use History / Comment(s): started smoking age 22(1966) and quit 2016 smoked 1-2 ppd. drank in past quit after returning from [facility] 43 years ago. He lives at home with his and dog. DME including home oxygen and hospital better in place. Past Drug Use History: None Reported - Past Family History Father Family Medical History: COPD, Pneumonia Additional Family Medical History / Comment(s): Pt states "His dad of chronic lung disease".alcoholic Mother Family Medical History: Dementia Additional Family Medical History / Comment(s): alzheimers, alcoholic Medications and Allergies Home Medications Medication Instructions Recorded Confirmed Type Metoprolol Tartrate [Lopressor] 25 mg PO BID 07/07/17 06/16/19 History Fluticasone Nasal [place] [Flonase 1 spray EA NOSTRIL DAILY 11/07/17 06/16/19 History Nasal [place]] Furosemide [Lasix] 40 mg PO DAILY 09/10/18 06/16/19 History Ipratropium-Albuterol Nebulize 3 ml INHALATION RT-Q4H PRN 09/10/18 06/16/19 History [Duoneb 0.5 mg-3 mg/3 ml Soln] QUEtiapine [SEROquel] 50 mg PO HS 09/10/18 06/16/19 History metFORMIN HCL 1,000 mg PO BID 09/10/18 06/16/19 History Albuterol Sulfate [Ventolin HFA] 2 puff INHALATION RT-QID PRN 06/16/19 06/16/19 History Allergies Allergy/AdvReac Type Severity Reaction Status Date / Time aspirin Allergy Unknown Verified 06/16/19 22:36 onion Allergy Unknown Verified 06/16/19 22:36 ferrous sulfate AdvReac Dyspnea Verified 06/16/19 22:36 lisinopril AdvReac Cough Verified 06/16/19 22:36 Physical Exam Vitals: Vital Signs Temp Pulse Resp BP Pulse Ox 06/17/19 10:00 133 H 14 94 L 06/17/19 09:00 131 H 35 H 106/81 89 L 06/17/19 08:30 125 H 27 H 114/71 89 L 06/17/19 08:00 100.8 F H 125 H 28 H 107/87 94 L 06/17/19 07:40 22 95 06/17/19 07:30 116 H 21 93/64 96 06/17/19 07:00 118 H 24 86/62 06/17/19 06:30 120 H 23 90/62 97 06/17/19 06:00 122 H 22 117/64 95 06/17/19 05:30 123 H 20 99/63 96 06/17/19 05:00 122 H 22 91/63 97 06/17/19 04:30 121 H 20 85/60 97 06/17/19 04:00 124 H 20 85/61 98 06/17/19 03:30 124 H 22 105/72 96 06/17/19 03:00 100.2 F H 120 H 24 131/105 97 06/17/19 02:22 18 06/16/19 23:48 137 H 26 H 125/90 95 06/16/19 22:17 98.6 F 122 H 26 H 132/73 96 06/16/19 21:19 129 H 22 135/81 96 06/16/19 19:30 122 H 7 L 108/64 96 06/16/19 19:00 118 H 19 96 06/16/19 18:30 123 H 25 H 95 06/16/19 18:18 22 06/16/19 18:00 125 H 56 H 95 06/16/19 17:53 91 L 06/16/19 17:39 98.5 F 117 H 30 H 127/79 90 L Intake and Output 06/16/19 06/17/19 06/17/19 22:59 06:59 14:59 Intake Total 600.673 160.609 Output Total 400 50 Balance 200.673 110.609 Intake: IV 130 Sodium Chloride 0.9% 1, 130 000 ml @ 10 mls/hr IV . Q24H REYMUNDO Rx#:[id number] Intake, IV Titration 600.673 30.609 Amount Ampicillin-Sulbactam 3 gm 100 In Sodium Chloride 0.9% 100 ml @ 200 mls/hr IVPB Q8H REYMUNDO Rx#:[id number] Insulin Regular 100 unit 23.802 In Sodium Chloride 0.9% 100 ml @ Per Protocol IV .Q0M REYMUNDO Rx#:[id number] Norepinephrine 8 mg In 7.616 Sodium Chloride 0.9% 250 ml @ 0.05 MCG/KG/MIN 10. 576 mls/hr IV .Q24H REYMUNDO Rx#:[id number] Propofol 1,000 mg In 79.255 30.609 Empty Bag 1 bag @ Titrate IV .Q0M REYMUNDO Rx#: [id number] Sodium Chloride 0.9% 1, 390 000 ml @ 10 mls/hr IV . Q24H REYMUNDO Rx#:[id number] Output: Urine 400 50 Other: Voiding Method Indwelling Catheter Indwelling Catheter Weight 109.316 kg 109.316 kg -GENERAL: The patient is confused. Patient does not look in pain HEENT: Pupils are round and equally reacting to light. EOMI. No scleral icterus. No conjunctival pallor. Normocephalic, atraumatic. No pharyngeal erythema. No thyromegaly. CARDIOVASCULAR: S1 and S2 present. No murmurs, rubs, or gallops. -PULMONARY: Patient is tachypneic, he has decreased air entry in all lung santos, no wheezing -ABDOMEN: Soft, nontender, nondistended, normoactive bowel sounds. No palpable organomegaly. Grover catheter in this place with yellow urine in its MUSCULOSKELETAL: No joint swelling or deformity. EXTREMITIES: No cyanosis, clubbing, or pedal edema. NEUROLOGICAL: Gross neurological examination did not reveal any focal deficits. SKIN: No rashes. No petechiae Results CBC & Chem 7: 06/17/19 05:26 06/17/19 05:26 Labs: Abnormal Lab Results - Last 24 Hours (Table) 06/16/19 06/16/19 06/16/19 Range/Units 18:05 18:05 18:05 WBC 17.5 H (3.8-10.6) k/uL Neutrophils # 15.7 H (1.3-7.7) k/uL Lymphocytes # 0.4 L (1.0-4.8) k/uL Basophils # 0.4 H (0-0.2) k/uL ABG pH (7.35-7.45) ABG pCO2 (35-45) mmHg ABG pO2 (83-108) mmHg ABG HCO3 (21-25) mmol/L ABG Total CO2 (19-24) mmol/L ABG O2 Saturation (94-97) % Sodium 133 L (137-145) mmol/L Potassium 5.3 H (3.5-5.1) mmol/L Chloride 92 L (98-107) mmol/L BUN 37 H (9-20) mg/dL Creatinine 1.35 H (0.66-1.25) mg/dL Glucose 599 H* (74-99) mg/dL POC Glucose (mg/dL) (75-99) mg/dL Plasma Lactic Acid Richar 3.3 H* (0.7-2.0) mmol/L Calcium 10.3 H (8.4-10.2) mg/dL Troponin I (0.000-0.034) ng/mL Urine Protein (Negative) Urine Glucose (UA) (Negative) Urine Ketones (Negative) Urine Blood (Negative) Ur Leukocyte Esterase (Negative) Urine RBC (0-5) /hpf Urine WBC (0-5) /hpf Urine WBC Clumps (None) /hpf Ur Squamous Epith Cells (0-4) /hpf Urine Bacteria (None) /hpf Urine Mucus (None) /hpf 06/16/19 06/16/19 06/16/19 Range/Units 18:05 18:32 20:38 WBC (3.8-10.6) k/uL Neutrophils # (1.3-7.7) k/uL Lymphocytes # (1.0-4.8) k/uL Basophils # (0-0.2) k/uL ABG pH (7.35-7.45) ABG pCO2 (35-45) mmHg ABG pO2 (83-108) mmHg ABG HCO3 (21-25) mmol/L ABG Total CO2 (19-24) mmol/L ABG O2 Saturation (94-97) % Sodium (137-145) mmol/L Potassium (3.5-5.1) mmol/L Chloride (98-107) mmol/L BUN (9-20) mg/dL Creatinine (0.66-1.25) mg/dL Glucose (74-99) mg/dL POC Glucose (mg/dL) 481 H (75-99) mg/dL Plasma Lactic Acid Richar (0.7-2.0) mmol/L Calcium (8.4-10.2) mg/dL Troponin I 0.057 H* (0.000-0.034) ng/mL Urine Protein Trace H (Negative) Urine Glucose (UA) 4+ H (Negative) Urine Ketones 1+ H (Negative) Urine Blood Small H (Negative) Ur Leukocyte Esterase Large H (Negative) Urine RBC 17 H (0-5) /hpf Urine WBC >182 H (0-5) /hpf Urine WBC Clumps Few H (None) /hpf Ur Squamous Epith Cells 7 H (0-4) /hpf Urine Bacteria Occasional H (None) /hpf Urine Mucus Rare H (None) /hpf 06/16/19 06/16/19 06/17/19 Range/Units 21:54 23:07 02:05 WBC (3.8-10.6) k/uL Neutrophils # (1.3-7.7) k/uL Lymphocytes # (1.0-4.8) k/uL Basophils # (0-0.2) k/uL ABG pH (7.35-7.45) ABG pCO2 (35-45) mmHg ABG pO2 (83-108) mmHg ABG HCO3 (21-25) mmol/L ABG Total CO2 (19-24) mmol/L ABG O2 Saturation (94-97) % Sodium (137-145) mmol/L Potassium (3.5-5.1) mmol/L Chloride (98-107) mmol/L BUN (9-20) mg/dL Creatinine (0.66-1.25) mg/dL Glucose (74-99) mg/dL POC Glucose (mg/dL) 372 H 387 H (75-99) mg/dL Plasma Lactic Acid Richar 2.1 H* (0.7-2.0) mmol/L Calcium (8.4-10.2) mg/dL Troponin I (0.000-0.034) ng/mL Urine Protein (Negative) Urine Glucose (UA) (Negative) Urine Ketones (Negative) Urine Blood (Negative) Ur Leukocyte Esterase (Negative) Urine RBC (0-5) /hpf Urine WBC (0-5) /hpf Urine WBC Clumps (None) /hpf Ur Squamous Epith Cells (0-4) /hpf Urine Bacteria (None) /hpf Urine Mucus (None) /hpf 06/17/19 06/17/19 06/17/19 Range/Units 02:14 03:00 03:47 WBC (3.8-10.6) k/uL Neutrophils # (1.3-7.7) k/uL Lymphocytes # (1.0-4.8) k/uL Basophils # (0-0.2) k/uL ABG pH 7.33 L (7.35-7.45) ABG pCO2 53 H (35-45) mmHg ABG pO2 (83-108) mmHg ABG HCO3 28 H (21-25) mmol/L ABG Total CO2 30 H (19-24) mmol/L ABG O2 Saturation (94-97) % Sodium (137-145) mmol/L Potassium (3.5-5.1) mmol/L Chloride (98-107) mmol/L BUN (9-20) mg/dL Creatinine (0.66-1.25) mg/dL Glucose (74-99) mg/dL POC Glucose (mg/dL) 398 H 399 H (75-99) mg/dL Plasma Lactic Acid Richar (0.7-2.0) mmol/L Calcium (8.4-10.2) mg/dL Troponin I (0.000-0.034) ng/mL Urine Protein (Negative) Urine Glucose (UA) (Negative) Urine Ketones (Negative) Urine Blood (Negative) Ur Leukocyte Esterase (Negative) Urine RBC (0-5) /hpf Urine WBC (0-5) /hpf Urine WBC Clumps (None) /hpf Ur Squamous Epith Cells (0-4) /hpf Urine Bacteria (None) /hpf Urine Mucus (None) /hpf 06/17/19 06/17/19 06/17/19 Range/Units 04:18 04:30 05:26 WBC 18.4 H (3.8-10.6) k/uL Neutrophils # 16.8 H (1.3-7.7) k/uL Lymphocytes # 0.5 L (1.0-4.8) k/uL Basophils # 0.3 H (0-0.2) k/uL ABG pH 7.28 L (7.35-7.45) ABG pCO2 60 H (35-45) mmHg ABG pO2 >400 H (83-108) mmHg ABG HCO3 28 H (21-25) mmol/L ABG Total CO2 30 H (19-24) mmol/L ABG O2 Saturation 99.8 H (94-97) % Sodium (137-145) mmol/L Potassium (3.5-5.1) mmol/L Chloride (98-107) mmol/L BUN (9-20) mg/dL Creatinine (0.66-1.25) mg/dL Glucose (74-99) mg/dL POC Glucose (mg/dL) 412 H (75-99) mg/dL Plasma Lactic Acid Richar (0.7-2.0) mmol/L Calcium (8.4-10.2) mg/dL Troponin I (0.000-0.034) ng/mL Urine Protein (Negative) Urine Glucose (UA) (Negative) Urine Ketones (Negative) Urine Blood (Negative) Ur Leukocyte Esterase (Negative) Urine RBC (0-5) /hpf Urine WBC (0-5) /hpf Urine WBC Clumps (None) /hpf Ur Squamous Epith Cells (0-4) /hpf Urine Bacteria (None) /hpf Urine Mucus (None) /hpf 06/17/19 06/17/19 06/17/19 Range/Units 05:26 05:29 06:04 WBC (3.8-10.6) k/uL Neutrophils # (1.3-7.7) k/uL Lymphocytes # (1.0-4.8) k/uL Basophils # (0-0.2) k/uL ABG pH (7.35-7.45) ABG pCO2 (35-45) mmHg ABG pO2 (83-108) mmHg ABG HCO3 (21-25) mmol/L ABG Total CO2 (19-24) mmol/L ABG O2 Saturation (94-97) % Sodium (137-145) mmol/L Potassium (3.5-5.1) mmol/L Chloride (98-107) mmol/L BUN 33 H (9-20) mg/dL Creatinine 1.59 H (0.66-1.25) mg/dL Glucose 377 H (74-99) mg/dL POC Glucose (mg/dL) 351 H 346 H (75-99) mg/dL Plasma Lactic Acid Richar (0.7-2.0) mmol/L Calcium (8.4-10.2) mg/dL Troponin I (0.000-0.034) ng/mL Urine Protein (Negative) Urine Glucose (UA) (Negative) Urine Ketones (Negative) Urine Blood (Negative) Ur Leukocyte Esterase (Negative) Urine RBC (0-5) /hpf Urine WBC (0-5) /hpf Urine WBC Clumps (None) /hpf Ur Squamous Epith Cells (0-4) /hpf Urine Bacteria (None) /hpf Urine Mucus (None) /hpf Microbiology - Last 24 Hours (Table) 06/17/19 03:52 Sputum Culture - Preliminary Sputum 06/16/19 18:32 Urine Culture - Preliminary Urine,Voided Thrombosis Risk Factor Assmnt - Choose All That Apply Any of the Below Risk Factors Present?: Yes Each Factor Represents 1 point: Medical pt on bed rest, Obesity (BMI >25), Sepsis (< 1month), Serious lung disease incl. pneumonia (< 1month) Other Risk Factors: Yes Each Risk Factor Represents 2 Points: Age 61-74 years, Patient confined to bed Thrombosis Risk Factor Assessment Total Risk Factor Score: 8 Thrombosis Risk Factor Assessment Level: High Risk Assessment and Plan Assessment: - acute hypoxic hypercapnic respiratory failure that needs intubation however patient is DO NOT INTUBATE upon his previous wishes confirmed by family, family are wishing to pursue with comfort measures -Acute COPD exacerbation -Combined respiratory and metabolic acidosis -Severe sepsis secondary to UTI -Acute renal failure -Diabetes mellitus with hyperglycemia -History of rectal cancer status post radiotherapy -Indwelling Grover catheter, mostly secondary to history of radiation cystitis -Hypertension -Hyperlipidemia -Dementia -Heart failure -Fatty tumors removed from both legs -Anxiety -EX smoker -Has an order for DO NOT INTUBATE and DO NOT RESUSCITATE as per family Plan: This is continue with comfort care measures, patient is currently on morphine drip will continue with that, we will add Ativan. Continue with comfort care measures, see orders and instructions please for more details. Patient is expected to within hours, less likely days . Family including and son at bedside agree with the plan after I discussed that with them
--- NOTE | 2019-06-22 06:26 | CDI ---
Documentation Clarification Form Date: 06/22/19 From: Marci Das Phone: If you have a question about this query, please contact Haily Garcia, [employer] at [phone] between 8am and 5pm. Admit Date: 06/16/19 Discharge Date: 06/17/19 Patient Name: Ramón Reynolds Visit Number: [id number] ATTENTION: The Clinical Documentation Specialists (CDI) and [facility] Coding Staff appreciate your assistance in clarifying documentation. Please respond to the clarification below the line at the bottom and electronically sign. The CDI & [facility] Coding staff will review the response and follow-up if needed. Please note: Queries are made part of the Legal Health Record. If you have any questions, please contact the author of this message via ITS. Dear Dr. India Vargas, A diagnosis of UTI has been documented in the ED Note and H&P. History/Risk Factors: Has indwelling Grover catheter, hx rectal ca, DM w hyperglycemia, hx irradiation Per documentation in the H&P this patient was admitted with an indwelling Grover catheter. Clinical Indicators: Urinalysis: ketones-1+, leukocyte esterase-large, WBC->182,bacteria-occasional Urine culture: Proteus mirabilis Lab results: WBC-17.5/18.4, Neutrophils-15.7/16.8, lactic acid-3.3, lactic acid sepsis reflx-Y Treatment: IV fluids, IV Unasyn, IV Rocephin In your professional opinion, can you please clarify the etiology of the UTI, if known? Grover catheter UTI not related to catheter/urostomy Other condition, please specify Unable to determine If an infective organism is present, please specify cause and effect relationship if applicable. Unable to determine MTDD
== END 2019-06-17 12:45 | disposition hospice, inpatient (51) | DRG 871 ==
LOC: EC 17:37 → 3SCARD 20:06 → 2SICU 06-17 02:43
PROVIDERS: ADMIT Hospitalist; ATTEND Hospitalist
PROC: 5A1935Z Respiratory Ventilation, Less than 24 Consecutive Hours (ICD-10-PCS; principal; 2019-06-17)
PROC: 0BH17EZ Insertion of Endotracheal Airway into Trachea, Via Natural or Artificial Opening (ICD-10-PCS; principal; 2019-06-17)
DX: A41.9 Sepsis, unspecified organism (principal); J96.01 Acute respiratory failure with hypoxia; J96.02 Acute respiratory failure with hypercapnia; J44.1 Chronic obstructive pulmonary disease with (acute) exacerbation; E87.4 Mixed disorder of acid-base balance; N17.9 Acute kidney failure, unspecified; N39.0 Urinary tract infection, site not specified; R65.20 Severe sepsis without septic shock; I11.0 Hypertensive heart disease with heart failure; F03.90 Unspecified dementia, unspecified severity, without behavioral disturbance, psychotic disturbance, mood disturbance, and anxiety; I50.9 Heart failure, unspecified; Z66 Do not resuscitate; Z51.5 Encounter for palliative care; E11.65 Type 2 diabetes mellitus with hyperglycemia; E86.0 Dehydration; E78.5 Hyperlipidemia, unspecified; F41.9 Anxiety disorder, unspecified; Z79.84 Long term (current) use of oral hypoglycemic drugs; Z79.899 Other long term (current) drug therapy; Z92.3 Personal history of irradiation; Z85.048 Personal history of other malignant neoplasm of rectum, rectosigmoid junction, and anus; Z87.891 Personal history of nicotine dependence; Z98.890 Other specified postprocedural states; Z88.6 Allergy status to analgesic agent; Z88.8 Allergy status to other drugs, medicaments and biological substances; Z91.018 Allergy to other foods; Y84.2 Radiological procedure and radiotherapy as the cause of abnormal reaction of the patient, or of later complication, without mention of misadventure at the time of the procedure; Z82.5 Family history of asthma and other chronic lower respiratory diseases; Z82.0 Family history of epilepsy and other diseases of the nervous system; Z81.1 Family history of alcohol abuse and dependence
CPT/HCPCS: 36415; 36600; 71045; 71046; 80048; 80053; 81001; 82550; 82805; 83605; 83735; 83880; 84100; 84484; 85025; 85610; 85730; 87040; 87070; 87077; 87086; 87186; 87205; 87502; 93005; 94002; 96361; 96365; 96374; 96375; 96376; 99285